=== PATIENT | female | born 1950 | race Caucasian/White ===

== ENCOUNTER → 2016-07-03 | Outpatient (CLI) | payer MEDICARE, OTHER ==
[~2016-07-03] MED LIST: ACET65TA; AMLO10TA; ASPI325T; AUGM500T34 PO; K-TA1TAB PO; LIDOCAINE 1% MDV 20ML VIAL As Ordered ONE; PERC5TAB6 PO; PROA1AER INH; SYNT50TA PO; TIZA4CAP3 PO; TOPA50TA7 PO; TOPI50TA; TRAZ100T4 PO; ZOFR8TAB PO
--- NOTE | 2016-07-03 17:33 | REP ---
ULTRASOUND GUIDED RIGHT AXILLARY LYMPH NODE BIOPSY: The procedure was performed under the direct supervision of Dr. Cheek. The risks and benefits of the procedure were explained to the patient and informed consent was obtained. The right axillary lymph node was localized using ultrasound guidance. The skin was prepped and draped in a sterile fashion. 1% Lidocaine was used as a local anesthetic. Using ultrasound guidance a #19/20-gauge coaxial needle biopsy system was inserted and advanced into the lymph node. 6 core biopsy samples were obtained and sent to the lab. The patient tolerated the procedure well and there were no immediate complications. After the appropriate amount of monitored convalescence the patient was discharged from the department. Reviewed by DESEAN Fernandez 07/04/2016 09:46 AEdited and Signed by Rei Cheek MD 07/04/2016 01:44 P
== END | disposition home or self-care (01) ==
LOC: M RADPRO 12:29
PROVIDERS: ATTEND Internal Medicine
DX: R59.0 Localized enlarged lymph nodes (principal); Z79.899 Other long term (current) drug therapy; Z88.8 Allergy status to other drugs, medicaments and biological substances

== ENCOUNTER → 2016-07-16 | Outpatient (REF) | payer MEDICARE, OTHER ==
[~2016-07-16] MED LIST changes: +BENT10CA PO; -LIDOCAINE 1% MDV 20ML VIAL As Ordered ONE
[2016-07-16 16:06] LABS: MEAN CORPUSCULAR HEMOGLOBIN 28.1 pg (27.0-33.0); MEAN CORPUSCULAR HGB CONC 32.5 g/dl (32.0-36.5); MEAN CORPUSCULAR VOLUME 86.6 fl (80.0-96.0); RED CELL DISTRIBUTION WIDTH 13.4 % (11.5-14.5); WHITE BLOOD COUNT 5.9 K/mm3 (4.0-10.0)
[2016-07-16 19:36] LABS: BASOPHILS 1 % (0-4); EOSINOPHILS 6 % (0-5)
== END ==
LOC: M LABDRAW1 15:21
PROVIDERS: ATTEND Surgery
DX: K57.92 Diverticulitis of intestine, part unspecified, without perforation or abscess without bleeding (principal)

== ENCOUNTER → 2016-07-23 | Outpatient (CLI) | payer MEDICARE, OTHER ==
--- NOTE | 2016-07-23 15:20 | REP ---
LEFT HIP: Three views of the left hip are performed. Patient reports falling on a pin cushion 1 month ago and feels a foreign body under the skin posteriorly. That area is marked on the final image with a metallic BB. A thin linear metallic foreign body is seen at the site of the reported palpable foreign body. This appears to represent a piece of a thin needle measuring 6 mm in length. There are multiple metallic surgical clips from prior surgery anteriorly in this region. The underlying bones are intact with no fracture or dislocation. There are multiple phleboliths in the pelvis. IMPRESSION: Linear metallic foreign body at the site of suspected foreign body, marked on one of the views with a metallic BB. This appears to represent a piece of a metallic needle in the soft tissues. Signed by Deon Santoyo MD 07/23/2016 07:40 P
== END ==
LOC: M RAD 13:09
PROVIDERS: ATTEND Surgery
DX: S70.352A Superficial foreign body, left thigh, initial encounter (principal); X58.XXXA Exposure to other specified factors, initial encounter; Y92.89 Other specified places as the place of occurrence of the external cause; Y93.89 Activity, other specified; Y99.8 Other external cause status

== ENCOUNTER → 2016-07-24 | Outpatient (CLI) | payer MEDICARE, OTHER ==
[~2016-07-24] VITALS: Ht 152.4 cm; Wt 64.9 kg
[~2016-07-24] MED LIST changes: +LIDOCAINE 2% INJ 100 MG/5 ML SDV (FOR ANES.) As Ordered ONE; +LR 1,000 ML IV SCH; +PROPOFOL 200 MG/20 ML VIAL As Ordered ONE
--- NOTE | 2016-07-24 10:42 | ROOR ---
Patient Name: Zofia Banda Procedure Date: 07/24/2016 10:23 AM Date of : 1950 Age: 65 Room: [facility] Gender: Female Note Status: Finalized Procedure: Upper GI endoscopy Indications: Epigastric abdominal pain, Suspected esophageal reflux Providers: Kj Merrill Jr, MD Referring MD: Jolene Luis DO Requesting Provider: Medicines: Propofol per Anesthesia Complications: No immediate complications. Procedure: Pre-Anesthesia Assessment: - Prior to the procedure, a History and Physical was performed, and patient medications and allergies were reviewed. The patient is competent. The risks and benefits of the procedure and the sedation options and risks were discussed with the patient. All questions were answered and informed consent was obtained. Patient identification and proposed procedure were verified by the physician and the nurse in the pre-procedure area and in the procedure room. Mental Status Examination: alert and oriented. Airway Examination: normal oropharyngeal airway and neck mobility. Respiratory Examination: clear to auscultation. CV Examination: normal. ASA Grade Assessment: II - A patient with mild systemic disease. After reviewing the risks and benefits, the patient was deemed in satisfactory condition to undergo the procedure. The anesthesia plan was to use moderate sedation / analgesia (conscious sedation). Immediately prior to administration of medications, the patient was re-assessed for adequacy to receive sedatives. The heart rate, respiratory rate, oxygen saturations, blood pressure, adequacy of pulmonary ventilation, and response to care were monitored throughout the procedure. The physical status of the patient was re-assessed after the procedure. The Endoscope was introduced through the mouth, and advanced to the second part of duodenum. The patient tolerated the procedure well. The upper GI endoscopy was accomplished without difficulty. Findings: The upper third of the esophagus, middle third of the esophagus and lower third of the esophagus were normal. A small hiatal hernia was present. The cardia, gastric fundus and gastric body were normal. Localized severe inflammation characterized by congestion (edema), erosions, erythema, friability and shallow ulcerations was found in the prepyloric region of the stomach. Biopsies were taken with a cold forceps for histology. The duodenal bulb, first portion of the duodenum and second portion of the duodenum were normal. Impression: - Normal upper third of esophagus, middle third of esophagus and lower third of esophagus. - Small hiatal hernia. - Normal cardia, gastric fundus and gastric body. - Gastritis. Biopsied. - Normal duodenal bulb, first portion of the duodenum and second portion of the duodenum. Recommendation: - Discharge patient to home (ambulatory). - Return to my office in 1 week. Kj Merrill MD Kj Merrill Jr, MD 07/24/2016 10:41:32 AM This report has been signed electronically. Number of Addenda: 0 Note Initiated On: 07/24/2016 10:23 AM Estimated Blood Loss: Estimated blood loss: none.
--- NOTE | 2016-07-24 11:06 | ROOR ---
Patient Name: Zofia Banda Procedure Date: 07/24/2016 10:25 AM Date of : 1950 Age: 65 Room: [facility] Gender: Female Note Status: Finalized Procedure: Colonoscopy Indications: Abdominal pain in the left lower quadrant, Follow-up of diverticulitis Providers: Kj Merrill Jr, MD Referring MD: Jolene Luis DO Requesting Provider: Medicines: Propofol per Anesthesia Complications: No immediate complications. Procedure: Pre-Anesthesia Assessment: - Prior to the procedure, a History and Physical was performed, and patient medications and allergies were reviewed. The patient is competent. The risks and benefits of the procedure and the sedation options and risks were discussed with the patient. All questions were answered and informed consent was obtained. Patient identification and proposed procedure were verified by the physician and the nurse in the pre-procedure area and in the procedure room. Mental Status Examination: alert and oriented. Airway Examination: normal oropharyngeal airway and neck mobility. Respiratory Examination: clear to auscultation. CV Examination: normal. ASA Grade Assessment: II - A patient with mild systemic disease. After reviewing the risks and benefits, the patient was deemed in satisfactory condition to undergo the procedure. The anesthesia plan was to use moderate sedation / analgesia (conscious sedation). Immediately prior to administration of medications, the patient was re-assessed for adequacy to receive sedatives. The heart rate, respiratory rate, oxygen saturations, blood pressure, adequacy of pulmonary ventilation, and response to care were monitored throughout the procedure. The physical status of the patient was re-assessed after the procedure. The Colonoscope was introduced through the anus and advanced to the cecum, identified by appendiceal orifice and ileocecal valve. The colonoscopy was performed without difficulty. The patient tolerated the procedure well. The quality of the bowel preparation was adequate and fair. Findings: The perianal and digital rectal examinations were normal. Pertinent negatives include normal sphincter tone, no palpable rectal lesions and no anal lesion or abnormality was detected. The ascending colon, cecum, appendiceal orifice and ileocecal valve appeared normal. A few small-mouthed diverticula were found in the descending colon and transverse colon. Multiple small and large-mouthed diverticula were found in the sigmoid colon. Impression: - Preparation of the colon was fair. - The ascending colon, cecum, appendiceal orifice and ileocecal valve are normal. - Diverticulosis in the descending colon and in the transverse colon. - Diverticulosis in the sigmoid colon. - No specimens collected. Recommendation: - Discharge patient to home (ambulatory). - Repeat colonoscopy in 10 years for screening purposes. Kj Merrill MD Kj Merrill Jr, MD 07/24/2016 11:05:56 AM This report has been signed electronically. Number of Addenda: 0 Note Initiated On: 07/24/2016 10:25 AM Estimated Blood Loss: Estimated blood loss: none.
[2016-07-24 11:30] VITALS: BP 141/74
== END ==
LOC: M OPP 09:17
PROVIDERS: ATTEND Surgery
DX: K57.32 Diverticulitis of large intestine without perforation or abscess without bleeding (principal); K29.70 Gastritis, unspecified, without bleeding; K44.9 Diaphragmatic hernia without obstruction or gangrene; R10.13 Epigastric pain; I10 Essential (primary) hypertension; E11.9 Type 2 diabetes mellitus without complications; E78.5 Hyperlipidemia, unspecified; J44.9 Chronic obstructive pulmonary disease, unspecified; F41.9 Anxiety disorder, unspecified; F32.9 Major depressive disorder, single episode, unspecified; G47.30 Sleep apnea, unspecified; E06.3 Autoimmune thyroiditis; R06.83 Snoring; M19.90 Unspecified osteoarthritis, unspecified site; J45.909 Unspecified asthma, uncomplicated; Z88.8 Allergy status to other drugs, medicaments and biological substances; Z80.1 Family history of malignant neoplasm of trachea, bronchus and lung; Z80.41 Family history of malignant neoplasm of ovary; Z79.899 Other long term (current) drug therapy
CPT/HCPCS: 88305; 99156; 99157; G0105

== ENCOUNTER 2016-10-08 15:25 | Emergency (ER) | payer MEDICARE, OTHER ==
[~2016-10-08] VITALS: Ht 152.4 cm; Wt 64.0 kg
[~2016-10-08 15:25] MED LIST changes: -LIDOCAINE 2% INJ 100 MG/5 ML SDV (FOR ANES.) As Ordered ONE; -LR 1,000 ML IV SCH; -PROPOFOL 200 MG/20 ML VIAL As Ordered ONE
[2016-10-08] MEDS ORDERED: ONDANSETRON 4MG/2ML VIAL (J2405) IV ONE (16:30)
[2016-10-08] MEDS ORDERED: MORPHINE 4 MG/ML 1ML SYRINGE IV PRN (16:30)
[2016-10-08 17:04] LABS: BASO % 0.5 % (0.0-1.0); EOS # 0.2 K/mm3 (0.0-0.50); EOS % 1.8 % (0.0-3.0); LARGE UNSTAINED CELL # 0.2 K/mm3 (0.0-0.4); LARGE UNSTAINED CELL % 1.8 % (0.0-4.0); LYMPH # 3.3 K/mm3 (1.5-4.5); LYMPH % 32.4 % (24.0-44.0); MEAN CORPUSCULAR HEMOGLOBIN 28.6 pg (27.0-33.0); MEAN CORPUSCULAR HGB CONC 33.8 g/dl (32.0-36.5); MEAN CORPUSCULAR VOLUME 84.8 fl (80.0-96.0); MONO # 0.6 K/mm3 (0.0-0.8); MONO % 5.8 % (0.0-5.0); NEUTROPHILS # 5.5 K/mm3 (1.8-7.7); NEUTROPHILS % 57.7 % (36.0-66.0); PLATELET COUNT, AUTOMATED 306 k/mm3 (150-450); RED CELL DISTRIBUTION WIDTH 13.2 % (11.5-14.5); WHITE BLOOD COUNT 9.5 K/mm3 (4.0-10.0)
[2016-10-08 17:09] LABS: CALCIUM OXALATE CRYSTALS SMALL
[2016-10-08 17:10] LABS: INR 0.88
[2016-10-08] MEDS ORDERED: KETOROLAC 30 MG/ML VIAL (J1885) IV ONE (17:15)
[2016-10-08] MEDS ORDERED: MORPHINE 4 MG/ML 1ML SYRINGE IV ONE (17:15)
[2016-10-08 17:27] LABS: ALBUMIN 4.1 GM/DL (3.2-5.2); ALBUMIN/GLOBULIN RATIO 1.24 (1.00-1.93); ALKALINE PHOSPHATASE 87 U/L (45-117); ALT/SGPT 19 U/L (12-78); ANION GAP 9 MEQ/L (8-16); AST/SGOT 12 U/L (15-37); BILIRUBIN,DIRECT < 0.1 MG/DL (0.0-0.2); BILIRUBIN,TOTAL 0.4 MG/DL (0.2-1.0); BLOOD UREA NITROGEN 18 MG/DL (7-18); CALCIUM LEVEL 9.1 MG/DL (8.8-10.2); CARBON DIOXIDE LEVEL 26 MEQ/L (21-32); CHLORIDE LEVEL 107 MEQ/L (98-107); CREATININE FOR GFR 0.75 MG/DL (0.55-1.02); GLOMERULAR FILTRATION RATE > 60.0 (>45); GLUCOSE, FASTING 92 MG/DL (80-110); POTASSIUM SERUM 3.5 MEQ/L (3.5-5.1); SODIUM LEVEL 142 MEQ/L (136-145); TOTAL PROTEIN 7.4 GM/DL (6.4-8.2)
[2016-10-08] MEDS ORDERED: FLOM5CAP PO (17:42)
[2016-10-08] MEDS ORDERED: NAPR250T2 PO (17:42)
[2016-10-08] MEDS ORDERED: ZOFR4TAB3 PO (17:42)
[2016-10-08] MEDS ORDERED: PERC10TA17 PO (17:42)
[2016-10-08 17:52] VITALS: BP 147/81
--- NOTE | 2016-10-08 18:21 | REP ---
CT ABDOMEN: HISTORY: Left sided pain. Hematuria. COMPARISON: 04/26/2016, a noncontrast enhanced examination and 06/09/2016, a contrast enhanced examination. The lung bases are unchanged. Limited evaluation of the solid intraabdominal organs show no gross abnormalities. The patient is status post cholecystectomy. Once again, there are multiple bilateral nephroliths. There is new left-sided hydronephrosis and hydroureter with periureteral edema which can be followed right to the ureterovesical junction where a 4 mm sized calcification resides. This represents a change from the prior exams. There are numerable bilateral pelvic phleboliths, status quo. There is no right-sided hydronephrosis or hydroureter. There is no free fluid or free air in the abdomen or pelvis. Limited evaluation of the abdominal aorta and periaortic regions show no significant changes. Limited evaluation of the bowel loops and mesenteries show no significant changes. There is sigmoid colon diverticulosis. The osseous structures stable and intact. IMPRESSION: Left-sided hydronephrosis and hydroureter with left-sided calculus at the UV junction as described above. Signed by Niko Pereira DO 10/10/2016 03:43 P
== END 2016-10-08 18:20 | disposition home or self-care (01) ==
LOC: M ED 16:48
DX: N13.2 Hydronephrosis with renal and ureteral calculous obstruction (principal)
CPT/HCPCS: 74176; 80048; 80076; 81001; 83605; 83690; 85025; 85610; 85730; 96374; 96375; 96376; 99283; J1885; J2405

== ENCOUNTER → 2016-10-15 | Outpatient (CLI) | payer MEDICARE, OTHER ==
[~2016-10-15] MED LIST changes: +FLOM5CAP PO; +NAPR250T2 PO; +PERC10TA17 PO; +ZOFR4TAB3 PO
--- NOTE | 2016-10-15 15:10 | REP ---
REASON: Pain after fall. Comparison hip MRI: None. There is moderate bilateral asymmetric hip joint space narrowing. There is no abnormal focal chondral or subchondral signal seen arising from the femoral or acetabular component of either hip. There is no prominent marginal osteophytosis. There is no abnormal signal seen arising from the trochanteric tendon or bursal region of either hip. There is no evidence of a mass. The cortical marrow signal seen throughout the imaged osseous pelvis is within normal limits. The signal and morphology throughout the imaged musculature is within normal limits. IMPRESSION: Bilateral hip degenerative changes as described above. No other abnormalities noted. Signed by Niko Pereira DO 10/15/2016 04:52 P
== END ==
LOC: M RAD 10:49
PROVIDERS: ATTEND Physician Assistant
DX: S70.02XA Contusion of left hip, initial encounter (principal); X58.XXXA Exposure to other specified factors, initial encounter; Y92.89 Other specified places as the place of occurrence of the external cause; Y93.9 Activity, unspecified; Y99.9 Unspecified external cause status

== ENCOUNTER → 2016-10-23 | Outpatient (REF) | payer MEDICARE, OTHER | LOC: M SMT 17:06 | PROVIDERS: ATTEND Urology | DX: N20.0 Calculus of kidney (principal) | CPT/HCPCS: 82360; G0463 ==

== ENCOUNTER → 2016-12-09 | Outpatient (REF) | payer MEDICARE, OTHER ==
[2016-12-09 14:48] LABS: REASON FOR REVIEW COMPREHENSIVE REVIEW
== END ==
LOC: M LAB REF 12:50
PROVIDERS: ATTEND Internal Medicine Medical Oncology
DX: R59.9 Enlarged lymph nodes, unspecified (principal)

== ENCOUNTER → 2016-12-30 | Outpatient (CLI) | payer MEDICARE, OTHER ==
[~2016-12-30] MED LIST changes: +E-Z-GAS II EFFERVESCENT PACKET (SODIUM BICARB./CITRIC ACID/SIMETHICONE) As Ordered ONE; +E-Z-HD 98% w/w 340GM SUSP BTL As Ordered ONE; +E-Z-PAQUE 96% w/w SUSP 176GM BTL As Ordered ONE; -NAPR250T2 PO; +NAPR250T4 PO; -PERC10TA17 PO; +PERC10TA26 PO; +PERC5TAB12 PO; -PERC5TAB6 PO; -PROA1AER INH; +PROAAER10 INH; -TOPA50TA7 PO; +TOPA50TA8 PO; +TRAZ-136 PO; -TRAZ100T4 PO
--- NOTE | 2016-12-30 17:52 | REP ---
UPPER GI AIR CONTRAST AND SMALL BOWEL FOLLOW-THROUGH: The procedure was performed under the direct supervision of Dr. Santoyo. The images were reviewed with Dr. Santoyo. The instrumentation technologist film shows no organomegaly or pathological masses. The intestinal gas pattern is nonspecific. There are surgical clips noted in the right upper quadrant. There are renal calculi noted in the left kidney. Liquid barium and gas producing granules were given in the erect position as well as liquid barium in the prone oblique position in order to perform a double contrast upper GI examination. Additionally liquid barium was given at the end of the examination in order to perform a small bowel follow-through. The oral and pharyngeal stages of deglutition are unremarkable. During esophageal transport there are tertiary waves demonstrated. There is no esophagitis, stricture, mucosal ring, or hiatal hernia. Gastroesophageal reflux is not demonstrated on this examination. Within the stomach there is retained ingested material. This makes it difficult to evaluate for polyps. The stomach is otherwise unremarkable. The duodenal cardenas are normally outlined. The mucosal folds are smooth and regular. There is no duodenitis, pancreatitis, peptic ulcer disease, or neoplasm. The visualized portion of the proximal small bowel appears normal in course and caliber. The barium column was followed through the small bowel to the level of the terminal ileum. Small bowel transit time was approximately 40 minutes. During fluoroscopy gentle palpation shows all loops are freely movable and pliable. There are no fixed or angulated loops. The small bowel mucosal pattern is normal in course and caliber. There is no transition to suggest a partial small bowel obstruction. Spot filming of terminal ileum shows it to be unremarkable. IMPRESSION: 1. Esophageal dysmotility. 2. There is retained ingested material within the stomach which makes it difficult to evaluate for polyps. The stomach is otherwise unremarkable. 3. There are left renal calculi identified. 3 minutes and 29 seconds of fluoroscopy time was utilized for this procedure. Reviewed by DESEAN Fernandez 12/31/2016 01:35 PEdited and Signed by Deon Santoyo MD 12/31/2016 05:34 P
== END ==
LOC: M RAD 08:35
PROVIDERS: ATTEND Internal Medicine Gastroenterology
DX: R63.4 Abnormal weight loss (principal); R19.7 Diarrhea, unspecified

== ENCOUNTER → 2017-01-19 | Outpatient (REF) | payer MEDICARE, OTHER ==
[~2017-01-19] MED LIST changes: -E-Z-GAS II EFFERVESCENT PACKET (SODIUM BICARB./CITRIC ACID/SIMETHICONE) As Ordered ONE; -E-Z-HD 98% w/w 340GM SUSP BTL As Ordered ONE; -E-Z-PAQUE 96% w/w SUSP 176GM BTL As Ordered ONE
== END ==
LOC: M LABDRAW1 10:36
PROVIDERS: ATTEND Internal Medicine Gastroenterology
DX: R63.4 Abnormal weight loss (principal); R19.7 Diarrhea, unspecified

== ENCOUNTER → 2017-02-10 | Outpatient (CLI) | payer MEDICARE, OTHER ==
--- NOTE | 2017-02-10 12:19 | REP ---
Gastric emptying nuclear scintigraphy: History: Early satiety. Abnormal weight loss. Technique: 0.98 mCi of technetium-99m sulfur colloid was ingested in two scrambled eggs and 6 ounces of water and sequential anterior and posterior images are acquired for an 89-minute imaging observation period. Regions of interest are drawn around the stomach to plot gastric emptying. Scintigraphic findings: Expected T1/2 is 90 minutes. 23 % emptying is observed in this patient during the 89-minute imaging observation period, for a calculated T1/2 in this patient of 198 minutes. Impression: Delayed gastric emptying. Signed by Rei Cheek MD 02/10/2017 12:10 P
== END ==
LOC: M RAD 09:21
PROVIDERS: ATTEND Internal Medicine Gastroenterology
DX: R68.81 Early satiety (principal); R63.4 Abnormal weight loss
CPT/HCPCS: 78264; A9541

== ENCOUNTER → 2017-05-04 | Outpatient (CLI) | payer MEDICARE, OTHER ==
--- NOTE | 2017-05-04 15:15 | REPMRS ---
Patient History The patient states she had a clinical breast exam in 2016. Family history of breast cancer in sister, breast cancer in mother, and breast cancer in maternal grandmother. Patient states she has lost 60 lbs since her last mammo due to illness Digital Mammo Diagnostic Bilateral: May 04, 2017 - Exam #: [id number] Bilateral CC and MLO view(s) were taken. Technologist: Anastasiia Trejo Technologist Prior study comparison: March 25, 2016, digital mammo diagnostic bilateral performed at [facility]. February 07, 2015, digital mammo diagnostic bilateral performed at [facility]. FINDINGS: There are scattered fibroglandular densities. There is a fairly symmetric fibroglandular pattern in both breasts. There has been no interval development of masses, areas of architectural distortion or clusters of microcalcifications typical of malignancy. ASSESSMENT: BI-RADS/ACR category 2 mammogram. Benign finding(s). Recommendation Routine screening mammogram of both breasts in 1 year (for women over age 40). This mammogram was interpreted with the aid of an FDA-approved computer-aided dectection system. Electronically Signed By: Deon Santoyo MD 05/04/17 [id number]
== END ==
LOC: M RAD 14:00
PROVIDERS: ATTEND Nurse Practitioner Family
DX: Z12.31 Encounter for screening mammogram for malignant neoplasm of breast (principal)

== ENCOUNTER → 2017-06-19 | Outpatient (CLI) | payer MEDICARE, OTHER ==
[2017-06-19 12:15] LABS: MEAN CORPUSCULAR HEMOGLOBIN 28.6 pg (27.0-33.0); MEAN CORPUSCULAR HGB CONC 33.2 g/dl (32.0-36.5); MEAN CORPUSCULAR VOLUME 86.1 fl (80.0-96.0); PLATELET COUNT, AUTOMATED 295 10^3/uL (150-450); RED CELL DISTRIBUTION WIDTH 12.9 % (11.5-14.5); WHITE BLOOD COUNT 5.4 10^3/uL (4.0-10.0)
[2017-06-19 12:24] LABS: CALCIUM OXALATE CRYSTALS SMALL
[2017-06-19 12:30] LABS: INR 0.91
[2017-06-19 12:47] LABS: ERYTHROCYTE SEDIMENTATION RATE 5 mm/hr (0-30)
[2017-06-19 12:53] LABS: ALBUMIN 4.2 GM/DL (3.2-5.2); ALBUMIN/GLOBULIN RATIO 1.45 (1.00-1.93); ALKALINE PHOSPHATASE 75 U/L (45-117); ALT/SGPT 19 U/L (12-78); ANION GAP 8 MEQ/L (8-16); AST/SGOT 17 U/L (7-37); BILIRUBIN,TOTAL 0.4 MG/DL (0.2-1.0); BLOOD UREA NITROGEN 25 MG/DL (7-18); CALCIUM LEVEL 9.5 MG/DL (8.8-10.2); CARBON DIOXIDE LEVEL 29 MEQ/L (21-32); CHLORIDE LEVEL 108 MEQ/L (98-107); CREATININE FOR GFR 0.58 MG/DL (0.55-1.02); GLOMERULAR FILTRATION RATE > 60.0 (>45); GLUCOSE, FASTING 87 MG/DL (80-110); POTASSIUM SERUM 3.8 MEQ/L (3.5-5.1); SODIUM LEVEL 145 MEQ/L (136-145); TOTAL PROTEIN 7.1 GM/DL (6.4-8.2)
== END ==
LOC: M ADMPAT 10:29
DX: M16.11 Unilateral primary osteoarthritis, right hip (principal); Z79.01 Long term (current) use of anticoagulants
CPT/HCPCS: 71020

== ENCOUNTER → 2017-06-24 | Outpatient (REF) | payer MEDICARE, OTHER ==
[2017-06-24 17:45] LABS: APPEARANCE, URINE MANUAL TURBID (CLEAR); COLOR, URINE MANUAL YELLOW (YELLOW)
[2017-06-24 17:46] LABS: BILIRUBIN, URINE MANUAL NEGATIVE (NEGATIVE); BLOOD URINE MANUAL TRACE (NEGATIVE); GLUCOSE, URINE (UA) MANUAL NEGATIVE (NEGATIVE); KETONE, URINE MANUAL NEGATIVE (NEGATIVE); LEUKOCYTE ESTERASE, URINE MAN POSITIVE (NEGATIVE); MICROSCOPIC INDICATED? MAN YES (NO); NITRITE, URINE MANUAL NEGATIVE (NEGATIVE); PROTEIN, URINE MANUAL NEGATIVE (NEGATIVE); SPECIFIC GRAVITY,URINE MANUAL 1.025 (1.002-1.035); UROBILINOGEN, URINE MANUAL NORMAL (NORMAL)
[2017-06-24 18:01] LABS: SQUAMOUS EPITHELIAL CELL URINE LARGE AMOUNT /hpf (SMALL AMT)
[2017-06-24 18:02] LABS: AMORPHOUS SEDIMENT, URINE LARGE AMOUNT (NEGATIVE); BACTERIA, URINE NONE SEEN; CALCIUM OXALATE CRYSTALS,URINE LARGE AMOUNT /hpf; HYALINE CAST, URINE NONE SEEN /lpf (0-1); MICROSCOPIC EXAM PERFORMED; MUCUS, URINE SMALL AMOUNT (NEGATIVE)
== END ==
LOC: M LAB REF 16:41
DX: R30.0 Dysuria (principal)
CPT/HCPCS: 81000

== ENCOUNTER 2017-07-02 06:58 | Inpatient (IN) | payer MEDICARE, OTHER ==
[2017-07-02] MEDS: LR 1,000 ML IV ×2 (07:15→13:30)
[2017-07-02] MEDS ORDERED: LIDOCAINE 1% MDV 20ML VIAL SQ (07:15)
[2017-07-02 07:38] LABS: GLUCOSE, FASTING 111 MG/DL (80-110)
[2017-07-02] MEDS ORDERED: fentaNYL 100 MCG/2 ML INJECTION (J3010) As Ordered ×2 (08:19→08:52)
[2017-07-02] MEDS ORDERED: MIDAZOLAM INJ 2 MG/2 ML VIAL (J2250) As Ordered ×2 (08:19→08:51)
[2017-07-02] MEDS: MIDAZOLAM INJ 2 MG/2 ML VIAL (J2250) IV (08:50)
[2017-07-02] MEDS: fentaNYL 100 MCG/2 ML INJECTION (J3010) IV ×3 (08:50→13:45)
[2017-07-02] MEDS ORDERED: PROPOFOL 200 MG/20 ML VIAL As Ordered (08:51)
[2017-07-02] MEDS ORDERED: ePHEDrine SULFATE 25 MG/5 ML(5MG/ML) SYRINGE As Ordered (08:51)
[2017-07-02] MEDS ORDERED: ONDANSETRON 4MG/2ML VIAL (J2405) As Ordered (08:51)
[2017-07-02] MEDS ORDERED: PHENYLEPHRINE INJ 10MG/ML VIAL (J2370) As Ordered (08:51)
[2017-07-02] MEDS ORDERED: PHENYLephrine HCL 500 MCG/5 ML (100MCG/ML) SYRINGE (J2370) As Ordered ×2 (08:51→11:03)
[2017-07-02] MEDS ORDERED: dexameTHASONE 4 MG/ML 1ML VIAL (J1100) As Ordered (08:51)
[2017-07-02] MEDS ORDERED: LIDOCAINE 2% INJ 100 MG/5 ML SDV (FOR ANES.) As Ordered (08:51)
[2017-07-02] MEDS ORDERED: LIDOCAINE 1% MDV 20ML VIAL (09:46)
[2017-07-02] MEDS ORDERED: ROPIvacaine 0.5% 30 ML INJECTION (J2795 PER 1MG) (09:46)
[2017-07-02] MEDS: ceFAZolin 1GM INJ (J0690 PER 500MG) As Ordered (10:53)
[2017-07-02] MEDS: BUPIVACAINE LIPOSOME/PF 1.3% 20 ML VIAL (13.3MG/ML)(EXPAREL) As Ordered (11:03)
[2017-07-02] MEDS: TRANEXAMIC ACID 100 MG/ML 10ML VIAL As Ordered (11:17)
[2017-07-02] MEDS: EPINEPHrine INJ 1 MG/ML 1ML AMP As Ordered (11:18)
[2017-07-02] MEDS ORDERED: MORPHINE 1MG/ML IN 0.9% NACL 100ML IV BAG As Ordered (11:38)
[2017-07-02] MEDS: MORPHINE 1MG/ML IN 0.9% NACL 100ML IV BAG IV (11:50)
[2017-07-02 12:10] LABS: BEDSIDE GLUCOSE 88 MG/DL (80-115)
[2017-07-02] MEDS ORDERED: PERCOCET 5MG/325MG TAB PO (12:30)
[2017-07-02] MEDS ORDERED: diphenhydrAMINE INJ 50MG/ML VIAL (J1200) IV (12:30)
[2017-07-02] MEDS ORDERED: ONDANSETRON 4MG/2ML VIAL (J2405) IV ×2 (12:30)
[2017-07-02] MEDS ORDERED: NALOXONE INJ 0.4 MG/1 ML VIAL (J2310) IV (12:30)
[2017-07-02] MEDS ORDERED: EPIDURAL/PCA KEYS XX (12:30)
[2017-07-02] MEDS ORDERED: ACETAMINOPHEN TAB 650MG DOSE (2X325MG) PO (12:30)
[2017-07-02] MEDS ORDERED: FLEET ENEMA PR (12:30)
[2017-07-02] MEDS ORDERED: NALBUPHINE HCL 10 MG/ML AMP (J2300) IV (12:30)
[2017-07-02 17:37] LABS: HEMATOCRIT 35.6 % (36.0-47.0); HEMOGLOBIN 11.8 g/dl (12.0-16.0); MEAN CORPUSCULAR HEMOGLOBIN 28.5 pg (27.0-33.0); MEAN CORPUSCULAR HGB CONC 33.1 g/dl (32.0-36.5); RED BLOOD COUNT 4.14 10^6/uL (4.00-5.40); RED CELL DISTRIBUTION WIDTH 12.7 % (11.5-14.5); WHITE BLOOD COUNT 13.2 10^3/uL (4.0-10.0)
[2017-07-02] MEDS: WARFARIN SOD 5 MG TAB PO (17:37)
[2017-07-02 17:59] LABS: POS COUNT POS FLAG
[2017-07-02 18:00] LABS: ANION GAP 7 MEQ/L (8-16); BLOOD UREA NITROGEN 11 MG/DL (7-18); CALCIUM LEVEL 8.3 MG/DL (8.8-10.2); CARBON DIOXIDE LEVEL 29 MEQ/L (21-32); CHLORIDE LEVEL 106 MEQ/L (98-107); GLOMERULAR FILTRATION RATE > 60.0 (>45); GLUCOSE, FASTING 130 MG/DL (80-110); SODIUM LEVEL 142 MEQ/L (136-145)
[2017-07-02] MEDS: METOCLOPRAMIDE 5 MG TAB PO (21:16)
[2017-07-02] MEDS: amLODIPine 5 MG TAB PO (21:17)
[2017-07-03] MEDS: LR 1,000 ML IV (02:26)
[2017-07-03] MEDS: ONDANSETRON 4MG/2ML VIAL (J2405) IV (03:13)
[2017-07-03] MEDS ORDERED: PERCOCET 5MG/325MG TAB PO (06:30)
[2017-07-03] MEDS ORDERED: ONDANSETRON 4 MG TAB (S0181) PO (06:30)
[2017-07-03] MEDS: PERCOCET 5MG/325MG TAB PO ×4 (07:00→23:45)
[2017-07-03] MEDS: SENOKOT S TAB PO ×2 (08:22→20:08)
[2017-07-03] MEDS: MIRALAX *UNIT DOSE* 17GM PACKET PO (08:22)
[2017-07-03] MEDS: MOM 30ML SUSPENSION UDC PO (08:22)
[2017-07-03] MEDS: amLODIPine 5 MG TAB PO (08:23)
[2017-07-03] MEDS: MORPHINE 15 MG SA TAB PO ×2 (08:23→20:09)
[2017-07-03] MEDS: METOCLOPRAMIDE 5 MG TAB PO ×4 (08:23→20:08)
[2017-07-03 10:38] LABS: HEMATOCRIT 34.4 % (36.0-47.0); HEMOGLOBIN 11.7 g/dl (12.0-16.0); MEAN CORPUSCULAR HEMOGLOBIN 29.2 pg (27.0-33.0); MEAN CORPUSCULAR VOLUME 85.8 fl (80.0-96.0); PLATELET COUNT, AUTOMATED 244 10^3/uL (150-450); RED BLOOD COUNT 4.01 10^6/uL (4.00-5.40); RED CELL DISTRIBUTION WIDTH 12.8 % (11.5-14.5); WHITE BLOOD COUNT 9.9 10^3/uL (4.0-10.0)
[2017-07-03 10:51] LABS: INR 1.13; PROTHROMBIN TIME 14.7 SECONDS (12.4-14.5)
[2017-07-03 11:02] LABS: ESTIMATED AVERAGE GLUCOSE 111 MG/DL (60-110); HEMOGLOBIN A1c 5.5 %
[2017-07-03 11:23] LABS: CHOLESTEROL LEVEL 177 MG/DL (<200); HDL CHOLESTEROL 59 MG/DL (>40); LDL CHOLESTEROL 99.8 MG/DL (<100); NON-HDL-C 118 MG/DL; TRIGLYCERIDES LEVEL 91 MG/DL (<150)
[2017-07-03] MEDS: WARFARIN SOD 5 MG TAB PO (16:40)
[2017-07-04] MEDS: PERCOCET 5MG/325MG TAB PO ×3 (05:30→18:09)
[2017-07-04 06:28] LABS: HEMATOCRIT 33.7 % (36.0-47.0); HEMOGLOBIN 11.3 g/dl (12.0-16.0); MEAN CORPUSCULAR HEMOGLOBIN 28.5 pg (27.0-33.0); MEAN CORPUSCULAR HGB CONC 33.5 g/dl (32.0-36.5); MEAN CORPUSCULAR VOLUME 85.1 fl (80.0-96.0); PLATELET COUNT, AUTOMATED 245 10^3/uL (150-450); RED BLOOD COUNT 3.96 10^6/uL (4.00-5.40); RED CELL DISTRIBUTION WIDTH 12.9 % (11.5-14.5); WHITE BLOOD COUNT 9.2 10^3/uL (4.0-10.0)
[2017-07-04] MEDS: MIRALAX *UNIT DOSE* 17GM PACKET PO (08:10)
[2017-07-04] MEDS: METOCLOPRAMIDE 5 MG TAB PO ×4 (08:10→21:02)
[2017-07-04] MEDS: SENOKOT S TAB PO ×2 (08:10→21:02)
[2017-07-04] MEDS: MORPHINE 15 MG SA TAB PO ×2 (08:11→21:02)
[2017-07-04] MEDS: amLODIPine 5 MG TAB PO ×2 (08:11→21:02)
[2017-07-04] MEDS: INFLUENZA QUADRIVALENT PF VACCINE 0.5ML SYRINGE (90686) IM (08:12)
[2017-07-04] MEDS: MOM 30ML SUSPENSION UDC PO (08:13)
[2017-07-04] MEDS: METOCLOPRAMIDE INJ 10MG/2ML VIAL (J2765) IV (11:00)
[2017-07-04] MEDS: cloNIDine 0.1 MG TAB PO (11:06)
[2017-07-04] MEDS: ATENOLOL 12.5MG PER 1/2 TABLET PO ×2 (11:09→21:01)
[2017-07-04] MEDS: FIORICET TAB PO (11:17)
[2017-07-04] MEDS: NS 250 ML IV (13:00)
[2017-07-04] MEDS: WARFARIN SOD 5 MG TAB PO (17:48)
[2017-07-05 07:39] LABS: HEMATOCRIT 33.7 % (36.0-47.0); HEMOGLOBIN 11.2 g/dl (12.0-16.0); MEAN CORPUSCULAR HEMOGLOBIN 29.2 pg (27.0-33.0); MEAN CORPUSCULAR HGB CONC 33.2 g/dl (32.0-36.5); PLATELET COUNT, AUTOMATED 277 10^3/uL (150-450); RED BLOOD COUNT 3.83 10^6/uL (4.00-5.40); RED CELL DISTRIBUTION WIDTH 13.2 % (11.5-14.5); WHITE BLOOD COUNT 11.5 10^3/uL (4.0-10.0)
[2017-07-05 07:59] LABS: INR 1.46; PROTHROMBIN TIME 18.1 SECONDS (12.4-14.5)
[2017-07-05] MEDS: PERCOCET 5MG/325MG TAB PO ×3 (08:04→18:49)
[2017-07-05] MEDS: MIRALAX *UNIT DOSE* 17GM PACKET PO (09:04)
[2017-07-05] MEDS: ATENOLOL 12.5MG PER 1/2 TABLET PO ×2 (09:04→20:40)
[2017-07-05] MEDS: MOM 30ML SUSPENSION UDC PO (09:04)
[2017-07-05] MEDS: METOCLOPRAMIDE 5 MG TAB PO ×4 (09:05→20:38)
[2017-07-05] MEDS: amLODIPine 5 MG TAB PO ×2 (09:05→20:39)
[2017-07-05] MEDS: SENOKOT S TAB PO ×2 (09:05→20:39)
[2017-07-05] MEDS: MORPHINE 15 MG SA TAB PO ×2 (09:05→20:39)
[2017-07-05] MEDS: WARFARIN SOD 5 MG TAB PO (17:18)
[2017-07-06] MEDS: PERCOCET 5MG/325MG TAB PO (01:46)
[2017-07-06 07:08] LABS: HEMATOCRIT 32.4 % (36.0-47.0); HEMOGLOBIN 10.7 g/dl (12.0-16.0); MEAN CORPUSCULAR HEMOGLOBIN 28.5 pg (27.0-33.0); MEAN CORPUSCULAR VOLUME 86.2 fl (80.0-96.0); PLATELET COUNT, AUTOMATED 349 10^3/uL (150-450); RED BLOOD COUNT 3.76 10^6/uL (4.00-5.40); RED CELL DISTRIBUTION WIDTH 13.2 % (11.5-14.5); WHITE BLOOD COUNT 6.9 10^3/uL (4.0-10.0)
[2017-07-06 07:16] LABS: INR 1.65
[2017-07-06] MEDS: METOCLOPRAMIDE 5 MG TAB PO (08:20)
[2017-07-06] MEDS: SENOKOT S TAB PO (08:20)
[2017-07-06] MEDS: amLODIPine 5 MG TAB PO (08:21)
[2017-07-06] MEDS: MORPHINE 15 MG SA TAB PO (08:21)
[2017-07-06] MEDS: ATENOLOL 12.5MG PER 1/2 TABLET PO (08:21)
[2017-07-06] MEDS: MOM 30ML SUSPENSION UDC PO (08:23)
[2017-07-06] MEDS: MIRALAX *UNIT DOSE* 17GM PACKET PO (08:23)
== END 2017-07-06 09:55 | disposition home health service (06) | DRG 470 ==
LOC: M OR 06:58 → M MS5PR 13:20
PROVIDERS: Orthopaedic Surgery
PROC: 0SRC0J9 Replacement of Right Knee Joint with Synthetic Substitute, Cemented, Open Approach (ICD-10-PCS; principal; 2017-07-02 09:40)
DX: M17.11 Unilateral primary osteoarthritis, right knee (principal); I10 Essential (primary) hypertension; E11.43 Type 2 diabetes mellitus with diabetic autonomic (poly)neuropathy; E03.9 Hypothyroidism, unspecified; M79.7 Fibromyalgia; R51 Headache; I95.2 Hypotension due to drugs; G47.33 Obstructive sleep apnea (adult) (pediatric); G47.00 Insomnia, unspecified; K21.9 Gastro-esophageal reflux disease without esophagitis; Z90.49 Acquired absence of other specified parts of digestive tract; Z90.710 Acquired absence of both cervix and uterus; Z87.442 Personal history of urinary calculi; Z79.899 Other long term (current) drug therapy; Z88.8 Allergy status to other drugs, medicaments and biological substances

== ENCOUNTER → 2017-07-09 | Outpatient (REF) | payer MEDICARE, OTHER ==
[2017-07-09 15:30] LABS: INR 2.66; PROTHROMBIN TIME 29.5 SECONDS (12.4-14.5)
== END ==
LOC: M SHH 14:56
DX: Z51.81 Encounter for therapeutic drug level monitoring (principal); Z79.01 Long term (current) use of anticoagulants
CPT/HCPCS: 85610

== ENCOUNTER → 2017-07-13 | Outpatient (REF) | payer MEDICARE, OTHER ==
[2017-07-13 13:07] LABS: INR 1.36; PROTHROMBIN TIME 17.1 SECONDS (12.4-14.5)
== END ==
LOC: M SHH 11:59
DX: Z79.01 Long term (current) use of anticoagulants (principal)
CPT/HCPCS: 85610

== ENCOUNTER → 2017-07-16 | Outpatient (REF) | payer MEDICARE, OTHER ==
[2017-07-16 12:57] LABS: INR 1.38; PROTHROMBIN TIME 17.3 SECONDS (12.4-14.5)
== END ==
LOC: M LABDRAW1 11:55
DX: Z79.01 Long term (current) use of anticoagulants (principal)
CPT/HCPCS: 85610

== ENCOUNTER → 2017-07-20 | Outpatient (REF) | payer MEDICARE, OTHER ==
[2017-07-20 14:20] LABS: INR 1.33; PROTHROMBIN TIME 16.8 SECONDS (12.4-14.5)
== END ==
LOC: M SHH 13:46
DX: Z79.01 Long term (current) use of anticoagulants (principal)
CPT/HCPCS: 85610

== ENCOUNTER → 2017-07-23 | Outpatient (REF) | payer MEDICARE, OTHER ==
[2017-07-23 16:19] LABS: INR 1.69; PROTHROMBIN TIME 20.4 SECONDS (12.4-14.5)
== END ==
LOC: M SHH 15:19
DX: Z79.01 Long term (current) use of anticoagulants (principal)
CPT/HCPCS: 85610

== ENCOUNTER → 2017-09-08 | Outpatient (CLI) | payer MEDICARE, OTHER ==
[2017-09-08 17:59] LABS: INR 0.99; PROTHROMBIN TIME 13.2 SECONDS (12.4-14.5)
[2017-09-08 18:00] LABS: PARTIAL THROMBOPLASTIN TIME 32.2 SECONDS (26.8-37.9)
== END ==
LOC: M SMT 14:31
DX: N20.0 Calculus of kidney (principal); Z79.899 Other long term (current) drug therapy
CPT/HCPCS: 85610

== ENCOUNTER 2017-09-21 07:32 | Day surgery (SDC) | payer MEDICARE, OTHER ==
[2017-09-21] MEDS ORDERED: PROPOFOL 200 MG/20 ML VIAL As Ordered (08:07)
[2017-09-21] MEDS ORDERED: LIDOCAINE 2% INJ 100 MG/5 ML SDV (FOR ANES.) As Ordered (08:07)
[2017-09-21] MEDS ORDERED: fentaNYL 100 MCG/2 ML INJECTION (J3010) As Ordered (08:07)
[2017-09-21] MEDS ORDERED: MIDAZOLAM INJ 2 MG/2 ML VIAL (J2250) As Ordered (08:07)
[2017-09-21] MEDS ORDERED: ROCURONIUM BROMIDE 50 MG/5 ML VIAL As Ordered (08:10)
[2017-09-21 08:17] LABS: BEDSIDE GLUCOSE 98 MG/DL (80-115)
[2017-09-21] MEDS: LR 1,000 ML IV (08:27)
[2017-09-21] MEDS ORDERED: ePHEDrine SULFATE 25 MG/5 ML(5MG/ML) SYRINGE As Ordered (09:30)
[2017-09-21] MEDS ORDERED: ONDANSETRON 4MG/2ML VIAL (J2405) As Ordered (09:31)
[2017-09-21] MEDS: CONRAY-60 60% 50ML VIAL (Q9961) As Ordered (09:40)
[2017-09-21] MEDS ORDERED: ONDANSETRON 4MG/2ML VIAL (J2405) IV (10:30)
[2017-09-21] MEDS ORDERED: fentaNYL 100 MCG/2 ML INJECTION (J3010) IV (10:30)
[2017-09-21] MEDS ORDERED: NORCO, ANEXSIA 5/325MG TABLET (HYDROcodone/ACETAMINOPHEN) PO (10:30)
[2017-09-21] MEDS ORDERED: oxyBUTYnin 5 MG TAB PO (10:30)
[2017-09-21] MEDS ORDERED: PERCOCET 5MG/325MG TAB PO ×2 (10:30)
[2017-09-21] MEDS ORDERED: LR 1,000 ML IV (10:30)
== END 2017-09-21 11:30 | disposition home or self-care (01) ==
LOC: M SDC 07:32
DX: N20.0 Calculus of kidney (principal); N20.1 Calculus of ureter; E03.9 Hypothyroidism, unspecified; E11.9 Type 2 diabetes mellitus without complications; I10 Essential (primary) hypertension; E78.5 Hyperlipidemia, unspecified; G47.30 Sleep apnea, unspecified; K44.9 Diaphragmatic hernia without obstruction or gangrene; M79.7 Fibromyalgia; F41.9 Anxiety disorder, unspecified; F32.9 Major depressive disorder, single episode, unspecified; Z79.899 Other long term (current) drug therapy
CPT/HCPCS: 52352

== ENCOUNTER → 2017-10-06 | Outpatient (REF) | payer MEDICARE, OTHER | LOC: M SMT 16:58 | DX: R30.0 Dysuria (principal) ==

== ENCOUNTER 2017-10-08 10:35 | Inpatient (IN) | payer MEDICARE, OTHER ==
[2017-10-08 11:32] LABS: BASO % 0.2 % (0.0-1.0); EOS % 0.2 % (0.0-3.0); HEMATOCRIT 36.7 % (36.0-47.0); HEMOGLOBIN 12.3 g/dl (12.0-15.5); IMMATURE GRANULOCYTE % 0.6 % (0-3.0); LYMPH # 1.3 10^3/uL (1.5-4.5); LYMPH % 7.9 % (24.0-44.0); MEAN CORPUSCULAR HEMOGLOBIN 28.7 pg (27.0-33.0); MEAN CORPUSCULAR HGB CONC 33.5 g/dl (32.0-36.5); MEAN CORPUSCULAR VOLUME 85.5 fl (80.0-96.0); MONO # 1.2 10^3/uL (0.0-0.8); MONO % 7.6 % (0.0-5.0); NEUTROPHILS # 13.3 10^3/uL (1.8-7.7); NEUTROPHILS % 83.5 % (36.0-66.0); PLATELET COUNT, AUTOMATED 303 10^3/uL (150-450); RED BLOOD COUNT 4.29 10^6/uL (4.00-5.40); RED CELL DISTRIBUTION WIDTH 12.6 % (11.5-14.5); WHITE BLOOD COUNT 15.9 10^3/uL (4.0-10.0)
[2017-10-08] MEDS: NS 1,000 ML IV (11:40)
[2017-10-08 11:48] LABS: BEDSIDE GLUCOSE 114 MG/DL (80-115)
[2017-10-08 11:49] LABS: ALBUMIN 3.1 GM/DL (3.2-5.2); ALBUMIN/GLOBULIN RATIO 0.78 (1.00-1.93); ALKALINE PHOSPHATASE 126 U/L (45-117); ALT/SGPT 29 U/L (12-78); ANION GAP 9 MEQ/L (8-16); AST/SGOT 14 U/L (7-37); BILIRUBIN,DIRECT < 0.1 MG/DL (0.0-0.2); BILIRUBIN,TOTAL 0.3 MG/DL (0.2-1.0); BLOOD UREA NITROGEN 20 MG/DL (7-18); CALCIUM LEVEL 9.1 MG/DL (8.8-10.2); CARBON DIOXIDE LEVEL 25 MEQ/L (21-32); CHLORIDE LEVEL 101 MEQ/L (98-107); CPK CREATINE PHOSPHOKINASE 47 U/L (26-192); CREATININE FOR GFR 0.96 MG/DL (0.55-1.30); ETHYL ALCOHOL (ETHANOL) 0.003 % (0.000-0.010); GLOMERULAR FILTRATION RATE > 60.0 (>45); GLUCOSE, FASTING 114 MG/DL (70-100); POTASSIUM SERUM 3.6 MEQ/L (3.5-5.1); SALICYLATE LEVEL < 1.7 MG/DL (5.0-30.0); SODIUM LEVEL 135 MEQ/L (136-145); TOTAL PROTEIN 7.1 GM/DL (6.4-8.2); TROPONIN I < 0.02 NG/ML (< 0.10)
[2017-10-08 11:55] LABS: ACETAMINOPHEN LEVEL < 2.0 UG/ML (10.0-30.0); CK-MB VALUE MASS < 1.0 NG/ML (<3.6); MB/CK RELATIVE INDEX 2.12 (< OR =4)
[2017-10-08 11:56] LABS: AMMONIA < 10 uMOL/L (<32)
[2017-10-08 13:11] LABS: AMPHETAMINES LEVEL URINE NEGATIVE (NEGATIVE); BARBITURATES URINE NEGATIVE (NEGATIVE); BENZODIAZEPINES URINE NEGATIVE (NEGATIVE); CANNABINOIDS URINE NEGATIVE (NEGATIVE); COCAINE METABOLITE URINE NEGATIVE (NEGATIVE); METHADONE URINE NEGATIVE (NEGATIVE); OPIATES URINE NEGATIVE (NEGATIVE); PHENCYCLIDINE URINE NEGATIVE (NEGATIVE)
[2017-10-08 13:55] LABS: KETONE, URINE AUTO RFX 2+ mg/dL (NEGATIVE); MUCUS, URINE RFX SMALL (NEGATIVE); NITRITE, URINE AUTO RFX NEGATIVE (NEGATIVE); RBC, URINE AUTO RFX 21 /HPF (0-3); SPECIFIC GRAVITY UR AUTO RFX 1.015 (1.002-1.035); SQUAM EPITHELIAL CELL UR AURFX 1 /HPF (0-6)
[2017-10-08 13:58] LABS: LEUKOCYTE ESTERASE UR AUTO RFX 3+ (NEGATIVE); WBC, URINE AUTO RFX TNTC /HPF (0-3)
[2017-10-08 15:54] LABS: LACTIC ACID SEPSIS PROTOCOL 1.9 MMOL/L (0.4-2.0)
[2017-10-08] MEDS: cefTRIAXone SOD 2 GM in D5W MINI-BAG PLUS 50 ML IV (16:26)
[2017-10-08] MEDS: POTASSIUM CHLORIDE 10 MEQ SR TABLET PO (16:26)
[2017-10-08] MEDS ORDERED: oxyBUTYnin 5 MG TAB PO (16:30)
[2017-10-08] MEDS: ALPRAZolam 0.5 MG TAB PO (16:51)
[2017-10-08 18:21] LABS: VENOUS BASE EXCESS -4.3 (-2.0-2.0); VENOUS HCO3 16.5 MEQ/L (23.0-27.0); VENOUS O2 SATURATION 99.6 % (60.0-80.0); VENOUS PARTIAL PRESSURE CO2 20.8 mmHg (38.0-50.0); VENOUS PARTIAL PRESSURE O2 213.9 mmHg (30.0-50.0); VENOUS PH 7.518 UNITS (7.330-7.430); VENOUS TOTAL CO2 17.2 MEQ/L (24.0-28.0)
[2017-10-08] MEDS: ACETAMINOPHEN TAB 650MG DOSE (2X325MG) PO (18:51)
[2017-10-08] MEDS: METOCLOPRAMIDE 5 MG TAB PO (18:51)
[2017-10-08] MEDS: PERCOCET 5MG/325MG TAB PO (18:52)
[2017-10-08 19:46] LABS: INR 1.17; PROTHROMBIN TIME 15.1 SECONDS (12.4-14.5)
[2017-10-08 20:06] LABS: CK-MB VALUE MASS < 1.0 NG/ML (<3.6); CPK CREATINE PHOSPHOKINASE 53 U/L (26-192); MB/CK RELATIVE INDEX 1.88 (< OR =4); TROPONIN I < 0.02 NG/ML (< 0.10)
[2017-10-08] MEDS: FLUCONAZOLE 400 MG in APPROPRIATE DILUENT 1 EA IV (20:19)
[2017-10-08] MEDS: SENOKOT S TAB PO (20:19)
[2017-10-08] MEDS: LR 1,000 ML IV (20:21)
[2017-10-08] MEDS: HEPARIN SOD (PORCINE) 5000 UNITS/ML VIAL SC (21:28)
[2017-10-09 05:52] LABS: HEMATOCRIT 35.6 % (36.0-47.0); HEMOGLOBIN 11.8 g/dl (12.0-15.5); MEAN CORPUSCULAR HEMOGLOBIN 28.2 pg (27.0-33.0); MEAN CORPUSCULAR HGB CONC 33.1 g/dl (32.0-36.5); PLATELET COUNT, AUTOMATED 330 10^3/uL (150-450); RED BLOOD COUNT 4.19 10^6/uL (4.00-5.40); RED CELL DISTRIBUTION WIDTH 12.8 % (11.5-14.5); WHITE BLOOD COUNT 11.9 10^3/uL (4.0-10.0)
[2017-10-09 06:03] LABS: INR 1.14; PROTHROMBIN TIME 14.8 SECONDS (12.4-14.5)
[2017-10-09 06:16] LABS: ALBUMIN 2.5 GM/DL (3.2-5.2); ALBUMIN/GLOBULIN RATIO 0.68 (1.00-1.93); ALKALINE PHOSPHATASE 117 U/L (45-117); ALT/SGPT 25 U/L (12-78); ANION GAP 6 MEQ/L (8-16); AST/SGOT 20 U/L (7-37); BILIRUBIN,TOTAL 0.3 MG/DL (0.2-1.0); BLOOD UREA NITROGEN 14 MG/DL (7-18); CALCIUM LEVEL 8.7 MG/DL (8.8-10.2); CARBON DIOXIDE LEVEL 25 MEQ/L (21-32); CHLORIDE LEVEL 109 MEQ/L (98-107); CREATININE FOR GFR 0.72 MG/DL (0.55-1.30); GLOMERULAR FILTRATION RATE > 60.0 (>45); GLUCOSE, FASTING 109 MG/DL (70-100); MAGNESIUM LEVEL 1.9 MG/DL (1.8-2.4); POTASSIUM SERUM 3.7 MEQ/L (3.5-5.1); SODIUM LEVEL 140 MEQ/L (136-145); TOTAL PROTEIN 6.2 GM/DL (6.4-8.2)
[2017-10-09] MEDS: METOCLOPRAMIDE 5 MG TAB PO ×3 (06:37→17:49)
[2017-10-09] MEDS: HEPARIN SOD (PORCINE) 5000 UNITS/ML VIAL SC ×3 (06:37→22:16)
[2017-10-09] MEDS: PANTOPRAZOLE 40MG TAB (PROTONIX) PO (08:15)
[2017-10-09] MEDS: ONDANSETRON 4MG/2ML VIAL (J2405) IV ×2 (08:15→22:16)
[2017-10-09] MEDS: SENOKOT S TAB PO ×2 (08:15→22:15)
[2017-10-09] MEDS: TAMSULOSIN 0.4 MG CAP PO (08:15)
[2017-10-09] MEDS ORDERED: SLF 3 ML SYR IV (08:30)
[2017-10-09] MEDS: ACETAMINOPHEN TAB 650MG DOSE (2X325MG) PO (12:17)
[2017-10-09] MEDS: SLF 3 ML SYR IV ×2 (15:09→22:16)
[2017-10-09 15:29] LABS: APPEARANCE, URINE HAZY (CLEAR); BACTERIA, URINE AUTO NEGATIVE (NEGATIVE); BILIRUBIN, URINE AUTO NEGATIVE (NEGATIVE); BLOOD, URINE BLOOD 1+ (NEGATIVE); COLOR, URINE YELLOW (YELLOW); GLUCOSE, URINE (UA) AUTO NEGATIVE (NEGATIVE); KETONE, URINE AUTO NEGATIVE (NEGATIVE); LEUKOCYTE ESTERASE, URINE AUTO 2+ (NEGATIVE); MUCUS, URINE SMALL (NEGATIVE); NITRITE, URINE AUTO NEGATIVE (NEGATIVE); PROTEIN, URINE AUTO NEGATIVE (NEGATIVE); RBC, URINE AUTO 10 /HPF (0-3); SPECIFIC GRAVITY URINE AUTO 1.009 (1.002-1.035); SQUAMOUS EPITHELIAL CELL UR AU 1 /HPF (0-6); UROBILINOGEN, URINE AUTO 0.2 mg/dL (0.0-2.0); WBC, URINE AUTO 114 /HPF (0-3)
[2017-10-09] MEDS: cefTRIAXone SOD 2 GM in D5W MINI-BAG PLUS 50 ML IV (17:42)
[2017-10-09] MEDS: FLUCONAZOLE 400 MG in APPROPRIATE DILUENT 1 EA IV (18:47)
[2017-10-09] MEDS: PERCOCET 5MG/325MG TAB PO (22:16)
[2017-10-10 05:14] LABS: HEMATOCRIT 33.7 % (36.0-47.0); HEMOGLOBIN 11.2 g/dl (12.0-15.5); MEAN CORPUSCULAR HEMOGLOBIN 27.9 pg (27.0-33.0); MEAN CORPUSCULAR HGB CONC 33.2 g/dl (32.0-36.5); PLATELET COUNT, AUTOMATED 319 10^3/uL (150-450); RED BLOOD COUNT 4.01 10^6/uL (4.00-5.40); RED CELL DISTRIBUTION WIDTH 12.7 % (11.5-14.5); WHITE BLOOD COUNT 10.6 10^3/uL (4.0-10.0)
[2017-10-10] MEDS: HEPARIN SOD (PORCINE) 5000 UNITS/ML VIAL SC ×3 (05:28→22:08)
[2017-10-10] MEDS: SLF 3 ML SYR IV ×3 (05:29→22:08)
[2017-10-10 05:33] LABS: PROTHROMBIN TIME 14.4 SECONDS (12.4-14.5)
[2017-10-10 05:43] LABS: ALBUMIN 2.6 GM/DL (3.2-5.2); ALBUMIN/GLOBULIN RATIO 0.84 (1.00-1.93); ALKALINE PHOSPHATASE 138 U/L (45-117); ALT/SGPT 57 U/L (12-78); ANION GAP 8 MEQ/L (8-16); AST/SGOT 55 U/L (7-37); BILIRUBIN,TOTAL 0.3 MG/DL (0.2-1.0); BLOOD UREA NITROGEN 8 MG/DL (7-18); CALCIUM LEVEL 8.4 MG/DL (8.8-10.2); CARBON DIOXIDE LEVEL 27 MEQ/L (21-32); CHLORIDE LEVEL 109 MEQ/L (98-107); CREATININE FOR GFR 0.51 MG/DL (0.55-1.30); FREE THYROXINE INDEX 3.6 % (1.3-4.8); GLOMERULAR FILTRATION RATE > 60.0 (>45); GLUCOSE, FASTING 97 MG/DL (70-100); MAGNESIUM LEVEL 1.7 MG/DL (1.8-2.4); POTASSIUM SERUM 3.6 MEQ/L (3.5-5.1); SODIUM LEVEL 144 MEQ/L (136-145); T UPTAKE 36 % (30-39); TOTAL PROTEIN 5.7 GM/DL (6.4-8.2)
[2017-10-10] MEDS: METOCLOPRAMIDE 5 MG TAB PO ×3 (06:41→17:00)
[2017-10-10] MEDS: MAG SULF 1GM/100ML (MAG RUN) 1 GM in APPROPRIATE DILUENT 1 EA IV (08:37)
[2017-10-10] MEDS: POTASSIUM CHLORIDE 10 MEQ SR TABLET PO (08:38)
[2017-10-10] MEDS: SENOKOT S TAB PO ×2 (08:38→20:26)
[2017-10-10] MEDS: PANTOPRAZOLE 40MG TAB (PROTONIX) PO (08:38)
[2017-10-10] MEDS: TAMSULOSIN 0.4 MG CAP PO (08:38)
[2017-10-10] MEDS: cefTRIAXone SOD 2 GM in D5W MINI-BAG PLUS 50 ML IV (17:00)
[2017-10-10] MEDS: FLUCONAZOLE 400 MG in APPROPRIATE DILUENT 1 EA IV (18:20)
[2017-10-11] MEDS: HEPARIN SOD (PORCINE) 5000 UNITS/ML VIAL SC (06:27)
[2017-10-11] MEDS: SLF 3 ML SYR IV (06:27)
[2017-10-11 06:57] LABS: HEMATOCRIT 34.4 % (36.0-47.0); HEMOGLOBIN 11.4 g/dl (12.0-15.5); MEAN CORPUSCULAR HEMOGLOBIN 28.4 pg (27.0-33.0); MEAN CORPUSCULAR HGB CONC 33.1 g/dl (32.0-36.5); MEAN CORPUSCULAR VOLUME 85.6 fl (80.0-96.0); PLATELET COUNT, AUTOMATED 349 10^3/uL (150-450); RED BLOOD COUNT 4.02 10^6/uL (4.00-5.40); RED CELL DISTRIBUTION WIDTH 12.9 % (11.5-14.5); WHITE BLOOD COUNT 10.3 10^3/uL (4.0-10.0)
[2017-10-11 07:07] LABS: INR 1.04; PROTHROMBIN TIME 13.7 SECONDS (12.4-14.5)
[2017-10-11 07:13] LABS: ALBUMIN 2.5 GM/DL (3.2-5.2); ALBUMIN/GLOBULIN RATIO 0.63 (1.00-1.93); ALKALINE PHOSPHATASE 129 U/L (45-117); ALT/SGPT 44 U/L (12-78); ANION GAP 8 MEQ/L (8-16); AST/SGOT 24 U/L (7-37); BILIRUBIN,TOTAL 0.3 MG/DL (0.2-1.0); BLOOD UREA NITROGEN 8 MG/DL (7-18); CALCIUM LEVEL 8.9 MG/DL (8.8-10.2); CARBON DIOXIDE LEVEL 26 MEQ/L (21-32); CHLORIDE LEVEL 108 MEQ/L (98-107); CREATININE FOR GFR 0.47 MG/DL (0.55-1.30); GLOMERULAR FILTRATION RATE > 60.0 (>45); GLUCOSE, FASTING 88 MG/DL (70-100); MAGNESIUM LEVEL 1.8 MG/DL (1.8-2.4); POTASSIUM SERUM 3.7 MEQ/L (3.5-5.1); SODIUM LEVEL 142 MEQ/L (136-145); TOTAL PROTEIN 6.5 GM/DL (6.4-8.2)
[2017-10-11 08:01] LABS: C REACTIVE PROTEIN QUANTITATIV 8.03 MG/DL (0.00-0.30)
[2017-10-11] MEDS: SENOKOT S TAB PO (08:11)
[2017-10-11] MEDS: PANTOPRAZOLE 40MG TAB (PROTONIX) PO (08:11)
[2017-10-11] MEDS: TAMSULOSIN 0.4 MG CAP PO (08:11)
[2017-10-11] MEDS: METOCLOPRAMIDE 5 MG TAB PO (08:11)
== END 2017-10-11 12:25 | disposition home or self-care (01) | DRG 872 ==
LOC: M MS5PR 10-10 21:05 → M ED 10:35 → M ED INP 16:18 → M PCU 18:17
DX: A41.9 Sepsis, unspecified organism (principal); R44.0 Auditory hallucinations; N13.6 Pyonephrosis; E03.9 Hypothyroidism, unspecified; G47.33 Obstructive sleep apnea (adult) (pediatric); F41.9 Anxiety disorder, unspecified; K21.9 Gastro-esophageal reflux disease without esophagitis; I10 Essential (primary) hypertension; K31.84 Gastroparesis; J45.909 Unspecified asthma, uncomplicated; F40.240 Claustrophobia; M79.7 Fibromyalgia; Z86.73 Personal history of transient ischemic attack (TIA), and cerebral infarction without residual deficits; Z88.8 Allergy status to other drugs, medicaments and biological substances; Z96.651 Presence of right artificial knee joint; Z79.01 Long term (current) use of anticoagulants; Z79.899 Other long term (current) drug therapy; Z87.442 Personal history of urinary calculi

== ENCOUNTER → 2017-10-20 | Outpatient (REF) | payer MEDICARE, OTHER | LOC: M LAB REF 11:53 | DX: N39.0 Urinary tract infection, site not specified (principal) | CPT/HCPCS: 87086 ==

== ENCOUNTER → 2017-11-10 | Outpatient (REF) | payer MEDICARE, OTHER ==
[2017-11-10 19:46] LABS: APPEARANCE, URINE CLEAR (CLEAR); BACTERIA, URINE AUTO NEGATIVE (NEGATIVE); BILIRUBIN, URINE AUTO NEGATIVE (NEGATIVE); BLOOD, URINE BLOOD NEGATIVE (NEGATIVE); COLOR, URINE YELLOW (YELLOW); GLUCOSE, URINE (UA) AUTO NEGATIVE (NEGATIVE); KETONE, URINE AUTO NEGATIVE (NEGATIVE); LEUKOCYTE ESTERASE, URINE AUTO TRACE (NEGATIVE); MUCUS, URINE SMALL (NEGATIVE); NITRITE, URINE AUTO NEGATIVE (NEGATIVE); PROTEIN, URINE AUTO NEGATIVE (NEGATIVE); RBC, URINE AUTO 1 /HPF (0-3); SPECIFIC GRAVITY URINE AUTO 1.016 (1.002-1.035); SQUAMOUS EPITHELIAL CELL UR AU 0 /HPF (0-6); UROBILINOGEN, URINE AUTO 0.2 mg/dL (0.0-2.0); WBC, URINE AUTO 8 /HPF (0-3)
== END ==
LOC: M SMT 17:03
DX: R32 Unspecified urinary incontinence (principal)
CPT/HCPCS: 81001

== ENCOUNTER → 2017-11-19 | Outpatient (CLI) | payer MEDICARE, OTHER | LOC: M LRY 11:59 | DX: R06.89 Other abnormalities of breathing (principal) | CPT/HCPCS: 71046; 94640 ==

== ENCOUNTER → 2018-03-15 | Outpatient (REF) | payer MEDICARE, OTHER ==
[2018-03-15 14:20] LABS: APPEARANCE, URINE CLOUDY (CLEAR); BACTERIA, URINE AUTO 1+ (NEGATIVE); BILIRUBIN, URINE AUTO NEGATIVE (NEGATIVE); BLOOD, URINE BLOOD 2+ (NEGATIVE); COLOR, URINE AMBER (YELLOW); GLUCOSE, URINE (UA) AUTO NEGATIVE (NEGATIVE); KETONE, URINE AUTO NEGATIVE (NEGATIVE); LEUKOCYTE ESTERASE, URINE AUTO 1+ (NEGATIVE); NITRITE, URINE AUTO NEGATIVE (NEGATIVE); PROTEIN, URINE AUTO NEGATIVE (NEGATIVE); RBC, URINE AUTO TNTC /HPF (0-3); SPECIFIC GRAVITY URINE AUTO 1.017 (1.002-1.035); SQUAMOUS EPITHELIAL CELL UR AU 3 /HPF (0-6); UROBILINOGEN, URINE AUTO 0.2 mg/dL (0.0-2.0); WBC, URINE AUTO TNTC /HPF (0-3)
== END ==
LOC: M SMT 13:30
DX: R30.0 Dysuria (principal)
CPT/HCPCS: 81001

== ENCOUNTER → 2018-03-16 | Outpatient (CLI) | payer MEDICARE, OTHER ==
[~2018-03-16] MED LIST changes: -ACET65TA; -AMLO10TA; -ASPI325T; -AUGM500T34 PO; -BENT10CA PO; -FLOM5CAP PO; +ISOVUE-370 76% 100ML VIAL (Q9967) As Ordered; -K-TA1TAB PO; -NAPR250T4 PO; -PERC10TA26 PO; -PERC5TAB12 PO; -PROAAER10 INH; -SYNT50TA PO; -TIZA4CAP3 PO; -TOPA50TA8 PO; -TOPI50TA; -TRAZ-136 PO; -ZOFR4TAB3 PO; -ZOFR8TAB PO
== END ==
LOC: M RAD 15:40
DX: K76.89 Other specified diseases of liver (principal); N28.1 Cyst of kidney, acquired; N20.0 Calculus of kidney; K57.30 Diverticulosis of large intestine without perforation or abscess without bleeding; R31.29 Other microscopic hematuria; Z90.49 Acquired absence of other specified parts of digestive tract
CPT/HCPCS: Q9967

== ENCOUNTER → 2018-03-16 | Outpatient (CLI) | payer MEDICARE, OTHER ==
[2018-03-16 14:00] LABS: ANION GAP 11 MEQ/L (8-16); BLOOD UREA NITROGEN 20 MG/DL (7-18); CALCIUM LEVEL 9.3 MG/DL (8.8-10.2); CARBON DIOXIDE LEVEL 25 MEQ/L (21-32); CHLORIDE LEVEL 108 MEQ/L (98-107); CREATININE FOR GFR 0.63 MG/DL (0.55-1.30); GLOMERULAR FILTRATION RATE > 60.0 (>45); GLUCOSE, FASTING 92 MG/DL (70-100); POTASSIUM SERUM 4.5 MEQ/L (3.5-5.1); SODIUM LEVEL 144 MEQ/L (136-145)
== END ==
LOC: M SMT 11:33
DX: R31.29 Other microscopic hematuria (principal)

== ENCOUNTER → 2018-03-19 | Outpatient (REF) | payer MEDICARE, OTHER | LOC: M LAB REF 16:17 | DX: N39.0 Urinary tract infection, site not specified (principal) | CPT/HCPCS: 87086 ==

== ENCOUNTER → 2018-03-19 | Outpatient (REF) | payer MEDICARE, OTHER | LOC: M LAB REF 17:14 | DX: R59.0 Localized enlarged lymph nodes (principal); N39.0 Urinary tract infection, site not specified | CPT/HCPCS: 86304 ==

== ENCOUNTER → 2018-03-23 | Outpatient (CLI) | payer MEDICARE, OTHER | LOC: M RAD 09:41 | DX: R31.9 Hematuria, unspecified (principal) | CPT/HCPCS: 76857 ==

== ENCOUNTER → 2018-05-06 | Outpatient (CLI) | payer MEDICARE, OTHER | LOC: M RAD 13:19 | DX: Z12.31 Encounter for screening mammogram for malignant neoplasm of breast (principal); N63.10 Unspecified lump in the right breast, unspecified quadrant; N63.20 Unspecified lump in the left breast, unspecified quadrant; Z80.3 Family history of malignant neoplasm of breast | CPT/HCPCS: 77067 ==

== ENCOUNTER 2018-06-01 11:03 | Inpatient (IN) | payer MEDICARE, OTHER ==
[2018-06-01] MEDS: NS 1,000 ML IV ×4 (12:00→20:05)
[2018-06-01 12:09] LABS: BASO # 0.1 10^3/uL (0.0-0.2); BASO % 0.4 % (0.0-1.0); EOS # 0.1 10^3/uL (0.0-0.50); EOS % 0.4 % (0.0-3.0); HEMATOCRIT 37.5 % (36.0-47.0); HEMOGLOBIN 12.4 g/dl (12.0-15.5); IMMATURE GRANULOCYTE % 0.8 % (0-3.0); LYMPH # 1.4 10^3/uL (1.5-4.5); MEAN CORPUSCULAR HEMOGLOBIN 28.6 pg (27.0-33.0); MEAN CORPUSCULAR HGB CONC 33.1 g/dl (32.0-36.5); MEAN CORPUSCULAR VOLUME 86.4 fl (80.0-96.0); NEUTROPHILS # 11.2 10^3/uL (1.8-7.7); NEUTROPHILS % 81.4 % (36.0-66.0); PLATELET COUNT, AUTOMATED 317 10^3/uL (150-450); RED BLOOD COUNT 4.34 10^6/uL (4.00-5.40); RED CELL DISTRIBUTION WIDTH 12.3 % (11.5-14.5); WHITE BLOOD COUNT 13.7 10^3/uL (4.0-10.0)
[2018-06-01] MEDS: MORPHINE 4 MG/ML 1ML VIAL/SYRINGE (J2270) IV ×4 (12:22→21:47)
[2018-06-01] MEDS: ONDANSETRON 4MG/2ML VIAL (J2405) IV (12:22)
[2018-06-01 12:26] LABS: LACTIC ACID SEPSIS PROTOCOL 1.9 MMOL/L (0.4-2.0)
[2018-06-01 12:27] LABS: ALBUMIN 3.3 GM/DL (3.2-5.2); ALBUMIN/GLOBULIN RATIO 0.94 (1.00-1.93); ALKALINE PHOSPHATASE 95 U/L (45-117); ALT/SGPT 13 U/L (12-78); AMYLASE 22 U/L (25-115); ANION GAP 13 MEQ/L (8-16); AST/SGOT 9 U/L (7-37); BILIRUBIN,DIRECT 0.1 MG/DL (0.0-0.2); BILIRUBIN,TOTAL 0.4 MG/DL (0.2-1.0); BLOOD UREA NITROGEN 24 MG/DL (7-18); CALCIUM LEVEL 8.9 MG/DL (8.8-10.2); CARBON DIOXIDE LEVEL 24 MEQ/L (21-32); CHLORIDE LEVEL 102 MEQ/L (98-107); CREATININE FOR GFR 0.76 MG/DL (0.55-1.30); GLOMERULAR FILTRATION RATE > 60.0 (>45); GLUCOSE, FASTING 95 MG/DL (70-100); LIPASE 118 U/L (73-393); POTASSIUM SERUM 3.6 MEQ/L (3.5-5.1); SODIUM LEVEL 139 MEQ/L (136-145); TOTAL PROTEIN 6.8 GM/DL (6.4-8.2)
[2018-06-01] MEDS: GASTROGRAFIN SOLUTION 30ML PO ×2 (12:59→13:51)
[2018-06-01] MEDS ORDERED: ISOVUE-370 76% 100ML VIAL (Q9967) As Ordered (14:13)
[2018-06-01 14:32] LABS: KETONE, URINE AUTO RFX 2+ mg/dL (NEGATIVE); MUCUS, URINE RFX SMALL (NEGATIVE); NITRITE, URINE AUTO RFX NEGATIVE (NEGATIVE); RBC, URINE AUTO RFX 5 /HPF (0-3); SPECIFIC GRAVITY UR AUTO RFX 1.016 (1.002-1.035); SQUAM EPITHELIAL CELL UR AURFX 1 /HPF (0-6)
[2018-06-01 15:08] LABS: LEUKOCYTE ESTERASE UR AUTO RFX 1+ (NEGATIVE); WBC, URINE AUTO RFX 45 /HPF (0-3)
[2018-06-01] MEDS: metroNIDAZOLE 500 MG in APPROPRIATE DILUENT 1 EA IV (16:30)
[2018-06-01] MEDS: CIPROFLOXACIN 400 MG in APPROPRIATE DILUENT 1 EA IV (17:15)
[2018-06-01] MEDS: PERCOCET 5MG/325MG TAB PO ×2 (18:49→23:54)
[2018-06-01] MEDS: tiZANidine 4 MG TAB PO (21:45)
[2018-06-01] MEDS: TAMSULOSIN 0.4 MG CAP PO (21:45)
[2018-06-01 23:41] LABS: BEDSIDE GLUCOSE 119 MG/DL (80-115)
[2018-06-02] MEDS: metroNIDAZOLE 500 MG in APPROPRIATE DILUENT 1 EA IV ×3 (02:26→18:13)
[2018-06-02] MEDS: PERCOCET 5MG/325MG TAB PO ×4 (04:25→20:27)
[2018-06-02 06:36] LABS: BEDSIDE GLUCOSE 89 MG/DL (80-115)
[2018-06-02] MEDS: NS 1,000 ML IV (06:49)
[2018-06-02 07:41] LABS: BASO % 0.4 % (0.0-1.0); EOS # 0.1 10^3/uL (0.0-0.50); EOS % 0.7 % (0.0-3.0); HEMATOCRIT 32.2 % (36.0-47.0); HEMOGLOBIN 10.5 g/dl (12.0-15.5); IMMATURE GRANULOCYTE % 0.8 % (0-3.0); LYMPH # 1.8 10^3/uL (1.5-4.5); LYMPH % 16.1 % (24.0-44.0); MEAN CORPUSCULAR HEMOGLOBIN 28.5 pg (27.0-33.0); MEAN CORPUSCULAR HGB CONC 32.6 g/dl (32.0-36.5); MEAN CORPUSCULAR VOLUME 87.3 fl (80.0-96.0); MONO # 1.1 10^3/uL (0.0-0.8); MONO % 10.1 % (0.0-5.0); NEUTROPHILS # 7.8 10^3/uL (1.8-7.7); NEUTROPHILS % 71.9 % (36.0-66.0); PLATELET COUNT, AUTOMATED 276 10^3/uL (150-450); RED BLOOD COUNT 3.69 10^6/uL (4.00-5.40); RED CELL DISTRIBUTION WIDTH 12.3 % (11.5-14.5); WHITE BLOOD COUNT 10.9 10^3/uL (4.0-10.0)
[2018-06-02 08:11] LABS: ALBUMIN 2.6 GM/DL (3.2-5.2); ALBUMIN/GLOBULIN RATIO 0.79 (1.00-1.93); ALKALINE PHOSPHATASE 167 U/L (45-117); ALT/SGPT 36 U/L (12-78); ANION GAP 8 MEQ/L (8-16); AST/SGOT 44 U/L (7-37); BILIRUBIN,TOTAL 0.4 MG/DL (0.2-1.0); BLOOD UREA NITROGEN 15 MG/DL (7-18); CALCIUM LEVEL 8.2 MG/DL (8.8-10.2); CARBON DIOXIDE LEVEL 25 MEQ/L (21-32); CHLORIDE LEVEL 108 MEQ/L (98-107); CREATININE FOR GFR 0.57 MG/DL (0.55-1.30); GLOMERULAR FILTRATION RATE > 60.0 (>45); GLUCOSE, FASTING 82 MG/DL (70-100); POTASSIUM SERUM 3.6 MEQ/L (3.5-5.1); SODIUM LEVEL 141 MEQ/L (136-145); TOTAL PROTEIN 5.9 GM/DL (6.4-8.2)
[2018-06-02] MEDS: cefTRIAXone SOD 1 GM in D5W MINI-BAG PLUS 50 ML IV (09:13)
[2018-06-02] MEDS ORDERED: SLF 3 ML SYR IV (12:00)
[2018-06-02] MEDS: ACETAMINOPHEN TAB 650MG DOSE (2X325MG) PO ×2 (12:40→16:35)
[2018-06-02] MEDS: SLF 3 ML SYR IV ×2 (12:40→20:27)
[2018-06-02 16:10] LABS: BEDSIDE GLUCOSE 60 MG/DL (80-115)
[2018-06-02] MEDS: D5W/0.45% SODIUM CHLORIDE 1,000 ML IV (16:30)
[2018-06-02] MEDS: MORPHINE 4 MG/ML 1ML VIAL/SYRINGE (J2270) IV (17:20)
[2018-06-02 20:23] LABS: BEDSIDE GLUCOSE 98 MG/DL (80-115)
[2018-06-02] MEDS: TAMSULOSIN 0.4 MG CAP PO (20:27)
[2018-06-02] MEDS: tiZANidine 4 MG TAB PO (20:27)
[2018-06-03 00:14] LABS: BEDSIDE GLUCOSE 112 MG/DL (80-115)
[2018-06-03] MEDS: metroNIDAZOLE 500 MG in APPROPRIATE DILUENT 1 EA IV ×3 (03:50→18:22)
[2018-06-03] MEDS: D5W/0.45% SODIUM CHLORIDE 1,000 ML IV ×2 (05:44→18:24)
[2018-06-03] MEDS: SLF 3 ML SYR IV ×3 (05:45→21:51)
[2018-06-03 06:01] LABS: BASO % 0.4 % (0.0-1.0); EOS # 0.1 10^3/uL (0.0-0.50); EOS % 1.2 % (0.0-3.0); HEMOGLOBIN 10.2 g/dl (12.0-15.5); IMMATURE GRANULOCYTE % 1.3 % (0-3.0); LYMPH # 1.7 10^3/uL (1.5-4.5); LYMPH % 14.9 % (24.0-44.0); MEAN CORPUSCULAR HEMOGLOBIN 28.7 pg (27.0-33.0); MEAN CORPUSCULAR HGB CONC 32.9 g/dl (32.0-36.5); MEAN CORPUSCULAR VOLUME 87.3 fl (80.0-96.0); MONO # 1.1 10^3/uL (0.0-0.8); MONO % 9.9 % (0.0-5.0); NEUTROPHILS # 8.2 10^3/uL (1.8-7.7); NEUTROPHILS % 72.3 % (36.0-66.0); PLATELET COUNT, AUTOMATED 263 10^3/uL (150-450); RED BLOOD COUNT 3.55 10^6/uL (4.00-5.40); WHITE BLOOD COUNT 11.3 10^3/uL (4.0-10.0)
[2018-06-03 06:30] LABS: ANION GAP 7 MEQ/L (8-16); BLOOD UREA NITROGEN 9 MG/DL (7-18); CALCIUM LEVEL 7.9 MG/DL (8.8-10.2); CARBON DIOXIDE LEVEL 26 MEQ/L (21-32); CHLORIDE LEVEL 106 MEQ/L (98-107); CREATININE FOR GFR 0.48 MG/DL (0.55-1.30); GLOMERULAR FILTRATION RATE > 60.0 (>45); GLUCOSE, FASTING 109 MG/DL (70-100); POTASSIUM SERUM 3.2 MEQ/L (3.5-5.1); SODIUM LEVEL 139 MEQ/L (136-145)
[2018-06-03 06:59] LABS: MAGNESIUM LEVEL 1.7 MG/DL (1.8-2.4)
[2018-06-03] MEDS: POTASSIUM CHLORIDE 10 MEQ SR TABLET PO (06:59)
[2018-06-03] MEDS: cefTRIAXone SOD 1 GM in D5W MINI-BAG PLUS 50 ML IV (08:09)
[2018-06-03] MEDS: PERCOCET 5MG/325MG TAB PO ×4 (08:11→23:11)
[2018-06-03] MEDS: ONDANSETRON 4MG/2ML VIAL (J2405) IV (08:26)
[2018-06-03] MEDS: MAG SULF 1GM/100ML (MAG RUN) 1 GM in APPROPRIATE DILUENT 1 EA IV (10:28)
[2018-06-03] MEDS: PIPERACILLIN/TAZOBACTAM SOD 3.375 GM in D5W MINI-BAG PLUS 50 ML IV ×3 (11:48→21:51)
[2018-06-03 11:58] LABS: BEDSIDE GLUCOSE 120 MG/DL (80-115)
[2018-06-03] MEDS: MORPHINE 4 MG/ML 1ML VIAL/SYRINGE (J2270) IV (13:34)
[2018-06-03] MEDS: TAMSULOSIN 0.4 MG CAP PO (21:51)
[2018-06-03] MEDS: tiZANidine 4 MG TAB PO (21:51)
[2018-06-04 00:27] LABS: BEDSIDE GLUCOSE 158 MG/DL (80-115)
[2018-06-04] MEDS: metroNIDAZOLE 500 MG in APPROPRIATE DILUENT 1 EA IV (02:57)
[2018-06-04] MEDS: PERCOCET 5MG/325MG TAB PO ×4 (03:39→20:40)
[2018-06-04] MEDS: PIPERACILLIN/TAZOBACTAM SOD 3.375 GM in D5W MINI-BAG PLUS 50 ML IV ×4 (04:34→18:08)
[2018-06-04] MEDS: SLF 3 ML SYR IV ×3 (05:24→20:41)
[2018-06-04 05:55] LABS: BASO # 0.1 10^3/uL (0.0-0.2); BASO % 0.4 % (0.0-1.0); EOS # 0.2 10^3/uL (0.0-0.50); EOS % 1.1 % (0.0-3.0); HEMATOCRIT 30.3 % (36.0-47.0); HEMOGLOBIN 10.4 g/dl (12.0-15.5); IMMATURE GRANULOCYTE % 1.1 % (0-3.0); LYMPH # 1.5 10^3/uL (1.5-4.5); LYMPH % 9.4 % (24.0-44.0); MEAN CORPUSCULAR HEMOGLOBIN 28.7 pg (27.0-33.0); MEAN CORPUSCULAR HGB CONC 34.3 g/dl (32.0-36.5); MEAN CORPUSCULAR VOLUME 83.7 fl (80.0-96.0); MONO # 1.4 10^3/uL (0.0-0.8); MONO % 8.7 % (0.0-5.0); NEUTROPHILS # 12.4 10^3/uL (1.8-7.7); NEUTROPHILS % 79.3 % (36.0-66.0); PLATELET COUNT, AUTOMATED 296 10^3/uL (150-450); RED BLOOD COUNT 3.62 10^6/uL (4.00-5.40); WHITE BLOOD COUNT 15.7 10^3/uL (4.0-10.0)
[2018-06-04 06:19] LABS: ANION GAP 8 MEQ/L (8-16); BLOOD UREA NITROGEN 5 MG/DL (7-18); CALCIUM LEVEL 8.3 MG/DL (8.8-10.2); CARBON DIOXIDE LEVEL 27 MEQ/L (21-32); CHLORIDE LEVEL 103 MEQ/L (98-107); CREATININE FOR GFR 0.39 MG/DL (0.55-1.30); GLOMERULAR FILTRATION RATE > 60.0 (>45); GLUCOSE, FASTING 144 MG/DL (70-100); POTASSIUM SERUM 3.1 MEQ/L (3.5-5.1); SODIUM LEVEL 138 MEQ/L (136-145)
[2018-06-04] MEDS: D5W/0.45% SODIUM CHLORIDE 1,000 ML IV ×2 (09:07→12:58)
[2018-06-04 11:11] LABS: MAGNESIUM LEVEL 1.7 MG/DL (1.8-2.4)
[2018-06-04 12:18] LABS: BEDSIDE GLUCOSE 113 MG/DL (80-115)
[2018-06-04] MEDS: MAG SULF 1GM/100ML (MAG RUN) 1 GM in APPROPRIATE DILUENT 1 EA IV (15:11)
[2018-06-04] MEDS: POTASSIUM CHLORIDE 10 MEQ SR TABLET PO (15:17)
[2018-06-04 17:36] LABS: BEDSIDE GLUCOSE 120 MG/DL (80-115)
[2018-06-04] MEDS: TAMSULOSIN 0.4 MG CAP PO (20:40)
[2018-06-04] MEDS: tiZANidine 4 MG TAB PO (20:40)
[2018-06-04 21:10] LABS: BEDSIDE GLUCOSE 128 MG/DL (80-115)
[2018-06-04 22:29] LABS: LACTIC ACID SEPSIS PROTOCOL 0.9 MMOL/L (0.4-2.0)
[2018-06-04 22:59] LABS: CK-MB VALUE MASS < 1.0 NG/ML (<3.6); CPK CREATINE PHOSPHOKINASE 33 U/L (26-192); MB/CK RELATIVE INDEX 3.03 (< OR =4); TROPONIN I < 0.02 NG/ML (< 0.10)
[2018-06-04 23:46] LABS: ABG BASE EXCESS 2.6 (-2.0-2.0); ABG HCO3 26.6 MEQ/L (22.0-26.0); ABG O2 SATURATION 98.5 % (95.0-99.0); ABG PARTIAL PRESSURE CO2 38.6 mmHg (35.0-45.0); ABG PARTIAL PRESSURE O2 129.1 mmHg (75.0-100.0); ABG STANDARD HCO3 26.8 MEQ/L (22.0-26.0); ABG TOTAL CO2 27.8 MEQ/L (23.0-31.0); ABG pH (ARTERIAL) 7.456 UNITS (7.350-7.450)
[2018-06-05] MEDS: D5W/0.45% SODIUM CHLORIDE 1,000 ML IV (00:05)
[2018-06-05 00:11] LABS: BEDSIDE GLUCOSE 126 MG/DL (80-115)
[2018-06-05] MEDS: PIPERACILLIN/TAZOBACTAM SOD 3.375 GM in D5W MINI-BAG PLUS 50 ML IV ×4 (02:08→18:29)
[2018-06-05] MEDS: NS 1,000 ML IV ×3 (02:08→19:07)
[2018-06-05 05:44] LABS: BEDSIDE GLUCOSE 120 MG/DL (80-115)
[2018-06-05] MEDS: SLF 3 ML SYR IV ×3 (05:59→21:11)
[2018-06-05 06:20] LABS: BASO # 0.1 10^3/uL (0.0-0.2); BASO % 0.3 % (0.0-1.0); EOS # 0.2 10^3/uL (0.0-0.50); EOS % 1.3 % (0.0-3.0); HEMATOCRIT 30.1 % (36.0-47.0); HEMOGLOBIN 10.1 g/dl (12.0-15.5); IMMATURE GRANULOCYTE % 1.5 % (0-3.0); LYMPH # 1.8 10^3/uL (1.5-4.5); LYMPH % 11.4 % (24.0-44.0); MEAN CORPUSCULAR HEMOGLOBIN 28.4 pg (27.0-33.0); MEAN CORPUSCULAR HGB CONC 33.6 g/dl (32.0-36.5); MEAN CORPUSCULAR VOLUME 84.6 fl (80.0-96.0); MONO # 1.1 10^3/uL (0.0-0.8); MONO % 7.1 % (0.0-5.0); NEUTROPHILS # 12.1 10^3/uL (1.8-7.7); NEUTROPHILS % 78.4 % (36.0-66.0); PLATELET COUNT, AUTOMATED 314 10^3/uL (150-450); RED BLOOD COUNT 3.56 10^6/uL (4.00-5.40); RED CELL DISTRIBUTION WIDTH 12.4 % (11.5-14.5); WHITE BLOOD COUNT 15.5 10^3/uL (4.0-10.0)
[2018-06-05 06:44] LABS: ANION GAP 5 MEQ/L (8-16); BLOOD UREA NITROGEN 5 MG/DL (7-18); CALCIUM LEVEL 8.1 MG/DL (8.8-10.2); CARBON DIOXIDE LEVEL 29 MEQ/L (21-32); CHLORIDE LEVEL 106 MEQ/L (98-107); CREATININE FOR GFR 0.45 MG/DL (0.55-1.30); GLOMERULAR FILTRATION RATE > 60.0 (>45); GLUCOSE, FASTING 118 MG/DL (70-100); POTASSIUM SERUM 3.3 MEQ/L (3.5-5.1); SODIUM LEVEL 140 MEQ/L (136-145)
[2018-06-05 08:17] LABS: MAGNESIUM LEVEL 1.9 MG/DL (1.8-2.4)
[2018-06-05] MEDS: POTASSIUM CHLORIDE 10 MEQ SR TABLET PO (08:55)
[2018-06-05 11:38] LABS: BEDSIDE GLUCOSE 99 MG/DL (80-115)
[2018-06-05] MEDS: PERCOCET 5MG/325MG TAB PO (14:02)
[2018-06-05 17:46] LABS: BEDSIDE GLUCOSE 138 MG/DL (80-115)
[2018-06-05] MEDS: TAMSULOSIN 0.4 MG CAP PO (20:38)
[2018-06-05] MEDS: tiZANidine 4 MG TAB PO (20:38)
[2018-06-05 21:43] LABS: BEDSIDE GLUCOSE 112 MG/DL (80-115)
[2018-06-06 00:47] LABS: BEDSIDE GLUCOSE 141 MG/DL (80-115)
[2018-06-06] MEDS: PIPERACILLIN/TAZOBACTAM SOD 3.375 GM in D5W MINI-BAG PLUS 50 ML IV ×4 (01:12→18:35)
[2018-06-06] MEDS: SLF 3 ML SYR IV ×3 (05:13→22:00)
[2018-06-06 05:48] LABS: BEDSIDE GLUCOSE 93 MG/DL (80-115)
[2018-06-06] MEDS: NS 1,000 ML IV ×2 (06:14→11:09)
[2018-06-06 06:48] LABS: HEMATOCRIT 29.2 % (36.0-47.0); HEMOGLOBIN 9.8 g/dl (12.0-15.5); MEAN CORPUSCULAR HEMOGLOBIN 28.6 pg (27.0-33.0); MEAN CORPUSCULAR HGB CONC 33.6 g/dl (32.0-36.5); MEAN CORPUSCULAR VOLUME 85.1 fl (80.0-96.0); PLATELET COUNT, AUTOMATED 326 10^3/uL (150-450); RED BLOOD COUNT 3.43 10^6/uL (4.00-5.40); RED CELL DISTRIBUTION WIDTH 12.9 % (11.5-14.5); WHITE BLOOD COUNT 11.5 10^3/uL (4.0-10.0)
[2018-06-06 07:31] LABS: ANION GAP 8 MEQ/L (8-16); BLOOD UREA NITROGEN 5 MG/DL (7-18); CALCIUM LEVEL 7.9 MG/DL (8.8-10.2); CARBON DIOXIDE LEVEL 25 MEQ/L (21-32); CHLORIDE LEVEL 110 MEQ/L (98-107); GLOMERULAR FILTRATION RATE > 60.0 (>45); GLUCOSE, FASTING 88 MG/DL (70-100); POTASSIUM SERUM 3.5 MEQ/L (3.5-5.1); SODIUM LEVEL 143 MEQ/L (136-145)
[2018-06-06] MEDS: PERCOCET 5MG/325MG TAB PO ×2 (10:28→17:21)
[2018-06-06 11:49] LABS: BEDSIDE GLUCOSE 94 MG/DL (80-115)
[2018-06-06 17:25] LABS: BEDSIDE GLUCOSE 79 MG/DL (80-115)
[2018-06-06] MEDS: tiZANidine 4 MG TAB PO (20:20)
[2018-06-06] MEDS: TAMSULOSIN 0.4 MG CAP PO (20:20)
[2018-06-07 00:22] LABS: BEDSIDE GLUCOSE 99 MG/DL (80-115)
[2018-06-07] MEDS: NS 1,000 ML IV (00:23)
[2018-06-07] MEDS: PIPERACILLIN/TAZOBACTAM SOD 3.375 GM in D5W MINI-BAG PLUS 50 ML IV ×2 (00:24→05:59)
[2018-06-07 05:21] LABS: BEDSIDE GLUCOSE 86 MG/DL (80-115)
[2018-06-07] MEDS: SLF 3 ML SYR IV (05:31)
[2018-06-07 06:10] LABS: HEMATOCRIT 31.6 % (36.0-47.0); HEMOGLOBIN 10.7 g/dl (12.0-15.5); MEAN CORPUSCULAR HEMOGLOBIN 28.3 pg (27.0-33.0); MEAN CORPUSCULAR HGB CONC 33.9 g/dl (32.0-36.5); MEAN CORPUSCULAR VOLUME 83.6 fl (80.0-96.0); PLATELET COUNT, AUTOMATED 378 10^3/uL (150-450); RED BLOOD COUNT 3.78 10^6/uL (4.00-5.40); RED CELL DISTRIBUTION WIDTH 12.7 % (11.5-14.5); WHITE BLOOD COUNT 9.6 10^3/uL (4.0-10.0)
[2018-06-07 06:35] LABS: ANION GAP 10 MEQ/L (8-16); BLOOD UREA NITROGEN 3 MG/DL (7-18); CALCIUM LEVEL 7.8 MG/DL (8.8-10.2); CARBON DIOXIDE LEVEL 26 MEQ/L (21-32); CHLORIDE LEVEL 109 MEQ/L (98-107); CREATININE FOR GFR 0.42 MG/DL (0.55-1.30); GLOMERULAR FILTRATION RATE > 60.0 (>45); GLUCOSE, FASTING 84 MG/DL (70-100); POTASSIUM SERUM 2.9 MEQ/L (3.5-5.1); SODIUM LEVEL 145 MEQ/L (136-145)
[2018-06-07] MEDS: POTASSIUM CHLORIDE 10 MEQ SR TABLET PO ×2 (06:49→11:15)
[2018-06-07] MEDS: KCL 10MEQ/100ML SWI (KRUN) 10 MEQ in APPROPRIATE DILUENT 1 EA IV (10:48)
== END 2018-06-07 12:05 | disposition home or self-care (01) | DRG 392 ==
LOC: M MS5PR 06-04 20:15 → M ED 11:03 → M ED INP 17:38 → M PCU 20:25
DX: K57.32 Diverticulitis of large intestine without perforation or abscess without bleeding (principal); N13.1 Hydronephrosis with ureteral stricture, not elsewhere classified; E05.90 Thyrotoxicosis, unspecified without thyrotoxic crisis or storm; G47.33 Obstructive sleep apnea (adult) (pediatric); I10 Essential (primary) hypertension; K31.84 Gastroparesis; E87.6 Hypokalemia; J45.909 Unspecified asthma, uncomplicated; M79.7 Fibromyalgia; Z86.73 Personal history of transient ischemic attack (TIA), and cerebral infarction without residual deficits; Z96.651 Presence of right artificial knee joint; Z90.49 Acquired absence of other specified parts of digestive tract; Z90.5 Acquired absence of kidney; Z87.442 Personal history of urinary calculi; E11.9 Type 2 diabetes mellitus without complications; F41.9 Anxiety disorder, unspecified; F32.9 Major depressive disorder, single episode, unspecified; Z79.899 Other long term (current) drug therapy; Z88.8 Allergy status to other drugs, medicaments and biological substances; Z91.19 Patient's noncompliance with other medical treatment and regimen

== ENCOUNTER → 2018-07-07 | Outpatient (REF) | payer MEDICARE, OTHER ==
[~2018-07-07] MED LIST changes: +ACET65TA; +AMLO10TA; +AMLO10TA PO; +ASPI325T; +AUGM500T34 PO; +AUGM875T28 PO; +BACT800T5 PO; +BENT10CA PO; +CEFD1CAP8 PO; +CODE30TA3 PO; +COLA100C5 PO; +COUM2.5T17 PO; +DIFL200T PO; +FLOM0.4C39 PO; +GABA-1171 PO; +GABA-845 PO; -ISOVUE-370 76% 100ML VIAL (Q9967) As Ordered; +K-TA1TAB PO; +LEVO25TA5 PO; +MELA1TAB15 PO; +MONT10TA2 PO; +MOVA1TAB PO; +NAPR250T4 PO; +OXYB5TAB10 PO; +PERC10TA26 PO; +PERC5TAB12 PO; +PROAAER10 INH; +RANI1TAB6 PO; +REGL10TA6 PO; +REGL5TAB2 PO; +SYNT50TA PO; +TIZA4CAP PO; +TOPA50TA8 PO; +TOPI50TA; +TRAM50TA2 PO; +TRAZ-163 PO; +ZOFR4TAB14 PO; +ZOFR4TAB16 PO; +ZOFR8TAB24 PO
[2018-07-07 18:24] LABS: APPEARANCE, URINE CLOUDY (CLEAR); BACTERIA, URINE AUTO 2+ (NEGATIVE); BILIRUBIN, URINE AUTO NEGATIVE (NEGATIVE); BLOOD, URINE BLOOD 1+ (NEGATIVE); COLOR, URINE YELLOW (YELLOW); GLUCOSE, URINE (UA) AUTO NEGATIVE (NEGATIVE); KETONE, URINE AUTO NEGATIVE (NEGATIVE); LEUKOCYTE ESTERASE, URINE AUTO 3+ (NEGATIVE); MUCUS, URINE SMALL (NEGATIVE); NITRITE, URINE AUTO NEGATIVE (NEGATIVE); PROTEIN, URINE AUTO 1+ mg/dL (NEGATIVE); RBC, URINE AUTO 21 /HPF (0-3); SPECIFIC GRAVITY URINE AUTO 1.014 (1.002-1.035); SQUAMOUS EPITHELIAL CELL UR AU 5 /HPF (0-6); UROBILINOGEN, URINE AUTO 0.2 mg/dL (0.0-2.0); WBC, URINE AUTO TNTC /HPF (0-3)
== END ==
LOC: M SMT 17:01
PROVIDERS: ATTEND Nurse Practitioner Family
DX: N20.0 Calculus of kidney (principal)
CPT/HCPCS: 81001; 87086; G0463

== ENCOUNTER → 2018-07-27 | Outpatient (CLI) | payer MEDICARE, OTHER ==
--- NOTE | 2018-07-27 13:18 | REP ---
RENAL AND BLADDER ULTRASOUND: Real-time sonographic evaluation of the kidneys performed. Kidneys are normal in size and echotexture, right kidney measuring 11.3 x 5.8 x 5.1 cm and left kidney 11.3 x 5.2 x 5.4 cm. There is no right hydronephrosis. There is mild left hydronephrosis. There is a cyst of the lower pole of the right kidney 1.5 cm in diameter. Multiple intrarenal calculi are seen on the left, largest is in the mid aspect 8 mm in diameter with two others in the lower pole 5 mm in diameter. Urinary bladder measures 4.3 x 6.7 x 4.5 cm with no evidence of mass or calculus. There are bilateral ureteral jets in the urinary bladder with Doppler color evaluation. After voiding there is no postvoid residual. IMPRESSION: Mild left hydronephrosis with multiple intrarenal calculi noted. Right renal cyst. Urinary bladder appears unremarkable with bilateral ureteral jets noted. No postvoid residual. Electronically Signed by Deon Santoyo MD 07/28/2018 01:31 P
== END ==
LOC: M RAD 09:41
PROVIDERS: ATTEND Nurse Practitioner Family
DX: N20.0 Calculus of kidney (principal)

== ENCOUNTER → 2018-08-05 | Outpatient (CLI) | payer MEDICARE, OTHER ==
[~2018-08-05] MED LIST changes: +DULO1CAP2 PO; +LEVO100T5 PO
--- NOTE | 2018-08-05 15:10 | REP ---
Chest two views HISTORY: Kidney stone Comparison: 11/19/2017 The lungs are clear. The heart is normal in size. The pulmonary vasculature is normal in appearance. The bony structure is intact. IMPRESSION: No acute disease. Electronically Signed by Flakito Casey MD 08/05/2018 03:02 P
[2018-08-05 18:31] LABS: HEMATOCRIT 40.2 % (36.0-47.0); HEMOGLOBIN 13.2 g/dl (12.0-15.5); MEAN CORPUSCULAR HEMOGLOBIN 28.3 pg (27.0-33.0); MEAN CORPUSCULAR HGB CONC 32.8 g/dl (32.0-36.5); MEAN CORPUSCULAR VOLUME 86.1 fl (80.0-96.0); PLATELET COUNT, AUTOMATED 276 10^3/uL (150-450); RED BLOOD COUNT 4.67 10^6/uL (4.00-5.40); WHITE BLOOD COUNT 5.9 10^3/uL (4.0-10.0)
[2018-08-05 18:38] LABS: BLOOD UREA NITROGEN 17 MG/DL (7-18); CALCIUM LEVEL 9.3 MG/DL (8.8-10.2); CARBON DIOXIDE LEVEL 25 MEQ/L (21-32); CHLORIDE LEVEL 108 MEQ/L (98-107); CREATININE FOR GFR 0.64 MG/DL (0.55-1.30); GLOMERULAR FILTRATION RATE > 60.0 (>45); GLUCOSE, FASTING 91 MG/DL (70-100); POTASSIUM SERUM 4.4 MEQ/L (3.5-5.1); SODIUM LEVEL 141 MEQ/L (136-145)
[2018-08-05 18:49] LABS: INR 0.94; PROTHROMBIN TIME 12.7 SECONDS (12.1-14.4)
[2018-08-05 18:50] LABS: PARTIAL THROMBOPLASTIN TIME 32.5 SECONDS (25.4-37.6)
== END ==
LOC: M SMT 13:16
PROVIDERS: ATTEND Nurse Practitioner Family
DX: N20.0 Calculus of kidney (principal)

== ENCOUNTER → 2018-08-10 | Outpatient (REF) | payer MEDICARE, OTHER ==
[2018-08-10 14:30] LABS: APPEARANCE, URINE CLOUDY (CLEAR); BACTERIA, URINE AUTO 1+ (NEGATIVE); BILIRUBIN, URINE AUTO NEGATIVE (NEGATIVE); BLOOD, URINE BLOOD NEGATIVE (NEGATIVE); CALCIUM OXALATE CRYSTALS SMALL; COLOR, URINE YELLOW (YELLOW); GLUCOSE, URINE (UA) AUTO NEGATIVE (NEGATIVE); KETONE, URINE AUTO TRACE mg/dL (NEGATIVE); LEUKOCYTE ESTERASE, URINE AUTO 3+ (NEGATIVE); MUCUS, URINE SMALL (NEGATIVE); NITRITE, URINE AUTO NEGATIVE (NEGATIVE); PROTEIN, URINE AUTO 1+ mg/dL (NEGATIVE); RBC, URINE AUTO 32 /HPF (0-3); SPECIFIC GRAVITY URINE AUTO 1.017 (1.002-1.035); SQUAMOUS EPITHELIAL CELL UR AU 3 /HPF (0-6); UROBILINOGEN, URINE AUTO 0.2 mg/dL (0.0-2.0); WBC, URINE AUTO TNTC /HPF (0-3)
== END ==
LOC: M SMT 12:59
PROVIDERS: ATTEND Nurse Practitioner Family
DX: N20.0 Calculus of kidney (principal)

== ENCOUNTER → 2018-08-11 | Outpatient (REF) | payer MEDICARE, OTHER ==
[2018-08-11 19:09] LABS: APPEARANCE, URINE HAZY (CLEAR); BACTERIA, URINE AUTO NEGATIVE (NEGATIVE); BILIRUBIN, URINE AUTO NEGATIVE (NEGATIVE); BLOOD, URINE BLOOD NEGATIVE (NEGATIVE); COLOR, URINE YELLOW (YELLOW); GLUCOSE, URINE (UA) AUTO NEGATIVE (NEGATIVE); KETONE, URINE AUTO TRACE mg/dL (NEGATIVE); LEUKOCYTE ESTERASE, URINE AUTO 3+ (NEGATIVE); MUCUS, URINE SMALL (NEGATIVE); NITRITE, URINE AUTO NEGATIVE (NEGATIVE); PROTEIN, URINE AUTO NEGATIVE (NEGATIVE); RBC, URINE AUTO 5 /HPF (0-3); SPECIFIC GRAVITY URINE AUTO 1.014 (1.002-1.035); SQUAMOUS EPITHELIAL CELL UR AU 0 /HPF (0-6); UROBILINOGEN, URINE AUTO 0.2 mg/dL (0.0-2.0); WBC, URINE AUTO 84 /HPF (0-3)
== END ==
LOC: M SMT 16:52
PROVIDERS: ATTEND Urology
DX: Z01.818 Encounter for other preprocedural examination (principal); N20.0 Calculus of kidney

== ENCOUNTER 2018-08-13 07:14 | Day surgery (SDC) | payer MEDICARE, OTHER ==
[~2018-08-13] VITALS: Ht 152.4 cm; Wt 61.2 kg
[~2018-08-13 07:14] MED LIST changes: +LR 1,000 ML IV SCH; +LevoFLOXacin IV 500 MG in APPROPRIATE DILUENT 1 EA IV ONE
[2018-08-13] MEDS ORDERED: ONDANSETRON 4MG/2ML VIAL (J2405) As Ordered ONE (08:00)
[2018-08-13] MEDS ORDERED: fentaNYL 100 MCG/2 ML INJECTION (J3010) As Ordered ONE ×2 (08:00→10:08)
[2018-08-13] MEDS ORDERED: ROCURONIUM BROMIDE 50 MG/5 ML VIAL As Ordered ONE (08:00)
[2018-08-13] MEDS ORDERED: METOCLOPRAMIDE INJ 10MG/2ML VIAL (J2765) As Ordered ONE (08:00)
[2018-08-13] MEDS ORDERED: LIDOCAINE 2% INJ 100 MG/5 ML SDV (FOR ANES.) As Ordered ONE (08:00)
[2018-08-13] MEDS ORDERED: MIDAZOLAM INJ 2 MG/2 ML VIAL (J2250) As Ordered ONE (08:00)
[2018-08-13] MEDS ORDERED: PROPOFOL 200 MG/20 ML VIAL As Ordered ONE (08:00)
[2018-08-13] MEDS ORDERED: CONRAY-60 60% 50ML VIAL (Q9961) As Ordered ONE (08:46)
[2018-08-13] MEDS ORDERED: PERCOCET 5MG/325MG TAB As Ordered ONE (10:08)
[2018-08-13] MEDS: fentaNYL 100 MCG/2 ML INJECTION (J3010) IV PRN ×3 (10:12→10:22)
[2018-08-13] MEDS: PERCOCET 5MG/325MG TAB PO PRN ×2 (10:14→10:45)
[2018-08-13] MEDS ORDERED: LR 1,000 ML IV SCH (10:30)
[2018-08-13] MEDS ORDERED: ONDANSETRON 4MG/2ML VIAL (J2405) IV PRN (10:30)
--- NOTE | 2018-08-13 11:02 | REP ---
FLUOROSCOPIC GUIDANCE FOR RETROGRADE PYELOGRAM: 08/13/2018. Clinical history: Kidney stones. Comparison: CT 06/01/2018. Findings: Three images from C-arm fluoroscopy provided to Dr. Arreguin of the urology division show a wire coiled in the upper pole geovanni of the left kidney on the initial image. The second image likewise shows wire coiling in that same region and the third image shows a double pigtail stent, coiled proximally in the renal pelvis and distally in the bladder. Fluoroscopy time: 14 seconds. Electronically Signed by Marko Dial MD 08/13/2018 10:52 A
[2018-08-13 11:25] VITALS: BP 143/63
--- NOTE | 2018-08-13 18:44 | RO ---
DATE OF PROCEDURE: 08/13/2018 PREPROCEDURE DIAGNOSIS: Left kidney stones. POSTPROCEDURE DIAGNOSIS: Left kidney stones. PROCEDURE: Cystoscopy, left ureteroscopy with basket extraction of stones, left retrograde pyelogram with intraoperative interpretation of images, left ureteral stent placement. SURGEON: Dr. Trenton Arreguin [employer] C[facility]: None. ANESTHESIA: General. OPERATIVE INDICATIONS: This is a 67-year-old female who was recently found on CAT scan to have moderate left hydroureteronephrosis with a few left ureteral stones as well as left kidney stones. She was brought to the operating room today for the above listed procedure. DESCRIPTION OF PROCEDURE: The patient was brought to the operating room and general anesthesia was induced. Prophylactic antibiotics were infused. She was then placed in the dorsal lithotomy position and prepped and draped in the usual sterile fashion. A rigid cystoscope was then inserted into the urethral meatus and advanced into the bladder. Once inside the bladder, a guidewire was advanced up the left collecting system. The wire was secured to the drapes to serve as a safety wire. We then went up the left collecting system with a short semirigid ureteroscope and of note, the patient did have a moderate amount of edema at the left ureteral orifice, which initially made it a little bit difficult to get the scope in. Upon getting the scope in, it properly dilated the ureteral orifice. Once the scope was in, we then went up the left collecting system with a short semirigid ureteroscope and within the midureter, approximately three stones were seen, each of them measuring around 4 mm in size. All of these stones were grasped with a basket and withdrawn completely. At this point, the short semirigid ureteroscope was removed and then the ureteral access sheath was advanced up into the left collecting system. I then went up the access sheath with a flexible ureteroscope and the left kidney was examined. Within the left kidney, approximately three stones measuring about 3 or 4 mm in size were seen. All of these stones were grasped with a basket and withdrawn. Once done, there were no stone fragments remaining in the kidney that were over a millimeter in size. At this point, a retrograde pyelogram was performed. It was notable for moderate left hydronephrosis, no extravasation. I then withdrew the ureteroscope along with the access sheath and no additional stones were seen within the ureter. At this point, the wire was utilized to advance a 7-Gambian x 22-32 cm JJ ureteral stent up into the left collecting system. The wire was then removed, and there were adequate curls of the stent in the left renal pelvis and in the bladder. The bladder was then emptied of all fluids, and this marked the conclusion of the procedure. The patient was then taken out of the dorsal lithotomy position, awakened from anesthesia and transported to the recovery room in stable condition. Estimated blood loss: 5 mL. Complications: None. Specimens: Kidney stones. PLAN: The patient will followup in the clinic in a few weeks for stent removal.
[2018-08-19 00:08] LABS: CA Oxalate Dihy 40 % (.); COMMENT Note: (.); Ca Ox Monohydrate 53 % (.)
== END 2018-08-13 11:56 | disposition home or self-care (01) ==
LOC: M SDC 07:14
PROVIDERS: ATTEND Urology
DX: N20.0 Calculus of kidney (principal); N20.1 Calculus of ureter; I10 Essential (primary) hypertension; E78.5 Hyperlipidemia, unspecified; G47.30 Sleep apnea, unspecified; K21.9 Gastro-esophageal reflux disease without esophagitis; Z79.899 Other long term (current) drug therapy; E03.9 Hypothyroidism, unspecified; K44.9 Diaphragmatic hernia without obstruction or gangrene; Z88.8 Allergy status to other drugs, medicaments and biological substances; F41.9 Anxiety disorder, unspecified
CPT/HCPCS: 52332; 52352; 76000; 82360; 88300; C1769; C1894; C2617; J1956; J2250; J2405; J2765; J3010; Q9961

== ENCOUNTER → 2018-10-19 | Outpatient (REF) | payer MEDICARE, OTHER ==
[~2018-10-19] MED LIST changes: +ACET300T47 PO; -CODE30TA3 PO; -LR 1,000 ML IV SCH; -LevoFLOXacin IV 500 MG in APPROPRIATE DILUENT 1 EA IV ONE
== END ==
LOC: M LAB REF 16:33
PROVIDERS: ATTEND Internal Medicine
DX: R07.9 Chest pain, unspecified (principal)

== ENCOUNTER → 2019-03-09 | Outpatient (REF) | payer MEDICARE, OTHER ==
[~2019-03-09] MED LIST changes: +CIPR-249 PO; +CIPR500T3 PO; -DULO1CAP2 PO; +DULO1CAP5 PO; +FLAG500T PO; +HYDR-3363 PO; +KETO10TAB PO; +LISI10TA4 PO; +OXYC1TAB23; +RA M10TA PO; +RANI-397 PO; -RANI1TAB6 PO; +TAMS1CAP17; +TRAM37.53 PO; -TRAZ-163 PO; +TRAZ-257 PO
[2019-03-09 19:47] LABS: APPEARANCE, URINE CLOUDY (CLEAR); BACTERIA, URINE AUTO 1+ (NEGATIVE); BILIRUBIN, URINE AUTO NEGATIVE (NEGATIVE); BLOOD, URINE BLOOD 1+ (NEGATIVE); CALCIUM OXALATE CRYSTALS LARGE; COLOR, URINE YELLOW (YELLOW); GLUCOSE, URINE (UA) AUTO NEGATIVE (NEGATIVE); KETONE, URINE AUTO NEGATIVE (NEGATIVE); LEUKOCYTE ESTERASE, URINE AUTO 3+ (NEGATIVE); MUCUS, URINE SMALL (NEGATIVE); NITRITE, URINE AUTO NEGATIVE (NEGATIVE); PROTEIN, URINE AUTO NEGATIVE (NEGATIVE); RBC, URINE AUTO 25 /HPF (0-3); SPECIFIC GRAVITY URINE AUTO 1.016 (1.002-1.035); SQUAMOUS EPITHELIAL CELL UR AU 9 /HPF (0-6); UROBILINOGEN, URINE AUTO 0.2 mg/dL (0.0-2.0); WBC, URINE AUTO 134 /HPF (0-3)
== END ==
LOC: M SMT 17:20
PROVIDERS: ATTEND Nurse Practitioner Family
DX: M54.5 Low back pain (principal)
CPT/HCPCS: 81001; 87086; G0463

== ENCOUNTER → 2019-03-11 | Outpatient (CLI) | payer MEDICARE, OTHER ==
[~2019-03-11] MED LIST changes: -CIPR500T3 PO; -HYDR-3363 PO; -LISI10TA4 PO; -RA M10TA PO; +RANI-356 PO; -RANI-397 PO; -TRAM37.53 PO; +TRAZ-163 PO; -TRAZ-257 PO
--- NOTE | 2019-03-11 19:04 | REP ---
REASON: History of renal calculi, now having back pain. COMPARISON: Multiple, the latest 06/01/2018 with the latest noncontrast enhanced examination 10/08/2017. There are chronic lung bases changes status quo. There are multiple left renal calculi too numerous to count or individually assess. There is no evidence of left sided hydronephrosis or hydroureter. Multiple tiny right nephroliths are also noted and they appear unchanged from the prior noncontrast enhanced examination. There is no evidence of obstructive phenomenon on the right side either. There are no cristiano ureteroliths. There are numerable bilateral pelvic phleboliths status quo. There are no urinary bladder calcifications. Limited evaluation of the solid intraabdominal organs show no gross abnormalities of significant changes from the prior exam. Limited evaluation of the pancreas and adrenal glands show no gross abnormalities or significant changes from the prior exam. The patient is status-post cholecystectomy. Limited evaluation of the bowel loops and the mesenteries show no gross abnormalities or significant changes from the prior exam. There is no evidence of free fluid or free air. There is descending colon diverticulosis status quo. CT PELVIS: There is no evidence of a pelvic mass. There is no adenopathy. There is what appears to be a decompressing left ovarian cyst. The patient is status-post right oophorectomy. There is sigmoid colon diverticulosis. There is no free fluid or free air. The osseous structures are stable and intact. IMPRESSION: 1. Bilateral renal calculi as described above. 2. Evidence to suggest a left ovarian cyst. I would recommend followup with ultrasonography. 3. Other findings as described above. Electronically Signed by Niko Pereira DO 03/21/2019 10:37 A
== END ==
LOC: M RAD 14:33
PROVIDERS: ATTEND Nurse Practitioner Family
DX: M54.5 Low back pain (principal)

== ENCOUNTER 2019-03-15 16:24 | Emergency (ER) | payer MEDICARE, OTHER ==
[~2019-03-15] VITALS: Ht 152.4 cm; Wt 68.2 kg
[~2019-03-15 16:24] MED LIST changes: -CIPR-249 PO; -FLAG500T PO; -KETO10TAB PO; -OXYC1TAB23; -TAMS1CAP17
[2019-03-15] MEDS ORDERED: OXYC1TAB23 (16:30)
[2019-03-15] MEDS ORDERED: TAMS1CAP17 (16:30)
[2019-03-15] MEDS ORDERED: NS 1,000 ML IV ONE (17:15)
[2019-03-15] MEDS ORDERED: MORPHINE 4 MG/ML 1ML VIAL/SYRINGE (J2270) IV ONE (17:15)
[2019-03-15] MEDS ORDERED: ONDANSETRON 4MG/2ML VIAL (J2405) IV ONE (17:15)
[2019-03-15 17:40] LABS: BASO # 0.1 10^3/uL (0.0-0.2); BASO % 0.5 % (0.0-1.0); EOS # 0.2 10^3/uL (0.0-0.5); EOS % 1.5 % (0.0-3.0); HEMATOCRIT 38.7 % (36.0-47.0); HEMOGLOBIN 12.7 g/dl (12.0-15.5); LYMPH # 2.3 10^3/uL (1.5-5.0); LYMPH % 20.7 % (24.0-44.0); MEAN CORPUSCULAR HEMOGLOBIN 29.5 pg (27.0-33.0); MEAN CORPUSCULAR HGB CONC 32.8 g/dl (32.0-36.5); MONO # 1.1 10^3/uL (0.0-0.8); MONO % 9.5 % (0.0-5.0); NEUTROPHILS # 7.5 10^3/uL (1.5-8.5); NEUTROPHILS % 67.1 % (36.0-66.0); PLATELET COUNT, AUTOMATED 257 10^3/uL (150-450); WHITE BLOOD COUNT 11.3 10^3/uL (4.0-10.0)
[2019-03-15] MEDS ORDERED: ISOVUE-370 76% 100ML VIAL (Q9967) As Ordered ONE (17:55)
[2019-03-15 18:17] LABS: ALBUMIN 3.8 GM/DL (3.2-5.2); ALT/SGPT 24 U/L (12-78); BILIRUBIN,DIRECT < 0.1 MG/DL (0.0-0.2); BILIRUBIN,TOTAL 0.2 MG/DL (0.2-1.0); CK-MB VALUE MASS < 1.0 NG/ML (<3.6); CPK CREATINE PHOSPHOKINASE 39 U/L (26-192); LIPASE 162 U/L (73-393); MB/CK RELATIVE INDEX 2.56 (< OR =4); TOTAL PROTEIN 6.7 GM/DL (6.4-8.2); TROPONIN I < 0.02 NG/ML (< 0.10)
--- NOTE | 2019-03-15 19:20 | REPVR ---
PROCEDURE INFORMATION: Exam: CT Abdomen and Pelvis With Contrast Exam date and time: 03/15/2019 6:00 PM Clinical history: 68 years old, female; Abdominal pain; Generalized; Additional info: Diffuse abdominal pain TECHNIQUE: Imaging protocol: Computed tomography of the abdomen and pelvis with intravenous contrast. Radiation optimization: All CT scans at this facility use at least one of these dose optimization techniques: automated exposure control; mA and/or kV adjustment per patient size (includes targeted exams where dose is matched to clinical indication); or iterative reconstruction. Contrast material: ISOVUE 370; Contrast volume: 100 ml; Contrast route: IV; COMPARISON: CT ABD PELVIS W/O CONTRAST 03/11/2019 3:26 PM FINDINGS: Lungs: Clear appearing lungs bases. Heart: The heart is normal in size and there is no pericardial effusion. Liver: Small cyst left lobe of the liver unchanged. Gallbladder and bile ducts: There are surgical clips at the gallbladder fossa the patient is status post cholecystectomy. The midportion of the common bile that measures 1.2 CM which is probably ectasia in a patient post cholecystectomy. Pancreas: Normal appearing pancreas. Spleen: Normal spleen. Adrenals: Normal adrenal glands. Kidneys and ureters: There is enhancement of both kidneys. Small cyst lower pole of the right kidney. There is no evidence of hydronephrosis of the right kidney. There are numerous calcified stones of the left kidney ranging in size from 3 mm to as large as 8 mm and nonobstructive at this time. There is no evidence of left hydronephrosis and no evidence of obstruction of the left ureter. Stomach and bowel: There is some thickening of the bowel wall of the gastric antrum with possible mild edema of the stomach wall. There is mild diffuse thickening of the proximal sigmoid colon. There is mild inflammation along the superior margin of this portion of the colon suspicious for changes of diverticulitis. Numerous large diverticula are are identified. There is opacification of the SMV. Intraperitoneal space: There is no evidence of pneumoperitoneum. Vasculature: There is opacification of the SMA. There is opacification of the aorta which appears intact. There is atherosclerotic change of the aorta Lymph nodes: Unremarkable. No enlarged lymph nodes. Bladder: Normal appearing urinary bladder. Reproductive: Patient is post hysterectomy. There is prominence of the left adnexa but unchanged over a years time. Bones/joints: There is mild anterior osteophyte formation of the lumbar spine. Soft tissues: Nodule right breast and nodule left breast that are stable since the CT of 03/16/2018 and suggest correlation with mammography. IMPRESSION: 1. There is mild diffuse thickening of the proximal sigmoid colon with numerous large diverticula. There is inflammation along the superior aspect consistent with changes of diverticulitis. 2. Mild thickening of the gastric antrum and possible mild edema. 3. Stable right and left breast nodule, compare with mammography. Electronically signed by: Davi Soto On 03/15/2019 19:20:45 PM
[2019-03-15] MEDS ORDERED: FLAG500T PO (19:58)
[2019-03-15] MEDS ORDERED: CIPR-249 PO (19:58)
[2019-03-15] MEDS ORDERED: KETO10TAB PO (19:59)
[2019-03-15] MEDS ORDERED: REGL5TAB2 PO (19:59)
[2019-03-15] MEDS ORDERED: metroNIDAZOLE (FLAGYL) 500 MG TAB PO ONE (20:00)
[2019-03-15] MEDS ORDERED: CIPROFLOXACIN 500 MG TAB PO ONE (20:00)
[2019-03-15 20:11] VITALS: BP 151/82
--- NOTE | 2019-03-15 23:30 | ECGEPIP ---
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
--- NOTE | 2019-03-16 10:17 | ED PDOC ---
Post-Departure Follow-Up dr du faxed formal report of ct abd/'p for fu Jimmy Vaughan MD Mar 16, 2019 10:17
== END 2019-03-15 20:13 | disposition home or self-care (01) ==
LOC: M ED 16:24
DX: K57.32 Diverticulitis of large intestine without perforation or abscess without bleeding (principal); K31.84 Gastroparesis; E11.9 Type 2 diabetes mellitus without complications; I10 Essential (primary) hypertension; J44.9 Chronic obstructive pulmonary disease, unspecified; F33.9 Major depressive disorder, recurrent, unspecified; F41.9 Anxiety disorder, unspecified; E78.5 Hyperlipidemia, unspecified; M79.7 Fibromyalgia; G62.9 Polyneuropathy, unspecified; G47.33 Obstructive sleep apnea (adult) (pediatric); E03.9 Hypothyroidism, unspecified; K58.9 Irritable bowel syndrome, unspecified; Z79.899 Other long term (current) drug therapy; Z79.890 Hormone replacement therapy; Z88.8 Allergy status to other drugs, medicaments and biological substances
CPT/HCPCS: 36415; 74177; 80047; 80076; 81001; 82550; 82553; 83690; 84484; 85025; 87086; 93005; 96361; 96374; 96375; 99284; J2270; J2405; Q9967

== ENCOUNTER → 2019-03-23 | Outpatient (REF) | payer MEDICARE, OTHER ==
[~2019-03-23] MED LIST changes: +CIPR-249 PO; +FLAG500T PO; +KETO10TAB PO; +OXYC1TAB23; +TAMS1CAP17
== END ==
LOC: M LAB REF 12:04 → EEVIPCON 12:04
PROVIDERS: ATTEND Internal Medicine
DX: M79.7 Fibromyalgia (principal); N39.0 Urinary tract infection, site not specified

== ENCOUNTER → 2019-04-21 | Outpatient (REF) | payer MEDICARE, OTHER | LOC: M LAB REF 16:23 | PROVIDERS: ATTEND Internal Medicine | DX: N39.0 Urinary tract infection, site not specified (principal) ==

== ENCOUNTER → 2019-04-25 | Outpatient (REF) | payer MEDICARE, OTHER ==
[2019-04-25 14:11] LABS: APPEARANCE, URINE CLOUDY (CLEAR); BACTERIA, URINE AUTO NEGATIVE (NEGATIVE); BILIRUBIN, URINE AUTO NEGATIVE (NEGATIVE); BLOOD, URINE BLOOD 2+ (NEGATIVE); CALCIUM OXALATE CRYSTALS MODERATE; COLOR, URINE YELLOW (YELLOW); GLUCOSE, URINE (UA) AUTO NEGATIVE (NEGATIVE); KETONE, URINE AUTO NEGATIVE (NEGATIVE); LEUKOCYTE ESTERASE, URINE AUTO 3+ (NEGATIVE); MUCUS, URINE SMALL (NEGATIVE); NITRITE, URINE AUTO NEGATIVE (NEGATIVE); PROTEIN, URINE AUTO 1+ mg/dL (NEGATIVE); RBC, URINE AUTO 44 /HPF (0-3); SPECIFIC GRAVITY URINE AUTO 1.017 (1.002-1.035); SQUAMOUS EPITHELIAL CELL UR AU 7 /HPF (0-6); UROBILINOGEN, URINE AUTO 0.2 mg/dL (0.0-2.0); WBC, URINE AUTO TNTC /HPF (0-3)
== END ==
LOC: M SMT 13:22
PROVIDERS: ATTEND Nurse Practitioner Family
DX: N20.0 Calculus of kidney (principal)
CPT/HCPCS: 81001; G0463

== ENCOUNTER 2019-06-18 05:07 | Inpatient (IN) | payer MEDICARE, OTHER ==
[~2019-06-18] VITALS: Ht 152.4 cm; Wt 74.5 kg
[~2019-06-18 05:07] MED LIST changes: -RANI-356 PO; +RANI-397 PO
[2019-06-18 06:06] LABS: BASO # 0.1 10^3/uL (0.0-0.2); BASO % 0.5 % (0.0-1.0); EOS # 0.2 10^3/uL (0.0-0.5); EOS % 2.3 % (0.0-3.0); HEMATOCRIT 39.1 % (36.0-47.0); HEMOGLOBIN 12.8 g/dl (12.0-15.5); LYMPH # 2.7 10^3/uL (1.5-5.0); LYMPH % 28.5 % (24.0-44.0); MEAN CORPUSCULAR HEMOGLOBIN 28.4 pg (27.0-33.0); MEAN CORPUSCULAR HGB CONC 32.7 g/dl (32.0-36.5); MEAN CORPUSCULAR VOLUME 86.7 fl (80.0-96.0); MONO # 0.8 10^3/uL (0.0-0.8); MONO % 8.3 % (0.0-5.0); NEUTROPHILS # 5.7 10^3/uL (1.5-8.5); NEUTROPHILS % 60.1 % (36.0-66.0); PLATELET COUNT, AUTOMATED 396 10^3/uL (150-450); RED BLOOD COUNT 4.51 10^6/uL (4.00-5.40); WHITE BLOOD COUNT 9.4 10^3/uL (4.0-10.0)
[2019-06-18 06:09] LABS: ALBUMIN 3.5 GM/DL (3.2-5.2); ALT/SGPT 19 U/L (12-78); BILIRUBIN,DIRECT < 0.1 MG/DL (0.0-0.2); BILIRUBIN,TOTAL 0.3 MG/DL (0.2-1.0); LIPASE 157 U/L (73-393); TOTAL PROTEIN 6.8 GM/DL (6.4-8.2)
[2019-06-18] MEDS ORDERED: MORPHINE 4 MG/ML 1ML VIAL/SYRINGE (J2270) IV PRN (06:15)
[2019-06-18] MEDS ORDERED: KETOROLAC 30 MG/ML VIAL (J1885) IV ONE (06:15)
[2019-06-18] MEDS ORDERED: ONDANSETRON 4MG/2ML VIAL (J2405) IV ONE (06:15)
[2019-06-18] MEDS ORDERED: NS 1,000 ML IV ONE (06:15)
--- NOTE | 2019-06-18 08:04 | REPVR ---
PROCEDURE INFORMATION: Exam: CT Abdomen And Pelvis Without Contrast Exam date and time: 06/18/2019 7:08 AM Age: 68 years old Clinical indication: Abdominal pain; Flank; Left; Additional info: Left flank pain/left abdominal pain; R/O stone vs divertic TECHNIQUE: Imaging protocol: Computed tomography of the abdomen and pelvis without contrast. Radiation optimization: All CT scans at this facility use at least one of these dose optimization techniques: automated exposure control; mA and/or kV adjustment per patient size (includes targeted exams where dose is matched to clinical indication); or iterative reconstruction. COMPARISON: CT ABD PELVIS W/O CONTRAST 03/11/2019 3:26 PM FINDINGS: Limitations: Evaluation is somewhat limited by lack of IV contrast. Lungs: The lung bases demonstrate atelectasis and scarring. Liver: Grossly unremarkable. Gallbladder and bile ducts: Cholecystectomy clips are again present. Pancreas: Grossly unremarkable. Spleen: Mild new splenomegaly. Adrenals: Grossly unremarkable. Kidneys and ureters: Moderate left-sided hydronephrosis and hydroureter to the level of 2 adjacent stones in the distal left ureter, larger measuring 7 x 5 x 4 mm, located approximately 4 cm proximal to the ureterovesical junction. Both kidneys contain nonobstructing stones as well, measuring up to 4 mm on either side. There is no hydronephrosis or ureteral calculus on the right. Stomach and bowel: There is again mild descending and sigmoid colonic diverticulosis. Newly present is mild pericolonic fatty stranding about the proximal descending colon, indicating diverticulitis. The unopacified small bowel is not significantly distended to suggest obstruction. Appendix: The appendix is not identified, but there are no inflammatory changes in its expected region. Intraperitoneal space: No free air or significant free fluid. Vasculature: The abdominal aorta is nonaneurysmal. Atherosclerotic vascular calcifications are again present. Lymph nodes: No gross pathologic lymphadenopathy. Bladder: Grossly unremarkable. Reproductive: There has again been hysterectomy. No gross adnexal abnormality is apparent, but ultrasound would be more appropriate in this regard. Bones/joints: Degenerative changes again involve the spine and hips. Soft tissues: There are similar bilateral breast nodules, measuring 12 mm on the right and 11 mm on the left. IMPRESSION: 1. Moderate left-sided hydronephrosis and hydroureter to the level of 2 adjacent stones in the distal left ureter, larger measuring 7 x 5 x 4 mm, located approximately 4 cm proximal to the ureterovesical junction. 2. Additional nonobstructing bilateral nephrolithiasis. 3. Left-sided colonic diverticulosis, as on 03/11/19, with mild proximal descending diverticulitis. 4. Mild new splenomegaly. 5. Similar bilateral breast nodules. Correlate with dedicated imaging. Electronically signed by: Monroe Liao On 06/18/2019 08:04:22 AM
[2019-06-18] MEDS ORDERED: metroNIDAZOLE 500 MG in IV 1 EA IV ONE (09:30)
[2019-06-18] MEDS ORDERED: CIPROFLOXACIN 400 MG in IV 1 EA IV ONE (09:30)
[2019-06-18] MEDS ORDERED: HYDR-3363 PO (09:53)
[2019-06-18] MEDS ORDERED: RA M10TA PO (09:54)
[2019-06-18] MEDS ORDERED: GLUCAGON FOR INJ 1 MG VIAL (J1610) SC PRN (10:00)
[2019-06-18] MEDS ORDERED: ONDANSETRON 4MG/2ML VIAL (J2405) IV PRN (10:00)
[2019-06-18] MEDS ORDERED: GLUCOSE 4 GM CHEW TABLET PO PRN (10:00)
[2019-06-18] MEDS ORDERED: metroNIDAZOLE 750 MG in IV 1 EA IV SCH (10:00)
[2019-06-18] MEDS ORDERED: hydrOXYzine 25 MG TAB PO PRN (10:00)
[2019-06-18] MEDS ORDERED: DEXTROSE 50% 50 ML SYRINGE IV PRN (10:00)
--- NOTE | 2019-06-18 10:02 | HPEPDOC ---
General Date of Admission Jun 18, 2019 at 09:48 Date of Service: Jun 18, 2019 Chief Complaint The patient is a 68-year-old female admitted with a reason for visit of Diverticulitis Large Intestine,Ureterolithiasis. Source: Patient Exam Limitations: No limitations Severity: Moderate Associated Symptoms: Nausea, Vomiting History of Present Illness Patient is 68 years old female with past medical history of hypertension, type 2 diabetes, nephrolithiasis presented hospital with left flank pain with radiation to the left lower abdominal quadrant. Patient stated that the pain started 2 days ago, 10 out of 10 in intensity, constant, associated with fever and chills. Fever was 101. Also patient had multiple episodes of vomiting and nausea. In emergency room patient was found to have no leukocytosis, urine analysis positive for leukocytes esterase and bacteriuria. Lactic acid 2.4, CT scan positive for Moderate left-sided hydronephrosis and hydroureter to the level of 2 adjacent stones in the distal left ureter, larger measuring 7 x 5 x 4 mm, located approximately 4 cm proximal to the ureterovesical junction. Additional nonobstructing bilateral nephrolithiasis. Left-sided colonic diverticulosis, as on 03/11/19, with mild proximal descending diverticulitis. Home Medications Scheduled Melatonin (Melatonin) 10 Mg Tablet, 10 MG PO QHS, (Reported) Tizanidine HCl (Tizanidine HCl) 4 Mg Cap, 8 MG PO QHS, (Reported) Trazodone HCl (Trazodone HCl) 100 Mg Tab, 100 MG PO QHS, (Reported) Scheduled PRN Hydroxyzine HCl (Hydroxyzine HCl) 25 Mg Tablet, 25 MG PO TID PRN for ANXIETY, (Reported) Allergies Coded Allergies: ENVIROMENTAL (Verified Allergy, Unknown, 09/21/17) zolpidem (Verified Allergy, Unknown, 03/15/19) Past Medical History Medical History hypothyroidism, obstructive sleep apnea not using continuous positive airway pressure (CPAP), anxiety, claustrophobic, gastroesophageal reflux disease (GERD), gastroparesis, hypertension, asthma, fibromyalgia, insomnia, migraine, degenerative disc disease, hypothyroidism, hypertension, dyslipidemia, transient ischemic attack (TIA), carpal tunnel bilateral, fibrocystic breast changes, chronic nephrolithiasis, peripheral neuropathy, history of endometriosis, left knee torn meniscus, diverticulosis Surgical History 1. Right knee replacement surgery. 2. Fatty tumor removal of left thigh. 3. Tonsillectomy. 4. Cholecystectomy. 5. Hysterectomy. 6. Right oophorectomy. 7. Right knee arthroscopy. 8. Right rotator cuff repair. 9. Lithotripsy. 10. Cystoscopy. Family History Mother from ovarian cancer at age 66. Father at age 49 from lung cancer Social History * Smoker: Denies Alcohol: Denies Drugs: denies A-FIB/CHADSVASC A-FIB History Current/History of A-Fib/PAF?: No Current PO Anticoag Therapy: No Review of Systems Constitutional: Reports: Chills, Fever Eyes: Denies: Pain, Vision change ENT: Denies: Head Aches Skin: Denies: Rash, Lesions Pulmonary: Denies: Dyspnea, Cough Cardiovascular: Denies: Chest Pain, Palpitations Gastrointestinal: Reports: Nausea Genitourinary: Reports: Dysuria, Frequency Hematologic: Denies: Bruising Endocrine: Denies: Polydipsia, Polyphagia Musculoskeletal: Denies: Neck Pain, Back Pain Neurological: Denies: Weakness Psych: Reports: Mood Normal Physical Examination General Exam: Positive: Alert, Cooperative Eye Exam: Positive: PERRLA ENT Exam: Positive: Atraumatic, Mucous membr. moist/pink Neck Exam: Positive: Supple; Negative: JVD Chest Exam: Positive: Clear to auscultation Heart Exam: Positive: Rate Normal Telemetry: Positive: No significant arrhythmia Abdomen Exam: Positive: Normal bowel sounds, Tenderness (left flank and lower abdominal quadrant tenderness) Extremity Exam: Negative: Clubbing, Cyanosis Skin Exam: Positive: Nl turgor and temperature Neuro Exam: Positive: Normal Gait, Strength at 5/5 X4 ext, Cranial Nerves 3-12 NL Psych Exam: Positive: Mental status NL Vital Signs Vital Signs Date Time Temp Pulse Resp B/P (MAP) Pulse Ox O2 Delivery O2 Flow Rate FiO2 06/18/19 09:26 17 06/18/19 09:17 69 95 Room Air 06/18/19 09:00 133/62 (85) 06/18/19 05:07 96.6 Laboratory Data Labs 24H Laboratory Tests 2 06/18/19 05:39: Immature Granulocyte % (Auto) 0.3, Neutrophils (%) (Auto) 60.1, Lymphocytes (%) (Auto) 28.5, Monocytes (%) (Auto) 8.3H, Eosinophils (%) (Auto) 2.3, Basophils (%) (Auto) 0.5, Neutrophils # (Auto) 5.7, Lymphocytes # (Auto) 2.7, Monocytes # (Auto) 0.8, Eosinophils # (Auto) 0.2, Basophils # (Auto) 0.1, Nucleated Red Blood Cells % (auto) 0.0, Total Bilirubin 0.3, Direct Bilirubin < 0.1, Aspartate Amino Transf (AST/SGOT) 19, Alanine Aminotransferase (ALT/SGPT) 19, Alkaline Phosphatase 93, Total Protein 6.8, Albumin 3.5, Albumin/Globulin Ratio 1.06, Lipase 157 06/18/19 05:59: POC Glucose (Misc Panel) 138H, POC Sodium (Misc Panel) 142, POC Potassium (Misc Panel) 3.5, POC Chloride (Misc Panel) 105, POC Total CO2 (Misc Panel) 28.0H, POC Blood Urea Nitrogen (Misc Panel 13, POC Ionized Calcium (Misc Panel) 4.3L, POC Creatinine (Misc Panel) 0.7, POC Hematocrit (Misc Panel) 37.0L 06/18/19 06:16: Lactic Acid Level 2.4*H 06/18/19 07:50: Urine Color YELLOW, Urine Appearance CLOUDYH, Urine pH 6.0, Urine Specific [place] 1.013, Urine Protein 1+H, Urine Glucose (UA) NEGATIVE, Urine Ketones TRACEH, Urine Blood 2+H, Urine Nitrite NEGATIVE, Urine Bilirubin NEGATIVE, Urine Urobilinogen 0.2, Urine Leukocyte Esterase 3+H, Urine WBC (Auto) TNTCH, Urine RBC (Auto) 65H, Urine Hyaline Casts (Auto) 0, Urine Bacteria (Auto) 2+H, Urine Squamous Epithelial Cells 2, Urine Mucus (Auto) SMALL, Urine Sperm (Auto) CBC/BMP Laboratory Tests 06/18/19 05:39 Microbiology Microbiology 06/18/19 Urine Culture, Received Pending Assessment/Plan Patient is 68 years old female with past medical history of hypertension, type 2 diabetes, nephrolithiasis presented hospital with left flank pain with radiation to the left lower abdominal quadrant. Patient stated that the pain started 2 days ago, 10 out of 10 in intensity, constant, associated with fever and chills. Fever was 101. Also patient had multiple episodes of vomiting and nausea. Problems (1) Ureterolithiasis Status: Acute Problem Text: Patient developed left renal colic with left ureter stone findings on the CT Appreciate/agree with urologist consult Blood culture, urine culture Urine analysis positive for pyuria Ciprofloxacin IV Patient afebrile on the admission, no leukocytosis, unlikely patient developed sepsis. Patient is not hypotensive (2) Diverticulitis large intestine Status: Acute Problem Text: Patient developed left lower quadrant pain with CT findings of diverticulitis The pain can be associated with kidney stone but patient has a history of diverticulitis as well I will add Flagyl to her regimen (3) Diabetes mellitus Status: Chronic Problem Text: Diabetes diet Insulin sliding scale Plan / VTE VTE Prophylaxis Ordered?: Yes ROHAN KEARNEY DO Jun 18, 2019 10:02
[2019-06-18] MEDS: HumaLOG INSULIN (NovoLOG) PER UNIT SC SCH ×3 (12:00→21:00)
[2019-06-18 12:50] VITALS: BP 127/73
[2019-06-18] MEDS: TAMSULOSIN 0.4 MG CAP PO SCH (13:10)
[2019-06-18] MEDS: HEPARIN SOD (PORCINE) 5000 UNITS/ML VIAL SC SCH ×2 (13:10→20:44)
[2019-06-18] MEDS: NS 1,000 ML IV SCH (13:11)
[2019-06-18 14:00] VITALS: BP 128/72
[2019-06-18] MEDS: KETOROLAC 30 MG/ML VIAL (J1885) IV PRN (17:17)
[2019-06-18] MEDS: metroNIDAZOLE 500 MG in IV 1 EA IV SCH (17:17)
--- NOTE | 2019-06-18 18:38 | SMCUROLCON ---
Urology Consultation General Date of Consultation 06/18/19 Reason For Consultation This patient is seen for Ureterolithiasis. History of Present Illness The patient is a 68-year-old F presents with few days of abdominal pain in the LLQ as well as left flank pain. She has a prior history of nephrolithiasis and is known to urologist Dr Trenton Arreguin. She most recently underwent a lithotripsy on the left side she reports in August 2018. CT in the ER showed 7mm left distal left ureteral stone as well as additional smaller ureteral stone with hydronephrosis and bilateral small non obstructing stones. Pain is currently controlled. CT also demonstrated diverticulitis. No fevers. No dysuria. Social History * Smoker: non-smoker Alcohol: Denies Medications Current Medications Current Medications Medications (Trade) Dose Ordered Sig/Abel Route PRN Reason Start Time Stop Time Status Last Admin Dose Admin Ciprofloxacin 400 mg/IV Miscellaneous Supplies 200 ml @ 200 mls/hr Q12H IV 06/18/19 22:00 Dextrose (Dextrose 50%) 25 ml ASDIRECTED PRN IV SEE LABEL COMMENTS 06/18/19 10:00 Glucagon (Glucagon) 1 mg ASDIRECTED PRN SC SEE LABEL COMMENTS 06/18/19 10:00 Glucose (Glucose) 16 GM ASDIRECTED PRN PO SEE LABEL COMMENTS 06/18/19 10:00 Heparin Sodium (Porcine) (Heparin) 5,000 units Q12H SC 06/18/19 09:00 06/18/19 13:10 Home Med (Med Rec Complete!) ASDIRECTED XX 06/18/19 10:00 06/18/19 09:57 DC Hydroxyzine HCl (Atarax) 25 mg TID PRN PO ANXIETY 06/18/19 10:00 Insulin Human Lispro (HumaLOG INSULIN) SEE PROTOCOL TABLE AC SC 06/18/19 12:00 Insulin Human Lispro (HumaLOG INSULIN) SEE PROTOCOL TABLE QHS SC 06/18/19 21:00 Ketorolac Tromethamine (ToRADol) 15 mg Q8H PRN IV MODERATE PAIN (PS 5-7) 06/18/19 10:30 06/23/19 10:29 06/18/19 17:17 Metronidazole 500 mg/IV Miscellaneous Supplies 100 ml @ 100 mls/hr Q8H IV 06/18/19 17:00 06/18/19 17:17 Metronidazole 750 mg/IV Miscellaneous Supplies 150 ml @ 150 mls/hr DAILY IV 06/18/19 10:00 UNV Morphine Sulfate (Morphine Sulfate Inj) 2 mg Q6H PRN IV SEVERE PAIN (PS 8-10) 06/18/19 10:30 Morphine Sulfate (Morphine Sulfate Inj) 4 mg Q15MP PRN IV SEVERE PAIN (PS 8-10) 06/18/19 06:15 06/18/19 06:40 Ondansetron HCl (ZOFRAN INJection) 4 mg Q6H PRN IV NAUSEA 06/18/19 10:00 Sodium Chloride 1,000 ml @ 100 mls/hr Q10H IV 06/18/19 10:00 06/18/19 13:11 Tamsulosin HCl (Flomax) 0.4 mg DAILY PO 06/18/19 09:00 06/18/19 13:10 Tizanidine HCl (Zanaflex) 8 mg QHS PO 06/18/19 21:00 Trazodone HCl (Desyrel) 100 mg QHS PO 06/18/19 21:00 Allergies Allergies: Coded Allergies: ENVIROMENTAL (Verified Allergy, Unknown, 09/21/17) zolpidem (Verified Allergy, Unknown, 03/15/19) Review of Systems General: Reports: Chills; Denies: ROS Unobtainable, Night Sweats, Fatigue, Malaise, Normal Appetite, Other Symptoms Cardiovascular: Denies Chest Pain, Denies Palpitations, Denies Orthopnea, Denies Paroxysmal Noc. Dyspnea, Denies Edema, Denies Lt Headedness, Denies Other Symptoms Gastrointestinal: Reports: Nausea, Vomiting, Abdominal Pain; Denies: Diarrhea, Constipation, Melena, Hematochezia, Other Symptoms Endocrine: Denies: Polydipsia, Polyphagia, Polyuria, Heat Intolerance, Cold Intolerance, Other Endocrine Sx Musculoskeletal: Denies: Neck Pain, Back Pain, Shoulder Pain, Arm Pain, Hand Pain, Leg Pain, Foot Pain, Joint Pain, Muscle Pain, Spasms, Other Symptoms Neurological: Denies: Weakness, Numbness, Incoordination, Change in Speech, Confusion, Seizures, Other Symptoms Physical Examination General Exam: Alert, Cooperative, Mild Distress, Moderate Distress, Other; No: No Acute Distress, Severe Distress ENT EXAM: Tongue Midline, Tympanic Membranes Normal, Ext Auditory Canal Nml, Pinna Normal Chest Exam: Clear to auscultation, Normal air movement, Rales, Rhonchi, Wheezing, Diminished, Other Abdomen Exam: Tenderness (LLQ) Extremity Exam: Normal Pulses Skin Exam: Nl turgor and temperature, Rash, Breakdown, Lesion, Pruritus, Other skin issue Psych Exam: Memory Intact Vital Signs/I&O Vital Signs Date Time Temp Pulse Resp B/P (MAP) Pulse Ox O2 Delivery O2 Flow Rate FiO2 06/18/19 14:00 98.4 70 20 128/72 (90) 98 Room Air Laboratory Data 24H Labs Laboratory Tests 2 06/18/19 05:39: Immature Granulocyte % (Auto) 0.3, Neutrophils (%) (Auto) 60.1, Lymphocytes (%) (Auto) 28.5, Monocytes (%) (Auto) 8.3H, Eosinophils (%) (Auto) 2.3, Basophils (%) (Auto) 0.5, Neutrophils # (Auto) 5.7, Lymphocytes # (Auto) 2.7, Monocytes # (Auto) 0.8, Eosinophils # (Auto) 0.2, Basophils # (Auto) 0.1, Nucleated Red Blood Cells % (auto) 0.0, Total Bilirubin 0.3, Direct Bilirubin < 0.1, Aspartate Amino Transf (AST/SGOT) 19, Alanine Aminotransferase (ALT/SGPT) 19, Alkaline Phosphatase 93, Total Protein 6.8, Albumin 3.5, Albumin/Globulin Ratio 1.06, Lipase 157 06/18/19 05:59: POC Glucose (Misc Panel) 138H, POC Sodium (Misc Panel) 142, POC Potassium (Misc Panel) 3.5, POC Chloride (Misc Panel) 105, POC Total CO2 (Misc Panel) 28.0H, POC Blood Urea Nitrogen (Misc Panel 13, POC Ionized Calcium (Misc Panel) 4.3L, POC Creatinine (Misc Panel) 0.7, POC Hematocrit (Misc Panel) 37.0L 06/18/19 06:16: Lactic Acid Level 2.4*H 06/18/19 07:50: Urine Color YELLOW, Urine Appearance CLOUDYH, Urine pH 6.0, Urine Specific [place] 1.013, Urine Protein 1+H, Urine Glucose (UA) NEGATIVE, Urine Ketones T RACEH, Urine Blood 2+H, Urine Nitrite NEGATIVE, Urine Bilirubin NEGATIVE, Urine Urobilinogen 0.2, Urine Leukocyte Esterase 3+H, Urine WBC (Auto) TNTCH, Urine RBC (Auto) 65H, Urine Hyaline Casts (Auto) 0, Urine Bacteria (Auto) 2+H, Urine Squamous Epithelial Cells 2, Urine Mucus (Auto) SMALL, Urine Sperm (Auto) 06/18/19 11:19: Lactic Acid Followup at 4 Hours 1.8 06/18/19 12:41: Bedside Glucose (Misc Panel) 97 06/18/19 16:45: Bedside Glucose (Misc Panel) 104 CBC/BMP Laboratory Tests 06/18/19 05:39 Microbiology Microbiology 06/18/19 Blood Culture, Received Pending 06/18/19 Urine Culture, Received Pending Plan 68 year old f with known hx of nephrolithiasis now with 7mm left ureteral stone as well as diverticulitis. She wants to avoid a ureteral stent if possible. Advised patient if she has fever or pain that is not controlled with medications she will require a ureteral stent. She understands this. Otherwise, she can be scheduled for o utpatient definitive stone treatment if the stones do not pass spontaneously. Would recommend Flomax, IVF, and to strain urine. Follow up urine culture and treat with culture specific antibiotics. KRIS GRIMES M.D. Jun 18, 2019 18:38
[2019-06-18] MEDS: MORPHINE 2 MG/ML 1ML VIAL (J2270) IV PRN (19:40)
[2019-06-18] MEDS ORDERED: tiZANidine 4 MG TAB PO SCH (21:00)
[2019-06-18] MEDS ORDERED: traZODone 100 MG TAB PO SCH (21:00)
[2019-06-18 22:00] VITALS: BP 134/67
[2019-06-18] MEDS: CIPROFLOXACIN 400 MG in IV 1 EA IV SCH (22:02)
[2019-06-19] VITALS (7 sets, daily range): BP systolic 94–134; BP diastolic 56–72
[2019-06-19] MEDS: NS 1,000 ML IV SCH ×4 (01:36→23:03)
[2019-06-19] MEDS: metroNIDAZOLE 500 MG in IV 1 EA IV SCH ×3 (01:36→16:19)
[2019-06-19 06:03] LABS: MEAN CORPUSCULAR HEMOGLOBIN 27.9 pg (27.0-33.0); MEAN CORPUSCULAR HGB CONC 31.3 g/dl (32.0-36.5); MEAN CORPUSCULAR VOLUME 89.1 fl (80.0-96.0); PLATELET COUNT, AUTOMATED 276 10^3/uL (150-450); RED BLOOD COUNT 3.48 10^6/uL (4.00-5.40)
[2019-06-19 06:24] LABS: BLOOD UREA NITROGEN 10 MG/DL (7-18); CALCIUM LEVEL 7.8 MG/DL (8.8-10.2); CARBON DIOXIDE LEVEL 24 MEQ/L (21-32); CHLORIDE LEVEL 112 MEQ/L (98-107); CREATININE FOR GFR 0.57 MG/DL (0.55-1.30); GLOMERULAR FILTRATION RATE > 60.0 (>45); GLUCOSE, FASTING 122 MG/DL (70-100); MAGNESIUM LEVEL 1.8 MG/DL (1.8-2.4); POTASSIUM SERUM 3.5 MEQ/L (3.5-5.1); SODIUM LEVEL 144 MEQ/L (136-145)
[2019-06-19] MEDS ORDERED: NS 1,000 ML IV ONE ×2 (06:30→10:00)
[2019-06-19 06:35] LABS: HEMOGLOBIN 9.7 g/dl (12.0-15.5)
[2019-06-19] MEDS: HumaLOG INSULIN (NovoLOG) PER UNIT SC SCH ×4 (07:30→21:00)
[2019-06-19] MEDS ORDERED: POTASSIUM CHLORIDE 10 MEQ SR TABLET PO ONE (08:00)
[2019-06-19] MEDS: TAMSULOSIN 0.4 MG CAP PO SCH (08:31)
[2019-06-19] MEDS: HEPARIN SOD (PORCINE) 5000 UNITS/ML VIAL SC SCH ×2 (10:51→21:16)
[2019-06-19] MEDS: KETOROLAC 30 MG/ML VIAL (J1885) IV PRN (12:15)
[2019-06-19] MEDS: CIPROFLOXACIN 400 MG in IV 1 EA IV SCH ×2 (12:16→21:16)
--- NOTE | 2019-06-19 13:21 | IPNPDOC ---
Text Note Date of Service The patient was seen on 06/19/19. NOTE Subjective: patient complains of left flank and left lower quadrant pain, but she states that it's less in intensity. Also patient complains of the dizziness when she stands up. Objective: GENERAL APPEARANCE: Well-nourished, well-developed, not in apparent distress HEENT: Normocephalic, atraumatic. Mucous members moist and pink CARDIOVASCULAR: Regular rate and rhythm. No murmurs, rubs or gallops. Radial pulses are intact. There is no lower extremity edema LUNGS: Diminished lung sounds, ABDOMEN: Abdomen is soft, mild tenderness in the left lower quadrant and left flank MUSCULOSKELETAL: Range of motion is intact in all 4 extremities NEUROLOGICAL: Cranial nerves II-12 are grossly intact. Speech is not dysarthric Patient is 68 years old female with past medical history of hypertension, type 2 diabetes, nephrolithiasis presented hospital with left flank pain with radiation to the left lower abdominal quadrant. Patient stated that the pain started 2 days ago, 10 out of 10 in intensity, constant, associated with fever and chills. Fever was 101. Also patient had multiple episodes of vomiting and nausea. Problems (1) Ureterolithiasis Patient developed left renal colic with left ureter stone findings on the CT Urologist recommended stent placement, however patient refused. Patient will need lithotripsy in the outpatient settings Blood culture, urine culture Urine analysis positive for pyuria Ciprofloxacin IV Patient afebrile on the admission, no leukocytosis, unlikely patient developed sepsis. Patient is not hypotensive Patient does not have leukocytosis (2) Diverticulitis large intestine Patient developed left lower quadrant pain with CT findings of diverticulitis The pain can be associated with kidney stone but patient has a history of diverticulitis as well Continue ciprofloxacin and Flagyl (3) Diabetes mellitus Diabetes diet Insulin sliding scale Dizziness Could be secondary to orthostatic hypotension due to dehydration and Flomax IV fluid I discontinued hydroxyzine, tizanidine VS,Fishbone, I+O VS, Fishbone, I+O Laboratory Tests 06/19/19 05:45 Vital Signs Date Time Temp Pulse Resp B/P (MAP) Pulse Ox O2 Delivery O2 Flow Rate FiO2 06/19/19 09:38 67 94/58 (70) 06/19/19 07:38 94 06/19/19 06:00 98.2 16 Room Air I&O- Last 24 Hours up to 6 AM 06/19/19 05:59 Intake Total 3520 ml Output Total 200 ml Balance 3320 ml ROHAN KEARNEY DO Jun 19, 2019 13:21
[2019-06-19] MEDS: MORPHINE 2 MG/ML 1ML VIAL (J2270) IV PRN (21:16)
--- NOTE | 2019-06-20 00:08 | ECGEPIP ---
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
--- NOTE | 2019-06-20 00:10 | ECGEPIP ---
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
[2019-06-20] MEDS: metroNIDAZOLE 500 MG in IV 1 EA IV SCH ×3 (00:27→16:47)
[2019-06-20 06:00] VITALS: BP 143/88
[2019-06-20 06:06] LABS: HEMOGLOBIN 10.4 g/dl (12.0-15.5); MEAN CORPUSCULAR HEMOGLOBIN 28.3 pg (27.0-33.0); MEAN CORPUSCULAR HGB CONC 32.5 g/dl (32.0-36.5); MEAN CORPUSCULAR VOLUME 87.2 fl (80.0-96.0); PLATELET COUNT, AUTOMATED 290 10^3/uL (150-450); RED BLOOD COUNT 3.67 10^6/uL (4.00-5.40); WHITE BLOOD COUNT 6.3 10^3/uL (4.0-10.0)
[2019-06-20 06:32] LABS: BLOOD UREA NITROGEN 7 MG/DL (7-18); CALCIUM LEVEL 8.3 MG/DL (8.8-10.2); CARBON DIOXIDE LEVEL 26 MEQ/L (21-32); CHLORIDE LEVEL 112 MEQ/L (98-107); CREATININE FOR GFR 0.57 MG/DL (0.55-1.30); GLOMERULAR FILTRATION RATE > 60.0 (>45); GLUCOSE, FASTING 102 MG/DL (70-100); MAGNESIUM LEVEL 1.6 MG/DL (1.8-2.4); POTASSIUM SERUM 3.6 MEQ/L (3.5-5.1); SODIUM LEVEL 143 MEQ/L (136-145)
[2019-06-20] MEDS: HumaLOG INSULIN (NovoLOG) PER UNIT SC SCH ×4 (07:30→21:00)
[2019-06-20] MEDS ORDERED: POTASSIUM CHLORIDE 10 MEQ SR TABLET PO ONE (08:00)
[2019-06-20] MEDS: NS 1,000 ML IV SCH ×3 (08:33→21:10)
[2019-06-20] MEDS: TAMSULOSIN 0.4 MG CAP PO SCH (08:34)
[2019-06-20] MEDS: HEPARIN SOD (PORCINE) 5000 UNITS/ML VIAL SC SCH ×2 (08:36→21:09)
[2019-06-20] MEDS: CIPROFLOXACIN 400 MG in IV 1 EA IV SCH ×2 (11:07→22:35)
[2019-06-20] MEDS ORDERED: CIPR500T3 PO (11:12)
[2019-06-20] MEDS ORDERED: FLAG500T PO (11:12)
[2019-06-20] MEDS ORDERED: TRAM37.53 PO (11:14)
[2019-06-20 11:50] LABS: PTH INTACT 78.6 PG/ML (18.5-88.0)
[2019-06-20] MEDS ORDERED: MAG SULF 1GM/100ML (MAG RUN) 1 GM in IV 1 EA IV ONE (12:15)
[2019-06-20] MEDS ORDERED: ONDANSETRON 4MG/2ML VIAL (J2405) IV ONE (12:15)
[2019-06-20 14:00] VITALS: BP 155/82
[2019-06-20 14:02] LABS: MAGNESIUM LEVEL 1.6 MG/DL (1.8-2.4); TROPONIN I < 0.02 NG/ML (< 0.10)
[2019-06-20] MEDS ORDERED: LEVOTHYROXINE 100MCG TABLET (0.1MG) PO STA (14:19)
--- NOTE | 2019-06-20 15:17 | IPNPDOC ---
Text Note Date of Service The patient was seen on 06/20/19. NOTE Subjective: Patient developed bradycardia, dizziness, nausea and pause on te lemetry 3 seconds. Patient told me that 4 months ago she stopped taking levothyroxine because she was feeling that she is overmedicated. Objective: Obese female, in moderate distress HEENT: Normocephalic, atraumatic. Mucous members moist and pink CARDIOVASCULAR: Regular rate and rhythm. No murmurs, rubs or gallops. Radial pulses are intact. There is no lower extremity edema LUNGS: Diminished lung sounds, ABDOMEN: Abdomen is soft, mild tenderness in the left lower quadrant and left flank MUSCULOSKELETAL: Range of motion is intact in all 4 extremities NEUROLOGICAL: Cranial nerves II-12 are grossly intact. Speech is not dysarthric Patient is 68 years old female with past medical history of hypertension, type 2 diabetes, nephrolithiasis presented hospital with left flank pain with radiation to the left lower abdominal quadrant. Patient stated that the pain started 2 days ago, 10 out of 10 in intensity, constant, associated with fever and chills. Fever was 101. Also patient had multiple episodes of vomiting and nausea. Problems (1) Ureterolithiasis Patient developed left renal colic with left ureter stone findings on the CT Urologist recommended stent placement, however patient refused. Patient will need lithotripsy in the outpatient settings Blood culture negative Urine analysis positive for pyuria Ciprofloxacin IV Patient afebrile on the admission, no leukocytosis, unlikely patient developed sepsis. Patient is not hypotensive Patient does not have leukocytosis (2) Diverticulitis large intestine Patient developed left lower quadrant pain with CT findings of diverticulitis The pain can be associated with kidney stone but patient has a history of diverticulitis as well Continue ciprofloxacin and Flagyl (3) Diabetes mellitus Diabetes diet Insulin sliding scale Dizziness Could be secondary to orthostatic hypotension due to dehydration and Flomax IV fluid I discontinued hydroxyzine, tizanidine Hypothyroidism These symptoms: dizziness, nausea, bradycardia could be associated with hypothyroidism. Patient was noncompliant to levothyroxine. She stopped taking levothyroxine 4 months ago. TSH elevated I started levothyroxine, I explained patient the importance of taking this medication VS,Fishbone, I+O VS, Fishbone, I+O Laboratory Tests 06/20/19 05:33 Vital Signs Date Time Temp Pulse Resp B/P (MAP) Pulse Ox O2 Delivery O2 Flow Rate FiO2 12/30/19 06:00 97.8 73 18 143/88 (106) 94 Room Air I&O- Last 24 Hours up to 6 AM 06/20/19 06:00 Intake Total 5480 ml Output Total 2650 ml Balance 2830 ml ROHAN KEARNEY DO Jun 20, 2019 15:17
[2019-06-20 22:00] VITALS: BP 168/90
[2019-06-20] MEDS: KETOROLAC 30 MG/ML VIAL (J1885) IV PRN (23:21)
[2019-06-21] MEDS: metroNIDAZOLE 500 MG in IV 1 EA IV SCH ×2 (00:16→08:29)
[2019-06-21] MEDS: NS 1,000 ML IV SCH ×2 (04:40→07:39)
[2019-06-21 06:00] VITALS: BP 164/90
[2019-06-21] MEDS ORDERED: LEVOTHYROXINE 100MCG TABLET (0.1MG) PO SCH (06:00)
--- NOTE | 2019-06-21 06:25 | ECHO ---
DATE OF PROCEDURE: 06/20/2019 DATE OF : 1950 AGE: 68 REFERRING PROVIDER: Dr. Mynor Pacheco PATIENT LOCATION: Room 4219 REASON FOR THE STUDY: Cardiac arrhythmias. 2-D MEASUREMENTS: IVS: 1.3 cm LV: 4.7 cm LVPW: 1.3 cm LA: 4.3 cm Aorta: 2.9 cm IVC: 1.7 cm DOPPLER MEASUREMENTS: Peak velocity across the aortic valve: 1.7 m/s Peak velocity across the LVOT: 1.1 m/s Peak gradient across the aortic valve: 11 mmHg Mitral E: 0.98 Mitral A: 1.0 with a ratio less than 1.0 Maximum tricuspid valve velocity: 2.4 m/s 2-D COMMENTS: 1. Mildly increased left ventricular wall thickness with normal left ventricular size and a normal global left ventricular systolic function. The estimated ventricular systolic inversion is 60-65%. 2. Mildly enlarged left atrium. Normal right atrium and right ventricle. 3. The atrial septum appeared to be normal without evidence of defect or shunt. 4. Normal aortic root. 5. A small pericardial effusion was noted, no evidence of cardiac tamponade. 6. Mildly calcified aortic valve with normal leaflet excursion. Mildly calcified mitral annulus with normal anterior mitral valve leaflet motion. Normal tricuspid valve. The pulmonic valve and proximal pulmonary artery branches were not well visualized. 7. The inferior vena cava was normal in size, central venous pressure is most likely normal. DOPPLER: It detects mild to moderate mitral regurgitation and mild tricuspid regurgitation. The calculated pulmonary artery systolic pressure varies between 30-40 mmHg. Abnormal relaxation pattern was noted across the mitral valve leaflets consistent with features of grade 1 left ventricular diastolic dysfunction. IMPRESSION: 1. Normal global left ventricular systolic function with mild concentric left ventricular hypertrophy. There are some features of left ventricular diastolic dysfunction, grade 1. 2. Aortic valve sclerosis with trivial aortic stenosis but no aortic regurgitation. 3. Mitral annulus calcification with a mildly enlarged left atrium and mild to moderate mitral regurgitation. 4. Mild tricuspid radiation with probably mild pulmonary hypertension. 5. A small pericardial effusion was noted, no evidence of cardiac tamponade. [facility]
[2019-06-21 06:54] LABS: HEMATOCRIT 35.8 % (36.0-47.0); HEMOGLOBIN 11.7 g/dl (12.0-15.5); MEAN CORPUSCULAR HEMOGLOBIN 28.5 pg (27.0-33.0); MEAN CORPUSCULAR HGB CONC 32.7 g/dl (32.0-36.5); MEAN CORPUSCULAR VOLUME 87.3 fl (80.0-96.0); PLATELET COUNT, AUTOMATED 317 10^3/uL (150-450); WHITE BLOOD COUNT 5.2 10^3/uL (4.0-10.0)
--- NOTE | 2019-06-21 07:09 | ECGEPIP ---
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
[2019-06-21 07:20] LABS: BLOOD UREA NITROGEN 4 MG/DL (7-18); CALCIUM LEVEL 8.2 MG/DL (8.8-10.2); CARBON DIOXIDE LEVEL 21 MEQ/L (21-32); CHLORIDE LEVEL 112 MEQ/L (98-107); CREATININE FOR GFR 0.53 MG/DL (0.55-1.30); GLOMERULAR FILTRATION RATE > 60.0 (>45); GLUCOSE, FASTING 107 MG/DL (70-100); MAGNESIUM LEVEL 1.9 MG/DL (1.8-2.4); POTASSIUM SERUM 3.4 MEQ/L (3.5-5.1); SODIUM LEVEL 143 MEQ/L (136-145)
[2019-06-21] MEDS: HumaLOG INSULIN (NovoLOG) PER UNIT SC SCH ×2 (07:30→08:29)
[2019-06-21] MEDS: HEPARIN SOD (PORCINE) 5000 UNITS/ML VIAL SC SCH (08:29)
[2019-06-21 08:30] VITALS: BP 164/90
[2019-06-21] MEDS: TAMSULOSIN 0.4 MG CAP PO SCH (08:30)
[2019-06-21] MEDS ORDERED: lisinopriL 10 MG TAB PO SCH (09:00)
[2019-06-21] MEDS: CIPROFLOXACIN 400 MG in IV 1 EA IV SCH (09:56)
[2019-06-21] MEDS ORDERED: LISI10TA4 PO (10:21)
[2019-06-21] MEDS ORDERED: LEVO100T5 PO (10:21)
--- NOTE | 2019-06-21 16:00 | DS.PDOC ---
Discharge Summary General Date of Admission Jun 18, 2019 at 09:48 Date of Discharge 06/21/19 Discharge Summary PROCEDURES PERFORMED DURING STAY: [None]. ADMITTING DIAGNOSES: Ureterolithiasis Diverticulitis large intestine Diabetes mellitus Dizziness Hypothyroidism DISCHARGE DIAGNOSES: Ureterolithiasis Diverticulitis large intestine Diabetes mellitus Dizziness Hypothyroidism COMPLICATIONS/CHIEF COMPLAINT: Diverticulitis Large Intestine,Ureterolithiasis. HISTORY OF PRESENT ILLNESS: Patient is 68 years old female with past medical history of hypertension, type 2 diabetes, nephrolithiasis presented hospital with left flank pain with radiation to the left lower abdominal quadrant. Patient stated that the pain started 2 days ago, 10 out of 10 in intensity, constant, associated with fever and chills. Fever was 101. Also patient had multiple episodes of vomiting and nausea. In emergency room patient was found to have no leukocytosis, urine analysis positive for leukocytes esterase and bacteriuria. Lactic acid 2.4, CT scan positive for Moderate left-sided hydronephrosis and hydroureter to the level of 2 adjacent stones in the distal left ureter, larger measuring 7 x 5 x 4 mm, located approximately 4 cm proximal to the ureterovesical junction. Additional nonobstructing bilateral nephrolit hiasis. Left-sided colonic diverticulosis, as on 03/11/19, with mild proximal descending diverticulitis. HOSPITAL COURSE: During hospital stay following issue addressed Ureterolithiasis Patient developed left renal colic with left ureter stone findings on the CT Urologist recommended stent placement, however patient refused. Patient will need lithotripsy in the outpatient settings Blood culture negative Urine analysis positive for pyuria Ciprofloxacin IV (2) Diverticulitis large intestine Patient developed left lower quadrant pain with CT findings of diverticulitis The pain can be associated with kidney stone but patient has a history of diverticulitis as well ciprofloxacin and Flagyl (3) Diabetes mellitus Diabetes diet Insulin sliding scale Dizziness Could be secondary to orthostatic hypotension due to dehydration and Flomax IV fluid I discontinued hydroxyzine, tizanidine Hypothyroidism These symptoms: dizziness, nausea, bradycardia could be associated with hypothyroidism. Patient was noncompliant to levothyroxine. She stopped taking levothyroxine 4 months ago. TSH elevated I started levothyroxine, I explained patient the importance of taking this medication DISCHARGE MEDICATIONS: Please see below. ALLERGIES: Please see below. PHYSICAL EXAMINATION ON DISCHARGE: VITAL SIGNS: Please see below. HEENT: Normocephalic, atraumatic. Mucous members moist and pink CARDIOVASCULAR: Regular rate and rhythm. No murmurs, rubs or gallops. Radial pulses are intact. There is no lower extremity edema LUNGS: Diminished lung sounds, ABDOMEN: Abdomen is soft, mild tenderness in the left lower quadrant and left flank MUSCULOSKELETAL: Range of motion is intact in all 4 extremities NEUROLOGICAL: Cranial nerves II-12 are grossly intact. Speech is not dysarthric LABORATORY DATA: Please see below. IMAGING: COMPARISON: CT ABD PELVIS W/O CONTRAST 03/11/2019 3:26 PM FINDINGS: Limitations: Evaluation is somewhat limited by lack of IV contrast. Lungs: The lung bases demonstrate atelectasis and scarring. Liver: Grossly unremarkable. Gallbladder and bile ducts: Cholecystectomy clips are again present. Pancreas: Grossly unremarkable. Spleen: Mild new splenomegaly. Adrenals: Grossly unremarkable. Kidneys and ureters: Moderate left-sided hydronephrosis and hydroureter to the level of 2 adjacent stones in the distal left ureter, larger measuring 7 x 5 x 4 mm, located approximately 4 cm proximal to the ureterovesical junction. Both kidneys contain nonobstructing stones as well, measuring up to 4 mm on either side. There is no hydronephrosis or ureteral calculus on the right. Stomach and bowel: There is again mild descending and sigmoid colonic diverticulosis. Newly present is mild pericolonic fatty stranding about the proximal descending colon, indicating diverticulitis. The unopacified small bowel is not significantly distended to suggest obstruction. Appendix: The appendix is not identified, but there are no inflammatory changes in its expected region. Intraperitoneal space: No free air or significant free fluid. Vasculature: The abdominal aorta is nonaneurysmal. Atherosclerotic vascular calcifications are again present. Lymph nodes: No gross pathologic lymphadenopathy. Bladder: Grossly unremarkable. Reproductive: There has again been hysterectomy. No gross adnexal abnormality is apparent, but ultrasound would be more appropriate in this regard. Bones/joints: Degenerative changes again involve the spine and hips. Soft tissues: There are similar bilateral breast nodules, measuring 12 mm on the right and 11 mm on the left. IMPRESSION: 1. Moderate left-sided hydronephrosis and hydroureter to the level of 2 adjacent stones in the distal left ureter, larger measuring 7 x 5 x 4 mm, located approximately 4 cm proximal to the ureterovesical junction. 2. Additional nonobstructing bilateral nephrolithiasis. 3. Left-sided colonic diverticulosis, as on 03/11/19, with mild proximal descending diverticulitis. 4. Mild new splenomegaly. 5. Similar bilateral breast nodules. Correlate with dedicated imaging. PROGNOSIS: Favorable ACTIVITY: [As tolerated]. DIET: Cardiac DISPOSITION: 01 Home, Self-Care. DISCHARGE INSTRUCTIONS: Continue taking prescribed medications ITEMS TO FOLLOWUP ON ON OUTPATIENT: Follow-up with urologist and PCP DISCHARGE CONDITION:Stable TIME SPENT ON DISCHARGE: Greater than 20minutes. Vital Signs/I&Os Vital Signs Date Time Temp Pulse Resp B/P (MAP) Pulse Ox O2 Delivery O2 Flow Rate FiO2 06/21/19 08:30 164/90 06/21/19 06:00 97.8 80 19 95 Room Air I&O- Last 24 Hours up to 6 AM 06/21/19 06:00 Intake Total 4320 ml Output Total 1875 ml Balance 2445 ml Laboratory Data Labs 24H Laboratory Tests 2 06/20/19 16:28: Bedside Glucose (Misc Panel) 75L 06/20/19 16:39: Urine Color STRAW, Urine Appearance CLEAR, Urine pH 8.0, Urine Specific [place] 1.005, Urine Protein NEGATIVE, Urine Glucose (UA) NEGATIVE, Urine Ketones 1+H, Urine Blood NEGATIVE, Urine Nitrite NEGATIVE, Urine Bilirubin NEGATIVE, Urine Urobilinogen 0.2, Urine Leukocyte Esterase 1+H, Urine WBC (Auto) 8H, Urine RBC (Auto) 6H, Urine Hyaline Casts (Auto) 0, Urine Bacteria (Auto) 1+H, Urine Squamous Epithelial Cells 0, Urine Mucus (Auto) SMALL, Urine Sperm (Auto) 06/20/19 21:39: Bedside Glucose (Misc Panel) 86 06/21/19 06:38: Nucleated Red Blood Cells % (auto) 0.0, Anion Gap 10, Glomerular Filtration Rate > 60.0, Calcium Level 8.2L, Magnesium Level 1.9 CBC/BMP Laboratory Tests 06/21/19 06:38 FSBS Laboratory Tests Test 06/20/19 16:28 06/20/19 21:39 Range/Units Bedside Glucose (Misc Panel) 75 86 80-115 MG/DL Microbiology Microbiology 06/20/19 Urine Culture - Final, Complete 06/18/19 Blood Culture - Preliminary, Resulted No Growth after 72 hours. All specime... 06/18/19 Urine Culture - Final, Complete Discharge Medications Scheduled Ciprofloxacin HCl (Ciprofloxacin HCl) 500 Mg Tablet, 1 TAB PO BID Levothyroxine Sodium (Levothyroxine Sodium) 100 Mcg Tablet, 100 MCG PO DAILY@06 Lisinopril (Lisinopril) 10 Mg Tablet, 10 MG PO DAILY Melatonin (Melatonin) 10 Mg Tablet, 10 MG PO QHS, (Reported) Metronidazole (Flagyl) 500 Mg Tablet, 1 TAB PO BID Tizanidine HCl (Tizanidine HCl) 4 Mg Cap, 8 MG PO QHS, (Reported) Trazodone HCl (Trazodone HCl) 100 Mg Tab, 100 MG PO QHS, (Reported) Scheduled PRN Hydroxyzine HCl (Hydroxyzine HCl) 25 Mg Tablet, 25 MG PO TID PRN for ANXIETY, (Reported) Tramadol HCl/Acetaminophen (Tramadol-Acetaminophn 37.5-325) 1 Each Tablet, 1 TAB PO Q4-6HP PRN for pain Allergies Coded Allergies: ENVIROMENTAL (Verified Allergy, Unknown, 09/21/17) zolpidem (Verified Allergy, Unknown, 03/15/19) ROHAN KEARNEY DO Jun 21, 2019 16:00
== END 2019-06-21 12:02 | disposition home or self-care (01) | DRG 392 ==
LOC: M ED 05:07 → M ED INP 09:48 → M MSPAV 12:50
PROVIDERS: ADMIT Internal Medicine; ATTEND Internal Medicine
DX: K57.32 Diverticulitis of large intestine without perforation or abscess without bleeding (principal); N13.2 Hydronephrosis with renal and ureteral calculous obstruction; E11.43 Type 2 diabetes mellitus with diabetic autonomic (poly)neuropathy; K31.84 Gastroparesis; E03.9 Hypothyroidism, unspecified; I10 Essential (primary) hypertension; Z79.899 Other long term (current) drug therapy; Z88.8 Allergy status to other drugs, medicaments and biological substances; G47.33 Obstructive sleep apnea (adult) (pediatric); F41.9 Anxiety disorder, unspecified; K21.9 Gastro-esophageal reflux disease without esophagitis; G43.909 Migraine, unspecified, not intractable, without status migrainosus; M79.7 Fibromyalgia; J45.909 Unspecified asthma, uncomplicated; E78.5 Hyperlipidemia, unspecified; Z86.73 Personal history of transient ischemic attack (TIA), and cerebral infarction without residual deficits; E11.51 Type 2 diabetes mellitus with diabetic peripheral angiopathy without gangrene; Z96.641 Presence of right artificial hip joint

== ENCOUNTER → 2019-07-01 | Outpatient (REF) | payer MEDICARE, OTHER ==
[~2019-07-01] MED LIST changes: +CIPR500T3 PO; +HYDR-3363 PO; +LISI10TA4 PO; +RA M10TA PO; +TRAM37.53 PO; -TRAZ-163 PO; +TRAZ-257 PO
== END ==
LOC: M LAB REF 16:51
PROVIDERS: ATTEND Internal Medicine
DX: K58.1 Irritable bowel syndrome with constipation (principal)

== ENCOUNTER → 2019-07-15 | Outpatient (REF) | payer MEDICARE, OTHER ==
[2019-07-15 11:34] LABS: HEMATOCRIT 39.7 % (36.0-47.0); HEMOGLOBIN 12.8 g/dl (12.0-15.5); MEAN CORPUSCULAR HEMOGLOBIN 28.5 pg (27.0-33.0); MEAN CORPUSCULAR HGB CONC 32.2 g/dl (32.0-36.5); MEAN CORPUSCULAR VOLUME 88.4 fl (80.0-96.0); PLATELET COUNT, AUTOMATED 287 10^3/uL (150-450); RED BLOOD COUNT 4.49 10^6/uL (4.00-5.40); WHITE BLOOD COUNT 7.6 10^3/uL (4.0-10.0)
[2019-07-15 11:44] LABS: PROTHROMBIN TIME 12.9 SECONDS (11.8-14.0)
[2019-07-15 11:45] LABS: PARTIAL THROMBOPLASTIN TIME 30.2 SECONDS (25.0-38.4)
[2019-07-15 12:16] LABS: BLOOD UREA NITROGEN 15 MG/DL (7-18); CALCIUM LEVEL 9.2 MG/DL (8.8-10.2); CARBON DIOXIDE LEVEL 27 MEQ/L (21-32); CHLORIDE LEVEL 107 MEQ/L (98-107); CREATININE FOR GFR 0.64 MG/DL (0.55-1.30); GLOMERULAR FILTRATION RATE > 60.0 (>45); GLUCOSE, FASTING 101 MG/DL (70-100); POTASSIUM SERUM 3.7 MEQ/L (3.5-5.1); SODIUM LEVEL 142 MEQ/L (136-145)
[2019-07-15 12:23] LABS: APPEARANCE, URINE MANUAL HAZY (CLEAR); COLOR, URINE MANUAL YELLOW (YELLOW)
[2019-07-15 12:24] LABS: BILIRUBIN, URINE MANUAL NEGATIVE (NEGATIVE); BLOOD URINE MANUAL POSITIVE (NEGATIVE); GLUCOSE, URINE (UA) MANUAL NEGATIVE (NEGATIVE); KETONE, URINE MANUAL NEGATIVE (NEGATIVE); LEUKOCYTE ESTERASE, URINE MAN POSITIVE (NEGATIVE); NITRITE, URINE MANUAL NEGATIVE (NEGATIVE); PROTEIN, URINE MANUAL TRACE mg/dL (NEGATIVE); SPECIFIC GRAVITY,URINE MANUAL 1.025 (1.002-1.035); UROBILINOGEN, URINE MANUAL NORMAL (NORMAL)
[2019-07-15 12:25] LABS: CALCIUM OXALATE CRYSTALS,URINE SMALL AMOUNT /hpf; SQUAMOUS EPITHELIAL CELL URINE SMALL AMOUNT /hpf (SMALL AMT); WBC, URINE 15-20 /hpf (0-3)
[2019-07-15 12:26] LABS: BACTERIA, URINE MOD AMOUNT
== END ==
LOC: M LABDRAW1 10:09
PROVIDERS: ATTEND Nurse Practitioner Family
DX: Z01.818 Encounter for other preprocedural examination (principal); N20.0 Calculus of kidney; Z79.899 Other long term (current) drug therapy

== ENCOUNTER → 2019-07-19 | Outpatient (REF) | payer MEDICARE, OTHER ==
[~2019-07-19] MED LIST changes: +LEVO100T54 PO; -MONT10TA2 PO; +MONT10TA4 PO; +NITR100C2 PO; +TRAM1CAP15 PO
== END ==
LOC: M LAB REF 13:23
PROVIDERS: ATTEND Internal Medicine
DX: N20.0 Calculus of kidney (principal)

== ENCOUNTER 2019-07-25 05:49 | Day surgery (SDC) | payer MEDICARE, OTHER ==
[~2019-07-25] VITALS: Ht 162.6 cm; Wt 70.4 kg
[~2019-07-25 05:49] MED LIST changes: -LEVO100T54 PO; +MONT10TA2 PO; -MONT10TA4 PO; -NITR100C2 PO; -TRAM1CAP15 PO
[2019-07-25] MEDS ORDERED: GENTAMICIN 100 MG in IV 1 EA IV ONE (06:00)
[2019-07-25] MEDS ORDERED: LR 1,000 ML IV ONE (06:00)
[2019-07-25] MEDS ORDERED: NITR100C2 PO (06:38)
[2019-07-25] MEDS ORDERED: CONRAY-60 60% 50ML VIAL (Q9961) As Ordered ONE (06:40)
[2019-07-25] MEDS ORDERED: propofoL 200 MG/20 ML VIAL As Ordered ONE (07:19)
[2019-07-25] MEDS ORDERED: LIDOCAINE 2% INJ 100 MG/5 ML SDV (FOR ANES.) As Ordered ONE (07:19)
[2019-07-25] MEDS ORDERED: fentaNYL 100 MCG/2 ML INJECTION (J3010) As Ordered ONE (07:19)
[2019-07-25] MEDS ORDERED: MIDAZOLAM INJ 2 MG/2 ML VIAL (J2250) As Ordered ONE (07:19)
[2019-07-25] MEDS ORDERED: ONDANSETRON 4MG/2ML VIAL (J2405) As Ordered ONE (07:57)
[2019-07-25] MEDS ORDERED: METOCLOPRAMIDE INJ 10MG/2ML VIAL (J2765) As Ordered ONE (07:57)
[2019-07-25] MEDS ORDERED: ACETAMINOPHEN 1000MG 100ML IV BTL (OFIRMEV) (J0131 PER 10MG) As Ordered ONE (08:23)
--- NOTE | 2019-07-25 08:39 | REP ---
Retrograde pyelogram: A series of two intraoperative fluoroscopic views are performed during left ureteral stent placement: The proximal and distal stent pigtails are in satisfactory positions. Fluoroscopic exposure time is 10 seconds. Electronically Signed by Deon Sparks MD 07/25/2019 08:30 A
[2019-07-25] MEDS ORDERED: ONDANSETRON 4MG/2ML VIAL (J2405) IV PRN (09:00)
[2019-07-25] MEDS ORDERED: PERCOCET 5MG/325MG TAB PO PRN ×2 (09:00→14:30)
[2019-07-25] MEDS ORDERED: HYDROMORPHONE HCL 0.5 MG/ 0.5 ML SYRINGE (J1170 PER 1) IV PRN (09:00)
[2019-07-25] MEDS ORDERED: fentaNYL 100 MCG/2 ML INJECTION (J3010) IV PRN (09:00)
[2019-07-25] MEDS ORDERED: LR 1,000 ML IV SCH (09:00)
[2019-07-25 09:30] VITALS: BP 118/57
--- NOTE | 2019-07-25 11:29 | RO ---
DATE OF PROCEDURE: 07/25/2019 PREPROCEDURE DIAGNOSIS: Left kidney and ureteral stones. POSTPROCEDURE DIAGNOSIS: Left kidney and ureteral stones. PROCEDURE: Cystoscopy, left ureteroscopy with basket extraction of stones, left retrograde pyelogram with intraoperative interpretation of images, left ureteral stent placement. SURGEON: Trenton Arreguin MD MEDICATION TECHNICIAN: None. ANESTHESIA: General. OPERATIVE INDICATIONS: This is a 68-year-old female who was found to have obstructing distal left ureteral stones, as well as additional stones inside the kidney. She was brought to the operating room today for treatment. DESCRIPTION OF PROCEDURE: The patient was brought to the operating room, and general anesthesia was induced. Culture-specific antibiotics were infused. The patient was then placed in dorsal lithotomy position and prepped and draped in the usual sterile fashion. A rigid cystoscope was inserted into the urethral meatus and advanced into the bladder. Once inside the bladder, a guidewire was advanced up the left collecting system. I then went up the left collecting system with a short semirigid ureteroscope, and within the distal ureter and approximately 4 or 5 stones seen, each measuring around 4-5 mm. All these stones were removed using a basket. Once that was done, a ureteral access sheath was advanced up into the left collecting system. I went up the access sheath with a flexible ureteroscope and examined the left kidney thoroughly. In the left kidney, there were several tiny stone fragments seen. One stone fragment was approximately 3-4 mm in size, and this was removed with a basket. Also of note, within the lower pole calyx, there appeared to be a somewhat stenotic infundibulum. I could get the basket into the calyx through the stenotic infundibulum, but I could not remove any of the stones that were seen inside that calyx. Given the stenosis of the infundibulum, it was deemed unlikely that these stones would be able to get out to cause any obstruction. Therefore, I did not attempt much further to get the stones out of that stenotic infundibulum. At this point, a retrograde pyelogram was performed, notable for mild left hydronephrosis with no extravasation. I then withdrew the ureteroscope along with the access sheath, and no additional stones were seen within the ureter. I then utilized the wire to advance a 6-Korean x 22-32 cm double J ureteral stent up into the left collecting system. The wire was then removed, and there were adequate curls of the stent in the left renal pelvis and in the bladder. The bladder was then emptied of all fluid, and this marked the conclusion of the procedure. The patient was then taken out of the dorsal lithotomy position, awakened from anesthesia, and transported to the recovery room in stable condition. ESTIMATED BLOOD LOSS: 5 mL. COMPLICATIONS: None. SPECIMENS: Kidney stones. PLAN: The patient will followup in the clinic in a week or 2 for stent removal. XIOMARA
== END 2019-07-25 09:58 | disposition home or self-care (01) ==
LOC: M SDC 05:49
PROVIDERS: ATTEND Urology
DX: N20.0 Calculus of kidney (principal); N20.1 Calculus of ureter; E11.9 Type 2 diabetes mellitus without complications; I20.9 Angina pectoris, unspecified; I10 Essential (primary) hypertension; E03.9 Hypothyroidism, unspecified; K58.8 Other irritable bowel syndrome; K44.9 Diaphragmatic hernia without obstruction or gangrene; Z88.8 Allergy status to other drugs, medicaments and biological substances; Z79.899 Other long term (current) drug therapy; M79.7 Fibromyalgia
CPT/HCPCS: 52356; 74420; 82360; 88300; C1769; C1894; C2617; J0131; J1580; J2250; J2405; J2765; J3010; Q9961

== ENCOUNTER 2019-07-28 12:02 | Inpatient (IN) | payer MEDICARE, OTHER ==
[~2019-07-28] VITALS: Ht 152.4 cm; Wt 73.3 kg
[~2019-07-28 12:02] MED LIST changes: -MONT10TA2 PO; +MONT10TA4 PO; +NITR100C2 PO
[2019-07-28] MEDS ORDERED: MORPHINE 4 MG/ML 1ML VIAL/SYRINGE (J2270) IV ONE ×2 (14:00→16:30)
[2019-07-28] MEDS ORDERED: ONDANSETRON 4MG/2ML VIAL (J2405) IV ONE (14:00)
[2019-07-28 14:47] LABS: BASO # 0.1 10^3/uL (0.0-0.2); BASO % 0.5 % (0.0-1.0); EOS # 0.1 10^3/uL (0.0-0.5); HEMOGLOBIN 12.7 g/dl (12.0-15.5); LYMPH # 1.9 10^3/uL (1.5-5.0); LYMPH % 15.3 % (24.0-44.0); MEAN CORPUSCULAR HGB CONC 32.6 g/dl (32.0-36.5); MEAN CORPUSCULAR VOLUME 85.9 fl (80.0-96.0); MONO # 1.1 10^3/uL (0.0-0.8); NEUTROPHILS # 9.3 10^3/uL (1.5-8.5); NEUTROPHILS % 73.9 % (36.0-66.0); PLATELET COUNT, AUTOMATED 285 10^3/uL (150-450); RED BLOOD COUNT 4.54 10^6/uL (4.00-5.40); WHITE BLOOD COUNT 12.6 10^3/uL (4.0-10.0)
[2019-07-28 15:03] LABS: INR 1.06; PARTIAL THROMBOPLASTIN TIME 31.1 SECONDS (25.0-38.4); PROTHROMBIN TIME 13.5 SECONDS (11.8-14.0)
[2019-07-28 15:18] LABS: ALBUMIN 3.7 GM/DL (3.2-5.2); ALT/SGPT 22 U/L (12-78); AMYLASE 22 U/L (25-115); BILIRUBIN,DIRECT 0.1 MG/DL (0.0-0.2); BILIRUBIN,TOTAL 0.5 MG/DL (0.2-1.0); BLOOD UREA NITROGEN 13 MG/DL (7-18); CARBON DIOXIDE LEVEL 25 MEQ/L (21-32); CHLORIDE LEVEL 109 MEQ/L (98-107); CK-MB VALUE MASS < 1.0 NG/ML (<3.6); CPK CREATINE PHOSPHOKINASE 19 U/L (26-192); CREATININE FOR GFR 0.62 MG/DL (0.55-1.30); GLOMERULAR FILTRATION RATE > 60.0 (>45); GLUCOSE, FASTING 97 MG/DL (70-100); LIPASE 94 U/L (73-393); MB/CK RELATIVE INDEX 5.26 (< OR =4); POTASSIUM SERUM 3.8 MEQ/L (3.5-5.1); SODIUM LEVEL 141 MEQ/L (136-145); TOTAL PROTEIN 6.7 GM/DL (6.4-8.2); TROPONIN I < 0.02 NG/ML (< 0.10)
[2019-07-28] MEDS ORDERED: ISOVUE-370 76% 100ML VIAL (Q9967) As Ordered ONE (15:22)
--- NOTE | 2019-07-28 15:39 | ECGEPIP ---
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
--- NOTE | 2019-07-28 17:03 | REP ---
Chest x-ray: Two views. History: Abdomen pain . Comparison study: August 05, 2018 . Findings: The lungs are well inflated and free of infiltrate. The pleural angles are sharp. The heart size is normal. Pulmonary vasculature is not increased. No significant bony abnormality is seen. Impression: Negative chest x-ray. Electronically Signed by Rei Cheek MD 07/28/2019 04:55 P
--- NOTE | 2019-07-28 17:04 | REP ---
CT of the abdomen and pelvis with IV contrast, without bowel contrast: Comparison to 06/18/2019 and 03/15/2019. The visualized lung mason are unremarkable. The hepatic parenchyma is homogeneous except for a 9 mm left lobe cyst. This is unchanged. There is a cholecystectomy. The pancreas and spleen are unremarkable. The adrenals are unremarkable. There is a left ureteral stent with the proximal and distal pigtails in satisfactory positions. There are multiple nonobstructive left renal calculi in the upper lower poles. No right renal calculi are identified. There is a right renal simple cortical cyst measuring 15 mm. There is no hydronephrosis. There are no solid renal masses. The abdominal aorta is unremarkable. There is no retroperitoneal adenopathy or mass. There is no bowel distension or obstruction. No ascites. Pelvis: There is a hysterectomy. The patient also reportedly has an appendectomy. There are numerous sigmoid diverticula. There is wall thickening of the sigmoid colon and there is edema in the sigmoid colon pericolonic fat. The findings are compatible with sigmoid colon diverticulitis. There is no focal fluid collection to suggest abscess. There is no pneumoperitoneum. The bladder is unremarkable. Impression: Sigmoid colon diverticulitis without abscess or pneumoperitoneum. Cholecystectomy, hysterectomy and appendectomy. Nonobstructive left renal calculi. Left ureteral stent. Right renal cyst. No hydronephrosis. Electronically Signed by Deon Sparks MD 07/28/2019 04:56 P
[2019-07-28] MEDS ORDERED: metroNIDAZOLE (FLAGYL) 500 MG TAB PO ONE (18:15)
[2019-07-28] MEDS ORDERED: CIPROFLOXACIN 400 MG in IV 1 EA IV ONE (18:15)
[2019-07-28] MEDS ORDERED: LEVO100T54 PO (18:20)
[2019-07-28] MEDS ORDERED: ONDANSETRON 4MG/2ML VIAL (J2405) IV PRN (18:30)
[2019-07-28] MEDS ORDERED: OMEPRAZOLE 20 MG CAP PO ONE (18:45)
[2019-07-28] MEDS: NS 1,000 ML IV SCH (18:54)
--- NOTE | 2019-07-28 18:54 | HPEPDOC ---
General Date of Admission 07/28/2019 Date of Service: Jul 28, 2019 Chief Complaint The patient is a 68-year-old female admitted with a reason for visit of Abdominal Pain. Source: Patient Exam Limitations: No limitations Timing/Duration: Day(s) Severity: Moderate Associated Symptoms: Nausea History of Present Illness Patient is 68 years old female with past medical history of hypertension, type 2 diabetes, nephrolithiasis presented hospital with left flank pain with radiation to the left lower abdominal quadrant. Patient stated that the pain started 5 days ago, after urological procedure cystoscopy with left stent placement due to nephrolithiasis, 9 out of 10 in intensity, constant. Also patient notices dysuria Patient denied fever, but has constant nausea. In emergency room patient was found to have leukocytosis of 12.6, pyuria. Abdominal CT showed sigmoid colon diverticulitis without abscess or pneumoperitoneum. Cholecystectomy, hysterectomy and appendectomy. Nonobstructive left renal calculi. Left ureteral stent. Right renal cyst. No hydronephrosis. Home Medications Scheduled Levothyroxine Sodium (Levoxyl) 100 Mcg Tablet, 100 MCG PO DAILY, (Reported) Melatonin (Melatonin) 10 Mg Tablet, 10 MG PO QHS, (Reported) Nitrofurantoin Monohyd/M-Cryst (Nitrofurantoin [place]-Mcr 100 mg) 100 Mg Capsule, 100 MG PO BID, (Reported) Tamsulosin HCl (Flomax) 0.4 Mg Capsule, 0.4 MG PO DAILY, (Reported) Tizanidine HCl (Tizanidine HCl) 4 Mg Cap, 8 MG PO QHS, (Reported) Trazodone HCl (Trazodone HCl) 100 Mg Tab, 100 MG PO QHS, (Reported) Scheduled PRN Hydroxyzine HCl (Hydroxyzine HCl) 25 Mg Tablet, 25 MG PO TID PRN for ANXIETY, (Reported) Allergies Coded Allergies: ENVIROMENTAL (Verified Allergy, Unknown, 07/13/19) zolpidem (Verified Adverse Reaction, Intermediate, confusion /disorientation, 07/25/19) Past Medical History Medical History hypothyroidism, obstructive sleep apnea not using continuous positive airway pressure (CPAP), anxiety, claustrophobic, gastroesophageal reflux disease (GERD), gastroparesis, hypertension, asthma, fibromyalgia, insomnia, migraine, degenerative disc disease, hypothyroidism, hypertension, dyslipidemia, transient ischemic attack (TIA), carpal tunnel bilateral, fibrocystic breast changes, chronic nephrolithiasis, peripheral neuropathy, history of endometriosis, left knee torn meniscus, diverticulosis Surgical History 1. Right knee replacement surgery. 2. Fatty tumor removal of left thigh. 3. Tonsillectomy. 4. Cholecystectomy. 5. Hysterectomy. 6. Right oophorectomy. 7. Right knee arthroscopy. 8. Right rotator cuff repair. 9. Lithotripsy. 10. Cystoscopy. Family History Mother from ovarian cancer at age 66. Father at age 49 from lung cancer Social History * Smoker: Denies Alcohol: Denies Drugs: denies A-FIB/CHADSVASC A-FIB History Current/History of A-Fib/PAF?: No Current PO Anticoag Therapy: No Review of Systems Constitutional: Reports: Chills, Weakness; Denies: Fever Eyes: Denies: Pain, Vision change ENT: Denies: Head Aches Skin: Denies: Rash, Lesions Pulmonary: Denies: Dyspnea, Cough Cardiovascular: Denies: Chest Pain, Palpitations Gastrointestinal: Reports: Nausea, Abdominal Pain; Denies: Vomiting, Diarrhea Genitourinary: Reports: Dysuria Hematologic: Denies: Bruising, Bleeding Excessively Endocrine: Denies: Polydipsia, Polyphagia Musculoskeletal: Denies: Neck Pain, Back Pain Neurological: Denies: Weakness, Numbness Psych: Reports: Mood Normal Physical Examination General Exam: Positive: Alert, Cooperative, Moderate Distress Eye Exam: Positive: PERRLA ENT Exam: Positive: Atraumatic, Mucous membr. moist/pink Neck Exam: Positive: Supple; Negative: JVD Chest Exam: Positive: Clear to auscultation Heart Exam: Positive: Rate Normal Telemetry: Positive: No significant arrhythmia Abdomen Exam: Positive: BS Hypoactive, Tenderness; Negative: Normal bowel sounds Extremity Exam: Negative: Clubbing, Cyanosis Skin Exam: Positive: Nl turgor and temperature Neuro Exam: Positive: Strength at 5/5 X4 ext, Cranial Nerves 3-12 NL Psych Exam: Positive: Mental status NL Vital Signs Vital Signs Date Time Temp Pulse Resp B/P (MAP) Pulse Ox O2 Delivery O2 Flow Rate FiO2 07/28/19 18:05 99.1 79 16 146/67 (93) 95 Room Air Laboratory Data Labs 24H Laboratory Tests 2 07/28/19 14:34: Immature Granulocyte % (Auto) 0.3, Neutrophils (%) (Auto) 73.9H, Lymphocytes (%) (Auto) 15.3L, Monocytes (%) (Auto) 9.0H, Eosinophils (%) (Auto) 1.0, Basophils (%) (Auto) 0.5, Neutrophils # (Auto) 9.3H, Lymphocytes # (Auto) 1.9, Monocytes # (Auto) 1.1H, Eosinophils # (Auto) 0.1, Basophils # (Auto) 0.1, Nucleated Red Blood Cells % (auto) 0.0, Prothrombin Time 13.5, Prothromb Time International Ratio 1.06, Activated Partial Thromboplast Time 31.1, Anion Gap 7L, Glomerular Filtration Rate > 60.0, Lactic Acid Level 0.9, Calcium Level 9.0, Total Bilirubin 0.5, Direct Bilirubin 0.1, Aspartate Amino Transf (AST/SGOT) 8, Alanine Aminotransferase (ALT/SGPT) 22, Alkaline Phosphatase 91, Total Creatine Kinase 19L, Creatine Kinase MB < 1.0, Creatine Kinase MB Relative Index 5.26H, Troponin I < 0.02, Total Protein 6.7, Albumin 3.7, Albumin/Globulin Ratio 1.23, Amylase Level 22L, Lipase 94 07/28/19 14:46: Urine Color YELLOW, Urine Appearance HAZY, Urine pH 5.0, Urine Specific [place] 1.015, Urine Protein 1+H, Urine Glucose (UA) NEGATIVE, Urine Ketones NEGATIVE, Urine Blood 2+H, Urine Nitrite NEGATIVE, Urine Bilirubin NEGATIVE, Urine Urobilinogen 0.2, Urine Leukocyte Esterase 3+H, Urine WBC (Auto) 154H, Urine RBC (Auto) 75H, Urine Hyaline Casts (Auto) 0, Urine Bacteria (Auto) 1+H, Urine Squamous Epithelial Cells 3, Urine Mucus (Auto) SMALL, Urine Sperm (Auto) CBC/BMP Laboratory Tests 07/28/19 14:34 Microbiology Microbiology 07/28/19 Urine Culture, Received Pending Assessment/Plan Patient is 68 years old female with past medical history of hypertension, type 2 diabetes, nephrolithiasis presented hospital with left flank pain with radiation to the left lower abdominal quadrant. Patient stated that the pain started 5 days ago, after urological procedure cystoscopy with left stent placement due to nephrolithiasis, 9 out of 10 in intensity, constant. Also patient notices dysuria Problems (1) Diverticulitis large intestine Status: Acute Problem Text: Patient complained of a severe left lower quadrant pain, CT scan showed acute diverticulitis Patient has had multiple episodes of diverticulitis in the past I will start Zosyn IV, nothing by mouth for now (2) Pyelonephritis Status: Chronic Problem Text: Patient developed pain in the left quadrants and attributed to acute pyelonephritis, she has left CV tenderness Started broad-spectrum antibiotic Zosyn IV with extended coverage including anaerobes in order to cover intestinal and urinary tract infection IV fluid (3) Diabetes mellitus Status: Chronic Problem Text: Insulin sliding scale Glucose levels under control Plan / VTE VTE Prophylaxis Ordered?: Yes ROHAN KEARNEY DO Jul 28, 2019 18:54
[2019-07-28] MEDS ORDERED: GLUCOSE 4 GM CHEW TABLET PO PRN (19:00)
[2019-07-28] MEDS ORDERED: GLUCAGON FOR INJ 1 MG VIAL (J1610) SC PRN (19:00)
[2019-07-28] MEDS ORDERED: DEXTROSE 50% 50 ML SYRINGE IV PRN (19:00)
[2019-07-28] MEDS: MORPHINE 2 MG/ML 1ML VIAL (J2270) IV SCH (20:16)
[2019-07-28] MEDS: PIPERACILLIN/TAZOBACTAM SOD 3.375 GM in D5W MINI-BAG PLUS 50 ML IV SCH (20:17)
[2019-07-28 20:43] VITALS: BP 185/80
[2019-07-28] MEDS: HumaLOG INSULIN (NovoLOG) PER UNIT SC SCH (21:00)
[2019-07-28] MEDS: traZODone 100 MG TAB PO SCH (21:00)
[2019-07-28] MEDS: RAMELTEON 8 MG TAB (ROZEREM) PO SCH (21:00)
[2019-07-29] VITALS (7 sets, daily range): BP systolic 96–148; BP diastolic 50–88
[2019-07-29] MEDS: MORPHINE 2 MG/ML 1ML VIAL (J2270) IV SCH (00:14)
[2019-07-29] MEDS: PIPERACILLIN/TAZOBACTAM SOD 3.375 GM in D5W MINI-BAG PLUS 50 ML IV SCH ×4 (02:14→20:24)
[2019-07-29] MEDS: LEVOTHYROXINE 100MCG TABLET (0.1MG) PO SCH (04:31)
[2019-07-29] MEDS: NS 1,000 ML IV SCH ×2 (04:31→13:40)
[2019-07-29 06:01] LABS: HEMATOCRIT 36.2 % (36.0-47.0); HEMOGLOBIN 11.6 g/dl (12.0-15.5); MEAN CORPUSCULAR VOLUME 87.2 fl (80.0-96.0); PLATELET COUNT, AUTOMATED 265 10^3/uL (150-450); RED BLOOD COUNT 4.15 10^6/uL (4.00-5.40); WHITE BLOOD COUNT 9.8 10^3/uL (4.0-10.0)
[2019-07-29 06:27] LABS: BLOOD UREA NITROGEN 10 MG/DL (7-18); CALCIUM LEVEL 8.2 MG/DL (8.8-10.2); CARBON DIOXIDE LEVEL 25 MEQ/L (21-32); CHLORIDE LEVEL 107 MEQ/L (98-107); CREATININE FOR GFR 0.66 MG/DL (0.55-1.30); GLOMERULAR FILTRATION RATE > 60.0 (>45); GLUCOSE, FASTING 112 MG/DL (70-100); MAGNESIUM LEVEL 1.8 MG/DL (1.8-2.4); POTASSIUM SERUM 3.4 MEQ/L (3.5-5.1); SODIUM LEVEL 139 MEQ/L (136-145)
[2019-07-29] MEDS: HumaLOG INSULIN (NovoLOG) PER UNIT SC SCH ×4 (07:06→20:26)
[2019-07-29] MEDS: MORPHINE 2 MG/ML 1ML VIAL (J2270) IV PRN ×3 (07:25→20:39)
[2019-07-29] MEDS ORDERED: POTASSIUM CHLORIDE 10 MEQ SR TABLET PO ONE (08:00)
[2019-07-29] MEDS ORDERED: ACETAMINOPHEN TAB 650MG DOSE (2X325MG) PO PRN (08:00)
[2019-07-29] MEDS: TAMSULOSIN 0.4 MG CAP PO SCH (08:25)
[2019-07-29] MEDS: HEPARIN SOD (PORCINE) 5000 UNITS/ML VIAL (J1644 PER 1000UNITS) SC SCH ×2 (08:26→20:25)
--- NOTE | 2019-07-29 10:38 | IPN ---
DATE: 07/29/2019 The patient was admitted overnight with diverticulitis. She seems to be making some progress. This morning states that her pain is much better than it was last night, but still quite sore and quite tender. She is only sipping at her clear liquid diet, but still has some difficulty with moving around in bed this morning. Her white count has come down to normal this morning and she has been afebrile. She still has some tenderness and significant tenderness in the left lower quadrant, suprapubic area and right above the iliac crest on the left-hand side. IMPRESSION AND PLAN: The patient's diverticulitis is still quite symptomatic and problematic for her. I do feel that it is most reasonable to continue with the clear liquids today and possibly progress her diet tomorrow. If she is doing better and pain is nicely controlled tomorrow, then possibly discharging her home if she tolerates food, but otherwise I would consider keeping her until Thursday and then possible discharge at that time. In any case because of the stent placement and "foreign body present" as well as this infectious presentation, I do feel that she may need to be on a slightly longer course of antibiotics than the typical 7-10 day course. She can follow up with myself in approximately 2 weeks for reevaluation and follow up with her urologist in the next week or so.
--- NOTE | 2019-07-29 10:48 | CR ---
DATE OF CONSULTATION: 07/29/2019 REASON FOR CONSULTATION: Diverticulitis. HISTORY OF PRESENT ILLNESS: The patient is a 68-year-old female that I have seen in the office approximately 2 years ago for followup after diverticulitis attack, and we did a followup colonoscopy that showed diverticulosis but no other significant abnormality. Her story is a little bit different this time, that it follows an episode of having a left flank stent placed with some left flank pain starting about 5 days ago and essentially this pain has been problematic and persistent. She has been on some Macrobid but has had this progression of pain, comes to the emergency room for reevaluation and on her workup the CT scan shows diverticulitis without abscess or pneumoperitoneum. She states the pain has been persistent but slightly more progressive. Her white count is elevated at 12.6. She has been afebrile. PAST MEDICAL HISTORY: Significant for history of hypothyroidism, sleep apnea, claustrophobia, gastroesophageal reflux disease (GERD), gastroparesis, hypertension, asthma, fibromyalgia, insomnia, migraines, degenerative disk disease, hypothyroidism, hypertension, dyslipidemia, transient ischemia attack, carpal tunnel syndrome fibrocystic changes, kidney stones, peripheral neuropathy, endometriosis, knee surgery, diverticulosis, lipoma removal of the left thigh, tonsillectomy, cholecystectomy, hysterectomy, oophorectomy, arthroscopy, rotator cuff, lithotripsy and cystoscopy PHYSICAL EXAMINATION: Reveals a pleasant 68-year-old female who looks stated age. HEENT is unremarkable. Neck: Supple without adenopathy. Lungs: Clear. Heart: Regular. Abdomen: Soft, but she is tender with guarding on the left side of her abdomen, mostly in the left lower quadrant all consistent with her diverticulitis and assessment. IMPRESSION AND PLAN: The patient has significant tenderness and pain with diverticulitis. I agree with admission and observation overnight and see how she does. Depending on her progress, we will possibly advance her diet as tolerated, etc., but given there is no perforation, I anticipate to get some good resolution of symptoms and infectious / inflammatory response over the next several days.
--- NOTE | 2019-07-29 13:40 | IPNPDOC ---
Text Note Date of Service The patient was seen on 07/29/19. NOTE Subjective: Patient continues to complain of the left lower abdominal pain, also patient complains on severe frontal headache. Patient denies fever, chills, chest pain, palpitations, diarrhea Objective: VITAL SIGNS: Please see below. GENERAL APPEARANCE: In moderate distress HEENT: Normocephalic, atraumatic. Mucous members moist and pink CARDIOVASCULAR: Regular rate and rhythm. No murmurs, rubs or gallops. Radial pulses are intact. There is no lower extremity edema LUNGS: Diminished lung sounds ABDOMEN: Abdomen is soft and moderately tender in the left lower quadrant MUSCULOSKELETAL: Range of motion is intact in all 4 extremities NEUROLOGICAL: Cranial nerves II-12 are grossly intact. Speech is not dysarthric Assessment/Plan Patient is 68 years old female with past medical history of hypertension, type 2 diabetes, nephrolithiasis presented hospital with left flank pain with radiation to the left lower abdominal quadrant. Patient stated that the pain started 5 d ays ago, after urological procedure cystoscopy with left stent placement due to nephrolithiasis, 9 out of 10 in intensity, constant. Also patient notices dysuria Problems (1) Diverticulitis large intestine Patient complained of a severe left lower quadrant pain, CT scan showed acute diverticulitis Patient has had multiple episodes of diverticulitis in the past Continue with Zosyn IV, clear liquid diet today (2) Pyelonephritis Patient developed pain in the left quadrants and attributed to acute pyelonephritis, she has left CV tenderness. Of note few days ago patient received left stent placement Started broad-spectrum antibiotic Zosyn IV with extended coverage including anaerobes in order to cover intestinal and urinary tract infection IV fluid (3) Diabetes mellitus Insulin sliding scale Glucose levels under control Hyperkalemia Potassium replaced Headache Tylenol when necessary VS,Fishbone, I+O VS, Fishbone, I+O Laboratory Tests 07/28/19 14:34 07/29/19 05:30 Vital Signs Date Time Temp Pulse Resp B/P (MAP) Pulse Ox O2 Delivery O2 Flow Rate FiO2 07/29/19 12:00 97.4 82 17 136/82 (100) 96 Room Air I&O- Last 24 Hours up to 6 AM 07/29/19 06:00 Intake Total 450 ml Output Total 100 ml Balance 350 ml ROHAN KEARNEY DO Jul 29, 2019 13:40
[2019-07-29] MEDS: traZODone 100 MG TAB PO SCH (20:25)
[2019-07-29] MEDS: RAMELTEON 8 MG TAB (ROZEREM) PO SCH (20:25)
[2019-07-29] MEDS ORDERED: tiZANidine 4 MG TAB PO SCH (21:00)
[2019-07-30] MEDS: PIPERACILLIN/TAZOBACTAM SOD 3.375 GM in D5W MINI-BAG PLUS 50 ML IV SCH ×2 (01:14→08:27)
[2019-07-30] MEDS: NS 1,000 ML IV SCH ×2 (01:14→08:27)
[2019-07-30 04:00] VITALS: BP 112/53
[2019-07-30] MEDS: LEVOTHYROXINE 100MCG TABLET (0.1MG) PO SCH (05:39)
[2019-07-30] MEDS: HumaLOG INSULIN (NovoLOG) PER UNIT SC SCH (07:18)
[2019-07-30 08:00] VITALS: BP 144/65
[2019-07-30] MEDS: HEPARIN SOD (PORCINE) 5000 UNITS/ML VIAL (J1644 PER 1000UNITS) SC SCH (08:27)
[2019-07-30] MEDS: TAMSULOSIN 0.4 MG CAP PO SCH (08:27)
[2019-07-30 09:31] LABS: HEMATOCRIT 34.6 % (36.0-47.0); HEMOGLOBIN 11.1 g/dl (12.0-15.5); MEAN CORPUSCULAR HGB CONC 32.1 g/dl (32.0-36.5); MEAN CORPUSCULAR VOLUME 87.2 fl (80.0-96.0); PLATELET COUNT, AUTOMATED 266 10^3/uL (150-450); RED BLOOD COUNT 3.97 10^6/uL (4.00-5.40); WHITE BLOOD COUNT 7.5 10^3/uL (4.0-10.0)
[2019-07-30 09:55] LABS: BLOOD UREA NITROGEN 8 MG/DL (7-18); CALCIUM LEVEL 7.9 MG/DL (8.8-10.2); CARBON DIOXIDE LEVEL 26 MEQ/L (21-32); CHLORIDE LEVEL 110 MEQ/L (98-107); CREATININE FOR GFR 0.52 MG/DL (0.55-1.30); GLOMERULAR FILTRATION RATE > 60.0 (>45); GLUCOSE, FASTING 93 MG/DL (70-100); POTASSIUM SERUM 3.9 MEQ/L (3.5-5.1); SODIUM LEVEL 142 MEQ/L (136-145)
[2019-07-30] MEDS ORDERED: AUGM875T28 PO (10:31)
[2019-07-30] MEDS ORDERED: FLAG500T PO (10:31)
--- NOTE | 2019-07-30 15:12 | DS.PDOC ---
Discharge Summary General Date of Admission Jul 28, 2019 at 18:28 Date of Discharge 07/30/19 Discharge Summary PROCEDURES PERFORMED DURING STAY: [None]. ADMITTING DIAGNOSES: Diverticulitis large intestine Pyelonephritis Diabetes mellitus Hyperkalemia Headache DISCHARGE DIAGNOSES: Diverticulitis large intestine Pyelonephritis Diabetes mellitus Hyperkalemia Headache COMPLICATIONS/CHIEF COMPLAINT: Diverticulitis Large Intestine, Pyelonephritis. HISTORY OF PRESENT ILLNESS: The patient is a 68-year-old female that I have seen in the office approximately 2 years ago for followup after diverticulitis attack, and we did a followup colonoscopy that showed diverticulosis but no other significant abnormality. Her story is a little bit different this time, that it follows an episode of having a left flank stent placed with some left flank pain starting about 5 days ago and essentially this pain has been problematic and persistent. She has been on some Macrobid but has had this progression of pain, comes to the emergency room for reevaluation and on her workup the CT scan shows diverticulitis without abscess or pneumoperitoneum. She states the pain has been persistent but slightly more progressive. Her white count is elevated at 12.6. She has been afebrile. HOSPITAL COURSE: During hospital stay following issues addressed (1) Diverticulitis large intestine Patient complained of a severe left lower quadrant pain, CT scan showed acute diverticulitis Patient has had multiple episodes of diverticulitis in the past Continue with Zosyn IV, clear liquid diet today (2) Pyelonephritis Patient developed pain in the left quadrants and attributed to acute pyelonephritis, she has left CV tenderness. Of note few days ago patient received left stent placement Patient received Zosyn IV with extended coverage including anaerobes in order to cover intestinal and urinary tract infection IV fluid (3) Diabetes mellitus Insulin sliding scale Glucose levels under control Hyperkalemia Potassium replaced Headache Tylenol when necessary DISCHARGE MEDICATIONS: Please see below. ALLERGIES: Please see below. PHYSICAL EXAMINATION ON DISCHARGE: VITAL SIGNS: Please see below. Objective: VITAL SIGNS: Please see below. GENERAL APPEARANCE: In moderate distress HEENT: Normocephalic, atraumatic. Mucous members moist and pink CARDIOVASCULAR: Regular rate and rhythm. No murmurs, rubs or gallops. Radial pulses are intact. There is no lower extremity edema LUNGS: Diminished lung sounds ABDOMEN: Abdomen is soft and moderately tender in the left lower quadrant MUSCULOSKELETAL: Range of motion is intact in all 4 extremities NEUROLOGICAL: Cranial nerves II-12 are grossly intact. Speech is not dysarthric LABORATORY DATA: Please see below. IMAGING: CT of the abdomen and pelvis with IV contrast, without bowel contrast: Comparison to 06/18/2019 and 03/15/2019. The visualized lung mason are unremarkable. The hepatic parenchyma is homogeneous except for a 9 mm left lobe cyst. This is unchanged. There is a cholecystectomy. The pancreas and spleen are unremarkable. The adrenals are unremarkable. There is a left ureteral stent with the proximal and distal pigtails in satisfactory positions. There are multiple nonobstructive left renal calculi in the upper lower poles. No right renal calculi are identified. There is a right renal simple cortical cyst measuring 15 mm. There is no hydronephrosis. There are no solid renal masses. The abdominal aorta is unremarkable. There is no retroperitoneal adenopathy or mass. There is no bowel distension or obstruction. No ascites. Pelvis: There is a hysterectomy. The patient also reportedly has an appendectomy. There are numerous sigmoid diverticula. There is wall thickening of the sigmoid colon and there is edema in the sigmoid colon pericolonic fat. The findings are compatible with sigmoid colon diverticulitis. There is no focal fluid collection to suggest abscess. There is no pneumoperitoneum. The bladder is unremarkable. Impression: Sigmoid colon diverticulitis without abscess or pneumoperitoneum. Cholecystectomy, hysterectomy and appendectomy. Nonobstructive left renal calculi. Left ureteral stent. Right renal cyst. No hydronephrosis. PROGNOSIS: Favorable ACTIVITY: As tolerated DIET: Cardiac/diabetes DISCHARGE PLAN: Home DISPOSITION: 01 Home, Self-Care. DISCHARGE INSTRUCTIONS: Follow-up with surgeon, GI and PCP ITEMS TO FOLLOWUP ON ON OUTPATIENT: See above DISCHARGE CONDITION: [Stable]. TIME SPENT ON DISCHARGE: Greater than 20 minutes. Vital Signs/I&Os Vital Signs Date Time Temp Pulse Resp B/P (MAP) Pulse Ox O2 Delivery O2 Flow Rate FiO2 07/30/19 08:00 97.2 68 18 144/65 (91) 100 Room Air I&O- Last 24 Hours up to 6 AM 07/30/19 06:00 Intake Total 2060 ml Output Total 750 ml Balance 1310 ml Laboratory Data Labs 24H Laboratory Tests 2 07/29/19 17:00: Bedside Glucose (Misc Panel) 101 07/29/19 20:11: Bedside Glucose (Misc Panel) 103 07/30/19 03:23: Bedside Glucose (Misc Panel) 126H 07/30/19 07:14: Bedside Glucose (Misc Panel) 90 07/30/19 09:19: Nucleated Red Blood Cells % (auto) 0.0, Anion Gap 6L, Glomerular Filtration Rate > 60.0, Calcium Level 7.9L CBC/BMP Laboratory Tests 07/30/19 09:19 FSBS Laboratory Tests Test 07/29/19 17:00 07/29/19 20:11 07/30/19 03:23 07/30/19 07:14 Range/Units Bedside Glucose (Misc Panel) 101 103 126 90 80-115 MG/DL Microbiology Microbiology 07/29/19 Blood Culture - Preliminary, Resulted No growth after 24 hours . All specim... 07/28/19 Urine Culture - Final, Complete Discharge Medications Scheduled Amoxicillin/Potassium Clav (Augmentin 875-125 Tablet) 1 Each Tablet, 1 TAB PO BID Levothyroxine Sodium (Levoxyl) 100 Mcg Tablet, 100 MCG PO DAILY, (Reported) Melatonin (Melatonin) 10 Mg Tablet, 10 MG PO QHS, (Reported) Metronidazole (Flagyl) 500 Mg Tablet, 500 MG PO BID Tamsulosin HCl (Flomax) 0.4 Mg Capsule, 0.4 MG PO DAILY, (Reported) Tizanidine HCl (Tizanidine HCl) 4 Mg Cap, 8 MG PO QHS, (Reported) Trazodone HCl (Trazodone HCl) 100 Mg Tab, 100 MG PO QHS, (Reported) Scheduled PRN Hydroxyzine HCl (Hydroxyzine HCl) 25 Mg Tablet, 25 MG PO TID PRN for ANXIETY, (Reported) Allergies Coded Allergies: ENVIROMENTAL (Verified Allergy, Unknown, 07/13/19) zolpidem (Verified Adverse Reaction, Intermediate, confusion/disorientatio n, 07/25/19) ROHAN KEARNEY DO Jul 30, 2019 15:11
[2019-07-30] MEDS ORDERED: TRAM1CAP15 PO (15:59)
== END 2019-07-30 11:55 | disposition home or self-care (01) | DRG 392 ==
LOC: M ED 12:02 → M ED INP 18:28 → ENRESERVDT 18:50 → ENRESERVTM 18:50 → M PCU 20:43
PROVIDERS: ADMIT Internal Medicine; ATTEND Internal Medicine
DX: K57.32 Diverticulitis of large intestine without perforation or abscess without bleeding (principal); N20.1 Calculus of ureter; N10 Acute pyelonephritis; N20.0 Calculus of kidney; E11.43 Type 2 diabetes mellitus with diabetic autonomic (poly)neuropathy; N28.1 Cyst of kidney, acquired; I10 Essential (primary) hypertension; E87.5 Hyperkalemia; E03.9 Hypothyroidism, unspecified; E11.42 Type 2 diabetes mellitus with diabetic polyneuropathy; M79.7 Fibromyalgia; G47.33 Obstructive sleep apnea (adult) (pediatric); F41.9 Anxiety disorder, unspecified; K21.9 Gastro-esophageal reflux disease without esophagitis; F40.240 Claustrophobia; K31.84 Gastroparesis; J45.909 Unspecified asthma, uncomplicated; G43.909 Migraine, unspecified, not intractable, without status migrainosus; Z86.73 Personal history of transient ischemic attack (TIA), and cerebral infarction without residual deficits; Z88.8 Allergy status to other drugs, medicaments and biological substances; Z90.49 Acquired absence of other specified parts of digestive tract; Z96.651 Presence of right artificial knee joint; Z95.828 Presence of other vascular implants and grafts; Z79.899 Other long term (current) drug therapy

== ENCOUNTER → 2019-08-08 | Outpatient (REF) | payer MEDICARE, OTHER ==
[~2019-08-08] MED LIST changes: +LEVO100T54 PO; +TRAM1CAP15 PO
[2019-08-08 17:57] LABS: APPEARANCE, URINE CLOUDY (CLEAR); BACTERIA, URINE AUTO 1+ (NEGATIVE); BILIRUBIN, URINE AUTO NEGATIVE (NEGATIVE); BLOOD, URINE BLOOD 1+ (NEGATIVE); CALCIUM OXALATE CRYSTALS LARGE; COLOR, URINE YELLOW (YELLOW); GLUCOSE, URINE (UA) AUTO NEGATIVE (NEGATIVE); KETONE, URINE AUTO NEGATIVE (NEGATIVE); LEUKOCYTE ESTERASE, URINE AUTO 2+ (NEGATIVE); MUCUS, URINE SMALL (NEGATIVE); NITRITE, URINE AUTO NEGATIVE (NEGATIVE); PROTEIN, URINE AUTO NEGATIVE (NEGATIVE); RBC, URINE AUTO 18 /HPF (0-3); SPECIFIC GRAVITY URINE AUTO 1.016 (1.002-1.035); SQUAMOUS EPITHELIAL CELL UR AU 9 /HPF (0-6); UROBILINOGEN, URINE AUTO 0.2 mg/dL (0.0-2.0); WBC, URINE AUTO 93 /HPF (0-3)
== END ==
LOC: M SMT 16:54
PROVIDERS: ATTEND Nurse Practitioner Family
DX: N20.0 Calculus of kidney (principal); Z01.818 Encounter for other preprocedural examination

== ENCOUNTER → 2020-04-05 | Outpatient (CLI) | payer MEDICARE, OTHER ==
[~2020-04-05] MED LIST changes: -MOVA1TAB PO; +NALO12.5 PO
--- NOTE | 2020-04-06 08:23 | REPMRS ---
Patient History The patient states she has not had a clinical breast exam in over a year. Family history of breast cancer in mother, breast cancer in maternal grandmother, ovarian cancer at age 42 and breast cancer at age 41 in sister. No Hormone Replacement Therapy Digital Woman Screen Mammo: April 05, 2020 - Exam #: [id number] Bilateral CC and MLO view(s) were taken. Technologist: Destiny Machado, Technologist Prior study comparison: May 06, 2018, bilateral digital mammo screening bilat, performed at [facility]. May 04, 2017, digital mammo diagnostic bilateral, performed at [facility]. March 25, 2016, digital mammo diagnostic bilateral, performed at [facility]. FINDINGS: There are scattered fibroglandular densities. The Volpara volumetric breast density category is:B. There is a stable 19 mm nodule in the upper outer quadrant on the right unchanged from multiple prior studies. There is also a stable 15 mm subareolar nodule on the left medially. There are stable coarse calcifications in the subareolar region on the left laterally. There has been no change in the appearance of the mammogram from the prior studies. There is a mild amount of scattered fibroglandular density which is fairly symmetric. There is no interval development of dominant mass, architectural distortion, or grouped microcalcification suggestive of malignancy. 3-D tomosynthesis shows no additional findings. Assessment: BI-RADS/ACR category 2 mammogram. Benign Findings. Recommendation Routine screening mammogram of both breasts in 1 year (for women over age 40). This patient's Lifetime Breast Cancer Risk is estimated at 13.4 %. This mammogram was interpreted with the aid of an FDA-approved computer-aided dectection system. Electronically Signed By: Jaspreet Cheek MD 04/06/20 [id number]
== END ==
LOC: M WHC 15:22
PROVIDERS: ATTEND Internal Medicine
DX: Z12.31 Encounter for screening mammogram for malignant neoplasm of breast (principal); Z80.3 Family history of malignant neoplasm of breast; Z80.41 Family history of malignant neoplasm of ovary; N63.11 Unspecified lump in the right breast, upper outer quadrant; N63.25 Unspecified lump in the left breast, overlapping quadrants; R92.1 Mammographic calcification found on diagnostic imaging of breast

== ENCOUNTER 2020-05-22 14:33 | Emergency (ER) | payer MEDICARE, OTHER ==
[~2020-05-22] VITALS: Ht 152.4 cm; Wt 76.0 kg
[~2020-05-22 14:33] MED LIST changes: -MONT10TA4 PO; +MONT5TAB2 PO
[2020-05-22 15:19] LABS: BASO # 0.1 10^3/uL (0.0-0.2); BASO % 0.5 % (0.0-1.0); EOS # 0.2 10^3/uL (0.0-0.5); EOS % 1.6 % (0.0-3.0); HEMATOCRIT 42.7 % (36.0-47.0); HEMOGLOBIN 13.7 g/dl (12.0-15.5); LYMPH % 27.2 % (24.0-44.0); MEAN CORPUSCULAR HEMOGLOBIN 27.9 pg (27.0-33.0); MEAN CORPUSCULAR HGB CONC 32.1 g/dl (32.0-36.5); MONO # 0.8 10^3/uL (0.0-0.8); MONO % 7.2 % (0.0-5.0); NEUTROPHILS # 6.9 10^3/uL (1.5-8.5); PLATELET COUNT, AUTOMATED 298 10^3/uL (150-450); RED BLOOD COUNT 4.91 10^6/uL (4.00-5.40)
[2020-05-22] MEDS ORDERED: MORPHINE 2 MG/ML 1ML VIAL (J2270) IV ONE (15:30)
[2020-05-22] MEDS ORDERED: ONDANSETRON 4MG/2ML VIAL IV ONE (15:30)
[2020-05-22] MEDS ORDERED: NS 500 ML IV ONE (15:30)
[2020-05-22 15:53] LABS: ALT/SGPT 27 U/L (12-78); BILIRUBIN,DIRECT 0.1 MG/DL (0.0-0.2); BILIRUBIN,TOTAL 0.3 MG/DL (0.2-1.0); BLOOD UREA NITROGEN 18 MG/DL (7-18); CALCIUM LEVEL 9.1 MG/DL (8.8-10.2); CARBON DIOXIDE LEVEL 26 MEQ/L (21-32); CHLORIDE LEVEL 110 MEQ/L (98-107); CREATININE FOR GFR 0.97 MG/DL (0.55-1.30); GLOMERULAR FILTRATION RATE > 60.0 (>45); GLUCOSE, FASTING 129 MG/DL (70-100); LIPASE 156 U/L (73-393); POTASSIUM SERUM 4.2 MEQ/L (3.5-5.1); SODIUM LEVEL 140 MEQ/L (136-145); TOTAL PROTEIN 7.1 GM/DL (6.4-8.2)
--- NOTE | 2020-05-22 15:53 | REP ---
INDICATION: severe R flank hx of stones, feels same COMPARISON: Comparison CT study July 28, 2019. Comparison is made with recent mammography.. TECHNIQUE: Helical scanning is acquired in 4 mm axial images were reformatted. Coronal and sagittal MPR images were generated and reviewed. FINDINGS: Preliminary digital game and fish protector radiograph shows clips in right upper quadrant and a normal bowel gas pattern. The lung bases are clear on axial CT images. There is some linear fibrosis in the lingula. There is a nodular density seen at the top of the imaging field of view in the right breast soft tissues measuring 13 mm in size. This is felt to correspond with the stable right breast mass reported on mammography. Recent mammogram was BI-RADS category 2. There are clips in the gallbladder fossa. The liver and the spleen are normal in size homogeneous in texture. There is a small stable subcentimeter low-density in the left lobe consistent with a cyst liver cyst. Normal adrenal glands are seen. No abnormality is noted in the pancreas. There is moderate right-sided hydronephrosis and hydroureter due to a mid ureteral calculus on the right. The calculus measures 6 mm in greatest craniocaudal span. There is some periureteral edema. No bladder calculus or left ureteral calculus is observed. There are multiple intrarenal calculi bilaterally again noted. Previously noted left ureteral stent has been removed. Vascular calcifications noted in a normal caliber aorta. Small and large bowel loops are remarkable for left colonic diverticulosis. Uterus is surgically absent. The appendix is surgically absent by history. No abdominal wall defect is seen. Bone window settings show no bony destructive lesion. IMPRESSION: Moderate right-sided hydronephrosis and hydroureter due to a 6 mm obstructive right mid ureteral calculus noted at the level of the L4 vertebral body. There are multiple intrarenal calculi bilaterally. Post cholecystectomy hysterectomy and appendectomy. <Electronically signed by Jaspreet Cheek > 05/22/20 [id number]
[2020-05-22] MEDS ORDERED: TAMSULOSIN 0.4 MG CAP PO ONE (16:15)
[2020-05-22] MEDS ORDERED: KETOROLAC 30 MG/ML 1ML VIAL IV ONE (16:15)
[2020-05-22] MEDS ORDERED: FLOM0.4C39 PO (16:15)
[2020-05-22] MEDS ORDERED: KETO10TAB PO (16:15)
[2020-05-22] MEDS ORDERED: cefTRIAXone SOD 1 GM in D5W MINI-BAG PLUS 50 ML IV ONE (16:15)
[2020-05-22] MEDS ORDERED: MACR100C43 PO (16:19)
[2020-05-22 17:36] VITALS: BP 185/90
== END 2020-05-22 17:50 | disposition home or self-care (01) ==
LOC: M ED 14:33
DX: N13.2 Hydronephrosis with renal and ureteral calculous obstruction (principal); N63.10 Unspecified lump in the right breast, unspecified quadrant; E11.9 Type 2 diabetes mellitus without complications; I10 Essential (primary) hypertension; Z79.899 Other long term (current) drug therapy; Z88.8 Allergy status to other drugs, medicaments and biological substances; J30.89 Other allergic rhinitis

== ENCOUNTER 2020-05-25 15:57 | Inpatient (IN) | payer MEDICARE, OTHER ==
[~2020-05-25] VITALS: Ht 152.4 cm; Wt 76.0 kg
[~2020-05-25 15:57] MED LIST changes: +MACR100C43 PO
[2020-05-25 16:44] LABS: BASO # 0.1 10^3/uL (0.0-0.2); BASO % 0.4 % (0.0-1.0); EOS # 0.3 10^3/uL (0.0-0.5); EOS % 2.2 % (0.0-3.0); HEMOGLOBIN 13.3 g/dl (12.0-15.5); LYMPH # 1.6 10^3/uL (1.5-5.0); LYMPH % 12.4 % (24.0-44.0); MEAN CORPUSCULAR HEMOGLOBIN 27.7 pg (27.0-33.0); MEAN CORPUSCULAR HGB CONC 32.4 g/dl (32.0-36.5); MEAN CORPUSCULAR VOLUME 85.4 fl (80.0-96.0); MONO # 0.8 10^3/uL (0.0-0.8); MONO % 6.6 % (0.0-5.0); NEUTROPHILS # 9.8 10^3/uL (1.5-8.5); PLATELET COUNT, AUTOMATED 277 10^3/uL (150-450); WHITE BLOOD COUNT 12.6 10^3/uL (4.0-10.0)
[2020-05-25] MEDS ORDERED: KETOROLAC 30 MG/ML 1ML VIAL IV ONE (16:45)
[2020-05-25] MEDS ORDERED: MORPHINE 4 MG/ML 1ML VIAL/SYRINGE (J2270) IV ONE ×2 (16:45→19:45)
[2020-05-25] MEDS ORDERED: NS 1,000 ML IV ONE (16:45)
[2020-05-25 17:26] LABS: ALT/SGPT 34 U/L (12-78); BILIRUBIN,DIRECT < 0.1 MG/DL (0.0-0.2); BILIRUBIN,TOTAL 0.4 MG/DL (0.2-1.0); BLOOD UREA NITROGEN 21 MG/DL (7-18); CALCIUM LEVEL 9.2 MG/DL (8.8-10.2); CARBON DIOXIDE LEVEL 25 MEQ/L (21-32); CHLORIDE LEVEL 107 MEQ/L (98-107); CREATININE FOR GFR 0.99 MG/DL (0.55-1.30); GLOMERULAR FILTRATION RATE 59.6 (>45); GLUCOSE, FASTING 137 MG/DL (70-100); LIPASE 163 U/L (73-393); POTASSIUM SERUM 4.3 MEQ/L (3.5-5.1); SODIUM LEVEL 140 MEQ/L (136-145); TOTAL PROTEIN 6.9 GM/DL (6.4-8.2)
--- NOTE | 2020-05-25 18:03 | REPVR ---
PROCEDURE INFORMATION: Exam: CT Abdomen And Pelvis Without Contrast Exam date and time: 05/25/2020 5:09 PM Age: 69 years old Clinical indication: Abdominal pain; Flank; Right; Additional info: R flank pain, known large stone in ureter, worse pain TECHNIQUE: Imaging protocol: Computed tomography of the abdomen and pelvis without contrast. Radiation optimization: All CT scans at this facility use at least one of these dose optimization techniques: automated exposure control; mA and/or kV adjustment per patient size (includes targeted exams where dose is matched to clinical indication); or iterative reconstruction. COMPARISON: CT ABD PELVIS W/O CONTRAST 05/22/2020 3:30 PM FINDINGS: Lungs: Atelectatic changes visualized within the right lower lobe of the lung, with minimal atelectasis within the lingula. Heart: Small pericardial effusion inferiorly. Liver: Within the left hepatic lobe, there is a 1.1 x 0.8 cm hypodense lesion, without progression compared to the prior study. Gallbladder and bile ducts: Surgical clips are identified within the gallbladder fossa, compatible with cholecystectomy. Pancreas: Normal contour. No ductal dilation. Spleen: Unremarkable as visualized on these noncontrast images. No splenomegaly. Adrenal glands: No mass. Kidneys and ureters: Right hydronephrosis and hydroureter again visualized. Within the mid right ureter, there is a 6 mm obstructing calculus again visualized. Multiple nonobstructing renal calculi are identified bilaterally. Stomach and bowel: Colonic diverticula are identified, without acute inflammatory stranding of the adjacent mesentery. Moderate fecal material is identified within the colon. Evaluation of bowel is limited by the absence of oral contrast. No bowel obstruction. Appendix: The appendix is not visualized. Intraperitoneal space: No free air. Vasculature: There is atherosclerotic calcification of the abdominal aorta and iliac arteries. Lymph nodes: Small retroperitoneal lymph nodes identified without significant lymphadenopathy. Urinary bladder: Unremarkable as visualized. Reproductive: The uterus is absent. Bones/joints: Hypertrophic degenerative changes are noted involving the spine. Soft tissues: Minimal herniation of fat into the umbilicus. Surgical clips are seen within the anterior left thigh. Within the right breast, there is a 1.3 cm nodule which is stable compared to the prior study. A new nodule is seen within the left breast measuring 1.0 cm. IMPRESSION: 1. Right hydronephrosis and hydroureter again visualized. Within the mid right ureter, there is a 6 mm obstructing calculus again visualized. Multiple nonobstructing renal calculi are identified bilaterally. 2. Within the left hepatic lobe, there is a 1.1 x 0.8 cm hypodense lesion, without progression compared to the prior study. 3. Diverticulosis. 4. Small pericardial effusion inferiorly. 5. Within the right breast, there is a 1.3 cm nodule which is stable compared to the prior study. A new nodule is seen within the left breast measuring 1.0 cm. Follow-up mammography recommended. 6. Additional findings described above. Electronically signed by: Mathew Adame On 05/25/2020 18:03:13 PM
[2020-05-25] MEDS ORDERED: cloNIDine 0.2 MG TAB PO ONE (20:15)
[2020-05-25 20:58] LABS: CK-MB VALUE MASS < 1.0 NG/ML (<3.6); CPK CREATINE PHOSPHOKINASE 72 U/L (26-192); MB/CK RELATIVE INDEX 1.39 (< OR =4); TROPONIN I < 0.02 NG/ML (< 0.10)
[2020-05-25] MEDS ORDERED: tiZANidine 4 MG TAB PO SCH (21:00)
[2020-05-25] MEDS ORDERED: traZODone 100 MG TAB PO SCH (21:00)
[2020-05-25] MEDS ORDERED: PANTOPRAZOLE 40MG VIAL (C9113 PER 1) IV SCH (21:00)
[2020-05-25] MEDS ORDERED: DULoxetine 30 MG CAP (CYMBALTA) PO SCH (21:00)
[2020-05-25] MEDS ORDERED: KETO10TAB PO (21:50)
[2020-05-25] MEDS ORDERED: MACR100C43 PO (21:50)
[2020-05-25] MEDS ORDERED: DULO60CA35 PO (21:53)
[2020-05-25] MEDS ORDERED: MED REC COMMENT (21:53)
[2020-05-25] MEDS ORDERED: MORPHINE 2 MG/ML 1ML VIAL (J2270) IV PRN (22:15)
[2020-05-25] MEDS ORDERED: TAMSULOSIN 0.4 MG CAP PO ONE (22:15)
[2020-05-25] MEDS ORDERED: hydrOXYzine 25 MG TAB PO PRN (22:15)
[2020-05-25] MEDS ORDERED: ACETAMINOPHEN TAB 650MG DOSE (2X325MG) PO PRN (22:15)
--- NOTE | 2020-05-25 22:58 | HPEPDOC ---
[facility] Medical History & Physical Date of Admission May 25, 2020 Date of Service: May 25, 2020 History and Physical Chief complaint: Who presented to the ER with complaints of right-sided abdominal/back pain History of present illness: Patient is a 69-year-old female with multiple visits to the emergency room for right-sided flank pain has presented again to the emergency room after expressing right-sided flank pain. Patient presented to the emergency room on 05/22 for right flank pain and was found to have the stone. Patient was discharged with instruction to follow up with urology. Patient had followed up with urology on 05/24 and was advised that she could receive a cystoscopy and stent placement. However, she declined and continued with medications. She reported that her pain was uncontrolled aching to the emergency room today for further evaluation. Currently patient reports the pain as a 5/10, which has only improved with morphine that has been given in the emergency room aggravated with movement. At the highest intensity is been a 50/10, described as labor pain. Patient reports the pain radiates from her right back to her right groin. Patient reports associated nausea without vomiting. Denies any other abdominal pain. Patient denies any chest pain, shortness of breath or palpitations. Reports her appetite is poor and denies any changes in her weight. Past Medical History: Hx o TIA DLP TORY (not on CPAP) Hypothyroidism Anxiety / Claustrophobia Migriane headaches Degenerative disk disease Fibrocystic breast disease / L breast nodule x 2 Hx of Endometriosis Diverticulosis GERD Past Surgical History: Carpal tunnel syndrome bilaterally; no surgeries Right knee arthroplasty Fatty tumor removal of left thigh Tonsillectomy Cholecystectomy Hysterectomy with a right nephrectomy Right knee arthroscopy Right rotator cuff repair Several lithotripsies and cystoscopies Allergies: See below Medications: See below Family History: - Mother with a history of ovarian cancer, at the age of 66 and father with a history of lung cancer, at age 49 Social History: - Denies the use of alcohol, tobacco or illicit drugs - Denies recent travel or sick contacts - Lives with - 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; 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 Review of Systems: 10 point review of systems complete, all negative otherwise stated in HPI Physical exam: - Vitals: BP [176/84], HR [76], RR [20], Sat [97%RA], Temp [97.8F] - General: Lying in bed, Speaking in full sentences, AAOx3 - HEENT: NC, AT, PERRLA - CVS: RRR, +S1S2 - Lungs: Fair air entry bilaterally, No appreciable wheezing / rales / rhonchi - Abdomen: Soft, Non-distended, epigastric tenderness is noted; positive right- sided CVA tenderness - Extremities: No lower extremity edema, No calf tenderness - Neuro: No focal motor or sensory deficit - Skin: No visible rashes Labs: See below Imaging: CT abdomen / pelvis 05/25: 1. Right hydronephrosis and hydroureter again visualized. Within the mid right ureter, there is a 6 mm obstructing calculus again visualized. Multiple nonobstructing renal calculi are identified bilaterally. 2. Within the left hepatic lobe, there is a 1.1 x 0.8 cm hypodense lesion, witho ut progression compared to the prior study. 3. Diverticulosis. 4. Small pericardial effusion inferiorly. 5. Within the right breast, there is a 1.3 cm nodule which is stable compared to the prior study. A new nodule is seen within the left breast measuring 1.0 cm. Follow-up mammography recommended. 6. Additional findings described above. EKG: See below Assessment and Plan: Right flank pain - likely 2/2 right-sided hydrocele ureterohydronephrosis 2/2 Nephrolithiasis - Patient is been expressing pain over last several days, occurring in her right flank radiating to her groin with associated nausea - Hemodynamically stable and afebrile - Physical reveals right CVA tenderness - Leukocytosis with neutrophil predominance. Mild lactic acidosis - UA without any significant signs of infection; history of ESBL Escherichia coli UTIs in the past - Imaging noted above - Will check blood cultures/urine cultures/pro-calcitonin - COVID testing / IV fluids / Pain control / Anti-emetics - Will give single dose of Tamsulosin - Consulted urology; case discussed; plan for stent placement tomorrow morning - NPO post-midnight and IV fluid hydration Lactic acidosis - Will c/w IV fluids Hx o TIA / DLP - Currently not on any statins TORY (not on CPAP) Hypothyroidism - c/w levothyroxin Mood disorder / Anxiety / Claustrophobia - c/w Duloxetine / Hydroxyzine PRN Migraine headaches - c/w Tylenol PRN Degenerative disk disease - c/w Tylenol PRN Fibrocystic breast disease / L breast nodule x 2 - Noted on prior imaging and imaging today - Patient is aware of this finding - Patient is in the process of having follow-up with breast surgeon as an outpatient Hx of Endometriosis Diverticulosis - No other abdominal tenderness noted GERD / Gastrointestinal prophylaxis - Patient has reported some epigastric tenderness and has been on ketorolac as an outpatient - Will avoid NSAIDs - Will start Protonix DVT prophylaxis - Will start Heparin Vital Signs Vital Signs Date Time Temp Pulse Resp B/P (MAP) Pulse Ox O2 Delivery O2 Flow Rate FiO2 05/25/20 21:36 76 176/84 (114) 05/25/20 21:22 20 05/25/20 19:37 97.8 97 Room Air Laboratory Data Labs 24H Laboratory Tests 2 05/25/20 16:27: Immature Granulocyte % (Auto) 0.4, Neutrophils (%) (Auto) 78.0H, Lymphocytes (%) (Auto) 12.4L, Monocytes (%) (Auto) 6.6H, Eosinophils (%) (Auto) 2.2, Basophils (%) (Auto) 0.4, Neutrophils # (Auto) 9.8H, Lymphocytes # (Auto) 1.6, Monocytes # (Auto) 0.8, Eosinophils # (Auto) 0.3, Basophils # (Auto) 0.1, Nucleated Red Blood Cells % (auto) 0.0, Anion Gap 8, Glomerular Filtration Rate 59.6, Calcium Level 9.2, Total Bilirubin 0.4, Direct Bilirubin < 0.1, Aspartate Amino Transf (AST/SGOT) 27, Alanine Aminotransferase (ALT/SGPT) 34, Alkaline Phosphatase 131H, Total Creatine Kinase 72, Creatine Kinase MB < 1.0, Creatine Kinase MB Relative Index 1.39, Troponin I < 0.02, Total Protein 6.9, Albumin 4.0, Albumin/Globulin Ratio 1.4, Lipase 163 05/25/20 16:30: Lactic Acid Level 2.4*H 05/25/20 19:17: Urine Color YELLOW, Urine Appearance CLEAR, Urine pH 7.0, Urine Specific [place] 1.005, Urine Protein NEGATIVE, Urine Glucose (UA) NEGATIVE, Urine Ketones TRACEH, Urine Blood 3+H, Urine Nitrite NEGATIVE, Urine Bilirubin NEGATIVE, Urine Urobilinogen 0.2, Urine Leukocyte Esterase TRACEH, Urine WBC (Auto) 9H, Urine RBC (Auto) 16H, Urine Hyaline Casts (Auto) 0, Urine Bacteria (Auto) NEGATIVE, Urine Squamous Epithelial Cells 0, Urine Mucus (Auto) SMALL, Urine Sperm (Auto) 05/25/20 21:55: Coronavirus (COVID-19)(PCR) NEGATIVE 05/25/20 22:15: CBC/BMP Laboratory Tests 05/25/20 16:27 Microbiology Microbiology 05/25/20 Urine Culture, Received Pending Home Medications Scheduled Duloxetine HCl (Duloxetine HCl) 60 Mg Capsule.dr, 60 MG PO QHS Nitrofurantoin Monohyd/M-Cryst (Macrobid 100 mg Capsule) 100 Mg Capsule, 100 MG PO BID STARTED 05/22/20 X 10 DAYS Tamsulosin HCl (Flomax) 0.4 Mg Capsule, 0.4 MG PO DAILY Tizanidine HCl (Tizanidine HCl) 4 Mg Cap, 8 MG PO QHS Trazodone HCl (Trazodone HCl) 100 Mg Tab, 100 MG PO QHS Scheduled PRN Hydroxyzine HCl (Hydroxyzine HCl) 25 Mg Tablet, 25 MG PO Q8H PRN for ANXIETY Ketorolac Tromethamine (Ketorolac Tromethamine) 10 Mg Tablet, 10 MG PO Q6H PRN for PAIN Miscellaneous Medications [Med Rec Comment] PATIENT STATES TAKES CYMBALTA 60MG NOT IN EXTERNAL HISTORY Allergies Coded Allergies: ENVIROMENTAL (Verified Allergy, Unknown, 07/13/19) zolpidem (Verified Adverse Reaction, Intermediate, confusion/disorientation, 07/25/19) CHIDI STACK MD May 25, 2020 22:58
[2020-05-25] MEDS ORDERED: ONDANSETRON 4MG/2ML VIAL IV PRN (23:00)
[2020-05-25] MEDS: NS 1,000 ML IV SCH (23:01)
[2020-05-25 23:20] VITALS: BP 124/80
[2020-05-26] VITALS: BP 124/80
[2020-05-26] MEDS ORDERED: hydrALAZINE 20MG/ML 1ML VIAL (J0360 PER 20MG) IV SCH
[2020-05-26 04:00] VITALS: BP 94/60
[2020-05-26 05:22] LABS: BASO # 0.1 10^3/uL (0.0-0.2); BASO % 0.7 % (0.0-1.0); EOS # 0.3 10^3/uL (0.0-0.5); EOS % 3.9 % (0.0-3.0); HEMATOCRIT 32.1 % (36.0-47.0); LYMPH # 2.4 10^3/uL (1.5-5.0); LYMPH % 33.3 % (24.0-44.0); MEAN CORPUSCULAR HEMOGLOBIN 28.6 pg (27.0-33.0); MEAN CORPUSCULAR VOLUME 86.8 fl (80.0-96.0); MONO # 0.7 10^3/uL (0.0-0.8); MONO % 9.2 % (0.0-5.0); NEUTROPHILS # 3.7 10^3/uL (1.5-8.5); NEUTROPHILS % 52.6 % (36.0-66.0); PLATELET COUNT, AUTOMATED 228 10^3/uL (150-450); WHITE BLOOD COUNT 7.1 10^3/uL (4.0-10.0)
[2020-05-26 05:35] LABS: HEMOGLOBIN 10.6 g/dl (12.0-15.5)
[2020-05-26 05:46] LABS: BLOOD UREA NITROGEN 17 MG/DL (7-18); CALCIUM LEVEL 7.9 MG/DL (8.8-10.2); CARBON DIOXIDE LEVEL 27 MEQ/L (21-32); CHLORIDE LEVEL 110 MEQ/L (98-107); CREATININE FOR GFR 0.72 MG/DL (0.55-1.30); GLOMERULAR FILTRATION RATE > 60.0 (>45); GLUCOSE, FASTING 117 MG/DL (70-100); SODIUM LEVEL 141 MEQ/L (136-145)
[2020-05-26] MEDS ORDERED: ceFAZolin SOD 1 GM in D5W MINI-BAG PLUS 50 ML IV ONE (06:00)
[2020-05-26] MEDS ORDERED: HEPARIN SOD (PORCINE) 5000UNITS/ML 1ML VIAL/SYRINGE SC SCH (06:00)
[2020-05-26] MEDS ORDERED: MIDAZOLAM INJ 2MG/2ML VIAL (J2250 PER 1MG) As Ordered ONE (07:39)
[2020-05-26] MEDS ORDERED: propofoL 200 MG/20 ML VIAL As Ordered ONE (07:40)
[2020-05-26] MEDS ORDERED: LIDOCAINE 2% 100MG/5ML SDV (FOR ANES.) As Ordered ONE (07:40)
[2020-05-26] MEDS ORDERED: CONRAY-60 60% 50ML VIAL (Q9961) As Ordered ONE (07:40)
[2020-05-26] MEDS ORDERED: fentaNYL 100 MCG/2 ML INJECTION (J3010) As Ordered ONE (07:40)
[2020-05-26] MEDS ORDERED: ONDANSETRON 4MG/2ML VIAL As Ordered ONE (07:40)
[2020-05-26 07:42] VITALS: BP 121/58
[2020-05-26] MEDS ORDERED: ceFAZolin 2 GM/D5W 50 ML IV BAG (J0690 PER 500MG) As Ordered ONE (08:18)
[2020-05-26] MEDS: NS 1,000 ML IV SCH (08:27)
[2020-05-26] MEDS ORDERED: dexameTHASONE 4 MG/ML 1ML VIAL (J1100 PER 1MG) As Ordered ONE (08:34)
[2020-05-26] MEDS ORDERED: ePHEDrine SULFATE 25 MG/5 ML(5MG/ML) SYRINGE As Ordered ONE (08:41)
[2020-05-26] MEDS ORDERED: PHENYLephrine HCL 500 MCG/5 ML (100MCG/ML) SYRINGE (J2370) As Ordered ONE (08:48)
--- NOTE | 2020-05-26 09:10 | REP ---
INDICATION: RIGHT STENT. COMPARISON: None. TECHNIQUE: Two views. 53 seconds of fluoroscopy time is reported. FINDINGS: A sequence of 2 last image hold fluoroscopically obtained spot radiographs of the right abdomen document right ureteral cannulation, contrast injection, hydronephrosis, and double-pigtail stent placement. IMPRESSION: Procedural imaging. <Electronically signed by Jaspreet Cheek > 05/26/20 [id number]
[2020-05-26] MEDS ORDERED: ONDANSETRON 4MG/2ML VIAL IV PRN (09:15)
[2020-05-26] MEDS ORDERED: fentaNYL 100 MCG/2 ML INJECTION (J3010) IV PRN (09:15)
[2020-05-26] MEDS ORDERED: PERCOCET 5MG/325MG TAB PO PRN (09:15)
[2020-05-26] MEDS ORDERED: MORPHINE 2 MG/ML 1ML VIAL (J2270) IV PRN (09:15)
[2020-05-26] MEDS ORDERED: LR 1,000 ML IV SCH ×2 (09:15)
--- NOTE | 2020-05-26 09:15 | SMCUROLCON ---
Urology Consultation General Date of Consultation 05/26/20 Reason For Consultation This patient is seen for Renal Calculus, Right. History of Present Illness The patient is a 69-year-old female with a past medical history for renal calculi. She presented to the urology clinic earlier this week for flank pain and was found to have a right ureteral calculus. At that time, she decided she wanted to try and pass the stone further since she does not like stents. Unfortunately, the patient could not pass the stone and the pain worsened. She presented to the emergency room on 05/25. A CT showed her to have a 6 mm right ureteral calculus. It was slightly lower than prior studies and causing mild to moderate hydronephrosis. Again, options were presented and the patient finally decided to have a ureteral stent inserted. Because of the high likelihood of inflammation of the stone, decision is made to insert a stent and then the patient will return in a few weeks for ureteroscopic stone extraction. Past Medical History Medical History Chronic pyelonephritis, visual hallucinations, gastroparesis, renal calculi, sigmoid diverticulitis, left renal cyst, diabetes mellitus, right breast mass, hypertension, ovarian cyst Surgical Hstory Right knee replacement and 10 prior ESWL treatments Social History Drugs: denies Medications Current Medications Current Medications Medications (Trade) Dose Ordered Sig/Abel Route PRN Reason Start Time Stop Time Status Last Admin Dose Admin Acetaminophen (Tylenol Tab) 650 mg Q4H PRN PO PAIN OR FEVER 05/25/20 22:15 Duloxetine HCl (Cymbalta) 60 mg QHS PO 05/25/20 21:00 05/25/20 23:53 Heparin Sodium (Porcine) (Heparin) 5,000 units Q8H SC 05/26/20 06:00 Hold Home Med (Med Rec Complete!) ASDIRECTED XX 05/25/20 22:00 05/25/20 21:57 DC Hydralazine HCl (Apresoline) 10 mg Q8H IV 05/26/20 00:00 05/26/20 04:57 DC Hydroxyzine HCl (Atarax) 25 mg Q8HP PRN PO ANXIETY 05/25/20 22:15 Morphine Sulfate (Morphine Sulfate Inj) 2 mg Q4H PRN IV MODERATE PAIN (PS 5-7) 05/25/20 22:15 Ondansetron HCl (ZOFRAN INJection) 4 mg Q6HP PRN IV NAUSEA OR VOMITING 05/25/20 23:00 Pantoprazole Sodium (Protonix) 40 mg Q12H IV 05/25/20 21:00 05/25/20 23:01 Sodium Chloride 1,000 ml @ 100 mls/hr Q10H IV 05/25/20 22:45 05/26/20 08:27 Tizanidine HCl (Zanaflex) 8 mg QHS PO 05/25/20 21:00 05/25/20 23:54 Trazodone HCl (Desyrel) 100 mg QHS PO 05/25/20 21:00 05/25/20 23:54 Allergies Allergies: Coded Allergies: ENVIROMENTAL (Verified Allergy, Unknown, 07/13/19) zolpidem (Verified Adverse Reaction, Intermediate, confusion/disorientation, 07/25/19) Review of Systems General: Reports: Normal Appetite; Denies: Fatigue, Malaise Constitutional: Denies: Fever, Chills, Sweats, Weakness, Malaise Eyes: Denies: Pain, Vision change ENT: Denies: Head Aches, Sore Throat, Epistaxis Skin: Denies: Rash, Lesions, Breakdown, Nail Changes Pulmonary: Denies: Dyspnea, Cough Cardiovascular: Denies Chest Pain, Denies Palpitations Gastrointestinal: Denies: Nausea, Vomiting, Abdominal Pain Genitourinary: Denies: Dysuria, Frequency, Incontinence, Hematuria Hematologic: Denies: Bruising, Bleeding Excessively Endocrine: Denies: Polydipsia, Polyphagia, Polyuria Musculoskeletal: Denies: Neck Pain, Back Pain Neurological: Denies: Weakness, Numbness, Incoordination, Change in Speech Psych: Reports: Mood Normal; Denies: Anxiety, Depression Physical Examination General Exam: Moderate Distress EYE EXAM: PERRLA, Conjunctiva & lids normal, EOMI; No: Sclera icteric ENT EXAM: Atraumatic, Mucous membr. moist/pink, Pharynx Normal Neck Exam: Supple; No: JVD, thyromegaly Chest Exam: Clear to auscultation, Normal air movement Heart Exam: Rate Normal, Regular Rhythm, Normal S1, Normal S2; No: Murmurs, Rubs Abdomen Exam: Normal Bowel Sounds, Soft, Other (3+ right CVA tenderness); No: Tenderness, Hepatospenomegaly Extremity Exam: Normal Pulses; No: Clubbing, Cyanosis, Edema Skin Exam: Nl turgor and temperature; No: Rash, Breakdown Neuro Exam: Normal Gait, Normal Speech, Cranial Nerves 3-12 NL, Reflexes 2+ Psych Exam: Mental status NL, Mood NL, Oriented x 3 Vital Signs/I&O Vital Signs Date Time Temp Pulse Resp B/P (MAP) Pulse Ox O2 Delivery O2 Flow Rate FiO2 05/26/20 07:42 97.3 60 20 121/58 (79) 96 Room Air I&O- Last 24 Hours up to 6 AM 05/26/20 06:00 Intake Total 1010 ml Output Total 75 ml Balance 935 ml Laboratory Data 24H Labs Laboratory Tests 2 05/25/20 16:27: Immature Granulocyte % (Auto) 0.4, Neutrophils (%) (Auto) 78.0H, Lymphocytes (%) (Auto) 12.4L, Monocytes (%) (Auto) 6.6H, Eosinophils (%) (Auto) 2.2, Basophils (%) (Auto) 0.4, Neutrophils # (Auto) 9.8H, Lymphocytes # (Auto) 1.6, Monocytes # (Auto) 0.8, Eosinophils # (Auto) 0.3, Basophils # (Auto) 0.1, Nucleated Red Blood Cells % (auto) 0.0, Anion Gap 8, Glomerular Filtration Rate 59.6, Calcium Level 9.2, Total Bilirubin 0.4, Direct Bilirubin < 0.1, Aspartate Amino Transf (AST/SGOT) 27, Alanine Aminotransferase (ALT/SGPT) 34, Alkaline Phosphatase 131H, Total Creatine Kinase 72, Creatine Kinase MB < 1.0, Creatine Kinase MB Relative Index 1.39, Troponin I < 0.02, Total Protein 6.9, Albumin 4.0, Albumin/Globulin Ratio 1.4, Lipase 163 05/25/20 16:30: Lactic Acid Level 2.4*H 05/25/20 19:17: Urine Color YELLOW, Urine Appearance CLEAR, Urine pH 7.0, Urine Specific [place] 1.005, Urine Protein NEGATIVE, Urine Glucose (UA) NEGATIVE, Urine Ketones TRACEH, Urine Blood 3+H, Urine Nitrite NEGATIVE, Urine Bilirubin NEGATIVE, Urine Urobilinogen 0.2, Urine Leukocyte Esterase TRACEH, Urine WBC (Auto) 9H, Urine RBC (Auto) 16H, Urine Hyaline Casts (Auto) 0, Urine Bacteria (Auto) NEGATIVE, Urine Squamous Epithelial Cells 0, Urine Mucus (Auto) SMALL, Urine Sperm (Auto) 05/25/20 21:55: Coronavirus (COVID-19)(PCR) NEGATIVE 05/26/20 01:51: Lactic Acid Level 1.0 05/26/20 04:59: Immature Granulocyte % (Auto) 0.3, Neutrophils (%) (Auto) 52.6, Lymphocytes (%) (Auto) 33.3, Monocytes (%) (Auto) 9.2H, Eosinophils (%) (Auto) 3.9H, Basophils (%) (Auto) 0.7, Neutrophils # (Auto) 3.7, Lymphocytes # (Auto) 2.4, Monocytes # (Auto) 0.7, Eosinophils # (Auto) 0.3, Basophils # (Auto) 0.1, Nucleated Red Blood Cells % (auto) 0.0, Anion Gap 4L, Glomerular Filtration Rate > 60.0, Calcium Level 7.9L, Magnesium Level 2.0 05/26/20 05:02: Lactic Acid Level 0.8 CBC/BMP Laboratory Tests 05/25/20 16:27 05/26/20 04:59 Microbiology Microbiology 05/25/20 Blood Culture, Received Pending 05/25/20 Blood Culture, Received Pending 05/25/20 Urine Culture, Received Pending Assessment Right mid ureteral 6 mm calculus. Treatment options were discussed including no treatment, stent, ureteroscopic laser lithotripsy and ESWL. After discussing advantages, disadvantages and possible complications of each, the patient has d ecided to have a stent insertion. Return to the operating room and few weeks for ureteroscopic laser lithotripsy of the calculus. Plan Patient will be taken to the operating room for cystoscopy, right retrograde pyelogram and stent insertion. She'll then follow up in the clinic and be scheduled for ureteroscopic laser lithotripsy. Time Spent on Consult: Time Spent / Consult (Minutes): 60 BUSHRA HERNANDES MD May 26, 2020 09:15
--- NOTE | 2020-05-26 09:20 | ROOPDOC ---
[facility] Report Of Operation Report of Operation DATE OF PROCEDURE: 05/26/20 PREPROCEDURE DIAGNOSES: Right ureteral calculus POSTPROCEDURE DIAGNOSES: Same PROCEDURE: Cystoscopy, right retrograde pyelogram and stent insertion, and x-ray interpretation SURGEON: Luan Olivo MD PLAN CONSULTANT: None ANESTHESIA: Gen. ESTIMATED BLOOD LOSS: Approximately less than 5 mL. COMPLICATIONS: None REMARKS: Ureteral stent seen to be in good position PROCEDURE NOTE: Patient was brought to the operating room for right ureteral stent because of a 6 mm midureteral calculus. DESCRIPTION OF PROCEDURE: The patient was placed on the table in the supine position and general anesthesia was administered. She was then placed in lithotomy position, prepped with Betadine paint, draped in aseptic manner and timeout was performed. A 22 [place] cystoscope was then inserted into the meatus and advanced under direct vision of a 30 lens of the bladder. The bladder mucosa was normal. Ureteral orifices were in the normal anatomic position. There is no reflux from the right ureteral orifice. A right needle orifices and catheterized with a 5 [place] open-ended catheter and retrograde injection of Conray showed the patient had an obstructing midureteral calculus. The catheter was removed and a wire guide was then passed into the right ureteral orifice and advanced up to the stone but had difficulty passing around the stone. The open-ended catheter was then passed over the wire and with some manipulation the wire was unable to pass around the stone. Again retrograde injection of Conray was performed showing dilation of the renal pelvis. The wire guide was passed up to the renal pelvis, catheter was removed and a 5 [place] open-ended catheter was then passed over the wire and curled well in the renal pelvis and in the bladder when the wire was removed. The bladder was then drained, cystoscope was removed and the patient was awakened and sent to recovery room in stable condition having tolerated procedure well. She will return to clinic in 1 or 2 weeks for scheduling of ureteroscopic laser lithotripsy for the calculus. Fluoroscopy was used throughout the case to evaluate the obstruction, retrograde pyelogram and stent positioning. Interpretation was performed at the time of the fluoroscopy. LUAN OLIVO MD May 26, 2020 09:20
[2020-05-26] MEDS ORDERED: DULO30CA47 PO (09:29)
[2020-05-26 10:10] VITALS: BP 141/67
[2020-05-26 12:04] VITALS: BP 155/72
--- NOTE | 2020-05-26 16:19 | DS.PDOC ---
Discharge Summary General Date of Admission May 25, 2020 at 22:03 Date of Discharge 05/26/20 Discharge Summary PROCEDURES PERFORMED DURING STAY: [None]. 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 HISTORY OF PRESENT ILLNESS:The patient is a 69-year-old female with a past medical history for renal calculi. She presented to the urology clinic earlier this week for flank pain and was found to have a right ureteral calculus. At that time, she decided she wanted to try and pass the stone further since she does not like stents. Unfortunately, the patient could not pass the stone and the pain worsened. She presented to the emergency room on 05/25. A CT showed her to have a 6 mm right ureteral calculus. It was slightly lower than prior studies and causing mild to moderate hydronephrosis. Again, options were presented and the patient finally decided to have a ureteral stent inserted. Because of the high likelihood of inflammation of the stone, decision is made to insert a stent and then the patient will return in a few weeks for ureteroscopic stone extraction. HOSPITAL COURSE: During hospital stay following issues addressed Cystoscopy, right retrograde pyelogram and stent insertion was done She will return to clinic in 1 or 2 weeks for scheduling of ureteroscopic laser lithotripsy for the calculus. DISCHARGE MEDICATIONS: Please see below. ALLERGIES: Please see below. PHYSICAL EXAMINATION ON DISCHARGE: VITAL SIGNS: Please see below. - General: Lying in bed, Speaking in full sentences, AAOx3 - HEENT: NC, AT, PERRLA - CVS: RRR, +S1S2 - Lungs: Fair air entry bilaterally, No appreciable wheezing / rales / rhonchi - Abdomen: Soft, Non-distended - Extremities: No lower extremity edema, No calf tenderness - Neuro: No focal motor or sensory deficit - Skin: No visible rashes LABORATORY DATA: Please see below. IMAGING: TECHNIQUE: Two views. 53 seconds of fluoroscopy time is reported. FINDINGS: A sequence of 2 last image hold fluoroscopically obtained spot radiographs of the right abdomen document right ureteral cannulation, contrast injection, hydronephrosis, and double-pigtail stent placement. IMPRESSION: Procedural imaging. PROGNOSIS: Fair ACTIVITY: [As tolerated]. DIET: Regular DISCHARGE PLAN: See above DISPOSITION: 01 Home, Self-Care. ITEMS TO FOLLOWUP ON ON OUTPATIENT: With urologist in 2 weeks DISCHARGE CONDITION: [Stable]. TIME SPENT ON DISCHARGE: Greater than 30 minutes. Vital Signs/I&Os Vital Signs Date Time Temp Pulse Resp B/P (MAP) Pulse Ox O2 Delivery O2 Flow Rate FiO2 05/26/20 12:04 97.0 77 18 155/72 (99) 94 Room Air I&O- Last 24 Hours up to 6 AM 05/26/20 06:00 Intake Total 1010 ml Output Total 75 ml Balance 935 ml Laboratory Data Labs 24H Laboratory Tests 2 05/25/20 16:27: Immature Granulocyte % (Auto) 0.4, Neutrophils (%) (Auto) 78.0H, Lymphocytes (%) (Auto) 12.4L, Monocytes (%) (Auto) 6.6H, Eosinophils (%) (Auto) 2.2, Basophils (%) (Auto) 0.4, Neutrophils # (Auto) 9.8H, Lymphocytes # (Auto) 1.6, Monocytes # (Auto) 0.8, Eosinophils # (Auto) 0.3, Basophils # (Auto) 0.1, Nucleated Red Blood Cells % (auto) 0.0, Anion Gap 8, Glomerular Filtration Rate 59.6, Calcium Level 9.2, Total Bilirubin 0.4, Direct Bilirubin < 0.1, Aspartate Amino Transf (AST/SGOT) 27, Alanine Aminotransferase (ALT/SGPT) 34, Alkaline Phosphatase 131H, Total Creatine Kinase 72, Creatine Kinase MB < 1.0, Creatine Kinase MB Relative Index 1.39, Troponin I < 0.02, Total Protein 6.9, Albumin 4.0, Albumin/Globulin Ratio 1.4, Lipase 163 05/25/20 16:30: Lactic Acid Level 2.4*H 05/25/20 19:17: Urine Color YELLOW, Urine Appearance CLEAR, Urine pH 7.0, Urine Specific [place] 1.005, Urine Protein NEGATIVE, Urine Glucose (UA) NEGATIVE, Urine Ketones TRACEH, Urine Blood 3+H, Urine Nitrite NEGATIVE, Urine Bilirubin NEGATIVE, Urine Urobilinogen 0.2, Urine Leukocyte Esterase TRACEH, Urine WBC (Auto) 9H, Urine RBC (Auto) 16H, Urine Hyaline Casts (Auto) 0, Urine Bacteria (Auto) NEGATIVE, Urine Squamous Epithelial Cells 0, Urine Mucus (Auto) SMALL, Urine Sperm (Auto) 05/25/20 21:55: Coronavirus (COVID-19)(PCR) NEGATIVE 05/26/20 01:51: Lactic Acid Level 1.0 05/26/20 04:59: Immature Granulocyte % (Auto) 0.3, Neutrophils (%) (Auto) 52.6, Lymphocytes (%) (Auto) 33.3, Monocytes (%) (Auto) 9.2H, Eosinophils (%) (Auto) 3.9H, Basophils (%) (Auto) 0.7, Neutrophils # (Auto) 3.7, Lymphocytes # (Auto) 2.4, Monocytes # (Auto) 0.7, Eosinophils # (Auto) 0.3, Basophils # (Auto) 0.1, Nucleated Red Blood Cells % (auto) 0.0, Anion Gap 4L, Glomerular Filtration Rate > 60.0, Calcium Level 7.9L, Magnesium Level 2.0 05/26/20 05:02: Lactic Acid Level 0.8 CBC/BMP Laboratory Tests 05/25/20 16:27 05/26/20 04:59 Microbiology Microbiology 05/26/20 Urine Culture, Received Pending 05/25/20 Blood Culture, Received Pending 05/25/20 Blood Culture, Received Pending 05/25/20 Urine Culture - Final, Complete Discharge Medications Scheduled Duloxetine HCl (Duloxetine HCl) 30 Mg Capsule.dr, 60 MG PO QHS, (Reported) LAST FILLED 12/08/19 Nitrofurantoin Monohyd/M-Cryst (Macrobid 100 mg Capsule) 100 Mg Capsule, 100 MG PO BID, (Reported) STARTED 05/22/20 X 10 DAYS Tamsulosin HCl (Flomax) 0.4 Mg Capsule, 0.4 MG PO DAILY, (Reported) Tizanidine HCl (Tizanidine HCl) 4 Mg Cap, 8 MG PO QHS, (Reported) Trazodone HCl (Trazodone HCl) 100 Mg Tab, 100 MG PO QHS, (Reported) Scheduled PRN Hydroxyzine HCl (Hydroxyzine HCl) 25 Mg Tablet, 25 MG PO Q8H PRN for ANXIETY, (Reported) Ketorolac Tromethamine (Ketorolac Tromethamine) 10 Mg Tablet, 10 MG PO Q6H PRN for PAIN, (Reported) Allergies Coded Allergies: ENVIROMENTAL (Verified Allergy, Unknown, 07/13/19) zolpidem (Verified Adverse Reaction, Intermediate, confusion/disorienta tion, 07/25/19) ROHAN KEARNEY DO May 26, 2020 16:19
--- NOTE | 2020-05-26 16:40 | ECGEPIP ---
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
== END 2020-05-26 12:31 | disposition home or self-care (01) | DRG 694 ==
LOC: M ED 15:57 → M ED INP 22:03 → ENRESERV 22:49 → M PCU 23:20
PROVIDERS: ADMIT Internal Medicine; ATTEND Internal Medicine
PROC: 0TJB8ZZ Inspection of Bladder, Via Natural or Artificial Opening Endoscopic (ICD-10-PCS; 2020-05-26)
PROC: 0T767DZ Dilation of Right Ureter with Intraluminal Device, Via Natural or Artificial Opening (ICD-10-PCS; principal; 2020-05-26 10:00)
DX: N13.2 Hydronephrosis with renal and ureteral calculous obstruction (principal); E87.2 Acidosis; E78.5 Hyperlipidemia, unspecified; G47.33 Obstructive sleep apnea (adult) (pediatric); E03.9 Hypothyroidism, unspecified; F41.9 Anxiety disorder, unspecified; G43.909 Migraine, unspecified, not intractable, without status migrainosus; N63.20 Unspecified lump in the left breast, unspecified quadrant; N60.19 Diffuse cystic mastopathy of unspecified breast; K21.9 Gastro-esophageal reflux disease without esophagitis; Z96.651 Presence of right artificial knee joint; F40.240 Claustrophobia; Z90.49 Acquired absence of other specified parts of digestive tract; Z20.828 Contact with and (suspected) exposure to other viral communicable diseases; D72.829 Elevated white blood cell count, unspecified; Z79.899 Other long term (current) drug therapy; Z88.8 Allergy status to other drugs, medicaments and biological substances

== ENCOUNTER → 2020-06-08 | Outpatient (CLI) | payer MEDICARE, OTHER ==
[~2020-06-08] MED LIST changes: +DULO30CA47 PO; +DULO60CA35 PO; +MED REC COMMENT
--- NOTE | 2020-06-08 17:02 | REPPI ---
INDICATION: N13.2 HYDRONEPHROSIS WITH RENAL AND UTERAL CALCULOUS OBSTRU. COMPARISON: 09/06/2014. TECHNIQUE: Single AP view of abdomen and pelvis performed. FINDINGS: The bowel gas pattern is normal. Multiple subcentimeter calculi are clustered in the lower left kidney. Approximately 2 subcentimeter calculi overlie the upper left kidney. Right ureteral stent is seen. The proximal end is coiled in the region of the mid right kidney and the distal end is coiled in the region of urinary bladder. There are multiple phleboliths in the pelvis. Metallic clips are seen in the right upper quadrant. IMPRESSION: Left renal calculi. Right ureteral stent. <Electronically signed by Deon Santoyo > 06/08/20 [id number]
== END ==
LOC: M PLAIMG 13:38
PROVIDERS: ATTEND Urology
DX: N13.2 Hydronephrosis with renal and ureteral calculous obstruction (principal)

== ENCOUNTER → 2020-06-20 | Outpatient (REF) | payer MEDICARE, OTHER ==
[2020-06-20 12:14] LABS: INR 0.86; PARTIAL THROMBOPLASTIN TIME 26.7 SECONDS (24.2-38.5); PROTHROMBIN TIME 11.9 SECONDS (12.5-14.3)
[2020-06-20 12:24] LABS: APPEARANCE, URINE TURBID (CLEAR); BACTERIA, URINE AUTO 2+ (NEGATIVE); BILIRUBIN, URINE AUTO NEGATIVE (NEGATIVE); BLOOD, URINE BLOOD 3+ (NEGATIVE); COLOR, URINE YELLOW (YELLOW); GLUCOSE, URINE (UA) AUTO NEGATIVE (NEGATIVE); KETONE, URINE AUTO NEGATIVE (NEGATIVE); LEUKOCYTE ESTERASE, URINE AUTO 2+ (NEGATIVE); MUCUS, URINE SMALL (NEGATIVE); NITRITE, URINE AUTO NEGATIVE (NEGATIVE); PROTEIN, URINE AUTO 3+ mg/dL (NEGATIVE); RBC, URINE AUTO TNTC /HPF (0-3); SPECIFIC GRAVITY URINE AUTO 1.014 (1.002-1.035); SQUAMOUS EPITHELIAL CELL UR AU 2 /HPF (0-6); UROBILINOGEN, URINE AUTO 0.2 mg/dL (0.0-2.0); WBC, URINE AUTO TNTC /HPF (0-3)
== END ==
LOC: M LAB REF 11:38
PROVIDERS: ATTEND Nurse Practitioner Adult Health
DX: Z01.818 Encounter for other preprocedural examination (principal); N20.0 Calculus of kidney

== ENCOUNTER → 2020-07-07 | Outpatient (CLI) | payer MEDICARE, OTHER | LOC: M LABSMTC 10:27 | PROVIDERS: ATTEND Anesthesiology | DX: Z01.812 Encounter for preprocedural laboratory examination (principal); Z20.822 Contact with and (suspected) exposure to COVID-19 ==

== ENCOUNTER 2020-07-12 11:28 | Day surgery (SDC) | payer MEDICARE, OTHER ==
[~2020-07-12] VITALS: Ht 152.4 cm; Wt 73.0 kg
[~2020-07-12 11:28] MED LIST changes: +ACETAMINOPHEN 1000MG 100ML IV BTL (OFIRMEV) (J0131 PER 10MG) As Ordered ONE; +LIDOCAINE 2% 100MG/5ML SDV (FOR ANES.) As Ordered ONE; +LISI10TA22 PO; -LISI10TA4 PO; +LR 1,000 ML IV ONE; +MIDAZOLAM INJ 2MG/2ML VIAL (J2250 PER 1MG) As Ordered ONE; +MONT10TA10 PO; -MONT5TAB2 PO; +ONDANSETRON 4MG/2ML VIAL As Ordered ONE; +ROCURONIUM BROMIDE 50 MG/5 ML VIAL As Ordered ONE; +ceFAZolin SOD 2 GM in IV 1 EA IV ONE; +dexameTHASONE 4 MG/ML 1ML VIAL (J1100 PER 1MG) As Ordered ONE; +ePHEDrine SULFATE 25 MG/5 ML(5MG/ML) SYRINGE As Ordered ONE; +fentaNYL 100 MCG/2 ML INJECTION (J3010) As Ordered ONE; +propofoL 200 MG/20 ML VIAL As Ordered ONE
--- OUTSIDE RECORDS SUMMARY | 2020-07-12 11:35 | CCD | Continuity of Care Document ---
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 AUTM [phone] [facility] AUTM Problems Active Problems Provider Date Allergic urticaria Doreen Martínez FNP Onset: 12/23/2011 Severe recurrent major depression without psychotic features Jolene uLis DO Onset: 12/23/2011 Benign hypertensive heart disease without congestive h eart failure Jolene Luis DO Onset: 12/23/2011 Type 2 diabetes mellitus Jolene Luis DO Onset: 12/23/19 12 Calculus of kidney and ureter Jolene Luis DO Onset: 07/2019 Social History Type Date Description Comments Sex Unknown ETOH Use Denies alcohol use Tobacco Use Start: Unknown Patient has never smoked Allergies, Adverse Reactions, Alerts Active Allergies Reaction Severity Comments Date Ambien Goes Crazy 05/22/2016 Inactive Allergies NKDA 11/09/2009 Medications Active Medications SIG Qnty Indications Ordering Provide r Date Fluconazole 100mg Tablets two tablets daily for 14 days 28tabs BRENT Gaviria 06/22/2020 Oxycodone-Acetaminophen 5-325mg Ta blets one tablet q 6 hours as needed for pain 30tabs BRENT Robles 06/22/[address] 1 by mouth every day 30 minutes before your evening meal. 30caps Eli Fenton, DISCHARGE COORDINATOR 06/20/2020 Ketoconazole 2% Cream apply to rash two times a day for 14 days 60units Eli Fenton, [facility] 020 Duloxetine HCL 30mg Caps DR Part 1 by mouth po bid then after one week increase to 2 in evening and 1 in am 90caps Jolene Luis,DO 12/08/2019 Hydroxyzine HCL 25mg Tablets one tab every 8 hours as needed for anxiety. 90tabs Jolene Luis,DO 1 Synthroid 100mcg Tablets 1 by mouth every day 30tabs Eli Fenton, DISCHARGE COORDINATOR 07/05/2018 Melatonin 10mg Capsules one tab by mouth one hour before bed [facility] Jolene [facility],DO 03/19/2018 Reglan 5mg Tablets take one tablet by mouth before meals 90tabs Jolene Luis,DO 03/19/2018 Trazodone HCL 100mg Tablets take 1 tablet by mouth once daily at bedtime 90tabs Jolene Luis,DO 0 12/01/2016 Tizanidine HCL 4mg Tablets Take 2 Tablets By Mouth AT Bedtime 60tabs Jolene Luis,DO Tamsulosin HCL 0.4mg Capsules 1 daily 1/2 hour after same meal Unknown Ketorolac Tromethamine 10mg Tablets Unknown History Medications Fluconazole 200mg Tablets Eli Fenton, [facility] 06/22/2020 - 06/22/2020 Medications Administered in Office Medication SIG Qnty Indications Ordering Provider Date Administration Of Flu Vaccine Inj ection Jolene Luis,DO 04/12/2020 Administration Of Flu Vaccine Inj ection Jolene Luis,DO 04/21/2019 Administration Of Flu Vaccine Inj ection Jolene Luis,DO 04/12/2018 Administration Of Flu Vaccine Inj ection Jolene Luis,DO 03/19/2015 Administration Of Flu Vaccine Inj ection Jolene Luis,DO 04/10/2014 Administration Of Flu Vaccine Inj ection Jolene Luis,DO 05/11/2013 Administration Of Flu Vaccine Inj ection Jolene Luis,DO 05/05/2012 B12 1000 mcg [address]-17 Injection Jolene Luis,DO 05/08/2011 Therapeutic Injection Injection Jolene Luis,DO 05/08/2011 Administration Of Flu Vaccine Inj ection Jolene Luis,DO 04/04/2011 B12 1000 mcg [address]-75 Injection Jolene Luis,DO 12/26/2010 Therapeutic Injection Injection Jolene Luis,DO 12/26/2010 B12 1000 mcg [id number] Injection Nurse Schedule 11/26/2010 Therapeutic Injection Injection Jolene Luis,DO 11/26/2010 Immunizations CPT Code Status Date Vaccine Lot # [id number] Given 04/12/2020 Influenza Vaccin e Quadrivalent Preser/Antibiotic Free Im Use [id number] 16407 Given 04/21/2019 Influenza Vaccin e Quadrivalent Preser/Antibiotic Free Im Use [id number] 44113 Given 07/05/2018 Pneumovax 23 [id number] 14773 Given 04/12/2018 Influenza Virus Vaccine, Quadrivalent ([id number]), Derived From Cell [id number] Q2037 Given 03/19/2015 Fluvirin Virus Vaccine [id number] 01 Q2037 Given 04/10/2014 Fluvirin Virus Vaccine [id number] 21 Q2037 Given 05/11/2013 Fluvirin Virus Vaccine [id number] 01 Q2037 Given 05/05/2012 Fluvirin Virus Vaccine [id number] 01 Q2037 Given 04/04/2011 Fluvirin Virus Vaccine 17262 Given 04/03/2010 Influenza Virus Vaccine [id number] Refused 03/23/2019 Influenza Vaccin e Quadrivalent Preser/Antibiotic Free Im Use 85604 Refused 07/05/2018 Shingrix Zoster Vaccine (HZV), Recombinant, Subunit, Adjuvanted [id number] Refused 07/05/2018 Zoster Vaccine 68208 Refused 07/05/2018 Pneumovax 23 [id number] Refused 07/05/2018 Adacel- Tetanus Diphtheria P ertussis (Age64 & Under) 12992 Refused 07/05/2018 Prevnar 13 Vital Signs Date Vital Result Comment 06/20/2020 7:51am BP Systolic 132 mmHg BP Diastolic 72 mmHg Heart Rate 73 /min Height 60 inches 5'0" Weight 165.00 lb O2 % BldC Oximetry 99 % BMI (Body Mass Index) 32.2 kg/m2 06/04/2020 8:02am BP Systolic 116 mmHg BP Diastolic 58 mmHg Heart Rate 80 /min Height 60 inches 5'0" Weight 169.00 lb O2 % BldC Oximetry 98 % RM Air BMI (Body Mass Index) 33.0 kg/m2 Results Test Acquired Date Facility Test Result H/L Range Note PT & Aptt 06/20/2020 [facility] [address] [place] [address] [phone] Prothrombin Time 11.9 seconds Normal 12.5-14.3 Inr 0.86 Normal 1 Partial Thromboplastin Time 26.7 seconds Normal 24.2-38.5 Ua Routine 06/20/2020 [facility] [address] [place] [address] [phone] Appearance, Urine TURBID High Clear Color, Urine YELLOW Normal Yellow PH,Urine 6.0 units Normal 5.0-9.0 Specific [place] Urine Auto 1.014 Normal 1.002-1.035 Protein, Urine Auto 3+ mg/dL High Negative Glucose, Urine (Ua) Auto NEGATIVE mg/dL Normal Negative Ketone, Urine Auto NEGATIVE mg/dL Normal Negative Urobilinogen, Urine Auto 0.2 mg/dL Normal 0.0-2.0 Bilirubin, Urine Auto NEGATIVE Normal Negative Nitrite, Urine Auto NEGATIVE Normal Negative Leukocyte Esterase, Urine Auto 2+ High Negative Blood, Urine Blood 3+ High Negative WBC, Urine Auto TNTC /HPF High 0-3 RBC, Urine Auto TNTC /HPF High 0-3 Bacteria, Urine Auto 2+ High Negative Squamous Epithelial Cell Ur AU 2 /HPF Normal 0-6 Mucus, Urine SMALL Normal Negative Hyaline Cast, Urine Auto 0 /LPF Normal 0-1 Laboratory test finding 06/20/2020 [facility] [address] [place] [address] [phone] Urine Culture FULL REPORT IN L <SEE NOTE> Normal 2 Complete Blood Count 06/20/2020 [facility] Marketing Effectiveness Manager: [place] [address] [phone] WBC 10.0 x10*3/UL 4.1 - 10.9 RBC 4.09 x10*6/UL Low 4.20 - 6.30 Hemoglobin 12.0 g/dL 12.0 - 18.0 Hematocrit 34.2 % Low 37.0 - 51.0 MCV 83.6 fL 80.0 - 97.0 MCH 29.4 pg 26.0 - 32.0 MCHC 35.1 g/dL 31.0 - 38.0 RDW 13.3 % 11.6 - 13.7 PLT 395 x10*3/UL 140 - 440 MPV 8.3 FL 7.8 - 11.0 Lymph % 21.1 % 10.0 - 58.5 Mid % 6.3 % 1.7 - 9.3 Neut % 72.6 % 37.0 - 92.0 Lymph # 2.1 x10*3/UL 0.6 - 4.1 Mid # 0.7 x10*3/UL High 0.1 - 0.6 Neut # 7.2 x10*3/UL 2.0 - 7.8 Basic Metabolic Panel 06/20/2020 [facility] Marketing Effectiveness Manager: [place] [address] [phone] Glucose 97 mg/dL 74 - 99 3 BUN 17 mg/dL 7 - 18 Creatinine 0.9 mg/dL 0.6 - 1.3 Sodium 142 mEq/L 136 - 145 Potassium 3.5 mEq/L 3.5 - 5.1 Chloride 105 mEq/L 98 - 107 Carbon Dioxide 25 mEq/L 21 - 32 Calcium 9.4 mg/dL 8.5 - 10.1 GFR >= 60 mL/min >60 GFR >= 60 mL/min >60 4 Laboratory test finding 06/20/2020 [facility] Marketing Effectiveness Manager: Dr Gennaro Browne [place] [id number] [phone] Thyroid Stimulating Hormone 5.21 uIU/mL High 0.3 6 - 3.74 Cardiac Marker Panel 05/25/2020 [facility] [address] [place] [address] [phone] CPK Creatine Phosphokinase 72 U/L Normal 26-19 2 5 CK-MB Value Mass < 1.0 NG/ML Normal <3.6 MB/CK Relative Index 1.39 Normal < Or =4 6 Troponin I < 0.02 NG/ML Normal < 0.10 7 Laboratory test finding 05/25/2020 [facility] [address] [place] [address] [phone] Lipase 163 U/L Normal 73-393 Basic Metabolic Profile 05/25/2020 [facility] [address] [place] [address] [phone] Glucose, Fasting 137 mg/dL High 70-100 Blood Urea Nitrogen 21 mg/dL High 7-18 Creatinine For GFR 0.99 mg/dL Normal 0.55-1.30 Glomerular Filtration Rate 59.6 Normal >45 8 Sodium Level 140 mEq/L Normal 136-145 Potassium Serum 4.3 mEq/L Normal 3.5-5.1 9 Chloride Level 107 mEq/L Normal 98-107 Carbon Dioxide Level 25 mEq/L Normal 21-32 Anion Gap 8 mEq/L Normal 8-16 Calcium Level 9.2 mg/dL Normal 8.8-10.2 Liver Profile 05/25/2020 [facility] [address] [place] [address] [phone] Ast/Sgot 27 U/L Normal 7-37 Alt/SGPT 34 U/L Normal 12-78 Alkaline Phosphatase 131 U/L High 45-117 Bilirubin,Total 0.4 mg/dL Normal 0.2-1.0 Bilirubin,Direct < 0.1 mg/dL Normal 0.0-0.2 Total Protein 6.9 GM/DL Normal 6.4-8.2 Albumin 4.0 GM/DL Normal 3.2-5.2 Albumin/Globulin Ratio 1.4 Normal 1.2-2.2 CBC With Differential 05/25/[address] [address] [phone] White Blood Count 12.6 10 High 4.0-10.0 Red Blood Count 4.80 10 Normal 4.00-5.40 Hemoglobin 13.3 g/dL Normal 12.0-15.5 Hematocrit 41.0 % Normal 36.0-47.0 Mean Corpuscular Volume 85.4 fl Normal 80.0-96.0 Mean Corpuscular Hemoglobin 27.7 pg Normal 27.0-33.0 Mean Corpuscular HGB Conc 32.4 g/dL Normal 32.0-36.5 Red Cell Distribution Width 13.1 % Normal 11.5-14.5 Platelet Count, Automated 277 10 Normal 150-450 Neutrophils % 78.0 % High 36.0-66.0 Lymph % 12.4 % Low 24.0-44.0 [place] % 6.6 % High 0.0-5.0 Eos % 2.2 % Normal 0.0-3.0 Baso % 0.4 % Normal 0.0-1.0 Immature Granulocyte % 0.4 % Normal 0-3.0 Nucleated Red Blood Cell % 0.0 % Normal 0-0 Neutrophils # 9.8 10 High 1.5-8.5 Lymph # 1.6 10 Normal 1.5-5.0 [place] # 0.8 10 Normal 0.0-0.8 Eos # 0.3 10 Normal 0.0-0.5 Baso # 0.1 10 Normal 0.0-0.2 Ua W/ Reflex To Culture 05/25/2020 [facility] [address] [place] [address] [phone] Appearance, Urine RFX CLEAR Normal Clear Color, Urine RFX YELLOW Normal Yellow PH,Urine RFX 7.0 units Normal 5.0-9.0 Specific [place] Ur Auto RFX 1.005 Normal 1.002-1.035 Protein, Urine Auto RFX NEGATIVE mg/dL Normal Negative Glucose, Urine (Ua) Auto RFX NEGATIVE mg/dL Normal Negative Ketone, Urine Auto RFX TRACE mg/dL High Negative Urobilinogen, Urine Auto RFX 0.2 mg/dL Normal 0.0-2.0 Bilirubin, Urine Auto RFX NEGATIVE Normal Negative Nitrite, Urine Auto RFX NEGATIVE Normal Negative Leukocyte Esterase Ur Auto RFX TRACE High Negative Blood, Urine Blood RFX 3+ High Negative WBC, Urine Auto RFX 9 /HPF High 0-3 RBC, Urine Auto RFX 16 /HPF High 0-3 Bacteria, Urine Auto RFX NEGATIVE Normal Negative Squam Epithelial Cell Ur Aurfx 0 /HPF Normal 0-6 Mucus, Urine RFX SMALL Normal Negative Hyaline Cast, Urine Auto RFX 0 /LPF Normal 0-1 CBC With Differential 05/22/2020 [facility] [address] [place] [address] [phone] White Blood Count 11.0 10 High 4.0-10.0 Red Blood Count 4.91 10 Normal 4.00-5.40 Hemoglobin 13.7 g/dL Normal 12.0-15.5 Hematocrit 42.7 % Normal 36.0-47.0 Mean Corpuscular Volume 87.0 fl Normal 80.0-96.0 Mean Corpuscular Hemoglobin 27.9 pg Normal 27.0-33.0 Mean Corpuscular HGB Conc 32.1 g/dL Normal 32.0-36.5 Red Cell Distribution Width 13.4 % Normal 11.5-14.5 Platelet Count, Automated 298 10 Normal 150-450 Neutrophils % 63.0 % Normal 36.0-66.0 Lymph % 27.2 % Normal 24.0-44.0 [place] % 7.2 % High 0.0-5.0 Eos % 1.6 % Normal 0.0-3.0 Baso % 0.5 % Normal 0.0-1.0 Immature Granulocyte % 0.5 % Normal 0-3.0 Nucleated Red Blood Cell % 0.0 % Normal 0-0 Neutrophils # 6.9 10 Normal 1.5-8.5 Lymph # 3.0 10 Normal 1.5-5.0 [place] # 0.8 10 Normal 0.0-0.8 Eos # 0.2 10 Normal 0.0-0.5 Baso # 0.1 10 Normal 0.0-0.2 Ua W/ Reflex To Culture 05/22/2020 [place] [id number] [phone] Appearance, Urine RFX CLOUDY High Clear Color, Urine RFX YELLOW Normal Yellow PH,Urine RFX 6.0 units Normal 5.0-9.0 Specific [place] Ur Auto RFX 1.014 Normal 1.002-1.035 Protein, Urine Auto RFX 1+ mg/dL High Negative Glucose, Urine (Ua) Auto RFX NEGATIVE mg/dL Normal Negative Ketone, Urine Auto RFX NEGATIVE mg/dL Normal Negative Urobilinogen, Urine Auto RFX 0.2 mg/dL Normal 0.0-2.0 Bilirubin, Urine Auto RFX NEGATIVE Normal Negative Nitrite, Urine Auto RFX NEGATIVE Normal Negative Leukocyte Esterase Ur Auto RFX 3+ High Negative Blood, Urine Blood RFX 3+ High Negative WBC, Urine Auto RFX 77 /HPF High 0-3 RBC, Urine Auto RFX TNTC /HPF High 0-3 Bacteria, Urine Auto RFX NEGATIVE Normal Negative Squam Epithelial Cell Ur Aurfx 3 /HPF Normal 0-6 Mucus, Urine RFX SMALL Normal Negative Hyaline Cast, Urine Auto RFX 0 /LPF Normal 0-1 Liver Profile 05/22/2020 [facility] [address] [place] [address] [phone] Ast/Sgot 31 U/L Normal 7-37 Alt/SGPT 27 U/L Normal 12-78 Alkaline Phosphatase 123 U/L High 45-117 Bilirubin,Total 0.3 mg/dL Normal 0.2-1.0 Bilirubin,Direct 0.1 mg/dL Normal 0.0-0.2 Total Protein 7.1 GM/DL Normal 6.4-8.2 Albumin 4.0 GM/DL Normal 3.2-5.2 Albumin/Globulin Ratio 1.3 Normal 1.2-2.2 Basic Metabolic Profile 05/22/2020 [facility] [address] [place] [address] [phone] Glucose, Fasting 129 mg/dL High 70-100 Blood Urea Nitrogen 18 mg/dL Normal 7-18 Creatinine For GFR 0.97 mg/dL Normal 0.55-1.30 Glomerular Filtration Rate > 60.0 Normal >45 1 0 Sodium Level 140 mEq/L Normal 136-145 Potassium Serum 4.2 mEq/L Normal 3.5-5.1 Chloride Level 110 mEq/L High 98-107 Carbon Dioxide Level 26 mEq/L Normal 21-32 Anion Gap 4 mEq/L Low 8-16 Calcium Level 9.1 mg/dL Normal 8.8-10.2 Laboratory test finding 05/22/[address] [address] [phone] Lipase 156 U/L Normal 73-393 Reflex Urine Culture 05/22/2020 [facility] [address] [place] [address] [phone] Reflex Urine Culture FULL REPORT IN L <SEE NOTE> Norm al 11 Complete Blood Count 04/12/2020 [facility] Marketing Effectiveness Manager: [place] [address] [phone] WBC 7.7 x10*3/UL 4.1 - 10.9 RBC 4.74 x10*6/UL 4.20 - 6.30 Hemoglobin 13.8 g/dL 12.0 - 18.0 Hematocrit 40.3 % 37.0 - 51.0 MCV 84.9 fL 80.0 - 97.0 MCH 29.0 pg 26.0 - 32.0 MCHC 34.2 g/dL 31.0 - 38.0 RDW 13.7 % 11.6 - 13.7 PLT 323 x10*3/UL 140 - 440 MPV 8.2 FL 7.8 - 11.0 Lymph % 32.1 % 10.0 - 58.5 Mid % 7.7 % 1.7 - 9.3 Neut % 60.2 % 37.0 - 92.0 Lymph # 2.5 x10*3/UL 0.6 - 4.1 Mid # 0.6 x10*3/UL 0.1 - 0.6 Neut # 4.6 x10*3/UL 2.0 - 7.8 A1c 04/12/2020 [facility] Marketing Effectiveness Manager: Dr Gennaro Browne [place], [place] [id number] [phone] Hba1c 5.6 % <5.7 12 Est Avg Glucose 114 mg/dL High 60 - 110 Comprehensive Chem Profile 04/12/2020 [facility] Marketing Effectiveness Manager: Dr Gennaro Browne [place], [place] [id number] [phone] Glucose 125 mg/dL High 74 - 99 13 BUN 17 mg/dL 7 - 18 Creatinine 0.9 mg/dL 0.6 - 1.3 Sodium 142 mEq/L 136 - 145 Potassium 3.3 mEq/L Low 3.5 - 5.1 14 Chloride 106 mEq/L 98 - 107 Carbon Dioxide 25 mEq/L 21 - 32 Calcium 9.1 mg/dL 8.5 - 10.1 Alk. Phosphatase 107 mg/dL 46 - 116 Total Bilirubin 0.3 mg/dL 0.2 - 1.0 Ast (Sgot) 14 U/L Low 15 - 37 Alt (SGPT) 25 U/L 12 - 78 Albumin 3.9 g/dL 3.4 - 5.0 Total Protein 6.8 g/dL 6.4 - 8.2 A/G Ratio 1.34 CALC 1.00 - 1.90 GFR >= 60 mL/min >60 GFR >= 60 mL/min >60 15 Laboratory test finding 04/12/2020 [facility] Marketing Effectiveness Manager: Dr Gennaro Browne [place] [id number] [phone] Thyroid Stimulating Hormone 4.56 uIU/mL High 0.3 6 - 3.74 T4 Free 1.03 ng/dL 0.76 - 1.46 1 THERAPUTIC HUMAN INR VALUES INDICATIONS NORMAL RANGES PROPHYLAXIS/TREATMENT OF: VENOUS THROMBOSIS 2.0-3.0 PULMONARY EMBOLISM 2.0-3.0 PREVENTION OF SYSTEMIC EMBOLISM FROM: TISSUE HEART VALVES 2.0-3.0 ACUTE MYOCARDIAL INFARCTION 2.0-3.0 VALVULAR HEART DISEASE 2.0-3.0 ATRIAL FIBRILLATION 2.0-3.0 MECHANICAL VALVES(HIGH RISK) 2.5-3.5 RECURRENT MYOCARDIAL INFARCTION 2.5-3.5 2 FULL REPORT IN LAB NOTES (eC W and Medsharonda). ORGANISM 1: YEAST LIKE ORGANISM COLONY COUNT >100,000 ORGANISM 1: YEAST LIKE ORGANISM 3 100-125 mg/dL PRE-DIABET ES/FASTING >126 mg/dL DIABETES/FASTING 4 CHRONIC KIDNEY DISEASE STAGI NG PER NKF STAGE I & II GFR >= 60 NORMAL TO MILDLY DECREASED STAGE III GFR 30-59 MODERATELY DECREASED STAGE IV GFR 15-29 SEVERELY DECREASED STAGE V GFR <15 VERY LITTLE GFR LEFT ESRD GFR <15 ON INDUSTRIAL ROBOTICS MECHANIC 5 Testing was performed on a S LIGHTLY hemolyzed specimen. Suggest recollection of specimen for more accurate test results. 6 DIAGNOSIS CRITERIA MMB ng/ml Relative Index (RI) NON-AMI < or = 5 N/A KOHLER ZONE > 5 < or = 4 AMI > 5 > 4 7 Troponin I Reference Interva l for Siemens [place] LOCI: 99th Percentile= 0.00-0.045 ng/ml Risk Stratification: <= 0.10 ng/ml Decreased Risk for Adverse Clinical Events. 0.10-1.50 ng/ml Increased Risk for Adv erse Clinical Events. Evaluation of additional criterion and/or repeat testing in 2-6 hours is suggested to rule out myocardial damage. >= 1.50 ng/ml Indicative of Myocardial Injury. 8 Units are mL/min/1.73 m2 Chronic Kidney Disease Staging per NKF: Stage I & II GFR >=60 Normal to Mildly Decreased Stage III GFR 30-59 Moderately Decreased Stage IV GFR 15-29 Severely Decreased Stage V GFR <15 Very Little GFR Left ESRD GFR <15 on INDUSTRIAL ROBOTICS MECHANIC 9 Testing was performed on a S LIGHTLY hemolyzed specimen. Suggest recollection of specimen for more accurate test results. 10 Units are mL/min/1.73 m2 Chronic Kidney Disease Staging per NKF: Stage I & II GFR >=60 Normal to Mildly Decreased Stage III GFR 30-59 Moderately Decreased Stage IV GFR 15-29 Severely Decreased Stage V GFR <15 Very Little GFR Left ESRD GFR <15 on INDUSTRIAL ROBOTICS MECHANIC 11 FULL REPORT IN LAB NOTES (eC W and Medent). NO GROWTH 12 Lab Result Notes: Pre-Diabetes 5.7 - 6.4 % Diabetes = or > 6.5% 13 100-125 mg/dL PRE-DIABET ES/FASTING >126 mg/dL DIABETES/FASTING 14 NOTE: RESULT VERIFIED. 15 CHRONIC KIDNEY DISEASE STAGI NG PER NKF STAGE I & II GFR >= 60 NORMAL TO MILDLY DECREASED STAGE III GFR 30-59 MODERATELY DECREASED STAGE IV GFR 15-29 SEVERELY DECREASED STAGE V GFR <15 VERY LITTLE GFR LEFT ESRD GFR <15 ON INDUSTRIAL ROBOTICS MECHANIC Procedures Date Code Description Status 06/20/2020 [id number] EKG/Interpretation & Report Comp leted 04/05/2020 [id number] Mammogram Completed 01/13/2019 [id number] Diabetic Retinal Eye Exam Comple [facility] 05/06/2018 [id number] Mammogram Completed 05/04/2017 [id number] Mammogram Completed 07/24/2016 [id number] Colonoscopy Completed 03/25/2016 [id number] Mammogram Completed 02/07/2015 [id number] Mammogram Completed 08/10/2013 [id number] Mammogram Completed 07/01/2012 [id number] Mammogram Completed 08/21/2010 [id number] Mammogram Completed 07/28/2008 [id number] Bone Mineral Density Test Comple [facility] [employer] Devices Description No Information Available Encounters Type Date Location Provider Dx Diagnosis Office Visit 06/20/2020 8:00a [facility] Eli Bryant Pi ne, DISCHARGE COORDINATOR Z01.810 Encounter for preprocedural cardiovascul ar examination N13.2 Hydronephrosis with renal an d ureteral calculous obstruction R94.31 Abnormal electrocardiogram [ ECG] [EKG] E03.9 Hypothyroidism, unspecified E11.9 Type 2 diabetes mellitus wit hout complications K58.1 Irritable bowel syndrome wit h constipation M79.7 Fibromyalgia N20.0 Calculus of kidney Office Visit 06/04/2020 8:00a [facility], PDanielle Luis ,DO N13.2 Hydronephrosis with renal and ureteral calculous obstruction R92.1 Mammographic calcifcn found on diagnostic imaging of breast R92.2 Inconclusive mammogram E03.9 Hypothyroidism, unspecified K58.1 Irritable bowel syndrome wit h constipation G89.29 Other chronic pain M79.7 Fibromyalgia Office Visit 04/12/2020 1:00p [facility], PDanielle Graves ,DO M25.561 Pain in right knee E03.9 Hypothyroidism, unspecified K58.1 Irritable bowel syndrome wit h constipation F43.23 Adjustment disorder with mix ed anxiety and depressed mood M54.17 Radiculopathy, lumbosacral r egion G89.29 Other chronic pain M79.7 Fibromyalgia R73.09 Other abnormal glucose Z23 Encounter for immunization Assessments Date Code Description Provider 06/20/2020 Z01.810 Encounter for preprocedural card iovascular examination Eli Fenton [facility] 06/20/2020 N13.2 Hydronephrosis with renal and ur eteral calculous obstruction Eli Fenton [facility] 06/20/2020 R94.31 Abnormal electrocardiogram [ECG] [EKG] Eli Fenton [facility] 06/20/2020 E03.9 Hypothyroidism, unspecified Eli Fenton [facility] 06/20/2020 E11.9 Type 2 diabetes mellitus without complications Eli Fenton [facility] 06/20/2020 K58.1 Irritable bowel syndrome with co nstipation Eli Fenton [facility] 06/20/2020 M79.7 Fibromyalgia Eli Fenton [facility] 06/20/2020 N20.0 Calculus of kidney Eli Fenton [facility] 06/04/2020 N13.2 Hydronephrosis with renal and ur eteral calculous obstruction Jolene Luis,DO 06/04/2020 R92.1 Mammographic calcifi cation found on diagnostic imaging of breast Jolene Luis,DO 06/04/2020 R92.2 Inconclusive mammogram Jolene rees,DO 06/04/2020 E03.9 Hypothyroidism, unspecified Kt Luis,DO 06/04/2020 K58.1 Irritable bowel syndrome with co nstipation Jolene Luis,DO 06/04/2020 G89.29 Other chronic pain Jolene Gravesgs,D O 06/04/2020 M79.7 Fibromyalgia Jolene Luis,DO 04/12/2020 M25.561 Pain in right knee Jolene Janelle,D O 04/12/2020 E03.9 Hypothyroidism, unspecified Kt Luis,DO 04/12/2020 K58.1 Irritable bowel syndrome with co nstipation Jolene Janelle,DO 04/12/2020 F43.23 Adjustment disorder with mixed a nxiety and depressed mood Jolene Janelle,DO 04/12/2020 M54.17 Radiculopathy, lumbosacral regio n Jolene Gravesgs,DO 04/12/2020 G89.29 Other chronic pain Jolene JanelleD O 04/12/2020 M79.7 Fibromyalgia Jolene Janelle,DO 04/12/2020 R73.09 Other abnormal glucose Jolene Graves negrita,DO 04/12/2020 Z23 Encounter for immunization Jolene Luis DO Plan of Treatment Future Appointment(s):* 07/05/2020 10:40 am - Jolene Luis DO at [facility] 06/20/2020 - BRENT Gaviria* Z01.810 Encounter for preprocedural cardiovascular examination* Comments:* She is not optimized for surgery due to an abnormal EKG (biphasic T waves in V2, V3 and inverted T waves in V4, V5, V6) which are new from one year ago. A Regadenososn nuclear stress test has been arranged for July 05 (earliest available) in [facility]. * N13.2 Hydronephrosis with renal and ureteral calculous obstruction * R94.31 Abnormal electrocardiogram [ECG] [EKG]* Referral:* Abner Brooks, Cardiology/Phys/Osteo * E03.9 Hypothyroidism, unspecified* Comments:* will restart her Synthroid 100mcg 1/2 tablet initially. * E11.9 Type 2 diabetes mellitus without complications* Comments:* A1C at goal on 04/12/2020 * K58.1 Irritable bowel syndrome with constipation * M79.7 Fibromyalgia * N20.0 Calculus of kidney * All * New Medication:* Omeprazole 20 mg - 1 by mouth every day 30 minutes before your evening meal. * Ketoconazole 2 % - apply to rash two times a day for 14 days Functional Status Description No Information Available Mental Status Description No Information Available Referrals Refer to Dr Reason for Referral Status Appt Date Abner Brooks NUCLEAR STRESS TEST (88602) DUE TO ABNORMAL EKG Scheduled 07/06/2020 [facility] [id number] , [place] [address] [phone]
--- OUTSIDE RECORDS SUMMARY | 2020-07-12 11:35 | CCD ---
Author Author [facility] Syst ems Organization [facility] ems Address Unknown Phone Unavailable Care Team Providers Care Process Automation Engineer Name Role Phone Trenton Arreguin Unavailable PROBLEMS Type Condition ICD9-CM Code [id number] Code Onset Dates Condition S tatus SNOMED Code Notes Problem UTI 599.0 Active 54810196 Problem Gross hematuria R31.0 Active 736264431 Problem Kidney stone N20.0 Active 15970743 Problem COPD exacerbation J44.1 Active 448007396 Problem Ureteral Stone 592.1 Active 07827922 Problem Hydronephrosis with renal and ureteral calculous obstructi on N13.2 Active 906248446 Problem Dysuria R30.0 Active 59314116 Problem Hydronephrosis N13.30 Active 16403029 Problem UTI (urinary tract infection) N39.0 Active 68 691474 Problem Urinary incontinence R32 Active 566149932 ALLERGIES Allergen (clinical drug ingredient) Drug/Non Drug Allergy do cumented on EMR Reaction Allergy Type Onset Date Status zolpidem Ambien([facility] Code:[address]-36) Confusion Drug Allergy Active ENCOUNTERS from 1950 to 2020-07-02 Encounter Location Date Provider Diagnosis [facility] Urology [address] [place] [address] May Trenton Arreguin IMMUNIZATIONS Vaccine Route Administration Date Status Influenza (6mo & up) Fluzone Unknown September 06, 2014 Ref used SOCIAL HISTORY Sex Assigned At : Social History Observation Description Sex Assigned At Unknown REASON FOR REFERRAL No Information VITAL SIGNS No information MEDICATIONS Medication SIG (Take, Route, Frequency, Duration) Notes Start Da te End Date Status Tamsulosin HCl 0.4 MG 1 capsule Orally Once a day for 30 day(s) Jun, Not-Taking Lidocaine HCl Jelly ALF 2 % 1 application to affected area as needed Intravesically prior to cystoscopy in office for 1 days Mar, Not-Taking Myrbetriq 50 MG 1 tablet Orally Once a day for 30 day(s) 0 2 Dec, 2017 Not-Taking Bactrim DS 800-160 MG 1 tablet for your cystoscopy today Orally as directed Feb, Not-Taking Albuterol Sulfate HFA 108 (90 Base) MCG/ACT 1-2 puffs as needed Inhalation every 4-6 hrs for 5 day(s) Feb, Not-Taking Oxybutynin Chloride 5 MG 1 tablet Orally every 8 hour s needed for bladder spasms or urinary frequency Not-Taking Tizanidine HCl 2 MG 1 tablet as needed Orally every 8 hrs Active Oxybutynin Chloride 5 MG 1 tablet Orally every 8 hour s as needed for bladder spasms or urinary frequency Acti ve Singulair 5 MG 2 tablets Orally Once a day Active ProAir HFA 108 (90 Base) MCG/ACT 2 puffs as needed Inh alation every 6 hrs for 10 day(s) October, Not-Taking Spacer/Aero-Holding Chambers 1 as directed with inhale r as directed for 30 day(s) Feb, Not-Taking MethylPREDNISolone 4 MG as directed per dose pack Or ally as directed per dose pack for 6 days May, Active Tramadol HCl 50 MG 1 tablet as needed Orally every 6 hrs Not-Taking Bactrim DS 800-160 MG 1 tablet Orally Twice a day for 10 day(s) Sep, Not-Taking Synthroid Active Diflucan 100 MG 2 tablets on day 1, and then 1 tablet daily on days 2-5 Orally as directed for 5 days Sep, Not-Takin g Lyrica 100mg 1 capsule Orally Twice a day for 30 day(s) Not-Taking Doxycycline Hyclate 100 MG 1 capsule Orally every 12 hrs for 7 d ay(s) October, Not-Taking Prednisone 1 tab Oral for 14 days No t-Taking Macrobid 100 MG 1 cap Orally bid for 7 day(s) Jun, Not-Taking TraZODone HCl ER 300 MG 1 tablet at bedtime on an em pty stomach Orally Once a day Active Diflucan 100 MG 1 tablet Orally Once a day for 10 day(s) 2 6 Feb, 2018 Not-Taking levothroid 2.5 mg as directed once a day Not-Taking Macrobid 100 MG 1 cap Orally bid for 7 day(s) Jul, Not-Taking Tamsulosin HCl 0.4 MG 1 capsule Orally Once a day for 10 day(s) May, Active Cetirizine HCl 10 MG 1 capsule Orally Once a day for 30 day(s) Not-Taking Ketorolac Tromethamine 10 MG 1 tablet with food or mil k as needed Orally every 6 hrs for 5 day(s) Apr, Active Percocet 5-325 MG 1 tablet Orally every 6 hrs as needed for pain (MDD 4) for 7 days May, Not-Taking Ketorolac Tromethamine 10 MG 1 tablet with food or mil k as needed Orally every 6 hrs for 5 day(s) May, Active Percocet 5-325 MG 1 tablet as needed Orally every 6 hrs, MDD 4 f or 7 day(s) May, Active Simvastatin 10 20 mg as directed oral am/pm Not-Taking Medrol 4 MG as directed Orally Daily for 6 days October, Not-Taking Montelukast Sodium 10 MG 1 tablet in the evening Oral ly Once a day for 30 day(s) Not-Taking Lisinopril 10 MG 1 tablet Orally Once a day for 30 day(s) Active Topiramate 50 50mg as directed oral Not-Taking Flagyl 250 MG 1 tablet Orally Three times a day for 10 day(s) Not-Taking Cipro 500 MG 1 tablet Orally as directed for 1 dose(s) Feb, Not-Taking Flomax 0.4 MG 1 capsule Orally Once a day for 30 days Not-Taking Augmentin 875-125 MG 1 tablet Orally every 12 hrs for 10 day(s) Jan, Not-Taking PredniSONE 20 MG 2 tablets with food or milk x 5 days then one tablet daily x 5 days Orally Once a day for 10 days Jan, Not-Taking ProAir HFA 108 (90 Base) MCG/ACT 2 puffs as needed Inh alation every 4 hrs for 30 days Jan, Not-Taking PROCEDURES No Information RESULTS No Results REASON FOR VISIT Patient update MEDICAL (GENERAL) HISTORY Type Description Date Medical History fibromyalgia Medical History hypertension Medical History type II diabetes Medical History irritable bowel syndrome Medical History depression Medical History neuropathy Medical History hyperlipidemia Medical History kidney stones Medical History GASTROPERISIS Medical History DIVERTICULOSIS Medical History min stoke 2009 Medical History urinary incontinence Surgical History D&C several ? Surgical History tonsillectomy 1980 Surgical History hysterectomy vaginal 1978 Surgical History rotator cuff 1998 Surgical History basket retreval for kidney stones ? Surgical History lithotripsy x4 last one 09/22/13 ? Surgical History Left ESWL 12/29/13 Surgical History TOTAL RIGHT KNEE REPLACEMENT 07/02/17 Surgical History CYSTO W/ L STENT REMOVAL 10/06/2017 Surgical History LASER LITHO L STENT PLACEMENT 08/13/2018 Surgical History CYSTO L STENT REMOVAL 09/06/2018 Surgical History uterescopy with laser litho 07/25/19 Surgical History cysto with left stent removal 08/05/19 Surgical History stent placement 05/2020 Hospitalization History Surgery Related Hospitalizations Hospitalization History UTI 09/2017 Hospitalization History DIVERTICULITIS, UTI, LEFT HY DRONEPHROSIS, OBSTRUCTING STONES 06/01/18-06/07/18 Hospitalization History kidney stones, diverticulis 06/18/19 Hospitalization History diverticulitis and uti 07/2019 Goals Section No Information Health Concerns No Information MEDICAL EQUIPMENT No Information MENTAL STATUS No Information FUNCTIONAL STATUS No Information ASSESSMENTS No Information PLAN OF TREATMENT Medication Medication Name Sig Start Date Stop Date Percocet 5-325 MG 1 tablet as needed Orally every 6 hrs, M DD 4 for 7 day(s) May, Next Appt Details Provider Name:Amanda Eliana Elizabeth, 20 [birth year]28 11:00:00 AM, [address] [place] [address], [id number], Insurance Providers Payer Name Payer Address Payer Phone Insured Name Patient Relati onship to Insured Coverage Start Date Coverage End Date [facility] [address] [id number] [facility] [phone] JEREMY KEY MEDICARE Part A and B [address] [facility] [phone] [address]
--- OUTSIDE RECORDS SUMMARY | 2020-07-12 11:35 | CCD ---
Author Author [facility] Syst ems Organization [facility] ems Address Unknown Phone Unavailable Care Team Providers Care Station Supervisor Name Role Phone Christian Walls Unavailable PROBLEMS Type Condition ICD9-CM Code [id number] Code Onset Dates Condition S tatus SNOMED Code Notes Problem UTI 599.0 Active 00130637 Problem Gross hematuria R31.0 Active 852907977 Problem Kidney stone N20.0 Active 77361487 Problem COPD exacerbation J44.1 Active 219541564 Problem Ureteral Stone 592.1 Active 45179540 Problem Hydronephrosis with renal and ureteral calculous obstructi on N13.2 Active 429412366 Problem Dysuria R30.0 Active 21610802 Problem Hydronephrosis N13.30 Active 11665898 Problem UTI (urinary tract infection) N39.0 Active 68 281179 Problem Urinary incontinence R32 Active 317612738 ALLERGIES Allergen (clinical drug ingredient) Drug/Non Drug Allergy do cumented on EMR Reaction Allergy Type Onset Date Status zolpidem Ambien([facility] Code:[address]-05) Confusion Drug Allergy Active ENCOUNTERS from 1950 to 2020-06-25 Encounter Location Date Provider Diagnosis [facility] Urology [address] [place] [address] May Christian Walls Kidney stone N20.0 and Preop testing Z01 .818 IMMUNIZATIONS Vaccine Route Administration Date Status Influenza (6mo & up) Fluzone Unknown September 06, 2014 Ref used SOCIAL HISTORY Sex Assigned At : Social History Observation Description Sex Assigned At Unknown REASON FOR REFERRAL No Information VITAL SIGNS Weight 163.8 lbs May, Height 60 in May, BMI 31.99 kg/m2 May, Heart Rate 91 /min May, Respiratory Rate 18 /min May, Temperature 97.4 degrees Fahrenheit May, Oximetry 92 May, Blood pressure systolic 130 mm Hg May, Blood pressure diastolic 68 mm Hg May, MEDICATIONS Medication SIG (Take, Route, Frequency, Duration) Notes Start Da te End Date Status Tamsulosin HCl 0.4 MG 1 capsule Orally Once a day for 30 day(s) Jun, Not-Taking Lidocaine HCl Jelly FPC 2 % 1 application to affected area as needed Intravesically prior to cystoscopy in office for 1 days Mar, Not-Taking Myrbetriq 50 MG 1 tablet Orally Once a day for 30 day(s) 0 Dec, Not-Taking Bactrim DS 800-160 MG 1 tablet [...] Once a day for 10 day(s) 2 Feb, Not-Taking levothroid 2.5 mg as directed once [...] Information RESULTS No Results REASON FOR VISIT f/u with [facility] MEDICAL (GENERAL) HISTORY Type Description Date Medical History fibromyalgia Medical History hypertension Medical History type II diabetes Medical History irritable bowel syndrome Medical History depression Medical History neuropathy Medical History hyperlipidemia Medical History kidney stones Medical History GASTROPERISIS Medical History DIVERTICULOSIS Medical History min stoke 2009 Medical History urinary incontinence Surgical History D&C several ? Surgical History tonsillectomy 1980 Surgical History hysterectomy vaginal 1977 Surgical History rotator cuff 1998 Surgical History [...] No Information FUNCTIONAL STATUS No Information ASSESSMENTS Encounter Date Diagnosis Assessment Notes Treatment Notes Treatm ent Clinical Notes May, Kidney stone (ICD-10 - N20.0) Pt will need a right ureteorscopy with laser lithotripsy. Her last CT also showed multiple left kidney stones, will discuss with Dr. Arreguin if this should be bilateral or just a right ureteroscopy, pt is aware she may sign a new consent the day of surgery. Procedure and consent reviewed and signed. She will need preop urine, blood work, chest x-ray, EKG, and medical clearance. Preop orders given to the patient, she will wait to do them until she hears from our office. Percocet sent to [facility], recommended she take Tordol in between as well to try and help. [facility] Reference #: [id number] May, Preop testing (ICD-10 - Z01.818) May, Other Ureteroscopy mat erial was printed,Ureteroscopy home care material was printed,Ureteroscopy home care material was printed,Ureteral stent placement material was printed,Ureteral stent placement home care material was printed PLAN OF TREATMENT Medication Medication Name Sig Start Date Stop Date Percocet 5-325 MG 1 tablet as needed Orally every 6 hrs, M DD 4 for 7 day(s) May, Treatment Notes Assessment Notes Clinical Notes Kidney stone Pt will need a right ureteorscopy with laser lithotripsy. Her last CT also showed multiple left kidney stones, will discuss with Dr. Arreguin if this should be bilateral or just a right ureteroscopy, pt is aware she may sign a new consent the day of surgery. Procedure and consent reviewed and signed. She will need preop urine, blood work, chest x-ray, EKG, and medical clearance. Preop orders given to the patient, she will wait to do them until she hears from our office.Percocet sent to [facility], recommended she take Tordol in between as well to try and help. [facility] Reference #: [id number] Treatment Notes Test Name Order Date CBC - Complete Blood Count 2020-06-25 PT & APTT 2020-06-25 URINE CULTURE 2020-06-25 UA URINALYSIS 2020-06-25 Basic Metabolic Profile (BMP) 2020-06-25 [facility] CHEST 2 VIEW 2020-06-25 Electrocardiogram (EKG) 2020-06-25 Next Appt Details OR Reason: Provider Name:Amanda Johnson, 20 [birth year]-28 11:00:00 AM, [address] [facility], [place], [address], Insurance Providers Payer Name Payer Address Payer Phone Insured Name Patient Relati onship to Insured Coverage Start Date Coverage End Date [facility] [address] [facility] [id number] [phone] JEREMY KYE MEDICARE Part A and B [address] [facility] [phone] [address] self
--- OUTSIDE RECORDS SUMMARY | 2020-07-12 11:36 | CCD | Continuity of Care Document ---
Author Author Zofia Gaviria Organization Unknown Address [address] [facility] [address] [place] [address] Phone [phone] Care Team Providers Care Check Weigher Name Role Phone Jolene Luis DO AUTM Unavailable [facility] AUTM Unavailable Gerard Boston MD AUTM [phone] Eloy Sanchez MD AUTM [phone] Trenton Arreguin M.D. AUTM [phone] [facility] AUTM Problems Active Problems Provider Date Allergic urticaria Doreen Martínez FNP Onset: 12/23/2011 Severe recurrent major depression without psychotic features Jolene Luis DO Onset: 12/23/2011 Benign hypertensive heart disease [...] before your evening meal. 30caps Eli Fenton, [facility] 06/20/2020 Ketoconazole 2% Cream apply to rash two times a day for 14 days 60units Eli Fenton, [facility] 020 Duloxetine HCL 30mg Caps DR Part 1 by mouth po bid then after one week increase to 2 in evening and 1 in am 90caps Jolene Luis,DO 12/08/2019 Hydroxyzine HCL 25mg Tablets one tab every 8 hours as needed for anxiety. 90tabs Jolene Luis,DO 1 Synthroid 100mcg Tablets 1 by mouth every day 30tabs Eli Fenton, [employer] [employer] 07/05/2018 Melatonin 10mg Capsules one tab by mouth one hour before bed [facility] Jolene Luis,DO 03/19/2018 Reglan 5mg Tablets take [...] History Medications Fluconazole 200mg Tablets Eli Fenton, [facility] 06/22/2020 - 06/22/2020 Medications Administered in [...] ection Jolene Luis,DO 05/05/2012 B12 1000 mcg [address]-16 Injection Jolene Luis,DO 05/08/2011 Therapeutic Injection Injection Jolene Luis,DO 05/08/2011 Administration Of Flu Vaccine Inj ection Jolene Luis,DO 04/04/2011 B12 1000 mcg [address]-13 Injection Jolene Luis,DO 12/26/2010 Therapeutic Injection Injection Jolene Luis,DO 12/26/2010 B12 1000 mcg [address]-17 Injection Nurse Schedule 11/26/2010 Therapeutic Injection Injection Jolene Luis,DO 11/26/2010 Immunizations CPT Code Status Date Vaccine Lot # [id number] Given 04/12/2020 Influenza Vaccin e Quadrivalent Preser/Antibiotic Free Im Use [id number] 66918 Given 04/21/2019 Influenza Vaccin e Quadrivalent Preser/Antibiotic Free Im Use [id number] 63706 Given 07/05/2018 Pneumovax 23 [id number] 18075 Given 04/12/2018 Influenza Virus Vaccine, Quadrivalent (Cciiv4), Derived From Cell [id number] Q2037 Given 03/19/2015 Fluvirin Virus Vaccine 48705 01 Q2037 Given 04/10/2014 Fluvirin Virus Vaccine 94037 21 Q2037 Given 05/11/2013 Fluvirin Virus Vaccine 80592 01 Q2037 Given 05/05/2012 Fluvirin Virus Vaccine 21711 01 Q2037 Given 04/04/2011 Fluvirin Virus Vaccine 97756 Given 04/03/2010 Influenza Virus Vaccine 31017 Refused 03/23/2019 Influenza Vaccin e Quadrivalent Preser/Antibiotic Free Im Use 60553 Refused 07/05/2018 Shingrix Zoster Vaccine (HZV), Recombinant, Subunit, Adjuvanted 55871 Refused 07/05/2018 Zoster Vaccine 32414 Refused 07/05/2018 Pneumovax 23 [id number] Refused 07/05/2018 Adacel- Tetanus Diphtheria P ertussis (Age64 & Under) 61834 Refused 07/05/2018 Prevnar 13 Vital Signs Date [...] H/L Range Note PT & Aptt 06/20/2020 [facility] [address] [place] [address] [phone] Prothrombin Time 11.9 seconds Normal 12.5-14.3 Inr 0.86 Normal 1 Partial Thromboplastin Time 26.7 seconds Normal 24.2-38.5 Ua Routine 06/20/2020 [facility] [address] [place] [address] [phone] Appearance, Urine TURBID High Clear Color, Urine YELLOW Normal Yellow PH,Urine 6.0 units Normal 5.0-9.0 Specific [place] Urine Auto 1.014 Normal 1.002-1.035 Protein, Urine [...] /LPF Normal 0-1 Laboratory test finding 06/20/2020 [facility] [address] [place] [address] [phone] Urine Culture FULL REPORT IN L <SEE NOTE> Normal 2 Complete Blood Count 06/20/2020 [facility] Cartridge Feeder: [place] [address] [phone] WBC 10.0 x10*3/UL 4.1 - 10.9 RBC [...] 2.0 - 7.8 Basic Metabolic Panel 06/20/2020 [facility] Cartridge Feeder: [place] [address] [phone] Glucose 97 mg/dL 74 - 99 3 [...] mL/min >60 4 Laboratory test finding 06/20/2020 [facility] Cartridge Feeder: Dr Gennaro Browne [place] [id number] [phone] Thyroid Stimulating Hormone 5.21 uIU/mL High 0.3 6 - 3.74 Cardiac Marker Panel 05/25/2020 [facility] [address] [place] [address] [phone] CPK Creatine Phosphokinase 72 U/L Normal 26-19 2 5 CK-MB Value Mass < 1.0 NG/ML Normal <3.6 MB/CK Relative Index 1.39 Normal < Or =4 6 Troponin I < 0.02 NG/ML Normal < 0.10 7 Laboratory test finding 05/25/2020 [facility] [address] [place] [address] [phone] Lipase 163 U/L Normal 73-393 Basic Metabolic Profile 05/25/2020 [facility] [address] [place] [address] [phone] Glucose, Fasting 137 mg/dL High 70-100 Blood [...] 9.2 mg/dL Normal 8.8-10.2 Liver Profile 05/25/2020 [facility] [address] [place] [address] [phone] Ast/Sgot 27 U/L Normal 7-37 Alt/SGPT 34 U/L Normal 12-78 Alkaline Phosphatase 131 U/L High 45-117 Bilirubin,Total 0.4 mg/dL Normal 0.2-1.0 Bilirubin,Direct < 0.1 mg/dL Normal 0.0-0.2 Total Protein 6.9 GM/DL Normal 6.4-8.2 Albumin 4.0 GM/DL Normal 3.2-5.2 Albumin/Globulin Ratio 1.4 Normal 1.2-2.2 CBC With Differential 05/25/[address] [address] [phone] White Blood Count 12.6 10 High 4.0-10.0 [...] 36.0-66.0 Lymph % 12.4 % Low 24.0-44.0 [place] % 6.6 % High 0.0-5.0 Eos % 2.2 % Normal 0.0-3.0 Baso % 0.4 % Normal 0.0-1.0 Immature Granulocyte % 0.4 % Normal 0-3.0 Nucleated Red Blood Cell % 0.0 % Normal 0-0 Neutrophils # 9.8 10 High 1.5-8.5 Lymph # 1.6 10 Normal 1.5-5.0 Mcnairy # 0.8 10 Normal 0.0-0.8 Eos # 0.3 10 Normal 0.0-0.5 Baso # 0.1 10 Normal 0.0-0.2 Ua W/ Reflex To Culture 05/25/2020 [facility] [address] [place] [address] [phone] Appearance, Urine RFX CLEAR Normal Clear Color, Urine RFX YELLOW Normal Yellow PH,Urine RFX 7.0 units Normal 5.0-9.0 Specific [place] Ur Auto RFX 1.005 Normal 1.002-1.035 Protein, [...] /LPF Normal 0-1 CBC With Differential 05/22/2020 [facility] [address] [place] [address] [phone] White Blood Count 11.0 10 High 4.0-10.0 [...] 36.0-66.0 Lymph % 27.2 % Normal 24.0-44.0 [place] % 7.2 % High 0.0-5.0 Eos % 1.6 % Normal 0.0-3.0 Baso % 0.5 % Normal 0.0-1.0 Immature Granulocyte % 0.5 % Normal 0-3.0 Nucleated Red Blood Cell % 0.0 % Normal 0-0 Neutrophils # 6.9 10 Normal 1.5-8.5 Lymph # 3.0 10 Normal 1.5-5.0 [place] # 0.8 10 Normal 0.0-0.8 Eos # 0.2 10 Normal 0.0-0.5 Baso # 0.1 10 Normal 0.0-0.2 Ua W/ Reflex To Culture 05/22/2020 [place] [id number] [phone] Appearance, Urine RFX CLOUDY High Clear Color, Urine RFX YELLOW Normal Yellow PH,Urine RFX 6.0 units Normal 5.0-9.0 Specific [place] Ur Auto RFX 1.014 Normal 1.002-1.035 Protein, [...] 0 /LPF Normal 0-1 Liver Profile 05/22/2020 [facility] [address] [place] [address] [phone] Ast/Sgot 31 U/L Normal 7-37 Alt/SGPT 27 U/L Normal 12-78 Alkaline Phosphatase 123 U/L High 45-117 Bilirubin,Total 0.3 mg/dL Normal 0.2-1.0 Bilirubin,Direct 0.1 mg/dL Normal 0.0-0.2 Total Protein 7.1 GM/DL Normal 6.4-8.2 Albumin 4.0 GM/DL Normal 3.2-5.2 Albumin/Globulin Ratio 1.3 Normal 1.2-2.2 Basic Metabolic Profile 05/22/2020 [facility] [address] [place] [address] [phone] Glucose, Fasting 129 mg/dL High 70-100 Blood [...] mg/dL Normal 8.8-10.2 Laboratory test finding 05/22/[address] [address] [phone] Lipase 156 U/L Normal 73-393 Reflex Urine Culture 05/22/2020 [facility] [address] [place] [address] [phone] Reflex Urine Culture FULL REPORT IN L <SEE NOTE> Norm al 11 Complete Blood Count 04/12/2020 [facility] Cartridge Feeder: [place] [address] [phone] WBC 7.7 x10*3/UL 4.1 - 10.9 RBC [...] 4.6 x10*3/UL 2.0 - 7.8 A1c 04/12/2020 [facility] Cartridge Feeder: Dr Gennaro Browne [place], [place] [address] [phone] Hba1c 5.6 % <5.7 12 Est Avg Glucose 114 mg/dL High 60 - 110 Comprehensive Chem Profile 04/12/2020 [facility] Cartridge Feeder: Dr Gennaro Browne [place], [place] [id number] [phone] Glucose 125 mg/dL High 74 - 99 [...] mL/min >60 15 Laboratory test finding 04/12/2020 [facility] Cartridge Feeder: Dr Gennaro Browne [place] [id number] [phone] Thyroid Stimulating Hormone 4.56 uIU/mL High 0.3 [...] LITTLE GFR LEFT ESRD GFR <15 ON P D DRIVER 5 Testing was performed on a S LIGHTLY hemolyzed specimen. Suggest recollection of specimen for more accurate test results. 6 DIAGNOSIS CRITERIA MMB ng/ml Relative Index (RI) NON-AMI < or = 5 N/A KOHLER ZONE > 5 < or = 4 AMI > 5 > 4 7 Troponin I Reference Interva l for Siemens [place] LOCI: 99th Percentile= 0.00-0.045 ng/ml Risk Stratification: [...] Little GFR Left ESRD GFR <15 on P D DRIVER 9 Testing was performed on a S [...] Little GFR Left ESRD GFR <15 on P D DRIVER 11 FULL REPORT IN LAB NOTES (eC [...] LITTLE GFR LEFT ESRD GFR <15 ON P D DRIVER Procedures Date Code Description Status 04/05/2020 [id number] Mammogram Completed 01/13/2019 [id number] Diabetic Retinal Eye Exam Comple [facility] 05/06/2018 [id number] Mammogram Completed 05/04/2017 [id number] Mammogram Completed 07/24/2016 [id number] Colonoscopy Completed 03/25/2016 [id number] Mammogram Completed 02/07/2015 [id number] Mammogram Completed 08/10/2013 [id number] Mammogram Completed 07/01/2012 [id number] Mammogram Completed 08/21/2010 [id number] Mammogram Completed 07/28/2008 [id number] Bone Mineral Density Test Comple [facility] Medical Devices Description No Information Available Encounters Type Date Location Provider Dx Diagnosis Office Visit 06/04/2020 8:00a [facility] Luis DO N13.2 Hydronephrosis with renal and ureteral calculous obstruction R92.1 Mammographic calcifcn found on diagnostic imaging of breast R92.2 Inconclusive mammogram E03.9 Hypothyroidism, unspecified K58.1 Irritable bowel syndrome wit h constipation G89.29 Other chronic pain M79.7 Fibromyalgia Office Visit 04/12/2020 1:00p [facility] PD[facility] rees DO M25.561 Pain in right knee E03.9 Hypothyroidism, unspecified K58.1 Irritable bowel syndrome wit h constipation F43.23 Adjustment disorder with mix ed anxiety and depressed mood M54.17 Radiculopathy, lumbosacral r egion G89.29 Other chronic pain M79.7 Fibromyalgia R73.09 Other abnormal glucose Z23 Encounter for immunization Assessments Date Code Description Provider 06/20/2020 Z01.810 Encounter for preprocedural card iovascular examination Eli Fenton, [facility] 06/20/2020 R94.31 Abnormal electrocardiogram [ECG] [EKG] Eli Fenton [facility] 06/20/2020 N13.2 Hydronephrosis with renal and ur eteral calculous obstruction Eli Fenton [facility] 06/20/2020 E03.9 Hypothyroidism, unspecified Eli Fenton [facility] 06/20/2020 E11.9 Type 2 diabetes mellitus without complications Eli Fenton [facility] 06/20/2020 K58.1 Irritable bowel syndrome with co nstipation Eli Fenton, [facility] 06/20/2020 M79.7 Fibromyalgia Eli Fenton [facility] 06/04/2020 N13.2 Hydronephrosis with renal and ur eteral calculous obstruction Jolene Luis,DO 06/04/2020 R92.1 Mammographic calcifi cation found on diagnostic imaging of breast Jolene Luis,DO 06/04/2020 R92.2 Inconclusive mammogram Jolene rees,DO 06/04/2020 E03.9 Hypothyroidism, unspecified Kt martine Janelle,DO 06/04/2020 K58.1 Irritable bowel syndrome with co nstipation Jolene Janelle,DO 06/04/2020 G89.29 Other chronic pain Jolene Luis,D O 06/04/2020 M79.7 Fibromyalgia Jolene Janelle,DO 04/12/2020 M25.561 Pain in right knee Jolene Luis,D O 04/12/2020 E03.9 Hypothyroidism, unspecified Kt a Janelle,DO 04/12/2020 K58.1 Irritable bowel syndrome with co nstipation Jolene Janelle,DO 04/12/2020 F43.23 Adjustment disorder with mixed a nxiety and depressed mood Jolene Luis,DO 04/12/2020 M54.17 Radiculopathy, lumbosacral regio n Jolene Luis,DO 04/12/2020 G89.29 Other chronic pain Joanna Holloway O 04/12/2020 M79.7 Fibromyalgia Jolene Luis,DO 04/12/2020 R73.09 Other abnormal glucose Jolene Star rees DO 04/12/2020 Z23 Encounter for immunization Jolene Luis DO Plan of Treatment Future Appointment(s):* 07/05/2020 10:40 am - Jolene Luis DO at [facility] 06/20/2020 - BRENT Gaviria* Z01.810 Encounter for preprocedural cardiovascular examination* Comments:* She is not optimized for surgery due to an abnormal EKG (biphasic T waves in V2, V3 and inverted T waves in V4, V5, V6) which are new from one year ago. A Regaden[facility]osn nuclear stress test has been arranged for July 05 (earliest available) in [place]. * R94.31 Abnormal electrocardiogram [ECG] [EKG]* Referral:* Abner Brooks, Cardiology/Phys/Osteo * N13.2 Hydronephrosis with renal and ureteral calculous obstruction * E03.9 Hypothyroidism, unspecified* Comments:* will restart her Synthroid 100mcg 1/2 tablet initially. * E11.9 Type 2 diabetes mellitus without complications* Comments:* A1C at goal on 04/12/2020 * K58.1 Irritable bowel syndrome with constipation * M79.7 Fibromyalgia * All * New Medication:* Omeprazole 20 mg - 1 by mouth every day 30 minutes before your evening meal. * Ketoconazole 2 % - apply to rash two times a day for 14 days Functional Status Description No Information Available Mental Status Description No Information Available Referrals Refer to Reason for Referral Status Appt Date Abner Brooks NUCLEAR STRESS TEST ([id number]) DUE TO ABNORMAL EKG Scheduled 07/06/2020 [facility] [address] [place] [address] [phone]
--- OUTSIDE RECORDS SUMMARY | 2020-07-12 11:36 | CCD | Continuity of Care Document ---
Author Author Zofia Gaviria Organization Unknown Address [address] [facility] [address] [place] [address] Phone [phone] Care Team Providers Care Rn Neonatal Icu Name Role Phone Jolene Luis DO AUTM Unavailable [facility] AUTM Unavailable Gerard Boston MD AUTM [phone] Eloy Sanchez MD AUTM [phone] Trenton Arreguin M.D. AUTM [phone] [facility] AUTM Problems Active Problems [...] SIG Qnty Indications Ordering Provide r Date Omeprazole 20mg Capsules DR 1 by mouth every day 30 minutes before your evening meal. 30caps BRENT Gaviria 06/20/2020 Ketoconazole 2% Cream apply to rash two times a day for 14 days 60units BRENT Gaviria 020 Duloxetine HCL 30mg Caps DR Part 1 by mouth po bid then after one week increase to 2 in evening and 1 in am [facility] Jolene Luis,DO 12/08/2019 Hydroxyzine HCL 25mg Tablets one tab every 8 hours as needed for anxiety. 90tabs Jolene Luis,DO 1 Synthroid 100mcg Tablets 1 by mouth every day 30tabs Eli Fetnon, [employer] 07/05/2018 Melatonin 10mg Capsules one tab by mouth one hour before bed 30caps Jolene Luis,DO 03/19/2018 Reglan 5mg Tablets take one tablet by mouth before meals 90tabs Jolene Luis,DO 03/19/2018 Trazodone HCL 100mg Tablets take 1 tablet by mouth once daily at bedtime 90tabs Jolene Luis,DO 0 12/01/2016 Tizanidine HCL 4mg Tablets Take 2 Tablets By Mouth AT Bedtime 60ta Jolene Luis,DO Tamsulosin HCL 0.4mg Capsules 1 daily 1/2 hour after same meal Unknown Percocet 5-325mg Tablets Unknown Ketorolac Tromethamine 10mg Tablets Unknown Medications Administered in Office Medication SIG Qnty Indications Ordering Provider Date Administration Of Flu Vaccine [facility] 04/12/2020 Administration Of Flu Vaccine [facility]j [facility]DO 04/21/2019 Administration Of Flu Vaccine Inj ection Jolene Janelle,DO 04/12/2018 [facility] Of Flu [facility]ine [facility],DO 03/19/2015 Administration Of Flu Vaccine Inj ectsalo Jolene Luis,DO 04/10/2014 Administration Of Flu Vaccine Inj ection Jolene Janelle,DO 05/11/2013 Administration Of Flu Vaccine Inj ection Jolene Janelle,DO 05/05/2012 B12 1000 mcg [address]-77 Injection Jolene Luis,DO 05/08/2011 Therapeutic Injection Injection Jolene Luis,DO 05/08/2011 Administration Of Flu Vaccine Inj ection Jolene Janelle,DO 04/04/2011 B12 1000 mcg [address]-58 Injection Jolene Luis,DO 12/26/2010 Therapeutic Injection Injection Jolene Luis,DO 12/26/2010 B12 1000 mcg [address]-30 Injection Nurse Schedule 11/26/2010 Therapeutic Injection Injection Jolene Luis,DO 11/26/2010 Immunizations CPT Code Status Date Vaccine Lot # [id number] Given 04/12/2020 Influenza Vaccin e Quadrivalent Preser/Antibiotic Free Im Use [id number] 99291 Given 04/21/2019 Influenza Vaccin e Quadrivalent Preser/Antibiotic Free Im Use [id number] 93843 Given 07/05/2018 Pneumovax 23 [id number] 08520 Given 04/12/2018 Influenza Virus Vaccine, Quadrivalent ([id number]), Derived From Cell [id number] Q2037 Given 03/19/2015 Fluvirin Virus Vaccine 75999 01 Q2037 Given 04/10/2014 Fluvirin Virus Vaccine 95258 21 Q2037 Given 05/11/2013 Fluvirin Virus Vaccine 39190 01 Q2037 Given 05/05/2012 Fluvirin Virus Vaccine 71170 01 Q2037 Given 04/04/2011 Fluvirin Virus Vaccine 31482 Given 04/03/2010 Influenza Virus Vaccine 91783 Refused 03/23/2019 Influenza Vaccin e Quadrivalent Preser/Antibiotic Free Im Use 28080 Refused 07/05/2018 Shingrix Zoster Vaccine (HZV), Recombinant, Subunit, Adjuvanted 11585 Refused 07/05/2018 Zoster Vaccine 01416 Refused 07/05/2018 Pneumovax 23 05281 Refused 07/05/2018 Adacel- Tetanus Diphtheria P ertussis (Age64 & Under) 33434 Refused 07/05/2018 Prevnar 13 Vital Signs Date [...] Date Facility Test Result H/L Range Note Laboratory test finding 06/20/2020 [facility] [address] [place] [address] [phone] Urine Culture <pending> Laboratory test finding 06/20/2020 [facility] rosalva wagner Peer Counselor: [place] [address] [phone] TSH <pending> Cardiac Marker Panel 05/25/2020 [facility] enter [address] [place] [address] [phone] CPK Creatine Phosphokinase 72 U/L Normal 26-19 2 1 CK-MB Value Mass < 1.0 NG/ML Normal <3.6 MB/CK Relative Index 1.39 Normal < Or =4 2 Troponin I < 0.02 NG/ML Normal < 0.10 3 Laboratory test finding 05/25/2020 [facility] [address] [place] [address] [phone] Lipase 163 U/L Normal 73-393 Basic Metabolic Profile 05/25/[address] [address] [phone] Glucose, Fasting 137 mg/dL High 70-100 Blood Urea Nitrogen 21 mg/dL High 7-18 Creatinine For GFR 0.99 mg/dL Normal 0.55-1.30 Glomerular Filtration Rate 59.6 Normal >45 4 Sodium Level 140 mEq/L Normal 136-145 Potassium Serum 4.3 mEq/L Normal 3.5-5.1 5 Chloride Level 107 mEq/L Normal 98-107 Carbon Dioxide Level 25 mEq/L Normal 21-32 Anion Gap 8 mEq/L Normal 8-16 Calcium Level 9.2 mg/dL Normal 8.8-10.2 Liver Profile 05/25/2020 [facility] nter [address] [place] [address] [phone] Ast/Sgot 27 U/L Normal 7-37 Alt/SGPT 34 U/L Normal 12-78 Alkaline Phosphatase 131 U/L High 45-117 Bilirubin,Total 0.4 mg/dL Normal 0.2-1.0 Bilirubin,Direct < 0.1 mg/dL Normal 0.0-0.2 Total Protein 6.9 GM/DL Normal 6.4-8.2 Albumin 4.0 GM/DL Normal 3.2-5.2 Albumin/Globulin Ratio 1.4 Normal 1.2-2.2 CBC With Differential 05/25/[address] [place] [address] [phone] White Blood Count 12.6 10 High 4.0-10.0 [...] 36.0-66.0 Lymph % 12.4 % Low 24.0-44.0 [place] % 6.6 % High 0.0-5.0 Eos % 2.2 % Normal 0.0-3.0 Baso % 0.4 % Normal 0.0-1.0 Immature Granulocyte % 0.4 % Normal 0-3.0 Nucleated Red Blood Cell % 0.0 % Normal 0-0 Neutrophils # 9.8 10 High 1.5-8.5 Lymph # 1.6 10 Normal 1.5-5.0 [place] # 0.8 10 Normal 0.0-0.8 Eos # 0.3 10 Normal 0.0-0.5 Baso # 0.1 10 Normal 0.0-0.2 Ua W/ Reflex To Culture 05/25/[address] [address] [phone] Appearance, Urine RFX CLEAR Normal Clear Color, Urine RFX YELLOW Normal Yellow PH,Urine RFX 7.0 units Normal 5.0-9.0 Specific [place] [facility] RFX 1.005 Normal 1.002-1.035 Protein, [...] /LPF Normal 0-1 CBC With Differential 05/22/[address] [address] [phone] White Blood Count 11.0 10 High 4.0-10.0 [...] 36.0-66.0 Lymph % 27.2 % Normal 24.0-44.0 [place] % 7.2 % High 0.0-5.0 Eos % 1.6 % Normal 0.0-3.0 Baso % 0.5 % Normal 0.0-1.0 Immature Granulocyte % 0.5 % Normal 0-3.0 Nucleated Red Blood Cell % 0.0 % Normal 0-0 Neutrophils # 6.9 10 Normal 1.5-8.5 Lymph # 3.0 10 Normal 1.5-5.0 [place] # 0.8 10 Normal 0.0-0.8 Eos # 0.2 10 Normal 0.0-0.5 Baso # 0.1 10 Normal 0.0-0.2 Ua W/ Reflex To Culture 05/22/[address] [address] [phone] Appearance, Urine RFX CLOUDY High Clear Color, Urine RFX YELLOW Normal Yellow PH,Urine RFX 6.0 units Normal 5.0-9.0 Specific [place] [facility] RFX 1.014 Normal 1.002-1.035 Protein, [...] 0 /LPF Normal 0-1 Liver Profile 05/22/2020 [facility] nter [address] [place], [place] [address] [phone] Ast/Sgot 31 U/L Normal 7-37 Alt/SGPT 27 U/L Normal 12-78 Alkaline Phosphatase 123 U/L High 45-117 Bilirubin,Total 0.3 mg/dL Normal 0.2-1.0 Bilirubin,Direct 0.1 mg/dL Normal 0.0-0.2 Total Protein 7.1 GM/DL Normal 6.4-8.2 Albumin 4.0 GM/DL Normal 3.2-5.2 Albumin/Globulin Ratio 1.3 Normal 1.2-2.2 Basic Metabolic Profile 05/22/2020 [facility] [address] [place], [place] [id number] [phone] Glucose, Fasting 129 mg/dL High 70-100 Blood Urea Nitrogen 18 mg/dL Normal 7-18 Creatinine For GFR 0.97 mg/dL Normal 0.55-1.30 Glomerular Filtration Rate > 60.0 Normal >45 6 Sodium Level 140 mEq/L Normal 136-145 Potassium Serum 4.2 mEq/L Normal 3.5-5.1 Chloride Level 110 mEq/L High 98-107 Carbon Dioxide Level 26 mEq/L Normal 21-32 Anion Gap 4 mEq/L Low 8-16 Calcium Level 9.1 mg/dL Normal 8.8-10.2 Laboratory test finding 05/22/2020 [facility] [address] [place] [address] [phone] Lipase 156 U/L Normal 73-393 Reflex Urine Culture 05/22/2020 [facility] C enter [address] [place] [address] [phone] Reflex Urine Culture FULL REPORT IN L <SEE NOTE> Norm al 7 Complete Blood Count 04/12/2020 [facility] Peer Counselor: [place] [address] [phone] WBC 7.7 x10*3/UL 4.1 - 10.9 RBC [...] 4.6 x10*3/UL 2.0 - 7.8 A1c 04/12/2020 [facility] Peer Counselor: [place] [address] [phone] Hba1c 5.6 % <5.7 8 Est Avg Glucose 114 mg/dL High 60 - 110 Comprehensive Chem Profile 04/12/2020 [facility] Peer Counselor: [place] [address] [phone] Glucose 125 mg/dL High 74 - 99 9 BUN 17 mg/dL 7 - 18 Creatinine 0.9 mg/dL 0.6 - 1.3 Sodium 142 mEq/L 136 - 145 Potassium 3.3 mEq/L Low 3.5 - 5.1 10 Chloride 106 mEq/L 98 - 107 Carbon [...] mL/min >60 GFR >= 60 mL/min >60 11 Laboratory test finding 04/12/2020 [facility] Peer Counselor: [place] [address] [phone] Thyroid Stimulating Hormone 4.56 uIU/mL High 0.3 6 - 3.74 T4 Free 1.03 ng/dL 0.76 - 1.46 1 Testing was performed on a S LIGHTLY hemolyzed specimen. Suggest recollection of specimen for more accurate test results. 2 DIAGNOSIS CRITERIA MMB ng/ml Relative Index (RI) NON-AMI < or = 5 N/A [place] ZONE > 5 < or = 4 AMI > 5 > 4 3 Troponin I Reference Interva l for Siemens [place] LOCI: 99th Percentile= 0.00-0.045 ng/ml Risk Stratification: <= 0.10 ng/ml Decreased Risk for Adverse Clinical Events. 0.10-1.50 ng/ml Increased Risk for Adv erse Clinical Events. Evaluation of additional criterion and/or repeat testing in 2-6 hours is suggested to rule out myocardial damage. >= 1.50 ng/ml Indicative of Myocardial Injury. 4 Units are mL/min/1.73 m2 Chronic Kidney Disease Staging per NKF: Stage I & II GFR >=60 Normal to Mildly Decreased Stage III GFR 30-59 Moderately Decreased Stage IV GFR 15-29 Severely Decreased Stage V GFR <15 Very Little GFR Left ESRD GFR <15 on TRANSITIONS MANAGER RN 5 Testing was performed on a S LIGHTLY hemolyzed specimen. Suggest recollection of specimen for more accurate test results. 6 Units are mL/min/1.73 m2 Chronic Kidney Disease Staging per NKF: Stage I & II GFR >=60 Normal to Mildly Decreased Stage III GFR 30-59 Moderately Decreased Stage IV GFR 15-29 Severely Decreased Stage V GFR <15 Very Little GFR Left ESRD GFR <15 on TRANSITIONS MANAGER RN 7 FULL REPORT IN LAB NOTES (eC W and Medent). NO GROWTH 8 Lab Result Notes: Pre-Diabetes 5.7 - 6.4 % Diabetes = or > 6.5% 9 100-125 mg/dL PRE-DIABET ES/FASTING >126 mg/dL DIABETES/FASTING 10 NOTE: RESULT VERIFIED. 11 CHRONIC KIDNEY DISEASE STAGI NG PER NKF STAGE I & II GFR >= 60 NORMAL TO MILDLY DECREASED STAGE III GFR 30-59 MODERATELY DECREASED STAGE IV GFR 15-29 SEVERELY DECREASED STAGE V GFR <15 VERY LITTLE GFR LEFT ESRD GFR <15 ON TRANSITIONS MANAGER RN Procedures Date Code Description Status 04/05/2020 [id number] Mammogram Completed 01/13/2019 [id number] Diabetic Retinal Eye Exam [facility] 05/06/2018 [id number] Mammogram Completed 05/04/2017 [id number] Mammogram Completed 07/24/2016 [id number] Colonoscopy Completed 03/25/2016 [id number] Mammogram Completed 02/07/2015 [id number] Mammogram Completed 08/10/2013 [id number] Mammogram Completed 07/01/2012 [id number] Mammogram Completed 08/21/2010 [id number] Mammogram Completed 07/28/2008 [id number] Bone Mineral Density Test [facility] Medical Devices Description No Information Available Encounters Type Date Location Provider Dx Diagnosis Office Visit 06/04/2020 8:00a [facility] Luis DO N13.2 Hydronephrosis with renal and [...] for immunization Assessments Date Code Description Provider 06/04/2020 N13.2 Hydronephrosis with renal and ur eteral calculous obstruction Jolene Luis,DO 06/04/2020 R92.1 Mammographic calcifi cation found on diagnostic imaging of breast Jolene Luis,DO 06/04/2020 R92.2 Inconclusive mammogram Jolene rees,DO 06/04/2020 E03.9 Hypothyroidism, unspecified Kt uLis,DO 06/04/2020 K58.1 Irritable bowel syndrome with co nstipation Jolene Luis,DO 06/04/2020 G89.29 Other chronic pain Jolene Luis,D O 06/04/2020 M79.7 Fibromyalgia Jolene Luis,DO 04/12/2020 M25.561 Pain in right knee Jolene Luis,D O 04/12/2020 E03.9 Hypothyroidism, unspecified Kt Luis,DO 04/12/2020 K58.1 Irritable bowel syndrome with co nstipation Jolene Luis,DO 04/12/2020 F43.23 Adjustment disorder with mixed a nxiety and depressed mood Jolene Luis,DO 04/12/2020 M54.17 Radiculopathy, lumbosacral regio n Jolene Luis,DO 04/12/2020 G89.29 Other chronic pain Jolene Luis,D O 04/12/2020 M79.7 Fibromyalgia Jolene Luis,DO 04/12/2020 R73.09 Other abnormal glucose Jolene rees,DO 04/12/2020 Z23 Encounter for immunization Jolene Luis DO Plan of Treatment Future Appointment(s):* 07/05/2020 10:40 am - Jolene Luis DO at [facility] 06/20/2020 - BRENT Gaviria* All * New Medication:* Omeprazole 20 mg - 1 by mouth every day 30 minutes before your evening meal. * Ketoconazole 2 % - apply to rash two times a day for 14 days Functional Status Description No Information Available Mental Status Description No Information Available Referrals Description No Information Available
--- OUTSIDE RECORDS SUMMARY | 2020-07-12 11:36 | CCD | Continuity of Care Document ---
Author Author Zofia Gaviria Organization Unknown Address [address] [facility] [address] [place] [address] Phone [phone] Care Team Providers Care Manager Product Marketing Name Role Phone Jolene Luis DO AUTM Unavailable [facility] AUTM Unavailable Gerard Boston MD AUTM [phone] Eloy Sanchez MD AUTM [phone] Trenton Arreguin M.D. AUTM [phone] [facility] AUTM Problems Active Problems [...] before your evening meal. 30caps Eli Fenton, [employer] 06/20/2020 Ketoconazole 2% Cream apply to rash two times a day for 14 days 60units Eli Fenton, [facility] 020 Duloxetine HCL 30mg Caps DR Part 1 by mouth po bid then after one week increase to 2 in evening and 1 in am 90caps Jolene Luis,DO 12/08/2019 Hydroxyzine HCL 25mg Tablets one tab every 8 hours as needed for anxiety. 90tabs Jolene Luis,DO 1 Synthroid 100mcg Tablets 1 by mouth every day 30tabs Eli Fenton, [employer] 07/05/2018 Melatonin 10mg Capsules one tab by mouth one hour before bed [facility] Jolene Luis,DO 03/19/2018 Reglan 5mg Tablets [...] History Medications Fluconazole 200mg Tablets Eli Fenton, [facility] 06/22/2020 - 06/22/2020 Medications Administered in Office [...] ection Jolene Luis,DO 05/05/2012 B12 1000 mcg [address]-14 Injection Jolene Luis,DO 05/08/2011 Therapeutic Injection Injection Jolene Luis,DO 05/08/2011 Administration Of Flu Vaccine Inj ection Jolene Luis,DO 04/04/2011 B12 1000 mcg [address]-09 Injection Jolene Luis,DO 12/26/2010 Therapeutic Injection Injection Jolene Luis,DO 12/26/2010 B12 1000 mcg [address]-40 Injection Nurse Schedule 11/26/2010 Therapeutic Injection Injection Jolene Luis,DO 11/26/2010 Immunizations CPT Code Status Date Vaccine Lot # [id number] Given 04/12/2020 Influenza Vaccin e Quadrivalent Preser/Antibiotic Free Im Use [id number] 45960 Given 04/21/2019 Influenza Vaccin e Quadrivalent Preser/Antibiotic Free Im Use [id number] 23194 Given 07/05/2018 Pneumovax 23 [id number] 53053 Given 04/12/2018 Influenza Virus Vaccine, Quadrivalent (Cciiv4), Derived From Cell [id number] Q2037 Given 03/19/2015 Fluvirin Virus Vaccine 00818 01 Q2037 Given 04/10/2014 Fluvirin Virus Vaccine 72986 21 Q2037 Given 05/11/2013 Fluvirin Virus Vaccine 95064 01 Q2037 Given 05/05/2012 Fluvirin Virus Vaccine 08741 01 Q2037 Given 04/04/2011 Fluvirin Virus Vaccine 36551 Given 04/03/2010 Influenza Virus Vaccine 52359 Refused 03/23/2019 Influenza Vaccin e Quadrivalent Preser/Antibiotic Free Im Use 91878 Refused 07/05/2018 Shingrix Zoster Vaccine (HZV), Recombinant, Subunit, Adjuvanted 30867 Refused 07/05/2018 Zoster Vaccine 93743 Refused 07/05/2018 Pneumovax 23 39251 Refused 07/05/2018 Adacel- Tetanus Diphtheria P ertussis (Age64 & Under) 32458 Refused 07/05/2018 Prevnar 13 Vital Signs Date [...] H/L Range Note PT & Aptt 06/20/2020 [facility] [address] [place] [address] [phone] Prothrombin Time 11.9 seconds Normal 12.5-14.3 Inr 0.86 Normal 1 Partial Thromboplastin Time 26.7 seconds Normal 24.2-38.5 Ua Routine 06/20/2020 [facility] [address] [place] [address] [phone] Appearance, Urine TURBID High Clear Color, Urine YELLOW Normal Yellow PH,Urine 6.0 units Normal 5.0-9.0 Specific Palms Urine Auto 1.014 Normal 1.002-1.035 Protein, Urine [...] /LPF Normal 0-1 Laboratory test finding 06/20/2020 [facility] [address] [place] [address] [phone] Urine Culture FULL REPORT IN L <SEE NOTE> Normal 2 Complete Blood Count 06/20/2020 [facility] Switch Crew Supervisor: [place] [address] [phone] WBC 10.0 x10*3/UL 4.1 - 10.9 RBC [...] 2.0 - 7.8 Basic Metabolic Panel 06/20/2020 [facility] Switch Crew Supervisor: [place] [address] [phone] Glucose 97 mg/dL 74 - 99 3 [...] mL/min >60 4 Laboratory test finding 06/20/2020 [facility] Switch Crew Supervisor: Dr Gennaro Browne [place] [id number] [phone] Thyroid Stimulating Hormone 5.21 uIU/mL High 0.3 6 - 3.74 Cardiac Marker Panel 05/25/2020 [facility] [address] [place] [address] [phone] CPK Creatine Phosphokinase 72 U/L Normal 26-19 2 5 CK-MB Value Mass < 1.0 NG/ML Normal <3.6 MB/CK Relative Index 1.39 Normal < Or =4 6 Troponin I < 0.02 NG/ML Normal < 0.10 7 Laboratory test finding 05/25/2020 [facility] [address] [place] [address] [phone] Lipase 163 U/L Normal 73-393 Basic Metabolic Profile 05/25/2020 [facility] [address] [place] [address] [phone] Glucose, Fasting 137 mg/dL High 70-100 Blood [...] 9.2 mg/dL Normal 8.8-10.2 Liver Profile 05/25/2020 [facility] [address] [place] [address] [phone] Ast/Sgot 27 U/L Normal 7-37 Alt/SGPT 34 U/L Normal 12-78 Alkaline Phosphatase 131 U/L High 45-117 Bilirubin,Total 0.4 mg/dL Normal 0.2-1.0 Bilirubin,Direct < 0.1 mg/dL Normal 0.0-0.2 Total Protein 6.9 GM/DL Normal 6.4-8.2 Albumin 4.0 GM/DL Normal 3.2-5.2 Albumin/Globulin Ratio 1.4 Normal 1.2-2.2 CBC With Differential 05/25/[address] [address] [phone] White Blood Count 12.6 10 High 4.0-10.0 [...] 36.0-66.0 Lymph % 12.4 % Low 24.0-44.0 [place] % 6.6 % High 0.0-5.0 Eos % 2.2 % Normal 0.0-3.0 Baso % 0.4 % Normal 0.0-1.0 Immature Granulocyte % 0.4 % Normal 0-3.0 Nucleated Red Blood Cell % 0.0 % Normal 0-0 Neutrophils # 9.8 10 High 1.5-8.5 Lymph # 1.6 10 Normal 1.5-5.0 [place]on # 0.8 10 Normal 0.0-0.8 Eos # 0.3 10 Normal 0.0-0.5 Baso # 0.1 10 Normal 0.0-0.2 Ua W/ Reflex To Culture 05/25/2020 [facility] [address] [place] [address] [phone] Appearance, Urine RFX CLEAR Normal Clear Color, Urine RFX YELLOW Normal Yellow PH,Urine RFX 7.0 units Normal 5.0-9.0 Specific Palms Ur Auto RFX 1.005 Normal 1.002-1.035 Protein, [...] /LPF Normal 0-1 CBC With Differential 05/22/2020 [facility] [address] [place] [address] [phone] White Blood Count 11.0 10 High 4.0-10.0 [...] 36.0-66.0 Lymph % 27.2 % Normal 24.0-44.0 [place] % 7.2 % High 0.0-5.0 Eos % 1.6 % Normal 0.0-3.0 Baso % 0.5 % Normal 0.0-1.0 Immature Granulocyte % 0.5 % Normal 0-3.0 Nucleated Red Blood Cell % 0.0 % Normal 0-0 Neutrophils # 6.9 10 Normal 1.5-8.5 Lymph # 3.0 10 Normal 1.5-5.0 [place] # 0.8 10 Normal 0.0-0.8 Eos # 0.2 10 Normal 0.0-0.5 Baso # 0.1 10 Normal 0.0-0.2 Ua W/ Reflex To Culture 05/22/2020 [place] [id number] [phone] Appearance, Urine RFX CLOUDY High Clear Color, Urine RFX YELLOW Normal Yellow PH,Urine RFX 6.0 units Normal 5.0-9.0 Specific Palms Ur Auto RFX 1.014 Normal 1.002-1.035 Protein, [...] 0 /LPF Normal 0-1 Liver Profile 05/22/2020 [facility] [address] [place] [address] [phone] Ast/Sgot 31 U/L Normal 7-37 Alt/SGPT 27 U/L Normal 12-78 Alkaline Phosphatase 123 U/L High 45-117 Bilirubin,Total 0.3 mg/dL Normal 0.2-1.0 Bilirubin,Direct 0.1 mg/dL Normal 0.0-0.2 Total Protein 7.1 GM/DL Normal 6.4-8.2 Albumin 4.0 GM/DL Normal 3.2-5.2 Albumin/Globulin Ratio 1.3 Normal 1.2-2.2 Basic Metabolic Profile 05/22/2020 [facility] [address] [place] [address] [phone] Glucose, Fasting 129 mg/dL High 70-100 Blood [...] mg/dL Normal 8.8-10.2 Laboratory test finding 05/22/[address] [address] [phone] Lipase 156 U/L Normal 73-393 Reflex Urine Culture 05/22/2020 [facility] [address] [place] [address] [phone] Reflex Urine Culture FULL REPORT IN L <SEE NOTE> Norm al 11 Complete Blood Count 04/12/2020 [facility] Switch Crew Supervisor: [place] [address] [phone] WBC 7.7 x10*3/UL 4.1 - 10.9 RBC [...] 4.6 x10*3/UL 2.0 - 7.8 A1c 04/12/2020 [facility] Switch Crew Supervisor: Dr Gennaro Browne [place], [place] [address] [phone] Hba1c 5.6 % <5.7 12 Est Avg Glucose 114 mg/dL High 60 - 110 Comprehensive Chem Profile 04/12/2020 [facility] Crew Supervisor: Dr Gennaro Browne [place], [place] [id number] [phone] Glucose 125 mg/dL High 74 - 99 [...] mL/min >60 15 Laboratory test finding 04/12/2020 [facility] Crew Supervisor: Dr Gennaro Browne [place] [id number] [phone] Thyroid Stimulating Hormone 4.56 uIU/mL High 0.3 [...] LITTLE GFR LEFT ESRD GFR <15 ON PROJECT ARCHITECT 5 Testing was performed on a S LIGHTLY hemolyzed specimen. Suggest recollection of specimen for more accurate test results. 6 DIAGNOSIS CRITERIA MMB ng/ml Relative Index (RI) NON-AMI < or = 5 N/A KOHLER ZONE > 5 < or = 4 AMI > 5 > 4 7 Troponin I Reference Interva l for Siemens [place] LOCI: 99th Percentile= 0.00-0.045 ng/ml Risk Stratification: [...] Little GFR Left ESRD GFR <15 on PROJECT ARCHITECT 9 Testing was performed on a S [...] Little GFR Left ESRD GFR <15 on PROJECT ARCHITECT 11 FULL REPORT IN LAB NOTES (eC [...] LITTLE GFR LEFT ESRD GFR <15 ON PROJECT ARCHITECT Procedures Date Code Description Status 04/05/2020 [id number] Mammogram Completed 01/13/2019 [id number] Diabetic Retinal Eye Exam [facility] 05/06/2018 [id number] Mammogram Completed 05/04/2017 [id number] Mammogram Completed 07/24/2016 [id number] Colonoscopy Completed 03/25/2016 [id number] Mammogram Completed 02/07/2015 [id number] Mammogram Completed 08/10/2013 [id number] Mammogram Completed 07/01/2012 [id number] Mammogram Completed 08/21/2010 [id number] Mammogram Completed 07/28/2008 [id number] Bone Mineral Density Test [facility] Medical Devices Description No Information Available [...] for preprocedural card iovascular examination Eli Fenton, [facility] 06/20/2020 R94.31 Abnormal electrocardiogram [ECG] [EKG] Eli Fenton [facility] 06/20/2020 N13.2 Hydronephrosis with renal and ur eteral calculous obstruction Eli Fenton [facility] 06/20/2020 E03.9 Hypothyroidism, unspecified Eli Fenton [facility] 06/20/2020 E11.9 Type 2 diabetes mellitus without complications Eli Fenton [facility] 06/20/2020 K58.1 Irritable bowel syndrome with co nstipation Eli Fenton, [facility] 06/20/2020 M79.7 Fibromyalgia Eli Fenton [facility] 06/04/2020 N13.2 Hydronephrosis with renal and ur [...] 10:40 am - Jolene Luis DO at [facility] 06/20/2020 - BRENT Gaviria* Z01.810 Encounter for preprocedural cardiovascular examination* Comments:* She is not optimized for surgery due to an abnormal EKG (biphasic T waves in V2, V3 and inverted T waves in V4, V5, V6) which are new from one year ago. A Regadenososn nuclear stress test has been arranged for July 05 (earliest available) in [place]. * R94.31 Abnormal electrocardiogram [ECG] [EKG]* Referral:* [...] Appt Date Abner Brooks NUCLEAR STRESS TEST ([id number]) DUE TO ABNORMAL EKG Scheduled 07/06/2020 [facility] [address] [place] [address] [phone]
--- OUTSIDE RECORDS SUMMARY | 2020-07-12 11:36 | CCD ---
Author Author [facility] [employer] Organization [facility] ems Address Unknown Phone Unavailable Care Team Providers Care Client Advocate Name Role Phone Titi, Christian Unavailable PROBLEMS Type Condition ICD9-CM Code [id number]-CD Code Onset Dates Condition S tatus SNOMED Code Notes Problem UTI 599.0 Active 16546589 Problem Gross hematuria R31.0 Active 003737383 Problem Kidney stone N20.0 Active 55948452 Problem COPD exacerbation J44.1 Active 357103666 Problem Ureteral Stone 592.1 Active 42923944 Problem Hydronephrosis with renal and ureteral calculous obstructi on N13.2 Active 792814064 Problem Dysuria R30.0 Active 76339794 Problem Hydronephrosis N13.30 Active 72326726 Problem UTI (urinary tract infection) N39.0 Active 68 511731 Problem Urinary incontinence R32 Active 763405940 ALLERGIES Allergen (clinical drug ingredient) Drug/Non Drug Allergy do cumented on EMR Reaction Allergy Type Onset Date Status zolpidem Ambien([facility] Code:[address]-98) Confusion Drug Allergy Active ENCOUNTERS from 1950 to 2020-06-19 Encounter Location Date Provider Diagnosis [facility] [address] [place] [address] May Christian Walls IMMUNIZATIONS Vaccine Route Administration Date Status Influenza [...] 30 day(s) Jun, Not-Taking Lidocaine HCl Jelly CUSTODIAL 2 % 1 application to affected area [...] Information RESULTS No Results REASON FOR VISIT ureteroscopy MEDICAL (GENERAL) HISTORY Type Description Date Medical [...] May, Next Appt Details Provider Name:Amanda Eliana Amarifernydl, 20 12-07-28 11:00:00 AM, [address] [place] [address], [id number], Insurance Providers Payer Name Payer Address Payer Phone Insured Name Patient Relati onship to Insured Coverage Start Date Coverage End Date MEDICARE Part A and B [address] [facility] [phone] LUC[employer]A KEY UMR [facility] [address] [id number] [facility] [phone] JEREMY KEY
--- OUTSIDE RECORDS SUMMARY | 2020-07-12 11:36 | CCD ---
Author Author [facility] [employer] em[employer] Organization [facility] ems Address Unknown Phone Unavailable Care Team Providers Care Change Management Facilitator Name Role Phone Titi, Christian Unavailable PROBLEMS Type Condition ICD9-CM Code PEW19-WH Code Onset Dates Condition S tatus SNOMED Code Notes Problem UTI 599.0 Active 91086972 Problem Gross hematuria R31.0 Active 837043657 Problem Kidney stone N20.0 Active 99024377 Problem COPD exacerbation J44.1 Active 436449236 Problem Ureteral Stone 592.1 Active 50614707 Problem Hydronephrosis with renal and ureteral calculous obstructi on N13.2 Active 852954141 Problem Dysuria R30.0 Active 06229965 Problem Hydronephrosis N13.30 Active 00060742 Problem UTI (urinary tract infection) N39.0 Active 68 488358 Problem Urinary incontinence R32 Active 099982130 ALLERGIES Allergen (clinical drug ingredient) Drug/Non Drug Allergy do cumented on EMR Reaction Allergy Type Onset Date Status zolpidem Ambien([facility] Code:[address]-31) Confusion Drug Allergy Active ENCOUNTERS from 1950 to 2020-06-06 Encounter Location Date Provider Diagnosis [facility] [address] [place] [address] May Christian Walls IMMUNIZATIONS Vaccine Route Administration Date Status Influenza (6mo & up) Fluzone Unknown September 06, 2014 Ref used SOCIAL HISTORY Sex Assigned At : Social History Observation Description Sex Assigned At Unknown REASON FOR REFERRAL No Information VITAL SIGNS No information MEDICATIONS Medication SIG (Take, Route, Frequency, Duration) Notes Start Da te End Date Status Lisinopril 10 MG 1 tablet Orally Once a day for 30 day(s) Active Cipro 500 MG 1 tablet Orally as directed for 1 dose(s) Feb, Not-Taking Prednisone 1 tab Oral for 14 days No t-Taking TraZODone HCl ER 300 MG 1 tablet at bedtime on an em pty stomach Orally Once a day Active levothroid 2.5 mg as directed once a day Not-Taking Topiramate 50 50mg as directed oral Not-Taking Augmentin 875-125 MG 1 tablet Orally every 12 hrs for 10 day(s) Jan, Not-Taking Flagyl 250 MG 1 tablet Orally Three times a day for 10 day(s) Not-Taking ProAir HFA 108 (90 Base) MCG/ACT 2 puffs as needed Inh alation every 4 hrs for 30 days Jan, Not-Taking Diflucan 100 MG 2 tablets on day 1, and then 1 tablet daily on days 2-5 Orally as directed for 5 days Sep, Not-Takin g Cetirizine HCl 10 MG 1 capsule Orally Once a day for 30 day(s) Not-Taking Macrobid 100 MG 1 cap Orally bid for 7 day(s) Jun, Not-Taking Bactrim DS 800-160 MG 1 tablet Orally Twice a day for 10 day(s) Sep, Not-Taking Tizanidine HCl 2 MG 1 tablet as needed Orally every 8 hrs Active PredniSONE 20 MG 2 tablets with food or milk x 5 days then one tablet daily x 5 days Orally Once a day for 10 days Jan, Not-Taking Tramadol HCl 50 MG 1 tablet as needed Orally every 6 hrs Not-Taking Montelukast Sodium 10 MG 1 tablet in the evening Oral ly Once a day for 30 day(s) Not-Taking Macrobid 100 MG 1 cap Orally bid for 7 day(s) Jul, Active Diflucan 100 MG 1 tablet Orally Once a day for 10 day(s) 2 Feb, Not-Taking Medrol 4 MG as directed Orally Daily for 6 days October, Not-Taking Tamsulosin HCl 0.4 MG 1 capsule Orally Once a day for 10 day(s) May, Active ProAir HFA 108 (90 Base) MCG/ACT 2 puffs as needed Inh alation every 6 hrs for 10 day(s) October, Not-Taking Albuterol Sulfate HFA 108 (90 Base) MCG/ACT 1-2 puffs as needed Inhalation every 4-6 hrs for 5 day(s) Feb, Not-Taking Oxybutynin Chloride 5 MG 1 tablet Orally every 8 hour s as needed for bladder spasms or urinary frequency Acti ve Synthroid Active Spacer/Aero-Holding Chambers 1 as directed with inhale r as directed for 30 day(s) Feb, Not-Taking Percocet 5-325 MG 1 tablet as needed Orally every 6 hrs, MDD 4 f or 5 day(s) Jun, Not-Taking MethylPREDNISolone 4 MG as directed per dose pack Or ally as directed per dose pack for 6 days May, Active Flomax 0.4 MG 1 capsule Orally Once a day for 30 days Not-Taking Tamsulosin HCl 0.4 MG 1 capsule Orally Once a day for 30 day(s) Jun, Active Percocet 5-325 MG 1 tablet Orally every 6 hrs as needed for pain (MDD 4) for 7 days May, Active Bactrim DS 800-160 MG 1 tablet for your cystoscopy today Orally as directed Feb, Not-Taking Lyrica 100mg 1 capsule Orally Twice a day for 30 day(s) Not-Taking Ketorolac Tromethamine 10 MG 1 tablet with food or mil k as needed Orally every 6 hrs for 5 day(s) Apr, Active Simvastatin 10 20 mg as directed oral am/pm Not-Taking Lidocaine HCl Jelly ALF 2 % 1 application to affected area as needed Intravesically prior to cystoscopy in office for 1 days Mar, Not-Taking Ketorolac Tromethamine 10 MG 1 tablet with food or mil k as needed Orally every 6 hrs for 5 day(s) May, Active Singulair 5 MG 2 tablets Orally Once a day Active Myrbetriq 50 MG 1 tablet Orally Once a day for 30 day(s) 0 Dec, Not-Taking Oxybutynin Chloride 5 MG 1 tablet Orally every 8 hour s needed for bladder spasms or urinary frequency Not-Taking Doxycycline Hyclate 100 MG 1 capsule Orally every 12 hrs for 7 d ay(s) October, Not-Taking PROCEDURES No Information RESULTS No Results REASON FOR VISIT KUB MEDICAL (GENERAL) HISTORY Type Description Date [...] History cysto with left stent removal 08/05/19 Hospitalization History Surgery Related Hospitalizations Hospitalization History [...] Stop Date Percocet 5-325 MG 1 tablet Orally every 6 hrs as needed for pain (MDD 4) for 7 days May, Ketorolac Tromethamine 10 MG 1 tablet with food or mil k as needed Orally every 6 hrs for 5 day(s) May, Tamsulosin HCl 0.4 MG 1 capsule Orally Once a day for 10 day(s) May, Next Appt Details Provider Name:Christian Walls, 2020-06-12 08:00:00 AM, [address], [place], [address], Provider Name:Amanda Johnson, 12-07-28 11:00:00 AM, [address] [place], [address], Insurance Providers Payer Name Payer Address Payer Phone Insured Name Patient Relati onship to Insured Coverage Start Date Coverage End Date MEDICARE Part A and B [facility] [address] [place] [phone] LUC[address]A KEY R [facility] [id number] [facility] [phone] JEREMY KEY
--- OUTSIDE RECORDS SUMMARY | 2020-07-12 11:37 | CCD | Continuity of Care Document ---
Author Author Zofia COLBERT Organization Unknown Address [address] [place] [address] [address] [place] [address] Phone [phone] Care Team Providers Care Diabetes Territory Manager Name Role Phone Jolene Colbert DO AUTM Unavailable [facility] AUTM Unavailable Gerard Boston MD AUTM [phone] Eloy Sanchez MD AUTM [phone] Trenton Arreguin M.D. AUTM [phone] [facility] AUTM Problems Active Problems Provider Date Allergic urticaria Doreen Martínez FNP Onset: 12/23/2011 Severe recurrent major depression without psychotic features Jolene Colbert DO Onset: 12/23/2011 Benign hypertensive heart disease without congestive h eart failure Jolene Colbert DO Onset: 12/23/2011 Type 2 diabetes mellitus Jolene Colbert DO Onset: 12/23/19 12 Calculus of kidney and ureter Jolene Colbert DO Onset: 07/2019 Social History Type Date Description Comments Sex Unknown ETOH Use Denies alcohol use Tobacco Use Start: Unknown Patient has never smoked Allergies, Adverse Reactions, Alerts Active Allergies Reaction Severity Comments Date Ambien Goes Crazy 05/22/2016 Inactive Allergies NKDA 11/09/2009 Medications Active Medications SIG Qnty Indications Ordering Provide r Date Duloxetine HCL 30mg Caps DR Part 1 by mouth po bid then after one week increase to 2 in evening and 1 in am 90caps Jolene Colbert DO 12/08/2019 Metronidazole 500mg Tablets one by mouth bid Unknown 07/22/2019 Hydroxyzine HCL 25mg Tablets one tab every 8 hours as needed for anxiety. 90tabs Jolene Colbert,DO 1 Miralax [id number] Packet 17 grams in liquid as directed every day as needed 30units Jolene Colbert,DO 07/05/2018 Synthroid 100mcg Tablets 1 by mouth every day 30tabs Jolene Colbert,DO 07/05/2018 Melatonin 10mg Capsules one tab by mouth one hour before bed 30caps Jolene Colbert,DO 03/19/2018 Reglan 5mg Tablets take one tablet by mouth before meals 90tabs Jolene Colbert,DO 03/19/2018 Trazodone HCL 100mg Tablets take 1 tablet by mouth once daily at bedtime 90tabs Jolene Colbert,DO 0 12/01/2016 Tizanidine HCL 4mg Tablets Take 2 Tablets By Mouth AT Bedtime 60tabs Jolene Colbert,DO Tamsulosin HCL 0.4mg Capsules 1 daily 1/2 hour after same meal Unknown Medications Administered in Office Medication SIG Qnty Indications Ordering Provider Date Administration Of Flu Vaccine Inj ection Jolene Colbert,DO 04/12/2020 Administration Of Flu Vaccine Inj ection Jolene Colbert,DO 04/21/2019 Administration Of Flu Vaccine Inj ection Jolene Colbert,DO 04/12/2018 Administration Of Flu Vaccine Inj ection Jolene Colbert,DO 03/19/2015 Administration Of Flu Vaccine Inj ection Jolene Colbert,DO 04/10/2014 Administration Of Flu Vaccine Inj ection Jolene Colbert,DO 05/11/2013 Administration Of Flu Vaccine Inj ection Jolene Colbert,DO 05/05/2012 B12 1000 mcg [address]-68 Injection Jolene Colbert,DO 05/08/2011 Therapeutic Injection Injection Jolene Colbert,DO 05/08/2011 Administration Of Flu Vaccine Inj ection Jolene Colbert,DO 04/04/2011 B12 1000 mcg [address]-64 Injection Jolene Colbert,DO 12/26/2010 Therapeutic Injection Injection Jolene Colbert,DO 12/26/2010 B12 1000 mcg [address]-50 Injection Nurse Schedule 11/26/2010 Therapeutic Injection Injection Jolene Colbert,DO 11/26/2010 Immunizations CPT Code Status Date Vaccine Lot # 14944 Given 04/12/2020 Influenza Vaccin e Quadrivalent Preser/Antibiotic Free Im Use [id number] 09046 Given 04/21/2019 Influenza Vaccin e Quadrivalent Preser/Antibiotic Free Im Use 186190 23547 Given 07/05/2018 Pneumovax 23 [id number] 46379 Given 04/12/2018 Influenza Virus Vaccine, Quadrivalent (Cciiv4), Derived From Cell [id number] Q2037 Given 03/19/2015 Fluvirin Virus Vaccine 66839 01 Q2037 Given 04/10/2014 Fluvirin Virus Vaccine 19121 21 Q2037 Given 05/11/2013 Fluvirin Virus Vaccine 43649 01 Q2037 Given 05/05/2012 Fluvirin Virus Vaccine 58354 01 Q2037 Given 04/04/2011 Fluvirin Virus Vaccine 63602 Given 04/03/2010 Influenza Virus Vaccine 41509 Refused 03/23/2019 Influenza Vaccin e Quadrivalent Preser/Antibiotic Free Im Use 62899 Refused 07/05/2018 Shingrix Zoster Vaccine (HZV), Recombinant, Subunit, Adjuvanted 13964 Refused 07/05/2018 Zoster Vaccine 09232 Refused 07/05/2018 Pneumovax 23 83697 Refused 07/05/2018 Adacel- Tetanus Diphtheria P ertussis (Age64 & Under) 26900 Refused 07/05/2018 Prevnar 13 Vital Signs Date Vital Result Comment 06/04/2020 8:02am BP Systolic 116 mmHg BP Diastolic 58 mmHg Heart Rate 80 /min Height 60 inches 5'0" Weight 169.00 lb O2 % BldC Oximetry 98 % RM Air BMI (Body Mass Index) 33.0 kg/m2 04/12/2020 1:09pm BP Systolic 112 mmHg BP Diastolic 60 mmHg Heart Rate 85 /min Height 60 inches 5'0" Weight 162.00 lb BMI (Body Mass Index) 31.6 kg/m2 Results Test Acquired Date Facility Test Result H/L Range Note Ua W/ Reflex To Culture 05/25/[address] [address] [phone] Appearance, Urine RFX CLEAR Normal Clear Color, Urine RFX YELLOW Normal Yellow PH,Urine RFX 7.0 units Normal 5.0-9.0 Specific [place] [facility] RFX 1.005 Normal 1.002-1.035 Protein, [...] 0 /LPF Normal 0-1 CBC With Differential 05/25/[address] [id number] [phone] White Blood Count 12.6 10 High 4.0-10.0 [...] 36.0-66.0 Lymph % 12.4 % Low 24.0-44.0 [place] % 6.6 % High 0.0-5.0 Eos % 2.2 % Normal 0.0-3.0 Baso % 0.4 % Normal 0.0-1.0 Immature Granulocyte % 0.4 % Normal 0-3.0 Nucleated Red Blood Cell % 0.0 % Normal 0-0 Neutrophils # 9.8 10 High 1.5-8.5 Lymph # 1.6 10 Normal 1.5-5.0 Owsley # 0.8 10 Normal 0.0-0.8 Eos # 0.3 10 Normal 0.0-0.5 Baso # 0.1 10 Normal 0.0-0.2 Liver Profile 05/25/2020 [facility]ter [address] [place] [address] [phone] Ast/Sgot 27 U/L Normal 7-37 Alt/SGPT 34 U/L Normal 12-78 Alkaline Phosphatase 131 U/L High 45-117 Bilirubin,Total 0.4 mg/dL Normal 0.2-1.0 Bilirubin,Direct < 0.1 mg/dL Normal 0.0-0.2 Total Protein 6.9 GM/DL Normal 6.4-8.2 Albumin 4.0 GM/DL Normal 3.2-5.2 Albumin/Globulin Ratio 1.4 Normal 1.2-2.2 Basic Metabolic Profile 05/25/2020 [facility] [address] [place] [address] [phone] Glucose, Fasting 137 mg/dL High 70-100 Blood Urea Nitrogen 21 mg/dL High 7-18 Creatinine For GFR 0.99 mg/dL Normal 0.55-1.30 Glomerular Filtration Rate 59.6 Normal >45 1 Sodium Level 140 mEq/L Normal 136-145 Potassium Serum 4.3 mEq/L Normal 3.5-5.1 2 Chloride Level 107 mEq/L Normal 98-107 Carbon Dioxide Level 25 mEq/L Normal 21-32 Anion Gap 8 mEq/L Normal 8-16 Calcium Level 9.2 mg/dL Normal 8.8-10.2 Laboratory test finding 05/25/2020 [facility] [address] [place] [address] [phone] Lipase 163 U/L Normal 73-393 Cardiac Marker Panel 05/25/2020 [facility] enter [address] [place] [address] [phone] CPK Creatine Phosphokinase 72 U/L Normal 26-19 2 3 CK-MB Value Mass < 1.0 NG/ML Normal <3.6 MB/CK Relative Index 1.39 Normal < Or =4 4 Troponin I < 0.02 NG/ML Normal < 0.10 5 Reflex Urine Culture 05/22/2020 [facility] enter [address] [place] [address] [phone] Reflex Urine Culture FULL REPORT IN L <SEE NOTE> Norm al 6 Laboratory test finding 05/22/[address] [address] [phone] Lipase 156 U/L Normal 73-393 Basic Metabolic Profile 05/22/[address] [address] [phone] Glucose, Fasting 129 mg/dL High 70-100 Blood Urea Nitrogen 18 mg/dL Normal 7-18 Creatinine For GFR 0.97 mg/dL Normal 0.55-1.30 Glomerular Filtration Rate > 60.0 Normal >45 7 Sodium Level 140 mEq/L Normal 136-145 Potassium Serum 4.2 mEq/L Normal 3.5-5.1 Chloride Level 110 mEq/L High 98-107 Carbon Dioxide Level 26 mEq/L Normal 21-32 Anion Gap 4 mEq/L Low 8-16 Calcium Level 9.1 mg/dL Normal 8.8-10.2 Liver Profile 05/22/2020 [facility] nter [address] [place] [address] [phone] Ast/Sgot 31 U/L Normal 7-37 Alt/SGPT 27 U/L Normal 12-78 Alkaline Phosphatase 123 U/L High 45-117 Bilirubin,Total 0.3 mg/dL Normal 0.2-1.0 Bilirubin,Direct 0.1 mg/dL Normal 0.0-0.2 Total Protein 7.1 GM/DL Normal 6.4-8.2 Albumin 4.0 GM/DL Normal 3.2-5.2 Albumin/Globulin Ratio 1.3 Normal 1.2-2.2 Ua W/ Reflex To Culture 05/22/[address] [address] [phone] Appearance, Urine RFX CLOUDY High Clear Color, Urine RFX YELLOW Normal Yellow PH,Urine RFX 6.0 units Normal 5.0-9.0 Specific [place] Ur Auto RFX 1.014 Normal 1.002-1.035 Protein, [...] /LPF Normal 0-1 CBC With Differential 05/22/2020 [facility] [address] [place], [place] [id number] [phone] White Blood Count 11.0 10 High 4.0-10.0 [...] 36.0-66.0 Lymph % 27.2 % Normal 24.0-44.0 Owsley % 7.2 % High 0.0-5.0 Eos % 1.6 % Normal 0.0-3.0 Baso % 0.5 % Normal 0.0-1.0 Immature Granulocyte % 0.5 % Normal 0-3.0 Nucleated Red Blood Cell % 0.0 % Normal 0-0 Neutrophils # 6.9 10 Normal 1.5-8.5 Lymph # 3.0 10 Normal 1.5-5.0 Owsley # 0.8 10 Normal 0.0-0.8 Eos # 0.2 10 Normal 0.0-0.5 Baso # 0.1 10 Normal 0.0-0.2 Complete Blood Count 04/12/2020 [facility] Roping Tender: [place] [address] [phone] WBC 7.7 x10*3/UL 4.1 - 10.9 RBC [...] 4.6 x10*3/UL 2.0 - 7.8 A1c 04/12/2020 [facility] , Roping Tender: Dr Gennaro Browne [place], [place] [id number] [phone] Hba1c 5.6 % <5.7 8 Est Avg Glucose 114 mg/dL High 60 - 110 Comprehensive Chem Profile 04/12/2020 [facility], Roping Tender: [place] [address] [phone] Glucose 125 mg/dL High 74 - 99 [...] mL/min >60 11 Laboratory test finding 04/12/2020 [facility], Roping Tender: Dr [place]ennaro [place] [address] [phone] Thyroid Stimulating Hormone 4.56 uIU/mL High 0.3 6 - 3.74 T4 Free 1.03 ng/dL 0.76 - 1.46 Basic Metabolic Panel 12/08/2019 [facility] Roping Tender: Dr [place]ennaro [place] [id number] [phone] Glucose 135 mg/dL High 74 - 99 12 BUN 15 mg/dL 7 - 18 Creatinine 0.8 mg/dL 0.6 - 1.3 Sodium 143 mEq/L 136 - 145 Potassium 3.3 mEq/L Low 3.5 - 5.1 13 Chloride 107 mEq/L 98 - 107 Carbon Dioxide 27 mEq/L 21 - 32 Calcium 9.0 mg/dL 8.5 - 10.1 GFR >= 60 mL/min >60 GFR >= 60 mL/min >60 14 Laboratory test finding 12/08/2019 [facility], Roping Tender: Dr Gennaro [place] [id number] [phone] Thyroid Stimulating Hormone 2.86 uIU/mL 0.3 6 - 3.74 1 Units are mL/min/1.73 m2 Chronic Kidney Disease Staging per NKF: Stage I & II GFR >=60 Normal to Mildly Decreased Stage III GFR 30-59 Moderately Decreased Stage IV GFR 15-29 Severely Decreased Stage V GFR <15 Very Little GFR Left ESRD GFR <15 on COOK HELPER VEGETABLE 2 Testing was performed on a S LIGHTLY hemolyzed specimen. Suggest recollection of specimen for more accurate test results. 3 Testing was performed on a S LIGHTLY hemolyzed specimen. Suggest recollection of specimen for more accurate test results. 4 DIAGNOSIS CRITERIA MMB ng/ml Relative Index (RI) NON-AMI < or = 5 N/A KOHLER ZONE > 5 < or = 4 AMI > 5 > 4 5 Troponin I Reference Interva l for [facility] LOCI: 99th Percentile= 0.00-0.045 ng/ml Risk Stratification: <= 0.10 ng/ml Decreased Risk for Adverse Clinical Events. 0.10-1.50 ng/ml Increased Risk for Adv erse Clinical Events. Evaluation of additional criterion and/or repeat testing in 2-6 hours is suggested to rule out myocardial damage. >= 1.50 ng/ml Indicative of Myocardial Injury. 6 FULL REPORT IN LAB NOTES (eC W and Med[facility]ar[facility]). NO GROWTH 7 Units are mL/min/1.73 m2 Chronic Kidney Disease Staging per NKF: Stage I & II GFR >=60 Normal to Mildly Decreased Stage III GFR 30-59 Moderately Decreased Stage IV GFR 15-29 Severely Decreased Stage V GFR <15 Very Little GFR Left ESRD GFR <15 on COOK HELPER VEGETABLE 8 Lab Result Notes: Pre-Diabetes 5.7 - [...] LITTLE GFR LEFT ESRD GFR <15 ON COOK HELPER VEGETABLE 12 100-125 mg/dL PRE-DIABET ES/FASTING >126 mg/dL DIABETES/FASTING 13 NOTE: RESULT VERIFIED. 14 CHRONIC KIDNEY DISEASE STAGI NG PER NKF STAGE I & II GFR >= 60 NORMAL TO MILDLY DECREASED STAGE III GFR 30-59 MODERATELY DECREASED STAGE IV GFR 15-29 SEVERELY DECREASED STAGE V GFR <15 VERY LITTLE GFR LEFT ESRD GFR <15 ON COOK HELPER VEGETABLE Procedures Date Code Description Status 04/05/2020 [id number] Mammogram Completed 01/13/2019 [id number] Diabetic Retinal Eye Exam [facility] 05/06/2018 [id number] Mammogram Completed 05/04/2017 [id number] Mammogram Completed 07/24/2016 [id number] Colonoscopy Completed 03/25/2016 [id number] Mammogram Completed 02/07/2015 [id number] Mammogram Completed 08/10/2013 [id number] Mammogram Completed 07/01/2012 [id number] Mammogram Completed 08/21/2010 [id number] Mammogram Completed 07/28/2008 [id number] Bone Mineral Density Test Comple [facility] [employer] Devices Description No Information Available Encounters Type Date Location Provider Dx Diagnosis Office Visit 06/04/2020 8:00a [facility] Jolene Janelle ,DO N13.2 Hydronephrosis with renal and ureteral calculous obstruction R92.1 Mammographic calcifcn found on diagnostic imaging of breast R92.2 Inconclusive mammogram E03.9 Hypothyroidism, unspecified K58.1 Irritable bowel syndrome wit h constipation G89.29 Other chronic pain M79.7 Fibromyalgia Office Visit 04/12/2020 1:00p [facility], Dotty rees,DO M25.561 Pain in right knee E03.9 Hypothyroidism, unspecified K58.1 Irritable bowel syndrome wit h constipation F43.23 Adjustment disorder with mix ed anxiety and depressed mood M54.17 Radiculopathy, lumbosacral r egion G89.29 Other chronic pain M79.7 Fibromyalgia R73.09 Other abnormal glucose Z23 Encounter for immunization Office Visit 12/08/2019 2:45p [facility], Dotty Colbert ,DO M54.17 Radiculopathy, lumbosacral region M54.31 Sciatica, right side M25.561 Pain in right knee N20.1 Calculus of ureter N20.0 Calculus of kidney E03.9 Hypothyroidism, unspecified K58.1 Irritable bowel syndrome wit h constipation F43.23 Adjustment disorder with mix ed anxiety and depressed mood Assessments Date Code Description Provider 06/04/2020 N13.2 Hydronephrosis with renal and ur eteral calculous obstruction Jolene Colbert,DO 06/04/2020 R92.1 Mammographic calcifi cation found on diagnostic imaging of breast Jolene Colbert,DO 06/04/2020 R92.2 Inconclusive mammogram Jolene rees,DO 06/04/2020 E03.9 Hypothyroidism, unspecified Kt a Janelle,DO 06/04/2020 K58.1 Irritable bowel syndrome with co nstipation Jolene Colbert,DO 06/04/2020 G89.29 Other chronic pain Jolene Colbert,D O 06/04/2020 M79.7 Fibromyalgia Jolene Colbert,DO 04/12/2020 M25.561 Pain in right knee Jolene Colbert,D O 04/12/2020 E03.9 Hypothyroidism, unspecified Kt a Janelle,DO 04/12/2020 K58.1 Irritable bowel syndrome with co nstipation Jolene Colbert,DO 04/12/2020 F43.23 Adjustment disorder with mixed a nxiety and depressed mood Jolenemartine Colbert,DO 04/12/2020 M54.17 Radiculopathy, lumbosacral regio n Jolene Colbert,DO 04/12/2020 G89.29 Other chronic pain Jolene Colbert,D O 04/12/2020 M79.7 Fibromyalgia Jolene Colbert,DO 04/12/2020 R73.09 Other abnormal glucose Jolene rees,DO 04/12/2020 Z23 Encounter for immunization Jolene Colbert,DO 12/08/2019 M54.17 Radiculopathy, lumbosacral regio n Jolene Colbert,DO 12/08/2019 M54.31 Sciatica, right side Jolenemartine Colbert ,DO 12/08/2019 M25.561 Pain in right knee Jolene Colbert,D O 12/08/2019 N20.1 Calculus of ureter Jolene Colbert,D O 12/08/2019 N20.0 Calculus of kidney Jolene Colbert,D O 12/08/2019 E03.9 Hypothyroidism, unspecified Kt martine Janelle,DO 12/08/2019 K58.1 Irritable bowel syndrome with co nstipation Jolenemartine Colbert,DO 12/08/2019 F43.23 Adjustment disorder with mixed a nxiety and depressed mood Jolene Colbert DO Plan of Treatment Future Appointment(s):* 07/05/2020 10:40 am - Jolene Colbert DO at [facility] 06/04/2020 - Jolene Colbert DO* N13.2 Hydronephrosis with renal and ureteral calculous obstruction * R92.1 Mammographic calcification found on diagnostic imaging of breast * R92.2 Inconclusive mammogram * E03.9 Hypothyroidism, unspecified * K58.1 Irritable bowel syndrome with constipation * G89.29 Other chronic pain * M79.7 Fibromyalgia Functional Status Description No Information Available Mental Status Description No Information Available Referrals Refer to Reason for Referral Status Appt Date [facility] CONSULT FOR LOW BACK P AIN. PT IS SCHEDULED FOR MRI LUMBAR SPINE AT [facility] ON 12/15/19, PT HAS CX 3 TIMES WITH OFFICE. HAS NOT BEEN SEEN PER OFFICE. Patient Declined 01/04/2020 [address] [place] [address] [phone]
--- OUTSIDE RECORDS SUMMARY | 2020-07-12 11:37 | CCD | Continuity of Care Document ---
Author Author Zofia COLBERT Organization Unknown Address [address] [place] [address] [address] [place] [address] Phone [phone] Care Team Providers Care Substation Superintendent Name Role Phone Jolene Colbert DO AUTM Unavailable [facility] AUTM Unavailable Gerard Boston MD AUTM [phone] Eloy Sanchez MD AUTM [phone] Trenton Arreguin M.D. AUTM [phone] [facility] AUTM Problems Active Problems Provider [...] Colbert,DO 0 12/01/2016 Tizanidine HCL 4mg Tablets take 2 tablets by mouth at bedtime 60tabs Jolene Colbert,DO Tamsulosin HCL 0.4mg Capsules [...] ection Jolene Colbert,DO 05/05/2012 B12 1000 mcg [address]-17 Injection Jolene Colbert,DO 05/08/2011 Therapeutic Injection Injection Jolene Colbert,DO 05/08/2011 Administration Of Flu Vaccine Inj ection Jolene Colbert,DO 04/04/2011 B12 1000 mcg [address]-12 Injection Jolene Colbert,DO 12/26/2010 Therapeutic Injection Injection Jolene Colbert,DO 12/26/2010 B12 1000 mcg [address]-59 Injection Nurse Schedule 11/26/2010 Therapeutic Injection Injection Jolene Colbert,DO 11/26/2010 Immunizations CPT Code Status Date Vaccine Lot # 49581 Given 04/12/2020 Influenza Vaccin e Quadrivalent Preser/Antibiotic Free Im Use [id number] 95859 Given 04/21/2019 Influenza Vaccin e Quadrivalent Preser/Antibiotic Free Im Use 082513 91901 Given 07/05/2018 Pneumovax 23 [id number] 49312 Given 04/12/2018 Influenza Virus Vaccine, Quadrivalent (Cciiv4), Derived From Cell 620864 Q2037 Given 03/19/2015 Fluvirin Virus Vaccine 28264 01 Q2037 Given 04/10/2014 Fluvirin Virus Vaccine 67772 21 Q2037 Given 05/11/2013 Fluvirin Virus Vaccine 92965 01 Q2037 Given 05/05/2012 Fluvirin Virus Vaccine 77458 01 Q2037 Given 04/04/2011 Fluvirin Virus Vaccine 81474 Given 04/03/2010 Influenza Virus Vaccine 95870 Refused 03/23/2019 Influenza Vaccin e Quadrivalent Preser/Antibiotic Free Im Use 58332 Refused 07/05/2018 Shingrix Zoster Vaccine (HZV), Recombinant, Subunit, Adjuvanted 42463 Refused 07/05/2018 Zoster Vaccine 06130 Refused 07/05/2018 Pneumovax 23 66399 Refused 07/05/2018 Adacel- Tetanus Diphtheria P ertussis (Age64 & Under) 59382 Refused 07/05/2018 Prevnar 13 Vital Signs Date [...] Note Ua W/ Reflex To Culture 05/25/[address] [address] [phone] Appearance, Urine RFX CLEAR Normal Clear Color, Urine RFX YELLOW Normal Yellow PH,Urine RFX 7.0 units Normal 5.0-9.0 Specific [place] Ur Auto RFX 1.005 Normal 1.002-1.035 Protein, [...] /LPF Normal 0-1 CBC With Differential 05/25/[address] [id number] [phone] White Blood Count 12.6 10 High 4.0-10.0 [...] 36.0-66.0 Lymph % 12.4 % Low 24.0-44.0 Divide % 6.6 % High 0.0-5.0 Eos % 2.2 % Normal 0.0-3.0 Baso % 0.4 % Normal 0.0-1.0 Immature Granulocyte % 0.4 % Normal 0-3.0 Nucleated Red Blood Cell % 0.0 % Normal 0-0 Neutrophils # 9.8 10 High 1.5-8.5 Lymph # 1.6 10 Normal 1.5-5.0 Divide # 0.8 10 Normal 0.0-0.8 Eos # 0.3 10 Normal 0.0-0.5 Baso # 0.1 10 Normal 0.0-0.2 Liver Profile 05/25/2020 [facility] nter [address] [place] [address] [phone] Ast/Sgot 27 U/L Normal 7-37 Alt/SGPT 34 U/L Normal 12-78 Alkaline Phosphatase 131 U/L High 45-117 Bilirubin,Total 0.4 mg/dL Normal 0.2-1.0 Bilirubin,Direct < 0.1 mg/dL Normal 0.0-0.2 Total Protein 6.9 GM/DL Normal 6.4-8.2 Albumin 4.0 GM/DL Normal 3.2-5.2 Albumin/Globulin Ratio 1.4 Normal 1.2-2.2 Basic Metabolic Profile 05/25/2020 [facility] [address] [place] [address] [phone] Glucose, Fasting 137 mg/dL High 70-100 Blood [...] mg/dL Normal 8.8-10.2 Laboratory test finding 05/25/2020 [facility] [address] [place] [address] [phone] Lipase 163 U/L Normal 73-393 Cardiac Marker Panel 05/25/2020 [facility] enter [address] [place] [address] [phone] CPK Creatine Phosphokinase 72 U/L Normal 26-19 2 3 CK-MB Value Mass < 1.0 NG/ML Normal <3.6 MB/CK Relative Index 1.39 Normal < Or =4 4 Troponin I < 0.02 NG/ML Normal < 0.10 5 Reflex Urine Culture 05/22/2020 [facility] enter [address] [place] [address] [phone] Reflex Urine Culture FULL REPORT IN L <SEE NOTE> Norm al 6 Laboratory test finding 05/22/[address] [address] [phone] Lipase 156 U/L Normal 73-393 Basic Metabolic Profile 05/22/[address] [address] [phone] Glucose, Fasting 129 mg/dL High 70-100 Blood [...] 9.1 mg/dL Normal 8.8-10.2 Liver Profile 05/22/2020 [facility] nter [address] [place] [address] [phone] Ast/Sgot 31 U/L Normal 7-37 Alt/SGPT 27 U/L Normal 12-78 Alkaline Phosphatase 123 U/L High 45-117 Bilirubin,Total 0.3 mg/dL Normal 0.2-1.0 Bilirubin,Direct 0.1 mg/dL Normal 0.0-0.2 Total Protein 7.1 GM/DL Normal 6.4-8.2 Albumin 4.0 GM/DL Normal 3.2-5.2 Albumin/Globulin Ratio 1.3 Normal 1.2-2.2 Ua W/ Reflex To Culture 05/22/[address] [address] [phone] Appearance, Urine RFX CLOUDY High Clear Color, Urine RFX YELLOW Normal Yellow PH,Urine RFX 6.0 units Normal 5.0-9.0 Specific [place] Ur Auto RFX 1.014 Normal 1.002-1.035 Protein, [...] /LPF Normal 0-1 CBC With Differential 05/22/2020 [facility] [address] [place], [place] [address]265[address] [phone] White Blood Count 11.0 10 High 4.0-10.0 [...] 36.0-66.0 Lymph % 27.2 % Normal 24.0-44.0 Divide % 7.2 % High 0.0-5.0 Eos % 1.6 % Normal 0.0-3.0 Baso % 0.5 % Normal 0.0-1.0 Immature Granulocyte % 0.5 % Normal 0-3.0 Nucleated Red Blood Cell % 0.0 % Normal 0-0 Neutrophils # 6.9 10 Normal 1.5-8.5 Lymph # 3.0 10 Normal 1.5-5.0 Divide # 0.8 10 Normal 0.0-0.8 Eos # 0.2 10 Normal 0.0-0.5 Baso # 0.1 10 Normal 0.0-0.2 Complete Blood Count 04/12/2020 [facility] Coding Director: [place] [address] [phone] WBC 7.7 x10*3/UL 4.1 - 10.9 RBC [...] 4.6 x10*3/UL 2.0 - 7.8 A1c 04/12/2020 [facility] , Coding Director: Dr Gennaro Browne [place], [place] [address] [phone] Hba1c 5.6 % <5.7 8 Est Avg Glucose 114 mg/dL High 60 - 110 Comprehensive Chem Profile 04/12/2020 [facility], Coding Director: [place] [address] [phone] Glucose 125 mg/dL High 74 - 99 [...] mL/min >60 11 Laboratory test finding 04/12/2020 [facility], Coding Director: Dr Gennaro Browne [place], [place] [address] [phone] Thyroid Stimulating Hormone 4.56 uIU/mL High 0.3 6 - 3.74 T4 Free 1.03 ng/dL 0.76 - 1.46 Basic Metabolic Panel 12/08/2019 [facility] Coding Director: Dr Gennaro Browne [place], [place] [address] [phone] Glucose 135 mg/dL High 74 - 99 [...] mL/min >60 14 Laboratory test finding 12/08/2019 [facility], Coding Director: Dr Gennaro Browne [place], [place] [address] [phone] Thyroid Stimulating Hormone 2.86 uIU/mL 0.3 6 - 3.74 1 Units are mL/min/1.73 m2 Chronic Kidney Disease Staging per NKF: Stage I & II GFR >=60 Normal to Mildly Decreased Stage III GFR 30-59 Moderately Decreased Stage IV GFR 15-29 Severely Decreased Stage V GFR <15 Very Little GFR Left ESRD GFR <15 on GUN REPAIR CLERK 2 Testing was performed on a S [...] 5 Troponin I Reference Interva l for [employer] LOCI: 99th Percentile= 0.00-0.045 ng/ml Risk Stratification: [...] Little GFR Left ESRD GFR <15 on GUN REPAIR CLERK 8 Lab Result Notes: Pre-Diabetes 5.7 - [...] LITTLE GFR LEFT ESRD GFR <15 ON GUN REPAIR CLERK 12 100-125 mg/dL PRE-DIABET ES/FASTING >126 mg/dL DIABETES/FASTING 13 NOTE: RESULT VERIFIED. 14 CHRONIC KIDNEY DISEASE STAGI NG PER NKF STAGE I & II GFR >= 60 NORMAL TO MILDLY DECREASED STAGE III GFR 30-59 MODERATELY DECREASED STAGE IV GFR 15-29 SEVERELY DECREASED STAGE V GFR <15 VERY LITTLE GFR LEFT ESRD GFR <15 ON GUN REPAIR CLERK Procedures Date Code Description Status 04/05/2020 [id number] Mammogram Completed 01/13/2019 [id number] Diabetic Retinal Eye Exam [facility] 05/06/2018 [id number] Mammogram Completed 05/04/2017 [id number] Mammogram Completed 07/24/2016 [id number] Colonoscopy Completed 03/25/2016 [id number] Mammogram Completed 02/07/2015 [id number] Mammogram Completed 08/10/2013 [id number] Mammogram Completed 07/01/2012 [id number] Mammogram Completed 08/21/2010 [id number] Mammogram Completed 07/28/2008 [id number] Bone Mineral Density Test [facility] Daily Secret Devices Description No Information Available Encounters Type Date Location Provider Dx Diagnosis Office Visit 04/12/2020 1:00p [facility] Jolene Bog gs,DO M25.561 Pain in right knee E03.9 Hypothyroidism, unspecified K58.1 Irritable bowel syndrome wit h constipation F43.23 Adjustment disorder with mix ed anxiety and depressed mood M54.17 Radiculopathy, lumbosacral r egion G89.29 Other chronic pain M79.7 Fibromyalgia R73.09 Other abnormal glucose Z23 Encounter for immunization Office Visit 12/08/2019 2:45p [facility] Jolene Colbert ,DO M54.17 Radiculopathy, lumbosacral region M54.31 Sciatica, right side M25.561 Pain in right knee N20.1 Calculus of ureter N20.0 Calculus of kidney E03.9 Hypothyroidism, unspecified K58.1 Irritable bowel syndrome wit h constipation F43.23 Adjustment disorder with mix ed anxiety and depressed mood Assessments Date Code Description Provider 04/12/2020 M25.561 Pain in right knee Jolene Colbert,D O 04/12/2020 E03.9 Hypothyroidism, unspecified Kt Colbert,DO 04/12/2020 K58.1 Irritable bowel syndrome with co nstipation Jolene Janelle,DO 04/12/2020 F43.23 Adjustment disorder with mixed a nxiety and depressed mood Jolene Colbert,DO 04/12/2020 M54.17 Radiculopathy, lumbosacral regio n Jolene Colbert,DO 04/12/2020 G89.29 Other chronic pain Jolene Colbert,D O 04/12/2020 M79.7 Fibromyalgia Jolene Colbert,DO 04/12/2020 R73.09 Other abnormal glucose Jolene Bog gs,DO 04/12/2020 Z23 Encounter for immunization Jolene Colbert,DO 12/08/2019 M54.17 Radiculopathy, lumbosacral regio n Jolene Gravesgs,DO 12/08/2019 M54.31 Sciatica, right side Jolene Colbert ,DO 12/08/2019 M25.561 Pain in right knee Jolene Colbert,D O 12/08/2019 N20.1 Calculus of ureter Jolene Colbert,D O 12/08/2019 N20.0 Calculus of kidney Jolene Colbert,D O 12/08/2019 E03.9 Hypothyroidism, unspecified Kt Colbert DO 12/08/2019 K58.1 Irritable bowel syndrome with co nstipation Jolene Colbert DO 12/08/2019 F43.23 Adjustment disorder with mixed a nxiety and depressed mood Jolene Colbert DO Plan of Treatment Future Appointment(s):* 07/05/2020 10:40 am - Jolene Colbert DO at [facility] 04/12/2020 - Jolene Colbert DO* M25.561 Pain in right knee * E03.9 Hypothyroidism, unspecified * K58.1 Irritable bowel syndrome with constipation * F43.23 Adjustment disorder with mixed anxiety and depressed mood * M54.17 Radiculopathy, lumbosacral region * G89.29 Other chronic pain * M79.7 Fibromyalgia * R73.09 Other abnormal glucose * Z23 Encounter for immunization Functional Status Description No Information Available Mental Status Description No Information Available Referrals Refer to Dr Reason for Referral Status Appt Date [facility] CONSULT FOR LOW BACK P AIN. PT IS SCHEDULED FOR MRI LUMBAR SPINE AT COUNTS [facility]CLUDE [facility] BEDS AT [facility] ON 12/15/19, PT HAS CX 3 TIMES WITH OFFICE. HAS NOT BEEN SEEN PER OFFICE. Patient Declined 01/04/2020 [address] [place] [address] [phone]
--- OUTSIDE RECORDS SUMMARY | 2020-07-12 11:37 | CCD | Continuity of Care Document ---
Author Author Zofia COLBERT Organization Unknown Address [address] [place] [address] [address] [place] [address] Phone [phone] Care Team Providers Care Manufacturer'S Representative Name Role Phone Jolene Colbert DO AUTM Unavailable [facility] AUTM Unavailable Gerard Boston MD AUTM [phone] Eloy Sanchez MD AUTM [phone] Trenton Arreguin M.D. AUTM [phone] [facility] AUTM Problems Active Problems Provider [...] ection Jolene Colbert,DO 05/05/2012 B12 1000 mcg [address]-11 Injection Jolene Colbert,DO 05/08/2011 Therapeutic Injection Injection Jolene Colbert,DO 05/08/2011 Administration Of Flu Vaccine Inj ection Jolene Colbert,DO 04/04/2011 B12 1000 mcg [address]-83 Injection Jolene Colbert,DO 12/26/2010 Therapeutic Injection Injection Jolene Colbert,DO 12/26/2010 B12 1000 mcg [address]-29 Injection Nurse Schedule 11/26/2010 Therapeutic Injection Injection Jolene Colbert,DO 11/26/2010 Immunizations CPT Code Status Date Vaccine Lot # [id number] Given 04/12/2020 Influenza Vaccin e Quadrivalent Preser/Antibiotic Free Im Use 042578 59638 Given 04/21/2019 Influenza Vaccin e Quadrivalent Preser/Antibiotic Free Im Use 531729 54324 Given 07/05/2018 Pneumovax 23 [id number] 41193 Given 04/12/2018 Influenza Virus Vaccine, Quadrivalent (Cciiv4), Derived From Cell 283837 Q2037 Given 03/19/2015 Fluvirin Virus Vaccine 19579 01 Q2037 Given 04/10/2014 Fluvirin Virus Vaccine 66439 21 Q2037 Given 05/11/2013 Fluvirin Virus Vaccine 46925 01 Q2037 Given 05/05/2012 Fluvirin Virus Vaccine 91406 01 Q2037 Given 04/04/2011 Fluvirin Virus Vaccine 76919 Given 04/03/2010 Influenza Virus Vaccine 55206 Refused 03/23/2019 Influenza Vaccin e Quadrivalent Preser/Antibiotic Free Im Use 62958 Refused 07/05/2018 Shingrix Zoster Vaccine (HZV), Recombinant, Subunit, Adjuvanted 12028 Refused 07/05/2018 Zoster Vaccine 95223 Refused 07/05/2018 Pneumovax 23 49385 Refused 07/05/2018 Adacel- Tetanus Diphtheria P ertussis (Age64 & Under) 60015 Refused 07/05/2018 Prevnar 13 Vital Signs Date [...] Note Ua W/ Reflex To Culture 05/25/[address] [address] [phone] Appearance, Urine RFX CLEAR Normal Clear Color, Urine RFX YELLOW Normal Yellow PH,Urine RFX 7.0 units Normal 5.0-9.0 Specific [place] Ur Auto RFX 1.005 Normal 1.002-1.035 Protein, [...] /LPF Normal 0-1 CBC With Differential 05/25/[address] [id number] [phone] White Blood Count 12.6 10 High 4.0-10.0 [...] 36.0-66.0 Lymph % 12.4 % Low 24.0-44.0 [place] % 6.6 % High 0.0-5.0 Eos % 2.2 % Normal 0.0-3.0 Baso % 0.4 % Normal 0.0-1.0 Immature Granulocyte % 0.4 % Normal 0-3.0 Nucleated Red Blood Cell % 0.0 % Normal 0-0 Neutrophils # 9.8 10 High 1.5-8.5 Lymph # 1.6 10 Normal 1.5-5.0 [place] # 0.8 10 Normal 0.0-0.8 Eos # 0.3 10 Normal 0.0-0.5 Baso # 0.1 10 Normal 0.0-0.2 Liver Profile 05/25/2020 [facility] nter [address] [place] [address] [phone] Ast/Sgot 27 U/L Normal 7-37 Alt/SGPT 34 U/L Normal 12-78 Alkaline Phosphatase 131 U/L High 45-117 Bilirubin,Total 0.4 mg/dL Normal 0.2-1.0 Bilirubin,Direct < 0.1 mg/dL Normal 0.0-0.2 Total Protein 6.9 GM/DL Normal 6.4-8.2 Albumin 4.0 GM/DL Normal 3.2-5.2 Albumin/Globulin Ratio 1.4 Normal 1.2-2.2 Basic Metabolic Profile 05/25/2020 [facility] [address] [place] [address] [phone] Glucose, Fasting 137 mg/dL High 70-100 Blood [...] mg/dL Normal 8.8-10.2 Laboratory test finding 05/25/2020 [facility] [address] [place] [address] [phone] Lipase 163 U/L Normal 73-393 Cardiac Marker Panel 05/25/2020 [facility] enter [address] [place] [address] [phone] CPK Creatine Phosphokinase 72 U/L Normal 26-19 2 3 CK-MB Value Mass < 1.0 NG/ML Normal <3.6 MB/CK Relative Index 1.39 Normal < Or =4 4 Troponin I < 0.02 NG/ML Normal < 0.10 5 Reflex Urine Culture 05/22/2020 [facility] enter [address] [place] [address] [phone] Reflex Urine Culture FULL REPORT IN L <SEE NOTE> Norm al 6 Laboratory test finding 05/22/[address] [address] [phone] Lipase 156 U/L Normal 73-393 Basic Metabolic Profile 05/22/[address] [address] [phone] Glucose, Fasting 129 mg/dL High 70-100 Blood [...] 9.1 mg/dL Normal 8.8-10.2 Liver Profile 05/22/2020 [facility] nter [address] [place] [address] [phone] Ast/Sgot 31 U/L Normal 7-37 Alt/SGPT 27 U/L Normal 12-78 Alkaline Phosphatase 123 U/L High 45-117 Bilirubin,Total 0.3 mg/dL Normal 0.2-1.0 Bilirubin,Direct 0.1 mg/dL Normal 0.0-0.2 Total Protein 7.1 GM/DL Normal 6.4-8.2 Albumin 4.0 GM/DL Normal 3.2-5.2 Albumin/Globulin Ratio 1.3 Normal 1.2-2.2 Ua W/ Reflex To Culture 05/22/[address] [address] [phone] Appearance, Urine RFX CLOUDY High Clear Color, Urine RFX YELLOW Normal Yellow PH,Urine RFX 6.0 units Normal 5.0-9.0 Specific [place] Ur Auto RFX 1.014 Normal 1.002-1.035 Protein, [...] /LPF Normal 0-1 CBC With Differential 05/22/2020 [facility] [address] [place], [place] 9[address]40 [phone] White Blood Count 11.0 10 High 4.0-10.0 [...] 36.0-66.0 Lymph % 27.2 % Normal 24.0-44.0 [place] % 7.2 % High 0.0-5.0 Eos % 1.6 % Normal 0.0-3.0 Baso % 0.5 % Normal 0.0-1.0 Immature Granulocyte % 0.5 % Normal 0-3.0 Nucleated Red Blood Cell % 0.0 % Normal 0-0 Neutrophils # 6.9 10 Normal 1.5-8.5 Lymph # 3.0 10 Normal 1.5-5.0 [place] # 0.8 10 Normal 0.0-0.8 Eos # 0.2 10 Normal 0.0-0.5 Baso # 0.1 10 Normal 0.0-0.2 Complete Blood Count 04/12/2020 [facility] Drain Tile Machine Operator: [place] [address] [phone] WBC 7.7 x10*3/UL 4.1 - 10.9 RBC [...] 4.6 x10*3/UL 2.0 - 7.8 A1c 04/12/2020 [facility] , Drain Tile Machine Operator: Dr Gennaro Browne [place], [place] [address] [phone] Hba1c 5.6 % <5.7 8 Est Avg Glucose 114 mg/dL High 60 - 110 Comprehensive Chem Profile 04/12/2020 [facility], Drain Tile Machine Operator: [place] [address] [phone] Glucose 125 mg/dL High 74 - 99 [...] mL/min >60 11 Laboratory test finding 04/12/2020 [facility], Drain Tile Machine Operator: Dr Gennaro [place] [address] [phone] Thyroid Stimulating Hormone 4.56 uIU/mL High 0.3 6 - 3.74 T4 Free 1.03 ng/dL 0.76 - 1.46 Basic Metabolic Panel 12/08/2019 [facility] Drain Tile Machine Operator: Dr Gennaro [place], [place] 14[address] [phone] Glucose 135 mg/dL High 74 - 99 [...] mL/min >60 14 Laboratory test finding 12/08/2019 [facility] [employer] [facility], Drain Tile Machine Operator: Dr Gennaro [place], [place] [address] [phone] Thyroid Stimulating Hormone 2.86 uIU/mL 0.3 6 - 3.74 1 Units are mL/min/1.73 m2 Chronic Kidney Disease Staging per NKF: Stage I & II GFR >=60 Normal to Mildly Decreased Stage III GFR 30-59 Moderately Decreased Stage IV GFR 15-29 Severely Decreased Stage V GFR <15 Very Little GFR Left ESRD GFR <15 on SWITCHMAN SUPERVISOR 2 Testing was performed on a S [...] 5 Troponin I Reference Interva l for [employer] LOCI: 99th Percentile= 0.00-0.045 ng/ml Risk Stratification: [...] Little GFR Left ESRD GFR <15 on SWITCHMAN SUPERVISOR 8 Lab Result Notes: Pre-Diabetes 5.7 - [...] LITTLE GFR LEFT ESRD GFR <15 ON SWITCHMAN SUPERVISOR 12 100-125 mg/dL PRE-DIABET ES/FASTING >126 mg/dL DIABETES/FASTING 13 NOTE: RESULT VERIFIED. 14 CHRONIC KIDNEY DISEASE STAGI NG PER NKF STAGE I & II GFR >= 60 NORMAL TO MILDLY DECREASED STAGE III GFR 30-59 MODERATELY DECREASED STAGE IV GFR 15-29 SEVERELY DECREASED STAGE V GFR <15 VERY LITTLE GFR LEFT ESRD GFR <15 ON SWITCHMAN SUPERVISOR Procedures Date Code Description Status 04/05/2020 [id number] Mammogram Completed 01/13/2019 [id number] Diabetic Retinal Eye Exam [facility] 05/06/2018 [id number] Mammogram Completed 05/04/2017 [id number] Mammogram Completed 07/24/2016 [id number] Colonoscopy Completed 03/25/2016 [id number] Mammogram Completed 02/07/2015 [id number] Mammogram Completed 08/10/2013 [id number] Mammogram Completed 07/01/2012 [id number] Mammogram Completed 08/21/2010 [id number] Mammogram Completed 07/28/2008 [id number] Bone Mineral Density Test [facility] [employer] Devices Description No Information Available Encounters Type [...] Encounter for immunization Office Visit 12/08/2019 2:45p [facility] Jolene Colbert ,DO M54.17 Radiculopathy, [...] 10:40 am - Jolene Colbert DO at [facility] 04/12/2020 - Jolene Colbert DO* [...] Dr Reason for Referral Status Appt Date [facility] CONSULT FOR LOW BACK P AIN. PT IS SCHEDULED FOR MRI LUMBAR SPINE AT [facility] ON 12/15/19, PT HAS CX 3 TIMES WITH OFFICE. HAS NOT BEEN SEEN PER OFFICE. Patient Declined 01/04/2020 [address] [place] [address] [phone]
--- OUTSIDE RECORDS SUMMARY | 2020-07-12 11:37 | CCD ---
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 Active 062344238 Problem Dysuria R30.0 Active 39331008 Problem Hydronephrosis N13.30 Active 99908919 Problem UTI (urinary tract infection) N39.0 Active 68 042775 Problem Urinary incontinence R32 Active 450177977 ALLERGIES Allergen (clinical drug ingredient) Drug/Non Drug Allergy do cumented on EMR Reaction Allergy Type Onset Date Status zolpidem Ambien([facility] Code:[address]-77) Confusion Drug Allergy Active ENCOUNTERS from 1950 to 2020-06-02 Encounter Location Date Provider Diagnosis [facility] Urology [address] [place] [address] May Luan Olivo IMMUNIZATIONS Vaccine Route Administration Date Status Influenza [...] directed oral am/pm Not-Taking Lidocaine HCl Jelly [facility] 2 % 1 application to affected area [...] 30 day(s) 0 2 Dec, 2017 Not-Taking Oxybutynin Chloride 5 MG 1 tablet Orally every 8 hour s needed for bladder spasms or urinary frequency Not-Taking Doxycycline Hyclate 100 MG 1 capsule Orally every 12 hrs for 7 d ay(s) October, Not-Taking PROCEDURES No Information RESULTS No Results REASON FOR VISIT Back pain/ meds MEDICAL (GENERAL) HISTORY Type Description Date Medical [...] 10 day(s) May, Next Appt Details Provider Name:Sandy Granger, 2020-05-22 5 03:30:00 PM, [address], [place], [address], Provider Name:Amanda Johnson, 12-07-28 11:00:00 AM, [address] [place], [address], Insurance Providers Payer Name Payer Address Payer Phone Insured Name Patient Relati onship to Insured Coverage Start Date Coverage End Date MEDICARE Part A and B [facility] [address] [place] [phone] [facility] [address] [facility] [phone] [address]EMY [address]
--- OUTSIDE RECORDS SUMMARY | 2020-07-12 11:38 | CCD | Continuity of Care Document ---
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 AUTM Unavailable Gerard Boston MD AUTM [phone] Eloy Sanchez MD AUTM [phone] Trenton Arreguin M.D. AUTM [phone] [facility] AUTM [phone] Problems Active Problems Provider Date Allergic urticaria [...] tablet by mouth before meals 90tabs Jolene Coblert,DO 03/19/2018 Trazodone HCL 100mg Tablets take 1 [...] ection Jolene Colbert,DO 05/05/2012 B12 1000 mcg [address]-52 Injection Jolene Colbert,DO 05/08/2011 Therapeutic Injection Injection Jolene Colbert,DO 05/08/2011 Administration Of Flu Vaccine Inj ection Jolene Colbert,DO 04/04/2011 B12 1000 mcg [address]-46 Injection Jolene Colbert,DO 12/26/2010 Therapeutic Injection Injection Jolene Colbert,DO 12/26/2010 B12 1000 mcg [address]-37 Injection Nurse Schedule 11/26/2010 Therapeutic Injection Injection Jolene Colbert,DO 11/26/2010 Immunizations CPT Code Status Date Vaccine Lot # [id number] Given 04/12/2020 Influenza Vaccin e Quadrivalent Preser/Antibiotic Free Im Use [id number] 48933 Given 04/21/2019 Influenza Vaccin e Quadrivalent Preser/Antibiotic Free Im Use 401126 17408 Given 07/05/2018 Pneumovax 23 [id number] 44410 Given 04/12/2018 Influenza Virus Vaccine, Quadrivalent (Cciiv4), Derived From Cell [id number] Q2037 Given 03/19/2015 Fluvirin Virus Vaccine 85745 01 Q2037 Given 04/10/2014 Fluvirin Virus Vaccine 48689 21 Q2037 Given 05/11/2013 Fluvirin Virus Vaccine 16131 01 Q2037 Given 05/05/2012 Fluvirin Virus Vaccine 27569 01 Q2037 Given 04/04/2011 Fluvirin Virus Vaccine 66590 Given 04/03/2010 Influenza Virus Vaccine 46718 Refused 03/23/2019 Influenza Vaccin e Quadrivalent Preser/Antibiotic Free Im Use 97589 Refused 07/05/2018 Shingrix Zoster Vaccine (HZV), Recombinant, Subunit, Adjuvanted 42502 Refused 07/05/2018 Zoster Vaccine 59421 Refused 07/05/2018 Pneumovax 23 96001 Refused 07/05/2018 Adacel- Tetanus Diphtheria P ertussis (Age64 & Under) 00250 Refused 07/05/2018 Prevnar 13 Vital Signs Date [...] Note Ua W/ Reflex To Culture 05/25/[address] [address] [phone] Appearance, Urine RFX CLEAR Normal Clear Color, Urine RFX YELLOW Normal Yellow PH,Urine RFX 7.0 units Normal 5.0-9.0 Specific [place] Ur Auto RFX 1.005 Normal 1.002-1.035 Protein, [...] /LPF Normal 0-1 CBC With Differential 05/25/[address] [id number] [phone] White Blood Count 12.6 10 High 4.0-10.0 [...] 36.0-66.0 Lymph % 12.4 % Low 24.0-44.0 [place] % 6.6 % High 0.0-5.0 Eos % 2.2 % Normal 0.0-3.0 Baso % 0.4 % Normal 0.0-1.0 Immature Granulocyte % 0.4 % Normal 0-3.0 Nucleated Red Blood Cell % 0.0 % Normal 0-0 Neutrophils # 9.8 10 High 1.5-8.5 Lymph # 1.6 10 Normal 1.5-5.0 [place] # 0.8 10 Normal 0.0-0.8 Eos # 0.3 10 Normal 0.0-0.5 Baso # 0.1 10 Normal 0.0-0.2 Liver Profile 05/25/2020 [facility] nter [address] [place] [address] [phone] Ast/Sgot 27 U/L Normal 7-37 Alt/SGPT 34 U/L Normal 12-78 Alkaline Phosphatase 131 U/L High 45-117 Bilirubin,Total 0.4 mg/dL Normal 0.2-1.0 Bilirubin,Direct < 0.1 mg/dL Normal 0.0-0.2 Total Protein 6.9 GM/DL Normal 6.4-8.2 Albumin 4.0 GM/DL Normal 3.2-5.2 Albumin/Globulin Ratio 1.4 Normal 1.2-2.2 Basic Metabolic Profile 05/25/2020 [facility] [address] [place] [address] [phone] Glucose, Fasting 137 mg/dL High 70-100 Blood [...] mg/dL Normal 8.8-10.2 Laboratory test finding 05/25/2020 [facility] [address] [place] [address] [phone] Lipase 163 U/L Normal 73-393 Cardiac Marker Panel 05/25/2020 [facility] enter [address] [place] [address] [phone] CPK Creatine Phosphokinase 72 U/L Normal 26-19 2 3 CK-MB Value Mass < 1.0 NG/ML Normal <3.6 MB/CK Relative Index 1.39 Normal < Or =4 4 Troponin I < 0.02 NG/ML Normal < 0.10 5 Reflex Urine Culture 05/22/2020 [facility] enter [address] [place] [address] [phone] Reflex Urine Culture FULL REPORT IN L <SEE NOTE> Norm al 6 Laboratory test finding 05/22/[address] [address] [phone] Lipase 156 U/L Normal 73-393 Basic Metabolic Profile 05/22/[address] [address] [phone] Glucose, Fasting 129 mg/dL High 70-100 Blood [...] 9.1 mg/dL Normal 8.8-10.2 Liver Profile 05/22/2020 [facility] nter [address] [place] [address] [phone] Ast/Sgot 31 U/L Normal 7-37 Alt/SGPT 27 U/L Normal 12-78 Alkaline Phosphatase 123 U/L High 45-117 Bilirubin,Total 0.3 mg/dL Normal 0.2-1.0 Bilirubin,Direct 0.1 mg/dL Normal 0.0-0.2 Total Protein 7.1 GM/DL Normal 6.4-8.2 Albumin 4.0 GM/DL Normal 3.2-5.2 Albumin/Globulin Ratio 1.3 Normal 1.2-2.2 Ua W/ Reflex To Culture 05/22/[address] [address] [phone] Appearance, Urine RFX CLOUDY High Clear Color, Urine RFX YELLOW Normal Yellow PH,Urine RFX 6.0 units Normal 5.0-9.0 Specific [place] Ur Auto RFX 1.014 Normal 1.002-1.035 Protein, [...] /LPF Normal 0-1 CBC With Differential 05/22/2020 [facility] [address] [place], [place] [address] [phone] White Blood Count 11.0 10 High 4.0-10.0 [...] 36.0-66.0 Lymph % 27.2 % Normal 24.0-44.0 [place] % 7.2 % High 0.0-5.0 Eos % 1.6 % Normal 0.0-3.0 Baso % 0.5 % Normal 0.0-1.0 Immature Granulocyte % 0.5 % Normal 0-3.0 Nucleated Red Blood Cell % 0.0 % Normal 0-0 Neutrophils # 6.9 10 Normal 1.5-8.5 Lymph # 3.0 10 Normal 1.5-5.0 [place] # 0.8 10 Normal 0.0-0.8 Eos # 0.2 10 Normal 0.0-0.5 Baso # 0.1 10 Normal 0.0-0.2 Complete Blood Count 04/12/2020 [facility] Elementary Ell Teacher: Dr [place] [address] [phone] WBC 7.7 x10*3/UL 4.1 - 10.9 RBC [...] 4.6 x10*3/UL 2.0 - 7.8 A1c 04/12/2020 [facility] , Elementary Ell Teacher: Dr Gennaro Brwone [employer] [address] [phone] Hba1c 5.6 % <5.7 8 Est Avg Glucose 114 mg/dL High 60 - 110 Comprehensive Chem Profile 04/12/2020 [facility], Elementary Ell Teacher: Dr [place] [address] [phone] Glucose 125 mg/dL High 74 - 99 [...] mL/min >60 11 Laboratory test finding 04/12/2020 [facility], Elementary Ell Teacher: Dr Gennaro Browne [place], [place] [address] [phone] Thyroid Stimulating Hormone 4.56 uIU/mL High 0.3 6 - 3.74 T4 Free 1.03 ng/dL 0.76 - 1.46 Basic Metabolic Panel 12/08/2019 [facility] Elementary Ell Teacher: Dr Gennaro Browne [place], [place] [address] [phone] Glucose 135 mg/dL High 74 - 99 [...] mL/min >60 14 Laboratory test finding 12/08/2019 [facility], Elementary Ell Teacher: Dr Gennaro Browne [place], [place] [address] [phone] Thyroid Stimulating Hormone 2.86 uIU/mL 0.3 6 - 3.74 1 Units are mL/min/1.73 m2 Chronic Kidney Disease Staging per NKF: Stage I & II GFR >=60 Normal to Mildly Decreased Stage III GFR 30-59 Moderately Decreased Stage IV GFR 15-29 Severely Decreased Stage V GFR <15 Very Little GFR Left ESRD GFR <15 on WORKERS' COMPENSATION CLAIMS SUPERVISOR 2 Testing was performed on a [...] 5 Troponin I Reference Interva l for [place] [employer] LOCI: 99th Percentile= 0.00-0.045 ng/ml Risk Stratification: [...] Little GFR Left ESRD GFR <15 on WORKERS' COMPENSATION CLAIMS SUPERVISOR 8 Lab Result Notes: Pre-Diabetes 5.7 [...] LITTLE GFR LEFT ESRD GFR <15 ON WORKERS' COMPENSATION CLAIMS SUPERVISOR 12 100-125 mg/dL PRE-DIABET ES/FASTING >126 mg/dL DIABETES/FASTING 13 NOTE: RESULT VERIFIED. 14 CHRONIC KIDNEY DISEASE STAGI NG PER NKF STAGE I & II GFR >= 60 NORMAL TO MILDLY DECREASED STAGE III GFR 30-59 MODERATELY DECREASED STAGE IV GFR 15-29 SEVERELY DECREASED STAGE V GFR <15 VERY LITTLE GFR LEFT ESRD GFR <15 ON WORKERS' COMPENSATION CLAIMS SUPERVISOR Procedures Date Code Description Status 04/05/2020 [id number] Mammogram Completed 01/13/2019 [id number] Diabetic Retinal Eye Exam [facility] 05/06/2018 [id number] Mammogram Completed 05/04/2017 [id number] Mammogram Completed 07/24/2016 [id number] Colonoscopy Completed 03/25/2016 [id number] Mammogram Completed 02/07/2015 [id number] Mammogram Completed 08/10/2013 [id number] Mammogram Completed 07/01/2012 [id number] Mammogram Completed 08/21/2010 [id number] Mammogram Completed 07/28/2008 [id number] Bone Mineral Density Test [facility] [employer] Devices Description No Information Available Encounters Type [...] Encounter for immunization Office Visit 12/08/2019 2:45p [facility] Jolene Colbert ,DO M54.17 Radiculopathy, [...] 10:40 am - Jolene Colbert DO at [facility] 04/12/2020 - Jolene Colbert DO* [...] Dr Reason for Referral Status Appt Date [facility] CONSULT FOR LOW BACK P AIN. PT IS SCHEDULED FOR MRI LUMBAR SPINE AT [facility] ON 12/15/19, PT HAS CX 3 TIMES WITH OFFICE. HAS NOT BEEN SEEN PER OFFICE. Patient Declined 01/04/2020 [address] [place] [address] [phone]
--- OUTSIDE RECORDS SUMMARY | 2020-07-12 11:38 | CCD | Continuity of Care Document ---
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 AUTM [phone] [facility] AUTM Problems Active Problems [...] ection Jolene Colbert,DO 05/05/2012 B12 1000 mcg [address]-13 Injection Jolene Colbert,DO 05/08/2011 Therapeutic Injection Injection Jolene Colbert,DO 05/08/2011 Administration Of Flu Vaccine Inj ection Jolene Colbert,DO 04/04/2011 B12 1000 mcg [address]-55 Injection Jolene Colbert,DO 12/26/2010 Therapeutic Injection Injection Jolene Colbert,DO 12/26/2010 B12 1000 mcg [address]-60 Injection Nurse Schedule 11/26/2010 Therapeutic Injection Injection Jolene Colbert,DO 11/26/2010 Immunizations CPT Code Status Date Vaccine Lot # [id number] Given 04/12/2020 Influenza Vaccin e Quadrivalent Preser/Antibiotic Free Im Use 540218 37359 Given 04/21/2019 Influenza Vaccin e Quadrivalent Preser/Antibiotic Free Im Use 276664 87292 Given 07/05/2018 Pneumovax 23 [id number] 22734 Given 04/12/2018 Influenza Virus Vaccine, Quadrivalent (Cciiv4), Derived From Cell 505293 Q2037 Given 03/19/2015 Fluvirin Virus Vaccine 84988 01 Q2037 Given 04/10/2014 Fluvirin Virus Vaccine 26112 21 Q2037 Given 05/11/2013 Fluvirin Virus Vaccine 77042 01 Q2037 Given 05/05/2012 Fluvirin Virus Vaccine 30623 01 Q2037 Given 04/04/2011 Fluvirin Virus Vaccine 08854 Given 04/03/2010 Influenza Virus Vaccine 83804 Refused 03/23/2019 Influenza Vaccin e Quadrivalent Preser/Antibiotic Free Im Use 95010 Refused 07/05/2018 Shingrix Zoster Vaccine (HZV), Recombinant, Subunit, Adjuvanted 00782 Refused 07/05/2018 Zoster Vaccine 99627 Refused 07/05/2018 Pneumovax 23 18742 Refused 07/05/2018 Adacel- Tetanus Diphtheria P ertussis (Age64 & Under) 329[address] Refused 07/05/2018 Prevnar 13 Vital Signs Date [...] Note Ua W/ Reflex To Culture 05/25/[address] [address] [phone] Appearance, Urine RFX CLEAR Normal Clear Color, Urine RFX YELLOW Normal Yellow PH,Urine RFX 7.0 units Normal 5.0-9.0 Specific [place] Ur Auto RFX 1.005 Normal 1.002-1.035 Protein, [...] /LPF Normal 0-1 CBC With Differential 05/25/[address] [id number] [phone] White Blood Count 12.6 10 High 4.0-10.0 [...] 36.0-66.0 Lymph % 12.4 % Low 24.0-44.0 [place] % 6.6 % High 0.0-5.0 Eos % 2.2 % Normal 0.0-3.0 Baso % 0.4 % Normal 0.0-1.0 Immature Granulocyte % 0.4 % Normal 0-3.0 Nucleated Red Blood Cell % 0.0 % Normal 0-0 Neutrophils # 9.8 10 High 1.5-8.5 Lymph # 1.6 10 Normal 1.5-5.0 Frontier # 0.8 10 Normal 0.0-0.8 Eos # 0.3 10 Normal 0.0-0.5 Baso # 0.1 10 Normal 0.0-0.2 Liver Profile 05/25/2020 [facility] nter [address] [place] [address] [phone] Ast/Sgot 27 U/L Normal 7-37 Alt/SGPT 34 U/L Normal 12-78 Alkaline Phosphatase 131 U/L High 45-117 Bilirubin,Total 0.4 mg/dL Normal 0.2-1.0 Bilirubin,Direct < 0.1 mg/dL Normal 0.0-0.2 Total Protein 6.9 GM/DL Normal 6.4-8.2 Albumin 4.0 GM/DL Normal 3.2-5.2 Albumin/Globulin Ratio 1.4 Normal 1.2-2.2 Basic Metabolic Profile 05/25/2020 [facility] [address] [place] [address] [phone] Glucose, Fasting 137 mg/dL High 70-100 Blood [...] mg/dL Normal 8.8-10.2 Laboratory test finding 05/25/2020 [facility] [address] [place] [address] [phone] Lipase 163 U/L Normal 73-393 Cardiac Marker Panel 05/25/2020 [facility] enter [address] [place] [address] [phone] CPK Creatine Phosphokinase 72 U/L Normal 26-19 2 3 CK-MB Value Mass < 1.0 NG/ML Normal <3.6 MB/CK Relative Index 1.39 Normal < Or =4 4 Troponin I < 0.02 NG/ML Normal < 0.10 5 Reflex Urine Culture 05/22/2020 [facility] enter [address] [place] [address] [phone] Reflex Urine Culture FULL REPORT IN L <SEE NOTE> Norm al 6 Laboratory test finding 05/22/[address] [address] [phone] Lipase 156 U/L Normal 73-393 Basic Metabolic Profile 05/22/[address] [address] [phone] Glucose, Fasting 129 mg/dL High 70-100 Blood [...] 9.1 mg/dL Normal 8.8-10.2 Liver Profile 05/22/2020 [facility] nter [address] [place] [address] [phone] Ast/Sgot 31 U/L Normal 7-37 Alt/SGPT 27 U/L Normal 12-78 Alkaline Phosphatase 123 U/L High 45-117 Bilirubin,Total 0.3 mg/dL Normal 0.2-1.0 Bilirubin,Direct 0.1 mg/dL Normal 0.0-0.2 Total Protein 7.1 GM/DL Normal 6.4-8.2 Albumin 4.0 GM/DL Normal 3.2-5.2 Albumin/Globulin Ratio 1.3 Normal 1.2-2.2 Ua W/ Reflex To Culture 05/22/[address] [address] [phone] Appearance, Urine RFX CLOUDY High Clear Color, Urine RFX YELLOW Normal Yellow PH,Urine RFX 6.0 units Normal 5.0-9.0 Specific [place] Ur Auto RFX 1.014 Normal 1.002-1.035 Protein, [...] /LPF Normal 0-1 CBC With Differential 05/22/2020 [facility] [address] [place], [place] [address]85903 [phone] White Blood Count 11.0 10 High 4.0-10.0 [...] 36.0-66.0 Lymph % 27.2 % Normal 24.0-44.0 Frontier % 7.2 % High 0.0-5.0 Eos % 1.6 % Normal 0.0-3.0 Baso % 0.5 % Normal 0.0-1.0 Immature Granulocyte % 0.5 % Normal 0-3.0 Nucleated Red Blood Cell % 0.0 % Normal 0-0 Neutrophils # 6.9 10 Normal 1.5-8.5 Lymph # 3.0 10 Normal 1.5-5.0 Frontier # 0.8 10 Normal 0.0-0.8 Eos # 0.2 10 Normal 0.0-0.5 Baso # 0.1 10 Normal 0.0-0.2 Complete Blood Count 04/12/2020 [facility] Cardroom Hand: [place] [address] [phone] WBC 7.7 x10*3/UL 4.1 - 10.9 RBC [...] 4.6 x10*3/UL 2.0 - 7.8 A1c 04/12/2020 [facility] , Cardroom Hand: Dr Gennaro Browne [place], [place] [address] [phone] Hba1c 5.6 % <5.7 8 Est Avg Glucose 114 mg/dL High 60 - 110 Comprehensive Chem Profile 04/12/2020 [facility], Cardroom Hand: [place] [address] [phone] Glucose 125 mg/dL High 74 - 99 [...] mL/min >60 11 Laboratory test finding 04/12/2020 [facility], Cardroom Hand: Dr Gennaro [place]ne [place] [address] [phone] Thyroid Stimulating Hormone 4.56 uIU/mL High 0.3 6 - 3.74 T4 Free 1.03 ng/dL 0.76 - 1.46 Basic Metabolic Panel 12/08/2019 [facility] Cardroom Hand: Dr Gennaro [place]ne [place] [address] [phone] Glucose 135 mg/dL High 74 - 99 [...] mL/min >60 14 Laboratory test finding 12/08/2019 [facility], Cardroom Hand: Dr Gennaro [place]ne [place], [place] [address] [phone] Thyroid Stimulating Hormone 2.86 uIU/mL 0.3 6 - 3.74 1 Units are mL/min/1.73 m2 Chronic Kidney Disease Staging per NKF: Stage I & II GFR >=60 Normal to Mildly Decreased Stage III GFR 30-59 Moderately Decreased Stage IV GFR 15-29 Severely Decreased Stage V GFR <15 Very Little GFR Left ESRD GFR <15 on DRAPERY HANGER 2 Testing was performed on a S [...] 5 Troponin I Reference Interva l for [place] LOCI: 99th Percentile= 0.00-0.045 ng/ml Risk Stratification: [...] Little GFR Left ESRD GFR <15 on DRAPERY HANGER 8 Lab Result Notes: Pre-Diabetes 5.7 - [...] LITTLE GFR LEFT ESRD GFR <15 ON DRAPERY HANGER 12 100-125 mg/dL PRE-DIABET ES/FASTING >126 mg/dL DIABETES/FASTING 13 NOTE: RESULT VERIFIED. 14 CHRONIC KIDNEY DISEASE STAGI NG PER NKF STAGE I & II GFR >= 60 NORMAL TO MILDLY DECREASED STAGE III GFR 30-59 MODERATELY DECREASED STAGE IV GFR 15-29 SEVERELY DECREASED STAGE V GFR <15 VERY LITTLE GFR LEFT ESRD GFR <15 ON DRAPERY HANGER Procedures Date Code Description Status 04/05/2020 [id number] Mammogram Completed 01/13/2019 [id number] Diabetic Retinal Eye Exam [facility] 05/06/2018 [id number] Mammogram Completed 05/04/2017 [id number] Mammogram Completed 07/24/2016 [id number] Colonoscopy Completed 03/25/2016 [id number] Mammogram Completed 02/07/2015 [id number] Mammogram Completed 08/10/2013 [id number] Mammogram Completed 07/01/2012 [id number] Mammogram Completed 08/21/2010 [id number] Mammogram Completed 07/28/2008 [id number] Bone Mineral Density Test [facility] [employer] Devices Description No Information Available Encounters Type [...] Encounter for immunization Office Visit 12/08/2019 2:45p [facility] Jolene Colbert ,DO M54.17 Radiculopathy, [...] Jolene Colbert,D O 04/12/2020 M79.7 Fibromyalgia Jolene Clobert,DO 04/12/2020 R73.09 Other abnormal glucose Jolene Bog [...] 10:40 am - Jolene Colbert DO at [facility] 04/12/2020 - Jolene Colbert DO* [...] Dr Reason for Referral Status Appt Date [facility] CONSULT FOR LOW BACK P AIN. PT IS SCHEDULED FOR MRI LUMBAR SPINE AT [facility] ON 12/15/19, PT HAS CX 3 TIMES WITH OFFICE. HAS NOT BEEN SEEN PER OFFICE. Patient Declined 01/04/2020 [address] [place] [address] [phone]
--- OUTSIDE RECORDS SUMMARY | 2020-07-12 11:38 | CCD | Continuity of Care Document ---
Author Organization Unknown Address Unknown Phone Unavailable Care Team Providers Care Butter Liquefier Name Role Phone Jolene Luis DO AUTM Unavailable [facility] AUTM Unavailable Gerard Boston MD AUTM [phone] Eloy Sanchez MD AUTM [phone] Trenton Arreguin M.D. AUTM [phone] [facility] AUTM Problems Active Problems [...] Alerts Active Allergies Reaction Severity Comments Date Joe Goes Crazy 05/22/2016 Inactive Allergies NKDA 11/09/2009 Medications Active Medications SIG Qnty Indications Ordering Provide r Date Duloxetine HCL 30mg Caps DR Part 1 by mouth po bid then after one week increase to 2 in evening and 1 in am 90caps Jolene Luis DO 12/08/2019 Metronidazole 500mg Tablets one by mouth bid Unknown 07/22/2019 Hydroxyzine HCL 25mg Tablets one tab every 8 hours as needed for anxiety. 90tabs Jolene Luis DO 1 Miralax [id number] Packet 17 grams in liquid as directed every day as needed 30units Jolene Luis DO 07/05/2018 Synthroid 100mcg Tablets 1 by mouth every day 30tabs Jolene Luis,DO 07/05/2018 Melatonin 10mg Capsules one tab by mouth one hour before bed 30caps Jolene Luis,DO 03/19/2018 Reglan 5mg Tablets take one tablet by mouth before meals 90tabs Jolene Luis,DO 03/19/2018 Trazodone HCL 100mg Tablets take 1 tablet by mouth once daily at bedtime 90tabs Jolene Luis,DO 0 12/01/2016 Tizanidine HCL 4mg Tablets take 2 tablets by mouth at bedtime 60tabs Jolene Luis,DO Tamsulosin HCL 0.4mg Capsules [...] ection Jolene Luis,DO 05/05/2012 B12 1000 mcg [address]-02 Injection Jolene Luis,DO 05/08/2011 Therapeutic Injection Injection Jolene Luis,DO 05/08/2011 Administration Of Flu Vaccine Inj ection Jolene Luis,DO 04/04/2011 B12 1000 mcg [address]-63 Injection Jolene Luis,DO 12/26/2010 Therapeutic Injection Injection Jolene Luis,DO 12/26/2010 B12 1000 mcg [address]-74 Injection Nurse Schedule 11/26/2010 Therapeutic Injection Injection Jolene Luis,DO 11/26/2010 Immunizations CPT Code Status Date Vaccine Lot # [id number] Given 04/12/2020 Influenza Vaccin e Quadrivalent Preser/Antibiotic Free Im Use [id number] 13257 Given 04/21/2019 Influenza Vaccin e Quadrivalent Preser/Antibiotic Free Im Use 515859 77947 Given 07/05/2018 Pneumovax 23 [id number] 68413 Given 04/12/2018 Influenza Virus Vaccine, Quadrivalent ([id number]), Derived From Cell [id number] Q2037 Given 03/19/2015 Fluvirin Virus Vaccine 72721 01 Q2037 Given 04/10/2014 Fluvirin Virus Vaccine 97077 21 Q2037 Given 05/11/2013 Fluvirin Virus Vaccine 64492 01 Q2037 Given 05/05/2012 Fluvirin Virus Vaccine 69724 01 Q2037 Given 04/04/2011 Fluvirin Virus Vaccine 65970 Given 04/03/2010 Influenza Virus Vaccine 52889 Refused 03/23/2019 Influenza Vaccin e Quadrivalent Preser/Antibiotic Free Im Use 10729 Refused 07/05/2018 Shingrix Zoster Vaccine (HZV), Recombinant, Subunit, Adjuvanted 24532 Refused 07/05/2018 Zoster Vaccine 91020 Refused 07/05/2018 Pneumovax 23 38948 Refused 07/05/2018 Adacel- Tetanus Diphtheria P ertussis (Age64 & Under) 35759 Refused 07/05/2018 Prevnar 13 Vital Signs Date Vital Result Comment 04/12/2020 1:09pm BP Systolic 112 mmHg BP Diastolic 60 mmHg Heart Rate 85 /min Height 60 inches 5'0" Weight 162.00 lb BMI (Body Mass Index) 31.6 kg/m2 12/08/2019 2:38pm BP Systolic 124 mmHg BP Diastolic 70 mmHg Heart Rate 82 /min Height 60 inches 5'0" Weight 148.00 lb O2 % BldC Oximetry 98 % RM Air BMI (Body Mass Index) 28.9 kg/m2 Results Test Acquired Date Facility Test Result H/L Range Note CBC With Differential 05/22/2020 [facility] [address] [place] [address] [phone] White Blood Count 11.0 10 High 4.0-10.0 [...] 36.0-66.0 Lymph % 27.2 % Normal 24.0-44.0 [place] % 7.2 % High 0.0-5.0 Eos % 1.6 % Normal 0.0-3.0 Baso % 0.5 % Normal 0.0-1.0 Immature Granulocyte % 0.5 % Normal 0-3.0 Nucleated Red Blood Cell % 0.0 % Normal 0-0 Neutrophils # 6.9 10 Normal 1.5-8.5 Lymph # 3.0 10 Normal 1.5-5.0 [place] # 0.8 10 Normal 0.0-0.8 Eos # 0.2 10 Normal 0.0-0.5 Baso # 0.1 10 Normal 0.0-0.2 Ua W/ Reflex To Culture 05/22/2020 [facility] [address] [place] [address] [phone] Appearance, Urine RFX CLOUDY High Clear Color, Urine RFX YELLOW Normal Yellow PH,Urine RFX 6.0 units Normal 5.0-9.0 Specific [place] Ur Auto RFX 1.014 Normal 1.002-1.035 Protein, [...] 0 /LPF Normal 0-1 Liver Profile 05/22/2020 [facility] [address] [place] [address] [phone] Ast/Sgot 31 U/L Normal 7-37 Alt/SGPT 27 U/L Normal 12-78 Alkaline Phosphatase 123 U/L High 45-117 Bilirubin,Total 0.3 mg/dL Normal 0.2-1.0 Bilirubin,Direct 0.1 mg/dL Normal 0.0-0.2 Total Protein 7.1 GM/DL Normal 6.4-8.2 Albumin 4.0 GM/DL Normal 3.2-5.2 Albumin/Globulin Ratio 1.3 Normal 1.2-2.2 Basic Metabolic Profile 05/22/[address] [address] [phone] Glucose, Fasting 129 mg/dL High 70-100 Blood Urea Nitrogen 18 mg/dL Normal 7-18 Creatinine For GFR 0.97 mg/dL Normal 0.55-1.30 Glomerular Filtration Rate > 60.0 Normal >45 1 Sodium Level 140 mEq/L Normal 136-145 Potassium Serum 4.2 mEq/L Normal 3.5-5.1 Chloride Level 110 mEq/L High 98-107 Carbon Dioxide Level 26 mEq/L Normal 21-32 Anion Gap 4 mEq/L Low 8-16 Calcium Level 9.1 mg/dL Normal 8.8-10.2 Laboratory test finding 05/22/[address] [address] [phone] Lipase 156 U/L Normal 73-393 Complete Blood Count 04/12/2020 [facility] Software Specialist: [place] [address] [phone] WBC 7.7 x10*3/UL 4.1 - 10.9 RBC [...] 4.6 x10*3/UL 2.0 - 7.8 A1c 04/12/2020 [facility] , Software Specialist: [place] [address] [phone] Hba1c 5.6 % <5.7 2 Est Avg Glucose 114 mg/dL High 60 - 110 Comprehensive Chem Profile 04/12/2020 [facility], Software Specialist: Dr [place] [address] [phone] Glucose 125 mg/dL High 74 - 99 3 BUN 17 mg/dL 7 - 18 Creatinine 0.9 mg/dL 0.6 - 1.3 Sodium 142 mEq/L 136 - 145 Potassium 3.3 mEq/L Low 3.5 - 5.1 4 Chloride 106 mEq/L 98 - 107 Carbon [...] mL/min >60 GFR >= 60 mL/min >60 5 Laboratory test finding 04/12/2020 [facility] Software Specialist: Dr [place] [address] [phone] Thyroid Stimulating Hormone 4.56 uIU/mL High 0.3 6 - 3.74 T4 Free 1.03 ng/dL 0.76 - 1.46 Basic Metabolic Panel 12/08/2019 [facility] Software Specialist: [place] [address] [phone] Glucose 135 mg/dL High 74 - 99 6 BUN 15 mg/dL 7 - 18 Creatinine 0.8 mg/dL 0.6 - 1.3 Sodium 143 mEq/L 136 - 145 Potassium 3.3 mEq/L Low 3.5 - 5.1 7 Chloride 107 mEq/L 98 - 107 Carbon Dioxide 27 mEq/L 21 - 32 Calcium 9.0 mg/dL 8.5 - 10.1 GFR >= 60 mL/min >60 GFR >= 60 mL/min >60 8 Laboratory test finding 12/08/2019 [facility] Software Specialist: [place] [address] [phone] Thyroid Stimulating Hormone 2.86 uIU/mL 0.3 6 - 3.74 1 Units are mL/min/1.73 m2 Chronic Kidney Disease Staging per NKF: Stage I & II GFR >=60 Normal to Mildly Decreased Stage III GFR 30-59 Moderately Decreased Stage IV GFR 15-29 Severely Decreased Stage V GFR <15 Very Little GFR Left ESRD GFR <15 on EVP CHIEF EXPLORATION OFFICER 2 Lab Result Notes: Pre-Diabetes 5.7 - 6.4 % Diabetes = or > 6.5% 3 100-125 mg/dL PRE-DIABET ES/FASTING >126 mg/dL DIABETES/FASTING 4 NOTE: RESULT VERIFIED. 5 CHRONIC KIDNEY DISEASE STAGI NG PER NKF STAGE I & II GFR >= 60 NORMAL TO MILDLY DECREASED STAGE III GFR 30-59 MODERATELY DECREASED STAGE IV GFR 15-29 SEVERELY DECREASED STAGE V GFR <15 VERY LITTLE GFR LEFT ESRD GFR <15 ON EVP CHIEF EXPLORATION OFFICER 6 100-125 mg/dL PRE-DIABET ES/FASTING >126 mg/dL DIABETES/FASTING 7 NOTE: RESULT VERIFIED. 8 CHRONIC KIDNEY DISEASE STAGI NG PER NKF STAGE I & II GFR >= 60 NORMAL TO MILDLY DECREASED STAGE III GFR 30-59 MODERATELY DECREASED STAGE IV GFR 15-29 SEVERELY DECREASED STAGE V GFR <15 VERY LITTLE GFR LEFT ESRD GFR <15 ON EVP CHIEF EXPLORATION OFFICER Procedures Date Code Description Status 04/05/2020 [id number] Mammogram Completed 01/13/2019 [id number] Diabetic Retinal Eye Exam Comple elisabeth 05/06/2018 [id number] Mammogram Completed 05/04/2017 [id number] Mammogram Completed 07/24/2016 [id number] Colonoscopy Completed 03/25/2016 [id number] Mammogram Completed 02/07/2015 [id number] Mammogram Completed 08/10/2013 [id number] Mammogram Completed 07/01/2012 [id number] Mammogram Completed 08/21/2010 [id number] Mammogram Completed 07/28/2008 [id number] Bone Mineral Density Test Comple Anesiva Description No Information Available Encounters Type Date Location Provider Dx Diagnosis Office Visit 04/12/2020 1:00p [facility] Jolene rees,DO M25.561 Pain in right knee E03.9 Hypothyroidism, unspecified K58.1 Irritable bowel syndrome wit h constipation F43.23 Adjustment disorder with mix ed anxiety and depressed mood M54.17 Radiculopathy, lumbosacral r egion G89.29 Other chronic pain M79.7 Fibromyalgia R73.09 Other abnormal glucose Z23 Encounter for immunization Office Visit 12/08/2019 2:45p [facility] ,DO M54.17 Radiculopathy, lumbosacral region M54.31 Sciatica, [...] rees,DO 04/12/2020 Z23 Encounter for immunization Jolene Luis,DO 12/08/2019 M54.17 Radiculopathy, lumbosacral regio n Jolene Luis,DO 12/08/2019 M54.31 Sciatica, right side Jolene Luis ,DO 12/08/2019 M25.561 Pain in right knee Jolene Luis,D O 12/08/2019 N20.1 Calculus of ureter Jolene Luis,D O 12/08/2019 N20.0 Calculus of kidney Jolene Luis,D O 12/08/2019 E03.9 Hypothyroidism, unspecified Kt martine Janelle,DO 12/08/2019 K58.1 Irritable bowel syndrome with co nstipation Jolene Luis,DO 12/08/2019 F43.23 Adjustment disorder with mixed a nxiety and depressed mood Jolene Luis, Plan of Treatment No Information Available Functional Status Description No Information Available Mental Status Description No Information Available Referrals Refer to Reason for Referral Status Appt Date [facility] CONSULT FOR LOW BACK P AIN. PT IS SCHEDULED FOR MRI LUMBAR SPINE AT [facility] ON 12/15/19, PT HAS CX 3 TIMES WITH OFFICE. HAS NOT BEEN SEEN PER OFFICE. Patient Declined 01/04/2020 [address] [place] [address] [phone]
--- OUTSIDE RECORDS SUMMARY | 2020-07-12 11:38 | CCD ---
Author Author [facility] [employer] ems Organization [facility] ems Address Unknown Phone Unavailable Care Team Providers Care Audio Visual Tech Name Role Phone Geovani Luan Unavailable PROBLEMS Type Condition ICD9-CM Code QDE62-DA Code Onset Dates Condition S tatus SNOMED Code Notes Problem UTI 599.0 Active 46363701 Problem Gross hematuria R31.0 Active 173318046 Problem Kidney stone N20.0 Active 32597254 Problem COPD exacerbation J44.1 Active 327757848 Problem Ureteral Stone 592.1 Active 69319808 Problem Hydronephrosis with renal and ureteral calculous obstructi on N13.2 Active 245682363 Problem Dysuria R30.0 Active 29135729 Problem Hydronephrosis N13.30 Active 75887752 Problem UTI (urinary tract infection) N39.0 Active 68 473072 Problem Urinary incontinence R32 Active 625205729 ALLERGIES Allergen (clinical drug ingredient) Drug/Non Drug Allergy do cumented on EMR Reaction Allergy Type Onset Date Status zolpidem Ambien([facility] Code:[address]-34) Confusion Drug Allergy Active ENCOUNTERS from 1950 to 2020-05-28 Encounter Location Date Provider Diagnosis [facility] [address] [place] [address] May Luan Oilvo Hydronephrosis with renal and ureteral c alculous obstruction N13.2 and Ureteral calculus N20.1 IMMUNIZATIONS Vaccine Route Administration Date Status Influenza (6mo & up) Fluzone Unknown September 06, 2014 Ref used SOCIAL HISTORY Sex Assigned At : Social History Observation Description Sex Assigned At Unknown REASON FOR REFERRAL No Information VITAL SIGNS Weight 168.4 lbs May, Height 60 in 03 Dec, 2020 BMI 32.88 kg/m2 May, Heart Rate 75 /min May, Respiratory Rate 18 /min May, Temperature 97.1 degrees Fahrenheit May, Oximetry 96 May, Blood pressure systolic 121 mm Hg May, Blood pressure diastolic 70 mm Hg May, MEDICATIONS Medication SIG (Take, Route, Frequency, Duration) Notes Start Da te End Date Status Lisinopril 10 MG 1 tablet Orally Once a day for 30 day(s) Active Macrobid 100 MG 1 cap Orally bid for 7 day(s) Jun, Not-Taking Bactrim DS 800-160 MG 1 tablet Orally Twice a day for 10 day(s) Sep, Not-Taking TraZODone HCl ER 300 MG 1 tablet at bedtime on an em pty stomach Orally Once a day Active levothroid 2.5 mg as directed once a day Not-Taking Cipro 500 MG 1 tablet Orally as directed for 1 dose(s) Feb, Not-Taking Prednisone 1 tab Oral for 14 days No t-Taking Flagyl 250 MG 1 tablet Orally Three times a day for 10 day(s) Not-Taking Macrobid 100 MG 1 cap Orally bid for 7 day(s) Jul, Active Diflucan 100 MG 2 tablets on day 1, and then 1 tablet daily on days 2-5 Orally as directed for 5 days Sep, Not-Takin g Cetirizine HCl 10 MG 1 capsule Orally Once a day for 30 day(s) Not-Taking ProAir HFA 108 (90 Base) MCG/ACT 2 puffs as needed Inh alation every 4 hrs for 30 days Jan, Not-Taking Percocet 5-325 MG 1 tablet Orally every 6 hrs as needed for pain (MDD 4) for 7 days Feb, Not-Taking Tizanidine HCl 2 MG 1 tablet as needed Orally every 8 hrs Active Tamsulosin HCl 0.4 MG 1 capsule Orally Once a day for 10 day(s) May, Active Tramadol HCl 50 MG 1 tablet as needed Orally every 6 hrs Not-Taking Montelukast Sodium 10 MG 1 tablet in the evening Oral ly Once a day for 30 day(s) Not-Taking PredniSONE 20 MG 2 tablets with food or milk x 5 days then one tablet daily x 5 days Orally Once a day for 10 days Jan, Not-Taking Diflucan 100 MG 1 tablet Orally Once a day for 10 day(s) 2 Feb, Not-Taking Medrol 4 MG as directed Orally Daily for 6 days October, Not-Taking Bactrim DS 800-160 MG 1 tablet for your cystoscopy today Orally as directed Feb, Not-Taking ProAir HFA 108 (90 Base) MCG/ACT [...] a day for 30 day(s) Jun, Active Topiramate 50 50mg as directed oral Not-Taking Augmentin 875-125 MG 1 tablet Orally every 12 hrs for 10 day(s) Jan, Not-Taking Lyrica 100mg 1 capsule Orally Twice a day for 30 day(s) Not-Taking Ketorolac Tromethamine 10 MG 1 tablet with food or mil k as needed Orally every 6 hrs for 5 day(s) Apr, Active Simvastatin 10 20 mg as directed oral am/pm Not-Taking Lidocaine HCl Jelly HALFWAY 2 % 1 application to affected area [...] Information RESULTS No Results REASON FOR VISIT kidney stones MEDICAL (GENERAL) HISTORY Type Description Date Medical [...] Treatment Notes Treatm ent Clinical Notes May, Hydronephrosis with renal an d ureteral calculous obstruction (ICD- 10 - N13.2) CT scan performed 2 days ago, the patient has a 6 mm mid right ureteral calculus with mild hydronephrosis. Treatment options were presented to the patient including fluids with analgesics, stent insertion followed by ureteroscopic stone extraction, and ESWL. She tells me that she does not want a stent. I emphasized that with any ureteroscopic procedure she will need a stent postoperatively states she therefore wants to wait another week to see if she can pass the stone herself. She was therefore given a prescription for Toradol and she will increase her fluids. She also will need a 24-hour urine in the future. She states that she has not been done this in the past because she thought it was a waste of time. Because she gets 3 stones in the year for the last 30 years, I highly recommended. She'll therefore return in 1 week with a KUB and further stone management. May, Ureteral calculus (ICD-10 - N20.1) PLAN OF TREATMENT Medication Medication Name Sig Start Date Stop Date Tamsulosin HCl 0.4 MG 1 capsule Orally Once a day for 10 day(s) May, Ketorolac Tromethamine 10 MG 1 tablet with food or mil k as needed Orally every 6 hrs for 5 day(s) May, Treatment Notes Assessment Notes Clinical Notes Hydronephrosis with renal and ureteral calculous obstruction CT scan performed 2 days ago, the patient has a 6 mm mid right ureteral calculus with mild hydronephrosis. Treatment options were presented to the patient including fluids with analgesics, stent insertion followed by ureteroscopic stone extraction, and ESWL. She tells me that she does not want a stent. I emphasized that with any ureteroscopic procedure she will need a stent postoperatively states she therefore wants to wait another week to see if she can pass the stone herself. She was therefore given a prescription for Toradol and she will increase her fluids.She also will need a 24-hour urine in the future. She states that she has not been done this in the past because she thought it was a waste of time. Because she gets 3 stones in the year for the last 30 years, I highly recommended.She'll therefore return in 1 week with a KUB and further stone management. Future Test Test Name Order Date ADM ABDOMEN 1 VIEW (KUB) [id number] Next Appt Details 1 Week Reason:KUB for stone management Provider Name:Luan Olivo, 2020-05-30 08:00:00 AM, [address], [place], [address], Provider Name:Amanda Johnson, 12-07-28 11:00:00 AM, [address] [place], [address], Follow Up:1 WeekKUB for stone management Insurance Providers Payer Name Payer Address Payer Phone Insured Name Patient Relati onship to Insured Coverage Start Date Coverage End Date MEDICARE Part A and B [address] [facility] [id number] [employer] [facility] [address] [id number] [facility] [phone] [place]EREMY KEY
--- OUTSIDE RECORDS SUMMARY | 2020-07-12 11:38 | CCD | Continuity of Care Document ---
Author Organization Unknown Address Unknown Phone Unavailable Care Team Providers Care Ornamental Plaster Sticker Name Role Phone Jolene Luis DO AUTM Unavailable [facility] AUTM Unavailable Gerard Boston MD AUTM [phone] Eloy Sanchez MD AUTM [phone] Trenton Arreguin M.D. AUTM [phone] [facility] AUTM [phone] Problems Active Problems Provider Date Allergic [...] ection Jolene Luis,DO 05/05/2012 B12 1000 mcg [address]-95 Injection Jolene Luis,DO 05/08/2011 Therapeutic Injection Injection Jolene Luis,DO 05/08/2011 Administration Of Flu Vaccine Inj ection Jolene Luis,DO 04/04/2011 B12 1000 mcg [address]-52 Injection Jolene Luis,DO 12/26/2010 Therapeutic Injection Injection Jolene Luis,DO 12/26/2010 B12 1000 mcg [address]-52 Injection Nurse Schedule 11/26/2010 Therapeutic Injection Injection Jolene Luis,DO 11/26/2010 Immunizations CPT Code Status Date Vaccine Lot # [id number] Given 04/12/2020 Influenza Vaccin e Quadrivalent Preser/Antibiotic Free Im Use [id number] 98071 Given 04/21/2019 Influenza Vaccin e Quadrivalent Preser/Antibiotic Free Im Use 576179 72105 Given 07/05/2018 Pneumovax 23 [id number] 74040 Given 04/12/2018 Influenza Virus Vaccine, Quadrivalent (Cciiv4), Derived From Cell [id number] Q2037 Given 03/19/2015 Fluvirin Virus Vaccine 58477 01 Q2037 Given 04/10/2014 Fluvirin Virus Vaccine 27999 21 Q2037 Given 05/11/2013 Fluvirin Virus Vaccine 84138 01 Q2037 Given 05/05/2012 Fluvirin Virus Vaccine 08120 01 Q2037 Given 04/04/2011 Fluvirin Virus Vaccine 73945 Given 04/03/2010 Influenza Virus Vaccine 54254 Refused 03/23/2019 Influenza Vaccin e Quadrivalent Preser/Antibiotic Free Im Use 23336 Refused 07/05/2018 Shingrix Zoster Vaccine (HZV), Recombinant, Subunit, Adjuvanted 60923 Refused 07/05/2018 Zoster Vaccine 23330 Refused 07/05/2018 Pneumovax 23 51930 Refused 07/05/2018 Adacel- Tetanus Diphtheria P ertussis (Age64 & Under) 97285 Refused 07/05/2018 Prevnar 13 Vital Signs Date [...] H/L Range Note CBC With Differential 05/22/2020 [facility] [address] [place] [address] [phone] White Blood Count 11.0 10 High 4.0-10.0 [...] 36.0-66.0 Lymph % 27.2 % Normal 24.0-44.0 Whitley % 7.2 % High 0.0-5.0 Eos % 1.6 % Normal 0.0-3.0 Baso % 0.5 % Normal 0.0-1.0 Immature Granulocyte % 0.5 % Normal 0-3.0 Nucleated Red Blood Cell % 0.0 % Normal 0-0 Neutrophils # 6.9 10 Normal 1.5-8.5 Lymph # 3.0 10 Normal 1.5-5.0 Whitley # 0.8 10 Normal 0.0-0.8 Eos # 0.2 10 Normal 0.0-0.5 Baso # 0.1 10 Normal 0.0-0.2 Ua W/ Reflex To Culture 05/22/2020 [facility] [address] [place] [address] [phone] Appearance, Urine RFX CLOUDY High Clear Color, Urine RFX YELLOW Normal Yellow PH,Urine RFX 6.0 units Normal 5.0-9.0 Specific [place] Ur Auto RFX 1.014 Normal 1.002-1.035 Protein, [...] 0 /LPF Normal 0-1 Liver Profile 05/22/2020 [facility]ter [address] [place] [address] [phone] Ast/Sgot 31 U/L Normal 7-37 Alt/SGPT 27 U/L Normal 12-78 Alkaline Phosphatase 123 U/L High 45-117 Bilirubin,Total 0.3 mg/dL Normal 0.2-1.0 Bilirubin,Direct 0.1 mg/dL Normal 0.0-0.2 Total Protein 7.1 GM/DL Normal 6.4-8.2 Albumin 4.0 GM/DL Normal 3.2-5.2 Albumin/Globulin Ratio 1.3 Normal 1.2-2.2 Basic Metabolic Profile 05/22/2020 [facility] [address] [place] [address] [phone] Glucose, Fasting 129 mg/dL High 70-100 Blood [...] mg/dL Normal 8.8-10.2 Laboratory test finding 05/22/2020 [facility] [address] [place] [address] [phone] Lipase 156 U/L Normal 73-393 Reflex Urine Culture 05/22/2020 [facility] enter [address] [place] [address] [phone] Reflex Urine Culture FULL REPORT IN L <SEE NOTE> Norm al 2 Complete Blood Count 04/12/2020 [facility] Furrier Apprentice: [place] [address] [phone] WBC 7.7 x10*3/UL 4.1 - 10.9 RBC [...] 4.6 x10*3/UL 2.0 - 7.8 A1c 04/12/2020 [facility] Furrier Apprentice: [place] [address] [phone] Hba1c 5.6 % <5.7 3 Est Avg Glucose 114 mg/dL High 60 - 110 Comprehensive Chem Profile 04/12/2020 [facility] Furrier Apprentice: [place] [address] [phone] Glucose 125 mg/dL High 74 - 99 4 BUN 17 mg/dL 7 - 18 Creatinine 0.9 mg/dL 0.6 - 1.3 Sodium 142 mEq/L 136 - 145 Potassium 3.3 mEq/L Low 3.5 - 5.1 5 Chloride 106 mEq/L 98 - 107 Carbon [...] mL/min >60 GFR >= 60 mL/min >60 6 Laboratory test finding 04/12/2020 [facility] Furrier Apprentice: [place] [address] [phone] Thyroid Stimulating Hormone 4.56 uIU/mL High 0.3 6 - 3.74 T4 Free 1.03 ng/dL 0.76 - 1.46 Basic Metabolic Panel 12/08/2019 [facility] Furrier Apprentice: [place] [address] [phone] Glucose 135 mg/dL High 74 - 99 7 BUN 15 mg/dL 7 - 18 Creatinine 0.8 mg/dL 0.6 - 1.3 Sodium 143 mEq/L 136 - 145 Potassium 3.3 mEq/L Low 3.5 - 5.1 8 Chloride 107 mEq/L 98 - 107 Carbon Dioxide 27 mEq/L 21 - 32 Calcium 9.0 mg/dL 8.5 - 10.1 GFR >= 60 mL/min >60 GFR >= 60 mL/min >60 9 Laboratory test finding 12/08/2019 [facility] Furrier Apprentice: [place] [address] [phone] Thyroid Stimulating Hormone 2.86 uIU/mL 0.3 6 - 3.74 1 Units are mL/min/1.73 m2 Chronic Kidney Disease Staging per NKF: Stage I & II GFR >=60 Normal to Mildly Decreased Stage III GFR 30-59 Moderately Decreased Stage IV GFR 15-29 Severely Decreased Stage V GFR <15 Very Little GFR Left ESRD GFR <15 on CORRECTIONAL PROBATION OFFICER 2 FULL REPORT IN LAB NOTES (eC W and Medent). NO GROWTH 3 Lab Result Notes: Pre-Diabetes 5.7 - 6.4 % Diabetes = or > 6.5% 4 100-125 mg/dL PRE-DIABET ES/FASTING >126 mg/dL DIABETES/FASTING 5 NOTE: RESULT VERIFIED. 6 CHRONIC KIDNEY DISEASE STAGI NG PER NKF STAGE I & II GFR >= 60 NORMAL TO MILDLY DECREASED STAGE III GFR 30-59 MODERATELY DECREASED STAGE IV GFR 15-29 SEVERELY DECREASED STAGE V GFR <15 VERY LITTLE GFR LEFT ESRD GFR <15 ON CORRECTIONAL PROBATION OFFICER 7 100-125 mg/dL PRE-DIABET ES/FASTING >126 mg/dL DIABETES/FASTING 8 NOTE: RESULT VERIFIED. 9 CHRONIC KIDNEY DISEASE STAGI NG PER NKF STAGE I & II GFR >= 60 NORMAL TO MILDLY DECREASED STAGE III GFR 30-59 MODERATELY DECREASED STAGE IV GFR 15-29 SEVERELY DECREASED STAGE V GFR <15 VERY LITTLE GFR LEFT ESRD GFR <15 ON CORRECTIONAL PROBATION OFFICER Procedures Date Code Description Status 04/05/2020 [id number] Mammogram Completed 01/13/2019 [id number] Diabetic Retinal Eye Exam Comple [facility] 05/06/2018 [id number] Mammogram Completed 05/04/2017 [id number] Mammogram Completed 07/24/2016 [id number] Colonoscopy Completed 03/25/2016 [id number] Mammogram Completed 02/07/2015 [id number] Mammogram Completed 08/10/2013 [id number] Mammogram Completed 07/01/2012 [id number] Mammogram Completed 08/21/2010 [id number] Mammogram Completed 07/28/2008 [id number] Bone Mineral Density Test Comple [facility] Medical Devices Description No Information Available Encounters Type Date Location Provider Dx Diagnosis Office Visit 04/12/2020 1:00p [facility] Jolene rees DO M25.561 Pain in right knee E03.9 Hypothyroidism, unspecified K58.1 Irritable bowel syndrome wit h constipation F43.23 Adjustment disorder with mix ed anxiety and depressed mood M54.17 Radiculopathy, lumbosacral r egion G89.29 Other chronic pain M79.7 Fibromyalgia R73.09 Other abnormal glucose Z23 Encounter for immunization Office Visit 12/08/2019 2:45p [facility] Luis DO M54.17 Radiculopathy, lumbosacral region M54.31 Sciatica, right side M25.561 Pain in right knee N20.1 Calculus of ureter N20.0 Calculus of kidney E03.9 Hypothyroidism, unspecified K58.1 Irritable bowel syndrome wit h constipation F43.23 Adjustment disorder with mix ed anxiety and depressed mood Assessments Date Code Description Provider 04/12/2020 M25.561 Pain in right knee Joanna Holloway 04/12/2020 E03.9 Hypothyroidism, unspecified Kt Luis DO 04/12/2020 K58.1 Irritable bowel syndrome with co nstipation Jolene Luis DO 04/12/2020 F43.23 Adjustment disorder with mixed a nxiety and depressed mood Jolene Luis DO 04/12/2020 M54.17 Radiculopathy, lumbosacral regio n Jolene Luis,DO 04/12/2020 G89.29 Other chronic pain Joanna Holloway 04/12/2020 M79.7 Fibromyalgia Jolene Janelle,DO 04/12/2020 R73.09 Other abnormal glucose Jolene Star rees,DO 04/12/2020 Z23 Encounter for immunization Jolene Janelle,DO 12/08/2019 M54.17 Radiculopathy, lumbosacral regio n Jolene Janelle,DO 12/08/2019 M54.31 Sciatica, right side Jolene Luis ,DO 12/08/2019 M25.561 Pain in right knee Jolene Luis,D O 12/08/2019 N20.1 Calculus of ureter Jolene Luis,D O 12/08/2019 N20.0 Calculus of kidney Jolene Luis,D O 12/08/2019 E03.9 Hypothyroidism, unspecified Kt martine Janelle,DO 12/08/2019 K58.1 Irritable bowel syndrome with co nstipation Jolene Janelle,DO 12/08/2019 F43.23 Adjustment disorder with mixed a nxiety and depressed mood Jolene Luis, Plan of Treatment No Information Available Functional Status Description No Information Available Mental Status Description No Information Available Referrals Refer to Reason for Referral Status Appt Date [facility] CONSULT FOR LOW BACK P AIN. PT IS SCHEDULED FOR MRI LUMBAR SPINE AT [facility] ON 12/15/19, PT HAS CX 3 TIMES WITH OFFICE. HAS NOT BEEN SEEN PER OFFICE. Patient Declined 01/04/2020 [address] [place], [place] [id number] [phone]
--- OUTSIDE RECORDS SUMMARY | 2020-07-12 11:39 | CCD | Continuity of Care Document ---
Author Author Zofia COLBERT Organization Unknown Address [address] [place] [address] [address] [place] [address] Phone [phone] Care Team Providers Care Thermoscrew Operator Name Role Phone Jolene Colbert DO AUTM Unavailable [facility] AUTM Unavailable Gerard Boston MD AUTM [phone] Eloy Sanchez MD AUTM [phone] Trenton Arreguin M.D. AUTM [phone] [facility] AUTM [phone] Problems Active Problems Provider Date Allergic [...] ection Jolene Colbert,DO 05/05/2012 B12 1000 mcg [address]-29 Injection Jolene Colbert,DO 05/08/2011 Therapeutic Injection Injection Jolene Colbert,DO 05/08/2011 Administration Of Flu Vaccine Inj ection Jolene Colbert,DO 04/04/2011 B12 1000 mcg [address]-78 Injection Jolene Colbert,DO 12/26/2010 Therapeutic Injection Injection Jolene Colbert,DO 12/26/2010 B12 1000 mcg [address]-19 Injection Nurse Schedule 11/26/2010 Therapeutic Injection Injection Jolene Colbert,DO 11/26/2010 Immunizations CPT Code Status Date Vaccine Lot # [id number] Given 04/12/2020 Influenza Vaccin e Quadrivalent Preser/Antibiotic Free Im Use [id number] 16465 Given 04/21/2019 Influenza Vaccin e Quadrivalent Preser/Antibiotic Free Im Use 066693 62986 Given 07/05/2018 Pneumovax 23 [id number] 39163 Given 04/12/2018 Influenza Virus Vaccine, Quadrivalent (Cciiv4), Derived From Cell 887826 Q2037 Given 03/19/2015 Fluvirin Virus Vaccine 33478 01 Q2037 Given 04/10/2014 Fluvirin Virus Vaccine 01757 21 Q2037 Given 05/11/2013 Fluvirin Virus Vaccine 01119 01 Q2037 Given 05/05/2012 Fluvirin Virus Vaccine 72913 01 Q2037 Given 04/04/2011 Fluvirin Virus Vaccine 23146 Given 04/03/2010 Influenza Virus Vaccine 23999 Refused 03/23/2019 Influenza Vaccin e Quadrivalent Preser/Antibiotic Free Im Use 83309 Refused 07/05/2018 Shingrix Zoster Vaccine (HZV), Recombinant, Subunit, Adjuvanted 45373 Refused 07/05/2018 Zoster Vaccine 99385 Refused 07/05/2018 Pneumovax 23 16796 Refused 07/05/2018 Adacel- Tetanus Diphtheria P ertussis (Age64 & Under) 66664 Refused 07/05/2018 Prevnar 13 Vital Signs Date [...] Date Facility Test Result H/L Range Note Complete Blood Count 04/12/2020 [facility] Chief Revenue Officer: Dr [place] [address] [phone] WBC 7.7 x10*3/UL 4.1 - 10.9 RBC [...] 4.6 x10*3/UL 2.0 - 7.8 A1c 04/12/[address] [facility] , Chief Revenue Officer: [place] [address] [phone] Hba1c 5.6 % <5.7 1 Est Avg Glucose 114 mg/dL High 60 - 110 Comprehensive Chem Profile 04/12/[address] [facility], Chief Revenue Officer: Dr Gennaro Browne [place], [place] [id number] [phone] Glucose 125 mg/dL High 74 - 99 2 BUN 17 mg/dL 7 - 18 Creatinine 0.9 mg/dL 0.6 - 1.3 Sodium 142 mEq/L 136 - 145 Potassium 3.3 mEq/L Low 3.5 - 5.1 3 Chloride 106 mEq/L 98 - 107 Carbon [...] 60 mL/min >60 4 Laboratory test finding 04/12/[address] [facility], Chief Revenue Officer: [place] [address] [phone] Thyroid Stimulating Hormone 4.56 uIU/mL High 0.3 6 - 3.74 T4 Free 1.03 ng/dL 0.76 - 1.46 Basic Metabolic Panel 12/08/[address] [facility] Chief Revenue Officer: Dr Gennaro Browne [place], [place] [id number] [phone] Glucose 135 mg/dL High 74 - 99 5 BUN 15 mg/dL 7 - 18 Creatinine 0.8 mg/dL 0.6 - 1.3 Sodium 143 mEq/L 136 - 145 Potassium 3.3 mEq/L Low 3.5 - 5.1 6 Chloride 107 mEq/L 98 - 107 Carbon Dioxide 27 mEq/L 21 - 32 Calcium 9.0 mg/dL 8.5 - 10.1 GFR >= 60 mL/min >60 GFR >= 60 mL/min >60 7 Laboratory test finding 12/08/[address] [facility] Chief Revenue Officer: [place] [address] [phone] Thyroid Stimulating Hormone 2.86 uIU/mL 0.3 6 - 3.74 1 Lab Result Notes: Pre-Diabetes 5.7 - 6.4 % Diabetes = or > 6.5% 2 100-125 mg/dL PRE-DIABET ES/FASTING >126 mg/dL DIABETES/FASTING 3 NOTE: RESULT VERIFIED. 4 CHRONIC KIDNEY DISEASE STAGI NG PER NKF STAGE I & II GFR >= 60 NORMAL TO MILDLY DECREASED STAGE III GFR 30-59 MODERATELY DECREASED STAGE IV GFR 15-29 SEVERELY DECREASED STAGE V GFR <15 VERY LITTLE GFR LEFT ESRD GFR <15 ON TICKET COLLECTOR OR USHER 5 100-125 mg/dL PRE-DIABET ES/FASTING >126 mg/dL DIABETES/FASTING 6 NOTE: RESULT VERIFIED. 7 CHRONIC KIDNEY DISEASE STAGI NG PER NKF STAGE I & II GFR >= 60 NORMAL TO MILDLY DECREASED STAGE III GFR 30-59 MODERATELY DECREASED STAGE IV GFR 15-29 SEVERELY DECREASED STAGE V GFR <15 VERY LITTLE GFR LEFT ESRD GFR <15 ON TICKET COLLECTOR OR USHER Procedures Date Code Description Status 04/05/2020 [id number] Mammogram Completed 01/13/2019 [id number] Diabetic Retinal Eye Exam Comple [facility] 05/06/2018 [id number] Mammogram Completed 05/04/2017 [id number] Mammogram Completed 07/24/2016 [id number] Colonoscopy Completed 03/25/2016 [id number] Mammogram Completed 02/07/2015 [id number] Mammogram Completed 08/10/2013 [id number] Mammogram Completed 07/01/2012 [id number] Mammogram Completed 08/21/2010 [id number] Mammogram Completed 07/28/2008 [id number] Bone Mineral Density Test Comple [employer] Description No Information Available Encounters Type Date Location Provider Dx Diagnosis Office Visit 04/12/2020 1:00p [facility] Jolene rees,DO M25.561 Pain in right knee E03.9 Hypothyroidism, unspecified K58.1 Irritable bowel syndrome wit h constipation F43.23 Adjustment disorder with mix ed anxiety and depressed mood M54.17 Radiculopathy, lumbosacral r egion G89.29 Other chronic pain M79.7 Fibromyalgia R73.09 Other abnormal glucose Z23 Encounter for immunization Office Visit 12/08/2019 2:45p [facility] Jolene Colbert ,DO M54.17 Radiculopathy, lumbosacral region M54.31 Sciatica, right side M25.561 Pain in right knee N20.1 Calculus of ureter N20.0 Calculus of kidney E03.9 Hypothyroidism, unspecified K58.1 Irritable bowel syndrome wit h constipation F43.23 Adjustment disorder with mix ed anxiety and depressed mood Assessments Date Code Description Provider 04/12/2020 M25.561 Pain in right knee Joanna Holloway O 04/12/2020 E03.9 Hypothyroidism, unspecified Kt Colbert,DO 04/12/2020 K58.1 Irritable bowel syndrome with co nstipation Jolene Colbert,DO 04/12/2020 F43.23 Adjustment disorder with mixed a nxiety and depressed mood Jolene Colbert,DO 04/12/2020 M54.17 Radiculopathy, lumbosacral regio n Jolene Colbert,DO 04/12/2020 G89.29 Other chronic pain Jolene ColbertD O 04/12/2020 M79.7 Fibromyalgia Jolene Colbert,DO 04/12/2020 R73.09 Other abnormal glucose Jolene rees,DO 04/12/2020 Z23 Encounter for immunization Jolene Colbert DO 12/08/2019 M54.17 Radiculopathy, lumbosacral regio n Jolene Janelle,DO 12/08/2019 M54.31 Sciatica, right side Jolene Janelle ,DO 12/08/2019 M25.561 Pain in right knee Jolene ColbertD O 12/08/2019 N20.1 Calculus of ureter Jolene Colbert,Joanna O 12/08/2019 N20.0 Calculus of kidney Jolene Colbert,Joanna O 12/08/2019 E03.9 Hypothyroidism, unspecified Kt martine Janelle,DO 12/08/2019 K58.1 Irritable bowel syndrome with co nstipation Jolene Colbert,DO 12/08/2019 F43.23 Adjustment disorder with mixed a nxiety and depressed mood Jolene Colbert, Plan of Treatment No Information Available Functional Status Description No Information Available Mental Status Description No Information Available Referrals Refer to Dr Reason for Referral Status Appt Date [facility] CONSULT FOR LOW BACK P AIN. PT IS SCHEDULED FOR MRI [facility]BAR SPINE AT [facility] ON 12/15/19, PT HAS CX 3 TIMES WITH OFFICE. HAS NOT BEEN SEEN PER OFFICE. Patient Declined 01/04/2020 [address] [place] [address] [phone]
--- OUTSIDE RECORDS SUMMARY | 2020-07-12 11:40 | CCD ---
Author Author [facility] Organization [facility] Address Unknown Phone Unavailable Care Team Providers Care Railroad Watchman Name Role Phone Janelle, Jolene DO Unavailable Unavailable Janelle, Jolene DO Unavailable Unavailable Janelle, Jolene DO Unavailable Unavailable Janelle, Jolene DO Unavailable Unavailable Janelle, Jolene DO Unavailable Unavailable Janelle, Jolene DO Unavailable Unavailable Janelle, Jolene DO Unavailable Unavailable Janelle, Jolene DO Unavailable Unavailable Janelle, Jolene DO Unavailable Unavailable Janelle, Jolene DO Unavailable Unavailable Janelle, Jolene DO Unavailable Unavailable Janelle, Jolene DO Unavailable Unavailable Janelle, Jolene DO Unavailable Unavailable Janelle, Jolene DO Unavailable Unavailable Janelle, Jolene DO Unavailable Unavailable Janelle, Jolene DO Unavailable Unavailable Janelle, Jolene DO Unavailable Unavailable Janelle, Jolene DO Unavailable Unavailable Janelle, Jolene DO Unavailable Unavailable Janelle, Jolene DO Unavailable Unavailable Janelle, Jolene DO Unavailable Unavailable Janelle, Jolene DO Unavailable Unavailable Janelle, Jolene DO Unavailable Unavailable Janelle, Jolene DO Unavailable Unavailable Janelle, Jolene DO Unavailable Unavailable Janelle, Jolene DO Unavailable Unavailable Janelle, Jolene DO Unavailable Unavailable Janelle, Jolene DO Unavailable Unavailable Janelle, Jolene DO Unavailable Unavailable Janelle, Jolene DO Unavailable Unavailable Janelle, Jolene DO Unavailable Unavailable Janelle, Jolene DO Unavailable Unavailable Janelle, Jolene DO Unavailable Unavailable Janelle, Jolene DO Unavailable Unavailable Janelle, Jolene DO Unavailable Unavailable Janelle, Jolene DO Unavailable Unavailable Janelle, Jolene DO Unavailable Unavailable Janelle, Jolene DO Unavailable Unavailable Janelle, Jolene DO Unavailable Unavailable Janelle, Jolene DO Unavailable Unavailable Janelle, Jolene DO Unavailable Unavailable Janelle, Jolene DO Unavailable Unavailable Janelle, Jolene DO Unavailable Unavailable Janelle, Jolene DO Unavailable Unavailable Janelle, Jolene DO Unavailable Unavailable Janelle, Jolene DO Unavailable Unavailable Janelle, Jolene DO Unavailable Unavailable Janelle, Jolene DO Unavailable Unavailable Janelle, Jolene DO Unavailable Unavailable Janelle, Jolene DO Unavailable Unavailable Janelle, Jolene DO Unavailable Unavailable Janelle, Jolene DO Unavailable Unavailable Janelle, Jolene DO Unavailable Unavailable Janelle, Jolene DO Unavailable Unavailable Janelle, Jolene DO Unavailable Unavailable Janelle, Jolene DO Unavailable Unavailable Janelle, Jolene DO Unavailable Unavailable Janelle, Jolene DO Unavailable Unavailable Janelle, Jolene DO Unavailable Unavailable Janelle, Jolene DO Unavailable Unavailable Janelle, Jolene DO Unavailable Unavailable Janelle, Jolene DO Unavailable Unavailable Janelle, Jolene DO Unavailable Unavailable Janelle, Jolene DO Unavailable Unavailable Janelle, Jolene DO Unavailable Unavailable Janelle, Jolene DO Unavailable Unavailable Janelle, Jolene DO Unavailable Unavailable Janelle, Jolene DO Unavailable Unavailable Janelle, Jolene DO Unavailable Unavailable Janelle, Jolene DO Unavailable Unavailable Janelle, Jolene DO Unavailable Unavailable Janelle, Jolene DO Unavailable Unavailable DRAZEK, I LORETA PA Unavailable Unavailable DRAZEK, I LORETA PA Unavailable Unavailable DRAZEK, I LORETA PA Unavailable Unavailable DRAZEK, I LORETA PA Unavailable Unavailable DRAZEK, I LORETA PA Unavailable Unavailable DRAZEK, I LORETA PA Unavailable Unavailable DRAZEK, I LORETA PA Unavailable Unavailable DRAZEK, I LORETA PA Unavailable Unavailable DRAZEK, I LORETA PA Unavailable Unavailable DRAZEK, I LORETA PA Unavailable Unavailable DRAZEK, I LORETA PA Unavailable Unavailable DRAZEK, I LORETA PA Unavailable Unavailable DRAZEK, I LORETA PA Unavailable Unavailable DRAZEK, I LORETA PA Unavailable Unavailable DRAZEK, I LORETA PA Unavailable Unavailable DRAZEK, I LORETA PA Unavailable Unavailable DRAZEK, I LORETA PA Unavailable Unavailable DRAZEK, I LORETA PA Unavailable Unavailable DRAZEK, I LORETA PA Unavailable Unavailable DRAZEK, I LORETA PA Unavailable Unavailable DRAZEK, I LORETA PA Unavailable Unavailable DRAZEK, I LORETA PA Unavailable Unavailable DRAZEK, I LORETA PA Unavailable Unavailable DRAZEK, I LORETA PA Unavailable Unavailable DRAZEK, I LORETA PA Unavailable Unavailable DRAZEK, I LORETA PA Unavailable Unavailable DRAZEK, I LORETA PA Unavailable Unavailable DRAZEK, I LORETA PA Unavailable Unavailable DRAZEK, I LORETA PA Unavailable Unavailable DRAZEK, I LORETA PA Unavailable Unavailable Janelle, Jolene DO Unavailable Unavailable Janelle, Jolene DO Unavailable Unavailable Janelle, Jolene DO Unavailable Unavailable Janelle, Jolene DO Unavailable Unavailable Janelle, Jolene DO Unavailable Unavailable Janelle, Jolene DO Unavailable Unavailable Janelle, Jolene DO Unavailable Unavailable Janelle, Jolene DO Unavailable Unavailable Janelle, Jolene DO Unavailable Unavailable Janelle, Jolene DO Unavailable Unavailable Janelle, Jolene DO Unavailable Unavailable Janelle, Jolene DO Unavailable Unavailable Janelle, Jolene DO Unavailable Unavailable Janelle, Jolene DO Unavailable Unavailable Janelle, Jolene DO Unavailable Unavailable Janelle, Jolene DO Unavailable Unavailable Janelle, Jolene DO Unavailable Unavailable Janelle, Jolene DO Unavailable Unavailable Janelle, Jolene DO Unavailable Unavailable Janelle, Jolene DO Unavailable Unavailable Janelle, Jolene DO Unavailable Unavailable Janelle, Jolene DO Unavailable Unavailable Janelle, Jolene DO Unavailable Unavailable Janelle, Jolene DO Unavailable Unavailable Janelle, Jolene DO Unavailable Unavailable Janelle, Jolene DO Unavailable Unavailable Janelle, Jolene DO Unavailable Unavailable Janelle, Jolene DO Unavailable Unavailable Janelle, Jolene DO Unavailable Unavailable Janelle, Jolene DO Unavailable Unavailable Janelle, Jolene DO Unavailable Unavailable Janelle, Jolene DO Unavailable Unavailable Janelle, Jolene DO Unavailable Unavailable Janelle, Jolene DO Unavailable Unavailable Janelle, Jolene DO Unavailable Unavailable Janelle, Jolene DO Unavailable Unavailable Janelle, Jolene DO Unavailable Unavailable Janelle, Jolene DO Unavailable Unavailable Janelle, Jolene DO Unavailable Unavailable Janelle, Jolene DO Unavailable Unavailable Janelle, Jolene DO Unavailable Unavailable Janelle, Jolene DO Unavailable Unavailable Janelle, Jolene DO Unavailable Unavailable Janelle, Jolene DO Unavailable Unavailable Janelle, Jolene DO Unavailable Unavailable Janelle, Jolene DO Unavailable Unavailable Janelle, Jolene DO Unavailable Unavailable Janelle, Jolene DO Unavailable Unavailable Janelle, Jolene DO Unavailable Unavailable Janelle, Jolene DO Unavailable Unavailable Janelle, Jolene DO Unavailable Unavailable Janelle, Jolene DO Unavailable Unavailable Janelle, Jolene DO Unavailable Unavailable Janelle, Jolene DO Unavailable Unavailable Janelle, Jolene DO Unavailable Unavailable Janelle, Jolene DO Unavailable Unavailable Janelle, Jolene DO Unavailable Unavailable Janelle, Jolene DO Unavailable Unavailable Janelle, Jolene DO Unavailable Unavailable Janelle, Jolene DO Unavailable Unavailable Janelle, Jolene DO Unavailable Unavailable Janelle, Jolene DO Unavailable Unavailable Janelle, Jolene DO Unavailable Unavailable Janelle, Jolene DO Unavailable Unavailable Janelle, Jolene DO Unavailable Unavailable Janelle, Jolene DO Unavailable Unavailable Janelle, Jolene DO Unavailable Unavailable Janelle, Jolene DO Unavailable Unavailable Janelle, Jolene DO Unavailable Unavailable Janelle, Jolene DO Unavailable Unavailable Janelle, Jolene DO Unavailable Unavailable Janelle, Jolene DO Unavailable Unavailable ARACELI, E CHRISTIAN AREA SECRETARY Unavailable Unavailable ARACELI, E CHRISTIAN AREA SECRETARY Unavailable Unavailable ARACELI, E CHRISTIAN AREA SECRETARY Unavailable Unavailable ARACELI, E CHRISTIAN AREA SECRETARY Unavailable Unavailable ARACELI, E CHRISTIAN AREA SECRETARY Unavailable Unavailable ARACELI, E CHRISTIAN AREA SECRETARY Unavailable Unavailable ARACELI, E CHRISTIAN AREA SECRETARY Unavailable Unavailable ARACELI, E CHRISTIAN AREA SECRETARY Unavailable Unavailable ARACELI, E CHRISTIAN AREA SECRETARY Unavailable Unavailable ARACELI, E CHRISTIAN AREA SECRETARY Unavailable Unavailable ARACELI, E CHRISTIAN AREA SECRETARY Unavailable Unavailable ARACELI, E CHRISTIAN AREA SECRETARY Unavailable Unavailable ARACELI, E CHRISTIAN AREA SECRETARY Unavailable Unavailable ARACELI, E CHRISTIAN AREA SECRETARY Unavailable Unavailable ARACELI, E CHRISTIAN AREA SECRETARY Unavailable Unavailable ARACELI, E CHRISTIAN AREA SECRETARY Unavailable Unavailable ARACELI, E CHRISTIAN AREA SECRETARY Unavailable Unavailable ARACELI, E CHRISTIAN AREA SECRETARY Unavailable Unavailable ARACELI, E CHRISTIAN AREA SECRETARY Unavailable Unavailable ARACELI, E CHRISTIAN AREA SECRETARY Unavailable Unavailable ARACELI, E CHRISTIAN AREA SECRETARY Unavailable Unavailable ARACELI, E CHRISTIAN AREA SECRETARY Unavailable Unavailable ARACELI, E CHRISTIAN AREA SECRETARY Unavailable Unavailable [place], N Flakito AREA SECRETARY Unavailable Unavailable [place], N Flakito AREA SECRETARY Unavailable Unavailable Ashley, N Flakito AREA SECRETARY Unavailable Unavailable Ashley, N Flakito AREA SECRETARY Unavailable Unavailable [place], N Flakito AREA SECRETARY Unavailable Unavailable [place], N Flakito AREA SECRETARY Unavailable Unavailable [place], N Flakito AREA SECRETARY Unavailable Unavailable Ashley, N Flakito AREA SECRETARY Unavailable Unavailable [place], N Flakito AREA SECRETARY Unavailable Unavailable [place], N Flakito AREA SECRETARY Unavailable Unavailable Ashley, N Flakito AREA SECRETARY Unavailable Unavailable [place], N Flakito AREA SECRETARY Unavailable Unavailable Ashley, N Flakito AREA SECRETARY Unavailable Unavailable Ashley, N Flakito AREA SECRETARY Unavailable Unavailable Ashley, N Flakito AREA SECRETARY Unavailable Unavailable Ashley, N Flakito AREA SECRETARY Unavailable Unavailable [place], N Flakito AREA SECRETARY Unavailable Unavailable [place], N Flakito AREA SECRETARY Unavailable Unavailable [place], N Flakito AREA SECRETARY Unavailable Unavailable [place], N Flakito AREA SECRETARY Unavailable Unavailable Ashley, N Flakito AREA SECRETARY Unavailable Unavailable [place], N Flakito AREA SECRETARY Unavailable Unavailable Ashley, N Flak[place] AREA SECRETARY Unavailable Unavailable Ashley, N [place]ak[place] AREA SECRETARY Unavailable Unavailable [place], N Flakito AREA SECRETARY Unavailable Unavailable Ashley, N [place]ak[place] AREA SECRETARY Unavailable Unavailable Ashley, N [place] AREA SECRETARY Unavailable Unavailable [place], N Flakito AREA SECRETARY Unavailable Unavailable [place], N Flakito AREA SECRETARY Unavailable Unavailable Ashley, N Flakito AREA SECRETARY Unavailable Unavailable [place], M Eli GRIZZLY WORKER Unavailable Unavailable [place], M Eli GRIZZLY WORKER Unavailable Unavailable [place], M Eli GRIZZLY WORKER Unavailable Unavailable [place], M Eli GRIZZLY WORKER Unavailable Unavailable [place], M Eli GRIZZLY WORKER Unavailable Unavailable [place], M Eli GRIZZLY WORKER Unavailable Unavailable [place], M Eli GRIZZLY WORKER Unavailable Unavailable [place], M Eli GRIZZLY WORKER Unavailable Unavailable [place], M Eli GRIZZLY WORKER Unavailable Unavailable [place], M Eli GRIZZLY WORKER Unavailable Unavailable [place], M Eli GRIZZLY WORKER Unavailable Unavailable [place], M Eli GRIZZLY WORKER Unavailable Unavailable [place], M Eli GRIZZLY WORKER Unavailable Unavailable [place], M Eli GRIZZLY WORKER Unavailable Unavailable [place], M Eli GRIZZLY WORKER Unavailable Unavailable [place], M Eli GRIZZLY WORKER Unavailable Unavailable [place], M Eli GRIZZLY WORKER Unavailable Unavailable [place], M Eli GRIZZLY WORKER Unavailable Unavailable [place], M Eli GRIZZLY WORKER Unavailable Unavailable [place], M Eli GRIZZLY WORKER Unavailable Unavailable [place], M Eli GRIZZLY WORKER Unavailable Unavailable [place], M Eli GRIZZLY WORKER Unavailable Unavailable [place], M Eli GRIZZLY WORKER Unavailable Unavailable [place], M Eli GRIZZLY WORKER Unavailable Unavailable [place], M Eli GRIZZLY WORKER Unavailable Unavailable [place], M Eli GRIZZLY WORKER Unavailable Unavailable [place], M Eli GRIZZLY WORKER Unavailable Unavailable [place], M Eli GRIZZLY WORKER Unavailable Unavailable [place], M Eli GRIZZLY WORKER Unavailable Unavailable [place], M Eli GRIZZLY WORKER Unavailable Unavailable [place], M Eli GRIZZLY WORKER Unavailable Unavailable [place], M Eli GRIZZLY WORKER Unavailable Unavailable [place], M Eli GRIZZLY WORKER Unavailable Unavailable [place], M Eli GRIZZLY WORKER Unavailable Unavailable [place], M Eli GRIZZLY WORKER Unavailable Unavailable [place], M Eli GRIZZLY WORKER Unavailable Unavailable [place], M Eli GRIZZLY WORKER Unavailable Unavailable [place], M Eli GRIZZLY WORKER Unavailable Unavailable [place], M Eli GRIZZLY WORKER Unavailable Unavailable [place], M Eli GRIZZLY WORKER Unavailable Unavailable [place], M Eli GRIZZLY WORKER Unavailable Unavailable [place], M Eli GRIZZLY WORKER Unavailable Unavailable [place], M Eli GRIZZLY WORKER Unavailable Unavailable [place], M Eli GRIZZLY WORKER Unavailable Unavailable [place], M Eli GRIZZLY WORKER Unavailable Unavailable [place], M Eli GRIZZLY WORKER Unavailable Unavailable [place], M Eli GRIZZLY WORKER Unavailable Unavailable [place], M Eli GRIZZLY WORKER Unavailable Unavailable [place], M Eli GRIZZLY WORKER Unavailable Unavailable [place], M Eli GRIZZLY WORKER Unavailable Unavailable [place], M Eli GRIZZLY WORKER Unavailable Unavailable [place], M Eli GRIZZLY WORKER Unavailable Unavailable [place], M Eli GRIZZLY WORKER Unavailable Unavailable [place], M Eli GRIZZLY WORKER Unavailable Unavailable [place], M Eli GRIZZLY WORKER Unavailable Unavailable Re-disclosure Warning The records that you are about to access may contain information from federally-assisted alcohol or drug abuse programs. If such information is present, then the following federally mandated warning applies: This information has been disclosed to you from records protected by federal confidentiality rules (42 CFR part 2). The federal rules prohibit you from making any further disclosure of this information unless further disclosure is expressly permitted by the written consent of the person to whom it pertains or as otherwise permitted by 42 CFR part 2. A general authorization for the release of medical or other information is NOT sufficient for this purpose. The Federal rules restrict any use of the information to criminally investigate or prosecute any alcohol or drug abuse patient.The records that you are about to access may contain highly sensitive health information, the redisclosure of which is protected by Article 27-F of the [facility] Public Health law. If you continue you may have access to information: Regarding HIV / AIDS; Provided by facilities licensed or operated by the [facility] Office of Mental Health; or Provided by the [facility] Office for People With Developmental Disabilities. If such information is present, then the following [facility] mandated warning applies: This information has been disclosed to you from confidential records which are protected by state law. State law prohibits you from making any further disclosure of this information without the specific written consent of the person to whom it pertains, or as otherwise permitted by law. Any unauthorized further disclosure in violation of state law may result in a fine or group home sentence or both. A general authorization for the release of medical or other information is NOT sufficient authorization for further disc losure. Allergies and Adverse Reactions Type Description Substance Reaction Status Data Source(s ) Propensity to adverse reactions ZOLPIDEM TARTRATE Zolpidem Tartrate Active [facility] Drug allergy Ambien zolpidem Confusion Active eCW1 ([facility]) Family History Family Member Name Family Member Gender Family Member Status Date o f Status Description Data Source(s) Unknown Female Problem MEDENT ([facility]) Unknown Female Problem MEDENT ([facility] ) Encounters Encounter Providers Location Date Indications Data Source(s ) Outpatient Attender: Flakito [email or web address] [id number] 12:00:00 AM EST - 07/09/2020 10:45:40 AM EST [facility] Outpatient [email or web address] 07/06/2020 12:00:00 AM EST [facility] Outpatient Attender: Eli Mccrary 06/20 07:00:00 AM EST [facility] ([facility] ) [place] [address] [address] 06/20/2020 12:00:00 AM EST eCW1 ([facility]) [place] [address] [facility] [place] [address] 06/12/2020 12:00:00 AM EST eCW1 ([facility]ending sale to [facility]) [place] [address] [address] 06/12/2020 12:00:00 AM EST eCW1 ([facility]ending sale to [facility]) [place] [address] [address] 06/05/2020 12:00:00 AM EST eCW1 (Pending sale to [facility]) Outpatient Attender: Jolene Robb 06/04 07:00:00 AM EST [facility] ([facility] ) [place] [address] [address] 06/01/2020 12:00:00 AM EST eCW1 (Pending sale to [facility]) Outpatient [address] [facility] [place] [address] 05/24/2020 12:00:00 AM EST eCW1 (Pending sale to [facility]) Outpatient Attender: Jolene oRbb 04/12 01:00:00 PM EDT MEDENT ([facility] ) Recurring Patient Referrer: Jolene Luis DO 12/21/2019 08:3 5:02 AM EDT [facility] Outpatient Referrer: Jolene Luis DO 12/14/2019 03:44:00 PM EDT [facility] Outpatient Referrer: Jolene Luis DO 12/12/2019 11:08:00 AM EDT [facility] Outpatient Referrer: CHRISTIAN CHARLES NP 12/12/2019 11:07:00 A M EDT [facility] Outpatient Attender: Jolene Robb 12/07 02:45:00 PM EDT MEDENT ([facility] ) Outpatient Referrer: CHRISTIAN CHARLES NP 09/22/2019 12:38:00 P M EDT [facility] [address] [place], [place] [id number] 08/08/2019 12:00:00 AM EST eCW1 (Pending sale to [facility]) [facility] [address] [place] [address] 08/05/2019 12:00:00 AM EST eCW1 (Pending sale to [facility]) Outpatient Attender: Jolene Robb 08/04 09:00:00 AM EST MEDENT ([facility] ) Outpatient Referrer: CHRISTIAN CHARLES NP 08/03/2019 11:34:00 A M EST [facility] Outpatient Attender: Jolene Robb 07/19 09:00:00 AM EST MEDENT ([facility] ) [facility] [address] [place] [phone] 07/18/2019 12:00:00 AM EST eCW1 (Pending sale to [facility]) Outpatient Referrer: CHRISTIAN CHARLES NP 07/15/2019 10:30:00 A M EST [facility] Outpatient Referrer: CHRISTIAN CHARLES NP 07/15/2019 10:24:00 A M EST [facility] Outpatient Referrer: LORETA WOOTEN 07/04/2019 08:07:00 PM EST [facility] Outpatient Attender: Jolene Robb 07/01 10:00:00 AM EST MEDENT ([facility] ) [facility] [address] [place] [phone] 06/28/2019 12:00:00 AM EST eCW1 (Pending sale to [facility]) [facility] [address] [place] [phone] 05/18/2019 12:00:00 AM EST eCW1 (Pending sale to [facility]) Immunizations Vaccine Date Status Description Data Source(s) Influenza, injectable, MDCK, preservative free, jose valent 04/12/2020 01:38:00 PM EDT completed MEDENT ([facility]) Medications Medication Brand Name Start Date Product Form Dose Route Admi nistrative Instructions Pharmacy Instructions Status Indications Reaction Description Data Source(s) Acetaminophen 325 MG / Oxycodone Hydroch loride 5 MG Oral Tablet oxyCODONE- acetaminophen (PERCOCET) 5-325 MG per tablet oxyCODONE-acetaminophen (PERCOCET) 5-325 MG per tablet 07/05/2020 12:00:00 AM EST act frida as needed [facility] Fluconazole 100 MG Oral Tablet Fluconazole 06/22/2020 12:00:00 AM EST active MEDENT ([facility]) Acetaminophen 325 MG / Oxycodone Hydrochloride 5 MG Or al Tablet Oxycodone-Acetaminophen 06/22/2020 12:00:00 AM EST active MEDENT ([facility]) Fluconazole 200 MG Oral Tablet Fluconazole 06/22/2020 12:00:00 AM EST completed MEDENT ([facility]) Levothyroxine Sodium 0.1 MG Oral Tablet [Euthyrox] EUT HYROX 100 MCG tablet EUTHYROX 100 MCG tablet 06/20/2020 12:00:00 AM EST 100 ug Oral active Take 100 mcg by mouth daily [facility] Omeprazole 20 MG Delayed Release Oral Capsule Omeprazole 06/20/2020 12:00:00 AM EST ORAL active [facility] ([facility]) Ketoconazole 20 MG/ML Topical Cream Ketoconazole 06/20/2020 12:00:00 AM EST active [facility] ([facility]) Omeprazole 20 MG Delayed Release Oral Ca psule omeprazole (PRILOSEC) 20 MG capsule omeprazole (PRILOSEC) 20 MG capsule 06/20/2020 12:00:00 AM EST active daily [facility] Trazodone Hydrochloride 100 MG Oral Tablet traZODone ( DESYREL) 100 MG tablet traZODone (DESYREL) 100 MG tablet 06/17/2020 12:00:00 AM EST 100 mg Oral active Take 100 mg by mouth daily [facility] Acetaminophen 325 MG / Oxycodone Hydroch loride 5 MG Oral Tablet [Percocet] Percocet 5-325 MG Percocet 5-325 MG 06/12/2020 12:00:00 AM EST 1 .0 {tablet_as_needed} active Percocet 5-32 5 MG eCW1 ([facility]) Acetaminophen 325 MG / Oxycodone Hydroch loride 5 MG Oral Tablet [Percocet] Percocet 5-325 MG Percocet 5-325 MG 06/12/2020 12:00:00 AM EST 1 .0 {tablet_as_needed} active Percocet 5-32 5 MG eCW1 ([facility]) Acetaminophen 325 MG / Oxycodone Hydroch loride 5 MG Oral Tablet [Percocet] Percocet 5-325 MG Percocet 5-325 MG 06/12/2020 12:00:00 AM EST 1 .0 {tablet_as_needed} active Percocet 5-32 5 MG eCW1 ([facility]) tizanidine 4 MG Oral Tablet tiZANidine (ZANAFLEX) 4 MG tablet tiZANidine (ZANAFLEX) 4 MG tablet 06/04/2020 12:00:00 AM EST 8 mg Oral active Take 8 mg by mouth [facility] Hydroxyzine Hydrochloride 25 MG Oral Tablet hydrOXYzin e (ATARAX) 25 MG tablet hydrOXYzine (ATARAX) 25 MG tablet 06/02/2020 12:00:00 AM EST active [facility] Acetaminophen 325 MG / Oxycodone Hydroch loride 5 MG Oral Tablet [Percocet] Percocet 5-325 MG Percocet 5-325 MG 06/01/2020 12:00:00 AM EST 1.0 {t ablet} suspended Percocet 5-325 MG eCW1 ([facility]) Acetaminophen 325 MG / Oxycodone Hydroch loride 5 MG Oral Tablet [Percocet] Percocet 5-325 MG Percocet 5-325 MG 06/01/2020 12:00:00 AM EST 1.0 {t ablet} suspended Percocet 5-325 MG eCW1 ([facility]) Acetaminophen 325 MG / Oxycodone Hydroch loride 5 MG Oral Tablet [Percocet] Percocet 5-325 MG Percocet 5-325 MG 06/01/2020 12:00:00 AM EST 1.0 {t ablet} active Percocet 5-325 MG eCW1 ([facility]) Acetaminophen 325 MG / Oxycodone Hydroch loride 5 MG Oral Tablet [Percocet] Percocet 5-325 MG Percocet 5-325 MG 06/01/2020 12:00:00 AM EST 1.0 {t ablet} active Percocet 5-325 MG eCW1 ([facility]) Acetaminophen 325 MG / Oxycodone Hydroch loride 5 MG Oral Tablet [Percocet] Percocet 5-325 MG Percocet 5-325 MG 06/01/2020 12:00:00 AM EST 1.0 {t ablet} suspended Percocet 5-325 MG eCW1 ([facility]) Ketorolac Tromethamine 10 MG Oral Tablet Ketorolac Trometham ine 10 MG 05/24/2020 12:00:00 AM EST active Ketorol ac Tromethamine 10 MG eCW1 ([facility]) Tamsulosin hydrochloride 0.4 MG Oral Capsule Tamsulosi n HCl 0.4 MG Tamsulosin HCl 0.4 MG 05/24/2020 12:00:00 AM EST 1.0 {capsule} active Tamsulosin HCl 0.4 MG eCW1 ([facility]) Ketorolac Tromethamine 10 MG Oral Tablet Ketorolac Trometham ine 10 MG 05/24/2020 12:00:00 AM EST active Ketorol ac Tromethamine 10 MG eCW1 ([facility]) Tamsulosin hydrochloride 0.4 MG Oral Capsule Tamsulosi n HCl 0.4 MG Tamsulosin HCl 0.4 MG 05/24/2020 12:00:00 AM EST 1.0 {capsule} active Tamsulosin HCl 0.4 MG eCW1 ([facility]) Ketorolac Tromethamine 10 MG Oral Tablet Ketorolac Trometham ine 10 MG 05/24/2020 12:00:00 AM EST active Ketorol ac Tromethamine 10 MG eCW1 ([facility]) Ketorolac Tromethamine 10 MG Oral Tablet Ketorolac Trometham ine 10 MG 05/24/2020 12:00:00 AM EST active Ketorol ac Tromethamine 10 MG eCW1 ([facility]) Tamsulosin hydrochloride 0.4 MG Oral Capsule Tamsulosi n HCl 0.4 MG Tamsulosin HCl 0.4 MG 05/24/2020 12:00:00 AM EST 1.0 {capsule} active Tamsulosin HCl 0.4 MG eCW1 ([facility]) Ketorolac Tromethamine 10 MG Oral Tablet Ketorolac Trometham ine 10 MG 05/24/2020 12:00:00 AM EST active Ketorol ac Tromethamine 10 MG eCW1 ([facility]) Tamsulosin hydrochloride 0.4 MG Oral Capsule Tamsulosi n HCl 0.4 MG Tamsulosin HCl 0.4 MG 05/24/2020 12:00:00 AM EST 1.0 {capsule} active Tamsulosin HCl 0.4 MG eCW1 ([facility]) Ketorolac Tromethamine 10 MG Oral Tablet Ketorolac Trometham ine 10 MG 05/24/2020 12:00:00 AM EST active Ketorol ac Tromethamine 10 MG eCW1 ([facility]) Tamsulosin hydrochloride 0.4 MG Oral Capsule Tamsulosi n HCl 0.4 MG Tamsulosin HCl 0.4 MG 05/24/2020 12:00:00 AM EST 1.0 {capsule} active Tamsulosin HCl 0.4 MG eCW1 ([facility]) Tamsulosin hydrochloride 0.4 MG Oral Capsule Tamsulosi n HCl 0.4 MG Tamsulosin HCl 0.4 MG 05/24/2020 12:00:00 AM EST 1.0 {capsule} active Tamsulosin HCl 0.4 MG eCW1 ([facility]) Tamsulosin hydrochloride 0.4 MG Oral Capsule tamsulosi n (FLOMAX) 0.4 MG CAPS tamsulosin (FLOMAX) 0.4 MG CAPS 05/22/2020 12:00:00 AM EST active daily [facility] Administration Of Flu Vaccine 04/12/2020 12:00:00 AM EDT completed MEDENT ([facility]) Medication administered onsite duloxetine 30 MG Delayed Release Oral Capsule Duloxetine HCL 12/08/2019 12:00:00 AM EDT ORAL active MEDENT ([facility]) NITROFURANTOIN, MACROCRYSTALS 25 MG / Ni trofurantoin, Monohydrate 75 MG Oral Capsule [Macrobid] Macrobid 100 MG Macrobid 100 MG 08/10/2019 12:00:00 AM EST active Macrobid 100 MG eCW1 ([facility]) NITROFURANTOIN, MACROCRYSTALS 25 MG / Ni trofurantoin, Monohydrate 75 MG Oral Capsule [Macrobid] Macrobid 100 MG Macrobid 100 MG 08/10/2019 12:00:00 AM EST suspended Macrobid 100 MG eCW1 ( [facility]) NITROFURANTOIN, MACROCRYSTALS 25 MG / Ni trofurantoin, Monohydrate 75 MG Oral Capsule [Macrobid] Macrobid 100 MG Macrobid 100 MG 08/10/2019 12:00:00 AM EST active Macrobid 100 MG eCW1 ([facility]) NITROFURANTOIN, MACROCRYSTALS 25 MG / Ni trofurantoin, Monohydrate 75 MG Oral Capsule [Macrobid] Macrobid 100 MG Macrobid 100 MG 08/10/2019 12:00:00 AM EST suspended Macrobid 100 MG eCW1 ( [facility]) NITROFURANTOIN, MACROCRYSTALS 25 MG / Ni trofurantoin, Monohydrate 75 MG Oral Capsule [Macrobid] Macrobid 100 MG Macrobid 100 MG 08/10/2019 12:00:00 AM EST active Macrobid 100 MG eCW1 ([facility]) NITROFURANTOIN, MACROCRYSTALS 25 MG / Ni trofurantoin, Monohydrate 75 MG Oral Capsule [Macrobid] Macrobid 100 MG Macrobid 100 MG 08/10/2019 12:00:00 AM EST suspended Macrobid 100 MG eCW1 ( [facility]) NITROFURANTOIN, MACROCRYSTALS 25 MG / Ni trofurantoin, Monohydrate 75 MG Oral Capsule [Macrobid] Macrobid 100 MG Macrobid 100 MG 08/10/2019 12:00:00 AM EST active 1 cap eCW1 ([facility]) Acetaminophen 325 MG / Oxycodone Hydrochloride 5 MG Or al Tablet [Percocet] Percocet 08/01/2019 12:00:00 AM EST ORAL active MEDENT ([facility]) Levofloxacin 500 MG Oral Tablet Levofloxacin 08/01/2019 12:00:[address] ORAL completed [facility] ([facility]) Metronidazole 500 MG Oral Tablet Metronidazole 07/22/2019 12:00:00 AM EST ORAL active MED[facility] ([facility]) Ciprofloxacin 500 MG Oral Tablet Ciprofloxacin HCL 07/22/2019 12:00 :00 AM EST ORAL completed [facility] ([facility]) Lisinopril 10 MG Oral Tablet Lisinopril 07/22/2019 12:00:00 AM EST ORAL completed MEDENT ([facility]) NITROFURANTOIN, MACROCRYSTALS 25 MG / Ni trofurantoin, Monohydrate 75 MG Oral Capsule [Macrobid] Macrobid 100 MG Macrobid 100 MG 07/21/2019 12:00:00 AM EST suspended Macrobid 100 MG eCW1 ( [facility]) NITROFURANTOIN, MACROCRYSTALS 25 MG / Ni trofurantoin, Monohydrate 75 MG Oral Capsule [Macrobid] Macrobid 100 MG Macrobid 100 MG 07/21/2019 12:00:00 AM EST active 1 cap eCW1 ([facility]) NITROFURANTOIN, MACROCRYSTALS 25 MG / Ni trofurantoin, Monohydrate 75 MG Oral Capsule [Macrobid] Macrobid 100 MG Macrobid 100 MG 07/21/2019 12:00:00 AM EST suspended Macrobid 100 MG eCW1 ( [facility]) NITROFURANTOIN, MACROCRYSTALS 25 MG / Ni trofurantoin, Monohydrate 75 MG Oral Capsule [Macrobid] Macrobid 100 MG Macrobid 100 MG 07/21/2019 12:00:00 AM EST active 1 cap eCW1 ([facility]) NITROFURANTOIN, MACROCRYSTALS 25 MG / Ni trofurantoin, Monohydrate 75 MG Oral Capsule [Macrobid] Macrobid 100 MG Macrobid 100 MG 07/21/2019 12:00:00 AM EST suspended Macrobid 100 MG eCW1 ( [facility]) NITROFURANTOIN, MACROCRYSTALS 25 MG / Ni trofurantoin, Monohydrate 75 MG Oral Capsule [Macrobid] Macrobid 100 MG Macrobid 100 MG 07/21/2019 12:00:00 AM EST suspended Macrobid 100 MG eCW1 ( [facility]) NITROFURANTOIN, MACROCRYSTALS 25 MG / Ni trofurantoin, Monohydrate 75 MG Oral Capsule Nitrofurantoin Monohyd Macro 07/21/2019 12:00:00 AM EST ORAL completed [facility] NITROFURANTOIN, MACROCRYSTALS 25 MG / Ni trofurantoin, Monohydrate 75 MG Oral Capsule [Macrobid] Macrobid 100 MG Macrobid 100 MG 07/21/2019 12:00:00 AM EST suspended Macrobid 100 MG eCW1 ( [facility]) NITROFURANTOIN, MACROCRYSTALS 25 MG / Ni trofurantoin, Monohydrate 75 MG Oral Capsule [Macrobid] Macrobid 100 MG Macrobid 100 MG 07/21/2019 12:00:00 AM EST suspended Macrobid 100 MG eCW1 ( [facility]) Lisinopril 2.5 MG Oral Tablet Lisinopril 07/01/2019 12:00:00 AM EST ORAL completed [facility] Tamsulosin hydrochloride 0.4 MG Oral Capsule Tamsulosi n HCl 0.4 MG Tamsulosin HCl 0.4 MG 06/28/2019 12:00:00 AM EST 1.0 {capsule} active Tamsulosin HCl 0.4 MG eCW1 ([facility]) Tamsulosin hydrochloride 0.4 MG Oral Capsule Tamsulosi n HCl 0.4 MG Tamsulosin HCl 0.4 MG 06/28/2019 12:00:00 AM EST 1.0 {capsule} suspended Tamsulosin HCl 0.4 MG eCW1 ([facility]) Acetaminophen 325 MG / Oxycodone Hydroch loride 5 MG Oral Tablet [Percocet] Percocet 5-325 MG Percocet 5-325 MG 06/28/2019 12:00:00 AM EST active 1 tablet as needed eCW1 ([facility]) Tamsulosin hydrochloride 0.4 MG Oral Capsule Tamsulosi n HCl 0.4 MG Tamsulosin HCl 0.4 MG 06/28/2019 12:00:00 AM EST 1.0 {capsule} suspended Tamsulosin HCl 0.4 MG eCW1 ([facility]) Tamsulosin hydrochloride 0.4 MG Oral Capsule Tamsulosi n HCl 0.4 MG Tamsulosin HCl 0.4 MG 06/28/2019 12:00:00 AM EST 1.0 {capsule} active Tamsulosin HCl 0.4 MG eCW1 ([facility]) Tamsulosin hydrochloride 0.4 MG Oral Capsule Tamsulosi n HCl 0.4 MG Tamsulosin HCl 0.4 MG 06/28/2019 12:00:00 AM EST 1.0 {capsule} suspended Tamsulosin HCl 0.4 MG eCW1 ([facility]) Acetaminophen 325 MG / Oxycodone Hydroch loride 5 MG Oral Tablet [Percocet] Percocet 5-325 MG Percocet 5-325 MG 06/28/2019 12:00:00 AM EST 1 .0 {tablet_as_needed} suspended Percocet 5- 325 MG eCW1 ([facility]) Acetaminophen 325 MG / Oxycodone Hydroch loride 5 MG Oral Tablet [Percocet] Percocet 5-325 MG Percocet 5-325 MG 06/28/2019 12:00:00 AM EST 1 .0 {tablet_as_needed} suspended Percocet 5- 325 MG eCW1 ([facility]) Acetaminophen 325 MG / Oxycodone Hydroch loride 5 MG Oral Tablet [Percocet] Percocet 5-325 MG Percocet 5-325 MG 06/28/2019 12:00:00 AM EST 1 .0 {tablet_as_needed} suspended Percocet 5- 325 MG eCW1 ([facility]) Tamsulosin hydrochloride 0.4 MG Oral Capsule Tamsulosi n HCl 0.4 MG Tamsulosin HCl 0.4 MG 06/28/2019 12:00:00 AM EST active 1 capsule eCW1 ([facility]) Tamsulosin hydrochloride 0.4 MG Oral Capsule Tamsulosi n HCl 0.4 MG Tamsulosin HCl 0.4 MG 06/28/2019 12:00:00 AM EST 1.0 {capsule} active Tamsulosin HCl 0.4 MG eCW1 ([facility]) Acetaminophen 325 MG / Oxycodone Hydroch loride 5 MG Oral Tablet [Percocet] Percocet 5-325 MG Percocet 5-325 MG 06/28/2019 12:00:00 AM EST active 1 tablet as needed eCW1 ([facility]) Tamsulosin hydrochloride 0.4 MG Oral Capsule Tamsulosi n HCl 0.4 MG Tamsulosin HCl 0.4 MG 06/28/2019 12:00:00 AM EST active 1 capsule eCW1 ([facility]) NITROFURANTOIN, MACROCRYSTALS 100 MG Oral Capsule Nitrofuran toin Macrocrystal 03/25/2019 12:00:00 AM EDT ORAL completed [facility] ([facility]) duloxetine 60 MG Delayed Release Oral Capsule Duloxetine HCL 03/23/2019 12:00:00 AM EDT ORAL completed [facility] ([facility]) Prednisone 10 MG Oral Tablet Prednisone 03/04/2019 12:00:00 AM EDT completed [facility] ([facility]) lubiprostone 0.008 MG Oral Capsule [Amitiza] Amitiza 12/2018 12:00:00 AM EDT ORAL completed [facility] ([facility]) Insurance Providers Payer name Policy type / Coverage type Policy ID Covered democrat ID Covered democrat's relationship to abdullahi Policy Abdullahi Plan Information [facility] [id number] HU2 [id number] MEDICARE [id number] UMR [id number] MEDICARE [id number] UMR [id number] Spo [id number] MEDICARE [id number] Tatum [id number] UMR [facility] [id number] HU2 [id number] UMR O [id number] S [id number] MEDICARE C [id number] S [id number] UMR [facility] [id number] HU2 [id number] NGS MEDICARE [facility] [id number] S [id number] UMR O [id number] P [id number] DME Jurisdiction A NHIC C [id number] SELF [id number] UMR F [id number] SELF [id number] Medicare C [id number] SELF [id number] NOVIT[place] JL PART B C [id number] S [id number] UMR CO UNAVAILABLE 01 UNAVAILA BLE MEDICARE PART A DC MC [id number] 18 [id number] UMR [id number] SPO [id number] [place] MED[place] [id number] S [id number] [place] [id number] S [id number] [place] [id number] SPO [id number] [place] MED[place]ARE DIVISION [id number] S [id number] [place] [id number] S [id number] ANSI-Commercial [id number] ANSI-Medicare Part B [id number] [place] Medig[place] Part B [id number] Self [id number] Umr (pr) Medigap Part B [id number] Family Dependent [id number] Medicare Dme Supplies Medigap Part B [id number] Self [id number] [place] [id number] Self [id number] [place] (pr) Medigap Part B [id number] Family Dependent [id number] Aig Claims ([place]) Workers Compensation [id number] Self [id number] Medicaid Medigap Part B [id number] Self [id number] [place] (Old) Medigap Part B [id number] Family Dependent [id number] [place] (Old) Medigap Part B [id number] Family Dependent [id number] Medicare [facility] Govt Servic Medicare Primary [id number] Self [id number] Umr ([place]) Medigap Part B [id number] Family Dependent [id number] [place] [id number] Self [id number] Umr (pr) Medigap Part B [id number] Family Dependent [id number] Medicare Dme Supplies Medigap Part B [id number] Self [id number] [place] [id number] Self [id number] [place] Med[place] Part [place] [id number] Self [id number] Umr (pr) Medigap Part B [id number] Family Dependent [id number] Medicare Dme Supplies Medigap Part B [id number] Self [id number] [place] Primary [id number] Self [id number] Medicaid Medigap Part B [id number] Self [id number] [place] (Old) Medigap Part B [id number] Family Dependent [id number] [place] (Old) Medigap Part B [id number] Family Dependent [id number] Medicare [facility] Govt Servic Medicare Primary [id number] Self [id number] ANSI-Medicare Part B [id number] ANSI-Commercial [id number] Medicaid Medigap Part B [id number] Self [id number] [place] (Old) Medigap Part B [id number] Family Dependent [id number] [place] (Old) Medigap Part B [id number] Family Dependent [id number] [place] Primary [id number] Self [id number] UMR [id number] SPO [id number] UMR UNAVAILABLE SPO UNA[place]ILA BLE ANSI-Medicare Part B [id number] ANSI-Commercial [id number] ANSI-Commercial [id number] ANSI-Medicare Part B [id number] ANSI-Commercial [id number] ANSI-Medicare Part B [id number] ANSI-Medicare Part B [id number] ANSI-Commercial [id number] ANSI-Medicare Part B [id number] ANSI-Commercial [id number] Medicaid Medigap Part B [id number] Self [id number] [place] (Old) Medigap Part B [id number] Family Dependent [id number] [place] (Old) Medigap Part B [id number] Family Dependent [id number] Medicare [place] Gov[place] Serv[place] Medicare Primary [id number] Self [id number] ANSI-Medicare Part B [id number] ANSI-Commercial [id number] [facility] [id number] HU2 [id number] MEDICARE [id number] SP [id number] ANSI-Medicare Part B [id number] ANSI-Commercial [id number] ANSI-Medicare Part B [id number] ANSI-Commercial [id number] [facility] [id number] HU2 [id number] Medicaid Medigap Part B [id number] Self [id number] [place] (Old) Medigap Part B [id number] Family Dependent [id number] [place] (Old) Medigap Part B [id number] Family Dependent [id number] [place] Medicare Primary [id number] Self [id number] Medicaid Medigap Part B [id number] Self [id number] [place] (Old) Medigap Part B [id number] Family Dependent [id number] [place] (Old) Medigap Part B [id number] Family Dependent [id number] Medicare [place] Medicare Primary [id number] Self [id number] ANSI-Commercial [id number] ANSI-Medicare Part B [id number] ANSI-Commercial [id number] ANSI-Medicare Part B [id number] ANSI-Medicare Part B [id number] ANSI-Commercial [id number] ANSI-Commercial [id number] ANSI-Medicare Part B [id number] ANSI-Commercial [id number] [facility] [id number] [facility] [id number] ANSI-Commercial [id number] ANSI-Commercial [id number] [facility] [id number] MEDICARE [id number] SP [id number] A [place] [id number] HU2 [id number] [place] [id number] HU2 [id number] [place] PPO O [id number] S [id number] MEDICARE C [id number] S [id number] A MEDICARE [id number] SP [id number] A [place] [id number] HU2 [id number] Medicaid Medigap Part B [id number] Self [id number] [place] (Old) Medigap Part B [id number] Family Dependent [id number] [place] (Old) Medigap Part B [id number] Family Dependent [id number] Medicare [place] Govt Serv[place] Medicare Primary [id number] Self [id number] Medicaid Medigap Part B [id number] Self [id number] Umr [place] (Before 10/20/17) Medigap Part B [id number] Family De pendent [id number] Umr [place] (Before 10/20/17) Medigap Part B [id number] Family De pendent [id number] Medicare [place] Govt Serv[place] Medicare Primary [id number] Self [id number] [place] [id number] SPO [id number] [facility] MEDICARE DIVISION [id number] S [id number] [place]IC[place] [id number] S [id number] [place] [id number] Self [id number] Medicare Dme Supplies Medigap Part B [id number] Self [id number] [place] [id number] Self [id number] [place] (pr) Medigap Part B [id number] Family Dependent [id number] [place] [id number] Self [id number] Medicare Dme Supplies Medigap Part B [id number] Self [id number] [place] Primary [id number] Self [id number] Medicaid Medigap Part B [id number] Self [id number] Umr [place] Ppo Medigap Part B [id number] Family Dependent [id number] Umr [place] Ppo Medigap Part B [id number] Family Dependent [id number] [place] Medicare Primary [id number] Self [id number] [place] [id number] Self [id number] Medicare Dme Supplies Medigap Part B [id number] Self [id number] [place] Primary [id number] Self [id number] [place] [id number] Self [id number] Medicare Dme Supplies Medigap Part B [id number] Self [id number] [place] Primary [id number] Self [id number] Medicaid Medigap Part B [id number] Self [id number] Umr [place] Ppo Medigap Part B [id number] Family Dependent [id number] Umr [place] Ppo Medigap Part B [id number] Family Dependent [id number] [place] Medicare Primary [id number] Self [id number] Medicaid Medigap Part B [id number] Self [id number] Umr [place] Ppo Medigap Part B [id number] Family Dependent [id number] Umr [place] Ppo Medigap Part B [id number] Family Dependent [id number] [place] Medicare Primary [id number] Self [id number] Medicaid Medigap Part B [id number] Self [id number] Umr [place] Ppo Medigap Part B [id number] Family Dependent [id number] Umr [place] Ppo Medigap Part B [id number] Family Dependent [id number] [place] Medicare Primary [id number] Self [id number] [place] [id number] HU2 [id number] [place] [id number] Self [id number] Medicare Dme Supplies Medigap Part B [id number] Self [id number] [place] [id number] Self [id number] [place] [id number] Self [id number] Medicare Dme Supplies Medigap Part B [id number] Self [id number] [place] Primary [id number] Self [id number] MEDICARE [id number] SP [id number] A [place] Medigap Part B [id number] Family Dependent [id number] [place] Primary [id number] Self [id number] Medicaid Medigap Part B [id number] Self [id number] [place] Ppo Medigap Part B [id number] Family Dependent [id number] [place] Ppo Medigap Part B [id number] Family Dependent [id number] [place] Primary [id number] Self [id number] Medicaid Medigap Part B [id number] Self [id number] [place] Ppo Medigap Part B [id number] Family Dependent [id number] [place] Ppo Medigap Part B [id number] Family Dependent [id number] Medicare [place] Medicare Primary [id number] Self [id number] [place] Medigap Part B [id number] Family Dependent [id number] [place] Primary [id number] Self [id number] [place] [id number] HU2 [id number] [place] [id number] Self [id number] Medicare Dme Supplies Medigap Part B [id number] Self [id number] [place] Primary [id number] Self [id number] Medicaid Medigap Part B [id number] Self [id number] [place] Ppo Medigap Part B [id number] Family Dependent [id number] [place] Ppo Medigap Part B [id number] Family Dependent [id number] [place] Primary [id number] Self [id number] [place] Medigap Part B [id number] Family Dependent [id number] [place] Primary [id number] Self [id number] [place] [id number] Self AS2 [id number] Medicare Dme Supplies Medigap Part B [id number] Self [id number] [place] Primary [id number] Self [id number] [place] [id number] Self AS2 [id number] Medicare Dme Supplies Medigap Part B [id number] Self [id number] [place] Primary [id number] Self [id number] [place] [id number] HU2 [id number] [place] [id number] Self [id number] Medicare Dme Supplies Medigap Part B [id number] Self [id number] [place] [id number] Self [id number] [place] [id number] Self [id number] Medicare Dme Supplies Medigap Part B [id number] Self [id number] [place] Primary [id number] Self [id number] Medicaid Medigap Part B [id number] Self [id number] [place] Medigap Part B [id number] Family Dependent [id number] [place] Med[place] Part B [id number] Family Dependent [id number] [place] [id number] Self [id number] [place] [id number] Self [id number] Medicare Dme Supplies Medigap Part B [id number] Self [id number] Medicare [facility] Medicare Primary [id number] Self [id number] Medicaid Medigap Part B [id number] Self [id number] [place] Medigap Part B [id number] Family Dependent [id number] [place] Med[place] Part B [id number] Family Dependent [id number] [place] Primary [id number] Self [id number] Aig Claims (WC) Workers Compensation [place] Part B Self [place] (pr) Medigap Part B Family Dependent Medicare Dme Supplies Medig[place] Part B [place] Self MEDICARE [id number] SP [id number] A Medicaid Medigap Part B 1 1 Self 1 1 [place] Medigap Part B 333 Family Dependent 333 Medicare [place] Primary Self POMCO U [id number] Spouse [id number] MEDICARE A [id number] Self [id number] A POMCO [id number] HU2 [id number] POM[place] [id number] HU2 [id number] [place] O [id number] U [id number] MEDICARE OUTPATIENT M [id number] S [id number] A [id number] O [id number] U [id number] M [id number] S [id number] A Problems, Conditions, and Diagnoses Code Display Name Description Problem Type Effective Dates Data Source(s) Z01.810 Preop cardiovascular exam Preop cardiovascular exam [id number] 07/07/2020 12:00:00 AM EST [facility] R94.31 Abnormal EKG Abnormal EKG [id number] 07/07/2020 12:00:00 A M EST [facility] N13.2 Hydronephrosis with renal and ureteral c alculous obstruction Hydronephrosis with renal and ureteral calculous obstruction Problem 05/24/2020 12:00:00 AM EST eCW1 ([facility]) [id number] Calculus of kidney and ureter Calculus of kidney and u reter Problem 06/23/2019 12:00:00 AM EST MARIA ([facility]) Z01.810 Encounter for preprocedural cardiovascul ar examination Encounter for preprocedural cardiovascul Diagnosis 07/09/2020 09:55:40 AM EST [facility] R94.31 Abnormal electrocardiogram [ECG] [EKG] A bnormal electrocardiogram (ECG) (EKG) Diagnosis 07/09/2020 09:55:40 AM EST [facility] Surgeries/Procedures Procedure Description Date Indications Data Source(s) ECG ROUTINE ECG W/LEAST 12 LDS W/I&R POCT AMB EKG Routine 07/09/2020 10:39 AM EST Abnormal EKG Preop cardiovascular exam 07/09/2020 03:39:00 PM EST Preop c ardiovascular examAbnormal EKG [facility] Preop cardiovascular exam Abnormal EKG ECG ROUTINE ECG W/LEAST 12 LDS W/I&R 06/20/2020 12:00: 00 AM EST MEDENT ([facility]) Mammogram 04/05/2020 12:00:00 AM EDT M EDENT ([facility]) Mammogram 04/05/2020 12:00:00 AM EDT M EDENT ([facility]) Office Visit, Est Pt., Level 2 FC 08/05/2019 12:00:00 AM EST eCW1 ([facility]) Office Visit, Est Pt., Level 3 PC 08/05/2019 12:00:00 AM EST eCW1 ([facility]) CYSTOSCOPY AND TREATMENT 08/05/2019 12:00:00 AM EST eCW1 ([facility]) Results ID Date Data Source [id number] 07/07/2020 10:00:00 AM EST [facility] Name Value Range Interpretation Code Description Data Bev rce(s) Supporting Document(s) SARS coronavirus [address] [facility] [place] This lab was ordered by [facility] and reported by [facility]. ID Date Data Source [id number] 06/20/2020 08:59:00 AM EST [facility] ([facility]) Name Value Range Interpretation Code Description Data Bev rce(s) Supporting Document(s) Bacteria identified in Urine by Culture Laboratory test result [facility] ([facility]) FULL REPORT IN LAB NOTES (eCW and [facility] ). ORGANISM 1: YEAST LIKE ORGANISM COLONY COUNT >100,000 ORGANISM 1: YEAST LIKE ORGANISM ID Date Data Source [id number] 06/20/2020 08:59:00 AM EST MED[facility] ([facility]) Name Value Range Interpretation Code Description Data Bev rce(s) Supporting Document(s) Appearance, Urine Laboratory test result [facility] ([facility]) PH,Urine 6.0 units 5.0-9.0 [facility]) Specific [place] Urine Auto 1.014 1.002-1.035 [facility] Color, Urine Laboratory test result [facility] NT ([facility] Protein, Urine Auto Laboratory test result [facility] ([facility]) Glucose, Urine (Ua) Auto Laboratory test result [facility] Urobilinogen, Urine Auto 0.2 mg/dL 0.0-2.0 [facility] Bilirubin, Urine Auto Laboratory test result [facility] ([facility]) Ketone, Urine Auto Laboratory test result [facility] Leukocyte Esterase, Urine Auto Laboratory test result [facility] Nitrite, Urine Auto Laboratory test result [facility] ([facility] Blood, Urine Blood Laboratory test result [facility] WBC, Urine Auto Laboratory test result 0-3 M [facility] ([facility]) RBC, Urine Auto Laboratory test result [facility]3 [facility] Mucus, Urine Laboratory test result [facility] NT ([facility]) Bacteria, Urine Auto Laboratory test result [facility] Squamous Epithelial Cell Ur AU 2 /HPF 0-6 [facility] Hyaline Cast, Urine Auto 0 /LPF 0-1 [facility] T ([facility] ID Date Data Source [id number] 06/20/2020 08:59:00 AM EST [facility] ([facility]) Name Value Range Interpretation Code Description Data Bev rce(s) Supporting Document(s) Inr 0.86 [facility]) THERAPUTIC HUMAN INR VALUES INDICATIONS NORMAL RANGES PROPHYLAXIS/TREATMENT OF: VENOUS THROMBOSIS 2.0-3.0 PULMONARY EMBOLISM 2.0-3.0 PREVENTION OF SYSTEMIC EMBOLISM FROM: TISSUE HEART VALVES 2.0-3.0 ACUTE MYOCARDIAL INFARCTION 2.0-3.0 VALVULAR HEART DISEASE 2.0-3.0 ATRIAL FIBRILLATION 2.0-3.0 MECHANICAL VALVES(HIGH RISK) 2.5-3.5 RECURRENT MYOCARDIAL INFARCTION 2.5-3.5 Prothrombin Time 11.9 s 12.5-14.3 [facility] ([facility]) Partial Thromboplastin Time 26.7 s 24.2-38.5 [facility] ([facility]) ID Date Data Source [id number] 06/20/2020 08:54:00 AM EST [facility] ([facility]) Name Value Range Interpretation Code Description Data Bev rce(s) Supporting Document(s) Thyrotropin [Units/volume] in Serum or Plasma by Detec tion limit <= 0.05 mIU/L 5.21 uIU/mL 0.36-3.74 [facility] ID Date Data Source [id number] 06/20/2020 08:54:00 AM EST [facility] ([facility]) Name Value Range Interpretation Code Description Data Bev rce(s) Supporting Document(s) Creatinine 0.9 mg/dL 0.6-1.3 [facility] Urea nitrogen [Mass/volume] in Serum or Plasma 17 mg/dL 7-18 [facility] ([facility]) Glucose [Mass/volume] in Serum or Plasma 97 mg/dL 74-99 [facility] ([facility]) 100-125 mg/dL PRE-DIABETES/FASTING >126 mg/dL DIABETES/FASTING Sodium [Moles/volume] in Serum or Plasma 142 meq/L 136-145 [facility] ([facility]) Potassium [Moles/volume] in Serum or Plasma 3.5 meq/L 3.5-5.1 [facility] ([facility]) Chloride [Moles/volume] in Serum or Plasma 105 meq/L 98-107 [facility] ([facility]) Glomerular filtration rate/1.73 sq M pre dicted among non-blacks [Volume Rate/Area] in Serum or Plasma by Creatinine-based formula (MDRD) Laboratory test result [facility] ([facility] ) Calcium [Mass/volume] in Serum or Plasma 9.4 mg/dL 8.5-10.1 [facility] ([facility]) Carbon dioxide, total [Moles/volume] in Serum or Plasma 25 meq/L 21 -32 [facility] ([facility]) Glomerular filtration rate/1.73 sq M pre dicted among blacks [Volume Rate/Area] in Serum or Plasma by Creatinine-based formula (MDRD) Laboratory test result [facility] ([facility]) <content>CHRONIC KIDNEY DISEASE STAGING PER NKF</content>
<content></content>
<content>STAGE I & II GFR >= 60 NORMAL TO MILDLY DECREASED</content>
<content>STAGE III GFR 30-59 MODERATELY DECREASED</content>
<content>STAGE IV GFR 15-29 SEVERELY DECREASED</content>
<content>STAGE V GFR <15 VERY LITTLE GFR LEFT</content>
<content>ESRD GFR <15 ON FABRICATION SUPERVISOR</content>
<content></content> ID Date Data Source [id number] 06/20/2020 08:54:00 AM EST [facility] ([facility]) Name Value Range Interpretation Code Description Data Bev rce(s) Supporting Document(s) Erythrocytes [#/volume] in Blood by Automated count 4.09 x10*6/UL 4.2 0-6.30 [facility] ([facility]) Hemoglobin [Mass/volume] in Blood 12.0 g/dL 12.0-18.0 [facility] ([facility]) Leukocytes [#/volume] in Blood by Automated count 10.0 x10*3/UL 4.1-1 0.9 [facility] ([facility]) Hematocrit [Volume Fraction] of Blood by Automated count 34.2 % 3 7.0-51.0 [facility] ([facility]) MCV 83.6 fL 80.0-97.0 [facility]) MCHC 35.1 g/dL 31.0-38.0 [facility]) MCH 29.4 pg 26.0-32.0 [facility]) Erythrocyte distribution width [Ratio] by Automated count 13.3 % 11.6-13.7 [facility] ([facility]) MPV 8.3 FL 7.8-11.0 [facility]) Lymph % 21.1 % 10.0-58.5 [facility]) Platelets [#/volume] in Blood by Automated count 395 x10*3/UL 140-440 [facility] ([facility]) Mid % 6.3 % 1.7-9.3 [facility]) Neut % 72.6 % 37.0-92.0 [facility]) Lymph # 2.1 x10*3/UL 0.6-4.1 [facility] ([facility]) Neut # 7.2 x10*3/UL 2.0-7.8 [facility] ([facility]) Mid # 0.7 x10*3/UL 0.1-0.6 [facility] ([facility]) ID Date Data Source [id number] 05/25/2020 09:55:00 PM EST [facility] Name Value Range Interpretation Code Description Data Bev rce(s) Supporting Document(s) SARS coronavirus 2 RNA [Presence] in Res piratory specimen by LIZZIE with probe detection [facility] This lab was ordered by [facility] a nd reported by [facility]. ID Date Data Source [id number] 05/25/2020 07:17:00 PM EST [facility] ([facility]) Name Value Range Interpretation Code Description Data Bev rce(s) Supporting Document(s) Appearance, Urine RFX Laboratory test [facility] PH,Urine RFX 7.0 units 5.0-9.0 [facility]) Color, Urine RFX Laboratory test result [facility]) Protein, Urine Auto RFX Laboratory test result [facility] ([facility]) Glucose, Urine (Ua) Auto RFX Laboratory test result [facility] ([facility]) Specific [place] Ur Auto RFX 1.005 1.002-1.035 [facility]) Urobilinogen, Urine Auto RFX 0.2 mg/dL 0.0-2.0 [facility]) Ketone, Urine Auto RFX Laboratory test result [facility] ([facility]) Nitrite, Urine Auto RFX Laboratory test result [facility]) Leukocyte Esterase Ur Auto RFX Laboratory test result [facility]) Bilirubin, Urine Auto RFX Laboratory test result [facility]) RBC, Urine Auto RFX 16 /HPF 0-3 [facility] ([facility]) WBC, Urine Auto RFX 9 /HPF 0-3 [facility] ([facility]) Blood, Urine Blood RFX Laboratory [facility] Bacteria, Urine Auto RFX Laboratory test result [facility] ([facility]) Mucus, Urine RFX Laboratory test result [facility] ([facility]) Squam Epithelial Cell Ur Aurfx 0 /HPF 0-6 [facility] ([facility]) Hyaline Cast, Urine Auto RFX 0 /LPF 0-1 M [facility] ([facility]) ID Date Data Source [id number] 05/25/2020 04:27:00 PM EST [facility] ([facility]) Name Value Range Interpretation Code Description Data Bev rce(s) Supporting Document(s) Red Blood Count 4.80 10 4.00-5.40 [facility] ([facility]) White Blood Count 12.6 10 4.0-10.0 [facility] ([facility]) Hematocrit 41.0 % 36.0-47.0 [facility] Hemoglobin 13.3 g/dL 12.0-15.5 [facility] Mean Corpuscular Volume 85.4 fl 80.0-96.0 [facility] Mean Corpuscular Hemoglobin 27.7 pg 27.0-33.0 [facility] ([facility]) Mean Corpuscular HGB Conc 32.4 g/dL 32.0-36.5 [facility] NT ([facility]) Red Cell Distribution Width 13.1 % 11.5-14.5 [facility] ([facility]) Platelet Count, Automated 277 10 150-450 [facility] NT ([facility]) Neutrophils % 78.0 % 36.0-66.0 [facility] ([facility]) Eos % 2.2 % 0.0-3.0 [facility]) Lymph % 12.4 % 24.0-44.0 [facility] ([facility]) [place] % 6.6 % 0.0-5.0 [facility] ([facility]) Nucleated Red Blood Cell % 0.0 % 0-0 [facility] ([facility]) Baso % 0.4 % 0.0-1.0 [facility] ([facility]) Immature Granulocyte % 0.4 % 0-3.0 [facility] ([facility]) Lymph # 1.6 10 1.5-5.0 [facility] ([facility]) Neutrophils # 9.8 10 1.5-8.5 [facility] ([facility]) [place] # 0.8 10 0.0-0.8 [facility] ([facility]) Baso # 0.1 10 0.0-0.2 [facility] ([facility]) Eos # 0.3 10 0.0-0.5 [facility] ([facility]) ID Date Data Source [id number] 05/25/2020 04:27:00 PM EST [facility] ([facility]) Name Value Range Interpretation Code Description Data Bev rce(s) Supporting Document(s) Alt/SGPT 34 U/L 12-78 [facility] ([facility]) Ast/Sgot 27 U/L 7-37 [facility] ([facility]) Bilirubin,Total 0.4 mg/dL 0.2-1.0 [facility] ([facility]) Alkaline Phosphatase 131 U/L 45-117 [facility] ([facility]) Total Protein 6.9 GM/DL 6.4-8.2 [facility] ([facility]) Bilirubin,Direct Laboratory test result 0.0-0.2 [facility] ([facility]) Albumin 4.0 GM/DL 3.2-5.2 [facility] ([facility]) Albumin/Globulin Ratio 1.4 1.2-2.2 [facility] ([facility]) ID Date Data Source [id number] 05/25/2020 04:27:00 PM EST [facility] ([facility]) Name Value Range Interpretation Code Description Data Bev rce(s) Supporting Document(s) Glucose, Fasting 137 mg/dL 70-100 [facility] ([facility]) Glomerular Filtration Rate 59.6 [facility] ([facility]) <content>Units are mL/min/1.73 m2</content>
<content></content>
<content>Chronic Kidney Disease Staging per NKF:</content>
<content></content>
<content>Stage I & II GFR >=60 Normal to Mildly Decreased</content>
<content>Stage III GFR 30- 59 Moderately Decreased</content>
<content>Stage IV GFR 15-29 Severely Decreased</content>
<content>Stage V GFR <15 Very Little GFR Left</content>
<content>ESRD GFR <15 on FABRICATION SUPERVISOR</content>
<content></content> Blood Urea Nitrogen 21 mg/dL 7-18 [facility] ([facility]) Creatinine For GFR 0.99 mg/dL 0.55-1.30 [facility] ([facility]) Sodium Level 140 meq/L 136-145 [facility] ([facility]) Potassium Serum 4.3 meq/L 3.5-5.1 [facility] ([facility]) Testing was performed on a SLIGHTLY hemo lyzed specimen. Suggest recollection of specimen for more accurate test results. Chloride Level 107 meq/L 98-107 [facility] ([facility]) Calcium Level 9.2 mg/dL 8.8-10.2 [facility] ([facility]) Carbon Dioxide Level 25 meq/L 21-32 [facility] ([facility]) Anion Gap 8 meq/L 8-16 [facility] ([facility]) ID Date Data Source [id number] 05/25/2020 04:27:00 PM EST [facility] ([facility]) Name Value Range Interpretation Code Description Data Bev rce(s) Supporting Document(s) Lipoprotein lipase [Enzymatic activity/volume] in Serum or P lasma 163 U/L 73-393 [facility] ([facility]) ID Date Data Source [id number] 05/25/2020 04:27:00 PM EST [facility] ([facility]) Name Value Range Interpretation Code Description Data Bev rce(s) Supporting Document(s) CPK Creatine Phosphokinase 72 U/L 26-192 [facility] ([facility]) Testing was performed on a SLIGHTLY hemo lyzed specimen. Suggest recollection of specimen for more accurate test results. CK-MB Value Mass Laboratory test result [facility]) Troponin I Laboratory test result [facility] <content>Troponin I Reference Interval f or Siemens [place] LOCI:</content>
<content></content>
<content>99th Percentile= 0.00-0.045 ng/ml</content>
<content></content>
<content>Risk Stratification:</content>
<content><= 0.10 ng/ml Decreased Risk for Adverse Clinical</content>
<content>Events.</content>
<content>0.10-1.50 ng/ml Increased Risk for Adverse Clinical</content>
<content>Events. Evaluation of additional</content>
<content>criterion and/or repeat testing in 2-6</content>
<content>hours is suggested to rule out myocardial</content>
<content>damage.</content>
<content>>= 1.50 ng/ml Indicative of Myocardial Injury.</content>
<content></content> MB/CK Relative Index 1.39 [facility] ([facility]) <content>DIAGNOSIS CRITERIA</content>
<content>MMB ng/ml Relative Index (RI)</content>
<content>NON-AMI < or = 5 N/A</content>
<content>KOHLER ZONE > 5 < or = 4</content>
<content>AMI > 5 > 4</content>
<content></content> ID Date Data Source [id number] 05/22/2020 03:04:00 PM [facility] Name Value Range Interpretation Code Description Data Bev rce(s) Supporting Document(s) Reflex Urine Culture Laboratory test result [facility] ([facility]) FULL REPORT IN LAB NOTES (eCW and [facility] ). NO GROWTH ID Date Data Source [id number] 05/22/2020 03:04:00 PM EST [facility] ([facility]) Name Value Range Interpretation Code Description Data Bev rce(s) Supporting Document(s) Lipoprotein lipase [Enzymatic activity/volume] in Serum or P lasma 156 U/L 73-393 [facility] ([facility]) ID Date Data Source [id number] 05/22/2020 03:04:00 PM EST [facility] Name Value Range Interpretation Code Description Data Bev rce(s) Supporting Document(s) Glucose, Fasting 129 mg/dL 70-100 [facility] ([facility]) Creatinine For GFR 0.97 mg/dL 0.55-1.30 [facility] ([facility]) Blood Urea Nitrogen 18 mg/dL 7-18 [facility] ([facility]) Sodium Level 140 meq/L 136-145 [facility] ([facility]) Potassium Serum 4.2 meq/L 3.5-5.1 [facility] ([facility]) Glomerular Filtration Rate Laboratory test result [facility] <content>Units are mL/min/1.73 m2</content>
<content></content>
<content>Chronic Kidney Disease Staging per NKF:</content>
<content></content>
<content>Stage I & II GFR >=60 Normal to Mildly Decreased</content>
<content>Stage III GFR 30-59 Moderately Decreased</content>
<content>Stage IV GFR 15-29 Severely Decreased</content>
<content>Stage V GFR <15 Very Little GFR Left</content>
<content>ESRD GFR <15 on FABRICATION SUPERVISOR</content>
<content></content> Anion Gap 4 meq/L 8-16 [facility] ([facility]) Chloride Level 110 meq/L 98-107 [facility] ([facility]) Carbon Dioxide Level 26 meq/L 21-32 [facility] ([facility]) Calcium Level 9.1 mg/dL 8.8-10.2 [facility] ([facility]) ID Date Data Source [id number] 05/22/2020 03:04:00 PM EST [facility] ([facility]) Name Value Range Interpretation Code Description Data Bev rce(s) Supporting Document(s) Alt/SGPT 27 U/L 12-78 [facility] ([facility]) Ast/Sgot 31 U/L 7-37 [facility] ([facility]) Bilirubin,Direct 0.1 mg/dL 0.0-0.2 [facility] ([facility]) Alkaline Phosphatase 123 U/L 45-117 [facility] ([facility]) Bilirubin,Total 0.3 mg/dL 0.2-1.0 [facility] ([facility]) Total Protein 7.1 GM/DL 6.4-8.2 [facility] ([facility]) Albumin 4.0 GM/DL 3.2-5.2 [facility] ([facility]) Albumin/Globulin Ratio 1.3 1.2-2.2 [facility] ([facility]) ID Date Data Source [id number] 05/22/2020 03:04:00 PM EST [facility] ([facility]) Name Value Range Interpretation Code [facility] Document(s) Color, Urine RFX Laboratory test result [facility] ([facility]) Appearance, Urine RFX Laboratory test result [facility] ([facility]) Specific [place] Ur Auto RFX 1.014 1.002-1.035 [facility] ([facility]) PH,Urine RFX 6.0 units 5.0-9.0 [facility] ([facility]) Protein, Urine Auto RFX Laboratory test result [facility] ([facility]) Glucose, Urine (Ua) Auto RFX Laboratory test result [facility] ([facility]) Ketone, Urine Auto RFX Laboratory test result [facility] ([facility]) Bilirubin, Urine Auto RFX Laboratory test result [facility] ([facility]) Urobilinogen, Urine Auto RFX 0.2 mg/dL 0.0-2.0 [facility] ([facility]) Blood, Urine Blood RFX Laboratory test result [facility] ([facility]) Nitrite, Urine Auto RFX Laboratory test result [facility] ([facility]) Leukocyte Esterase Ur Auto RFX Laboratory test result [facility] ([facility]) WBC, Urine Auto RFX 77 /HPF 0-3 [facility] ([facility]) RBC, Urine Auto RFX Laboratory test result 0-3 [facility] ([facility]) Mucus, Urine RFX Laboratory test result [facility] ([facility]) Squam Epithelial Cell Ur Aurfx 3 /HPF 0-6 [facility] ([facility]) Bacteria, Urine Auto RFX Laboratory test result [facility] ([facility]) Hyaline Cast, Urine Auto RFX 0 /LPF 0-1 [facility] ([facility]) ID Date Data Source [id number] 05/22/2020 03:04:00 PM EST [facility] ([facility]) Name Value Range Interpretation Code Description Data Bev rce(s) Supporting Document(s) White Blood Count 11.0 10 4.0-10.0 [facility] ([facility]) Hemoglobin 13.7 g/dL 12.0-15.5 [facility] Red Blood Count 4.91 10 4.00-5.40 [facility] ([facility]) Hematocrit 42.7 % 36.0-47.0 [facility] Mean Corpuscular Hemoglobin 27.9 pg 27.0-33.0 [facility] ([facility]) Mean Corpuscular Volume 87.0 fl 80.0-96.0 [facility] ([facility]) Platelet Count, Automated 298 10 150-450 [facility] ([facility]) Red Cell Distribution Width 13.4 % 11.5-14.5 [facility] ([facility]) Mean Corpuscular HGB Conc 32.1 g/dL 32.0-36.5 [facility] ([facility]) Lymph % 27.2 % 24.0-44.0 [facility]) Neutrophils % 63.0 % 36.0-66.0 [facility] ([facility]) Eos % 1.6 % 0.0-3.0 [facility] ([facility]) [place] % 7.2 % 0.0-5.0 [facility] ([facility]) Baso % 0.5 % 0.0-1.0 [facility] ([facility]) Nucleated Red Blood Cell % 0.0 % 0-0 [facility] ([facility]) Immature Granulocyte % 0.5 % 0-3.0 [facility] ([facility]) Neutrophils # 6.9 10 1.5-8.5 [facility] ([facility]) Lymph # 3.0 10 1.5-5.0 [facility] ([facility]) [place] # 0.8 10 0.0-0.8 [facility] ([facility]) Baso # 0.1 10 0.0-0.2 [facility] ([facility]) Eos # 0.2 10 0.0-0.5 [facility] ([facility]) ID Date Data Source [id number] 04/12/2020 01:40:00 PM EDT [facility] ([facility]) Name Value Range Interpretation Code Description Data Bev rce(s) Supporting Document(s) Thyrotropin [Units/volume] in Serum or Plasma by Detec tion limit <= 0.05 mIU/L 4.56 uIU/mL 0.36-3.74 [facility] ([facility] ) Thyroxine (T4) free [Mass/volume] in Serum or Plasma 1.03 ng/dL 0.76- 1.46 [facility] ([facility] ID Date Data Source [id number] 04/12/2020 01:40:00 PM EDT [facility] ([facility] Name Value Range Interpretation Code Description Data Bev rce(s) Supporting Document(s) Urea nitrogen [Mass/volume] in Serum or Plasma 17 mg/dL 7-18 [facility] ([facility]) Glucose [Mass/volume] in Serum or Plasma 125 mg/dL 74-99 [facility] ([facility]) 100-125 mg/dL PRE-DIABETES/FASTING >126 mg/dL DIABETES/FASTING Sodium [Moles/volume] in Serum or Plasma 142 meq/L 136-145 [facility] ([facility]) Creatinine 0.9 mg/dL 0.6-1.3 [facility] ([facility]) Potassium [Moles/volume] in Serum or Plasma 3.3 meq/L 3.5-5.1 [facility] ([facility]) NOTE: RESULT VERIFIED. Chloride [Moles/volume] in Serum or Plasma 106 meq/L 98-107 [facility] ([facility]) Carbon dioxide, total [Moles/volume] in Serum or Plasma 25 meq/L 21 -32 [facility] ([facility]) Alkaline phosphatase isoenzyme [Units/volume] in Serum or Pl asma 107 mg/dL 46-116 [facility] ([facility]) Calcium [Mass/volume] in Serum or Plasma 9.1 mg/dL 8.5-10.1 [facility] ([facility]) Total Bilirubin 0.3 mg/dL 0.2-1.0 [facility] ([facility]) Alanine aminotransferase [Enzymatic activity/volume] in Seru m or Plasma 25 U/L 12-78 [facility] ([facility]) Albumin [Mass/volume] in Serum or Plasma 3.9 g/dL 3.4-5.0 [facility] ([facility]) Aspartate aminotransferase [Enzymatic activity/volume] in Serum or Plasma 14 U/L 15-37 [facility] ([facility] ) A/G Ratio 1.34 CALC 1.00-1.90 [facility] ([facility]) Proteinase 3 Ab [Units/volume] in Serum 6.8 g/dL 6.4-8.2 [facility] ([facility]) Glomerular filtration rate/1.73 sq M pre dicted among non-blacks [Volume Rate/Area] in Serum or Plasma by Creatinine-based formula (MDRD) Laboratory test result [facility] Glomerular filtration rate/1.73 sq M pre dicted among blacks [Volume Rate/Area] in Serum or Plasma by Creatinine-based formula (MDRD) Laboratory test result [facility] ([facility]) <content>CHRONIC KIDNEY DISEASE STAGING PER NKF</content>
<content></content>
<content>STAGE I & II GFR >= 60 NORMAL TO MILDLY DECREASED</content>
<content>STAGE III GFR 30-59 MODERATELY DECREASED</content>
<content>STAGE IV GFR 15-29 SEVERELY DECREASED</content>
<content>STAGE V GFR <15 VERY LITTLE GFR LEFT</content>
<content>ESRD GFR <15 ON FABRICATION SUPERVISOR</content>
<content></content> ID Date Data Source [id number] 04/12/2020 01:40:00 PM EDT [facility]) Name Value Range Interpretation Code Description Data Bev rce(s) Supporting Document(s) Hemoglobin A1c/Hemoglobin.total in Blood 5.6 % [facility] ([facility]) Lab Result Notes: Pre-Diabetes 5.7 - 6.4 % Diabetes = or > 6.5% Glucose mean value [Mass/volume] in Blood Estimated fr om glycated hemoglobin 114 mg/dL 60-110 [facility] ([facility] ) ID Date Data Source [id number] 04/12/2020 01:40:00 PM EDT [facility] ([facility] Name Value Range Interpretation Code Description Data Bev rce(s) Supporting Document(s) Leukocytes [#/volume] in Blood by Automated count 7.7 x10*3/UL 4.1-10 .9 [facility] ([facility]) Hemoglobin [Mass/volume] in Blood 13.8 g/dL 12.0-18.0 [facility] ([facility]) Erythrocytes [#/volume] in Blood by Automated count 4.74 x10*6/UL 4.2 0-6.30 [facility] ([facility]) Hematocrit [Volume Fraction] of Blood by Automated count 40.3 % 3 7.0-51.0 [facility] ([facility]) MCH 29.0 pg 26.0-32.0 [facility] MCV 84.9 fL 80.0-97.0 [facility] ([facility]) MCHC 34.2 g/dL 31.0-38.0 [facility] ([facility]) Platelets [#/volume] in Blood by Automated count 323 x10*3/UL 140-440 [facility] ([facility]) Erythrocyte distribution width [Ratio] by Automated count 13.7 % 11.6-13.7 [facility] ([facility]) Lymph % 32.1 % 10.0-58.5 [facility] ([facility]) MPV 8.2 FL 7.8-11.0 [facility] ([facility]) Mid % 7.7 % 1.7-9.3 [facility] ([facility]) Lymph # 2.5 x10*3/UL 0.6-4.1 [facility] ([facility]) Neut % 60.2 % 37.0-92.0 [facility] ([facility]) Mid # 0.6 x10*3/UL 0.1-0.6 [facility] ([facility]) Neut # 4.6 x10*3/UL 2.0-7.8 [facility] ([facility]) ID Date Data Source [id number] 04/12/2020 01:40:00 PM EDT [facility] ([facility]) Name Value Range Interpretation Code Description Data Bev rce(s) Supporting Document(s) Hemoglobin A1c/Hemoglobin.total in Blood Laboratory test result [facility]) ID Date Data Source [id number] 12/08/2019 02:05:00 PM EDT [facility] Name Value Range Interpretation Code Description Data Bev rce(s) Supporting Document(s) Thyrotropin [Units/volume] in Serum or Plasma by Detec tion limit <= 0.05 mIU/L 2.86 uIU/mL 0.36-3.74 [facility] ([facility] ) ID Date Data Source [id number] 12/08/2019 02:05:00 PM EDT [facility] Name Value Range Interpretation Code Description Data Bev rce(s) Supporting Document(s) Glucose [Mass/volume] in Serum or Plasma 135 mg/dL 74-99 [facility] ([facility]) 100-125 mg/dL PRE-DIABETES/FASTING >126 mg/dL DIABETES/FASTING Sodium [Moles/volume] in Serum or Plasma 143 meq/L 136-145 [facility] ([facility]) Urea nitrogen [Mass/volume] in Serum or Plasma 15 mg/dL 7-18 [facility] ([facility]) Creatinine 0.8 mg/dL 0.6-1.3 [facility] ([facility]) Potassium [Moles/volume] in Serum or Plasma 3.3 meq/L 3.5-5.1 [facility] ([facility]) NOTE: RESULT VERIFIED. Chloride [Moles/volume] in Serum or Plasma 107 meq/L 98-107 [facility] ([facility]) Carbon dioxide, total [Moles/volume] in Serum or Plasma 27 meq/L 21 -32 [facility] ([facility]) Calcium [Mass/volume] in Serum or Plasma 9.0 mg/dL 8.5-10.1 [facility] ([facility]) Glomerular filtration rate/1.73 sq M pre dicted among non-blacks [Volume Rate/Area] in Serum or Plasma by Creatinine-based formula (MDRD) Laboratory test result [facility] ([facility] ) Glomerular filtration rate/1.73 sq M pre dicted among blacks [Volume Rate/Area] in Serum or Plasma by Creatinine-based formula (MDRD) Laboratory test result [facility] ([facility]) <content>CHRONIC KIDNEY DISEASE STAGING PER NKF</content>
<content></content>
<content>STAGE I & II GFR >= 60 NORMAL TO MILDLY DECREASED</content>
<content>STAGE III GFR 30-59 MODERATELY DECREASED</content>
<content>STAGE IV GFR 15-29 SEVERELY DECREASED</content>
<content>STAGE V GFR <15 VERY LITTLE GFR LEFT</content>
<content>ESRD GFR <15 ON FABRICATION SUPERVISOR</content>
<content></content> ID Date Data Source [id number] 07/28/2019 02:46:00 PM EST [facility] Name Value Range Interpretation Code Description Data Bev rce(s) Supporting Document(s) Appearance, Urine RFX Laboratory test result [facility] ([facility]) Specific [place] Ur Auto RFX 1.015 1.002-1.035 [facility] ([facility]) Color, Urine RFX Laboratory test result [facility] ([facility]) PH,Urine RFX 5.0 units 5.0-9.0 [facility] ([facility]) Urobilinogen, Urine Auto RFX 0.2 mg/dL 0.0-2.0 [facility] ([facility]) Ketone, Urine Auto RFX Laboratory test result [facility] ([facility]) Protein, Urine Auto RFX Laboratory test result [facility] ([facility]) Glucose, Urine (Ua) Auto RFX Laboratory test result [facility] ([facility]) Leukocyte Esterase Ur Auto RFX Laboratory test result [facility] ([facility]) Bilirubin, Urine Auto RFX Laboratory test result [facility] ([facility]) Nitrite, Urine Auto RFX Laboratory test result [facility] ([facility]) WBC, Urine Auto RFX 154 /HPF 0-3 [facility] Blood, Urine Blood RFX Laboratory test result [facility] ([facility]) RBC, Urine Auto RFX 75 /HPF 0-3 [facility] Bacteria, Urine Auto RFX Laboratory test result [facility] ([facility]) Squam Epithelial Cell Ur Aurfx 3 /HPF 0-6 [facility] ([facility]) Mucus, Urine RFX Laboratory test result [facility] ([facility]) Hyaline Cast, Urine Auto RFX 0 /LPF 0-1 [facility]) ID Date Data Source [id number] 07/28/2019 02:34:00 PM EST [facility] ([facility]) Name Value Range Interpretation Code Description Data Bev rce(s) Supporting Document(s) Lactate [Mass/volume] in Serum or Plasma 0.9 mmol/L 0.4-2.0 [facility] ([facility]) Y/N query for Sepsis Lactate Rule: Y ID Date Data Source [id number] 07/28/2019 02:34:00 PM EST [facility] ([facility]) Name Value Range Interpretation Code Description Data Bev rce(s) Supporting Document(s) Amylase [Enzymatic activity/volume] in Serum or Plasma 22 U/L 25- 115 [facility] ([facility]) Lipoprotein lipase [Enzymatic activity/volume] in Serum or Plasm a 94 U/L 73-393 [facility] ([facility]) ID Date Data Source [id number] 07/28/2019 02:34:00 PM EST [facility] ([facility]) Name Value Range Interpretation Code Description Data Bev rce(s) Supporting Document(s) Glucose, Fasting 97 mg/dL 70-100 [facility] ([facility]) Blood Urea Nitrogen 13 mg/dL 7-18 [facility] ([facility]) Glomerular Filtration Rate Laboratory test result [facility] ([facility]) <content>Units are mL/min/1.73 m2</content>
<content></content>
<content>Chronic Kidney Disease Staging per NKF:</content>
<content></content>
<content>Stage I & II GFR >=60 Normal to Mildly Decreased</content>
<content>Stage III GFR 30-59 Moderately Decreased</content>
<content>Stage IV GFR 15-29 Severely Decreased</content>
<content>Stage V GFR <15 Very Little GFR Left</content>
<content>ESRD GFR <15 on FABRICATION SUPERVISOR</content>
<content></content> Creatinine For GFR 0.62 mg/dL 0.55-1.30 [facility] ([facility]) Potassium Serum 3.8 meq/L 3.5-5.1 [facility] ([facility]) Carbon Dioxide Level 25 meq/L 21-32 [facility] ([facility]) Sodium Level 141 meq/L 136-145 [facility] ([facility]) Chloride Level 109 meq/L 98-107 [facility] ([facility]) Anion Gap 7 meq/L 8-16 [facility] ([facility]) Calcium Level 9.0 mg/dL 8.8-10.2 [facility] ([facility]) ID Date Data Source [id number] 07/28/2019 02:34:00 PM EST [facility] ([facility]) Name Value Range Interpretation Code Description Data Bev rce(s) Supporting Document(s) Ast/Sgot 8 U/L 7-37 [facility] ([facility]) Bilirubin,Direct 0.1 mg/dL 0.0-0.2 [facility] ([facility]) Bilirubin,Total 0.5 mg/dL 0.2-1.0 [facility] ([facility]) Alt/SGPT 22 U/L 12-78 [facility] ([facility]) Alkaline Phosphatase 91 U/L 45-117 [facility] ([facility]) Albumin/Globulin Ratio 1.23 1.00-1.93 [facility] ([facility]) Albumin 3.7 GM/DL 3.2-5.2 [facility] ([facility]) Total Protein 6.7 GM/DL 6.4-8.2 [facility] ([facility]) ID Date Data Source [id number] 07/28/2019 02:34:00 PM EST [facility] ([facility]) Name Value Range Interpretation Code Description Data [facility](s) Supporting Document(s) CPK Creatine Phosphokinase 19 U/L 26-192 [facility] ([facility]) CK-MB Value Mass Laboratory test result [facility] ([facility]) MB/CK Relative Index 5.26 [facility] ([facility]) <content>DIAGNOSIS CRITERIA</content>
<content>MMB ng/ml Relative Index (RI)</content>
<content>NON-AMI < or = 5 N/A</content>
<content>KOHLER ZONE > 5 < or = 4</content>
<content>AMI > 5 > 4</content>
<content></content> Troponin I Laboratory test result [facility] ([facility]) <content>Troponin I Reference Interval f or Siemens [place] LOCI:</content>
<content></content>
<content>99th Percentile= 0.00-0.045 ng/ml</content>
<content></content>
<content>Risk Stratification:</content>
<content><= 0.10 ng/ml Decreased Risk for Adverse Clinical</content>
<content>Events.</content>
<content>0.10-1.50 ng/ml Increased Risk for Adverse Clinical</content>
<content>Events. Evaluation of additional</content>
<content>criterion and/or repeat testing in 2-6</content>
<content>hours is suggested to rule out myocardial</content>
<content>damage.</content>
<content>>= 1.50 ng/ml Indicative of Myocardial Injury.</content>
<content></content> ID Date Data Source [id number] 07/28/2019 02:34:00 PM EST [facility] ([facility]) Name Value Range Interpretation Code Description Data Bev rce(s) Supporting Document(s) aPTT in Blood by Coagulation assay 31.1 s 25.0-38.4 [facility] ([facility]) ID Date Data Source [id number] 07/28/2019 02:34:00 PM EST [facility] ([facility]) Name Value Range Interpretation Code Description Data Bev rce(s) Supporting Document(s) Prothrombin Time 13.5 s 11.8-14.0 [facility] ([facility]) Inr 1.06 [facility]) THERAPUTIC HUMAN INR VALUES INDICATIONS NORMAL RANGES PROPHYLAXIS/TREATMENT OF: VENOUS THROMBOSIS 2.0-3.0 PULMONARY EMBOLISM 2.0-3.0 PREVENTION OF SYSTEMIC EMBOLISM FROM: TISSUE HEART VALVES 2.0-3.0 ACUTE MYOCARDIAL INFARCTION 2.0-3.0 VALVULAR HEART DISEASE 2.0-3.0 ATRIAL FIBRILLATION 2.0-3.0 MECHANICAL VALVES(HIGH RISK) 2.5-3.5 RECURRENT MYOCARDIAL INFARCTION 2.5-3.5 ID Date Data Source [id number] 07/28/2019 02:34:00 PM EST [facility] ([facility]) Name Value Range Interpretation Code Description Data Bev rce(s) Supporting Document(s) Red Blood Count 4.54 10 4.00-5.40 [facility] ([facility]) White Blood Count 12.6 10 4.0-10.0 [facility] ([facility]) Mean Corpuscular Volume 85.9 fl 80.0-96.0 [facility] ([facility]) Hematocrit 39.0 % 36.0-47.0 [facility] Mean Corpuscular Hemoglobin 28.0 pg 27.0-33.0 [facility] ([facility]) Hemoglobin 12.7 g/dL 12.0-15.5 [facility] Mean Corpuscular HGB Conc 32.6 g/dL 32.0-36.5 [facility] ([facility]) Red Cell Distribution Width 13.3 % 11.5-14.5 [facility] ([facility]) Platelet Count, Automated 285 10 150-450 [facility] ([facility]) Eos % 1.0 % 0.0-3.0 [facility]) Neutrophils % 73.9 % 36.0-66.0 [facility] ([facility]) [place] % 9.0 % 0.0-5.0 [facility]) Lymph % 15.3 % 24.0-44.0 [facility]) Baso % 0.5 % 0.0-1.0 [facility]) Nucleated Red Blood Cell % 0.0 % 0-0 [facility] ([facility]) Immature Granulocyte % 0.3 % 0-3.0 [facility] ([facility]) Lymph # 1.9 10 1.5-5.0 [facility]) Eos # 0.1 10 0.0-0.5 [facility]) Neutrophils # 9.3 10 1.5-8.5 [facility] ([facility]) [place] # 1.1 10 0.0-0.8 [facility]) Baso # 0.1 10 0.0-0.2 [facility]) ID Date Data Source [id number] 07/25/2019 08:46:00 AM EST [facility] ([facility]) Name Value Range Interpretation Code Description Data Bev rce(s) Supporting Document(s) Laboratory test finding (navigational concept) Laboratory test result [facility] ([facility]) . Not provided Weight 100.3 mg [facility] ([facility]) Size Laboratory test result [facility] ([facility]) Specimen received as fragments. Color Laboratory test result [facility] ([facility]) Composition Laboratory test result [facility] ([facility]) . Percentage (Represents the % composition) Laboratory test finding (navigational concept) Laboratory test result [facility] ([facility]) CA Oxalate Dihy 60 % [facility] ([facility]) MG Jeyson Phos Laboratory test result [facility] ([facility]) Ca Ox Monohydrate 40 % [facility] ([facility]) CA Phosphate Laboratory test result [facility] ([facility]) Laboratory test finding (navigational concept) Laboratory test result [facility] ([facility]) Ua Dihydrate Laboratory test result [facility] ([facility]) Uric Acid Laboratory test result [facility] ([facility]) Amm Acid Urate Laboratory test result [facility] ([facility]) Na Acid Urate Laboratory test result [facility] ([facility]) Laboratory test finding (navigational concept) Laboratory test result [facility] ([facility]) CA [place] Phos Laboratory test result [facility] ([facility]) Laboratory test finding (navigational concept) Laboratory test result [facility] ([facility]) Cystine Laboratory test result [facility] ([facility]) Cholesterol Laboratory test result [facility] ([facility]) CA Bilirubinate Laboratory test result [facility] ([facility]) CA Carbonate Laboratory test result [facility] ([facility]) Bilirubin Laboratory test result [facility] ([facility]) Laboratory test finding (navigational concept) Laboratory test result [facility] ([facility]) Laboratory test finding (navigational concept) Laboratory test result [facility] ([facility]) Laboratory test finding (navigational concept) Laboratory test result [facility] ([facility]) Triamterene Laboratory test result [facility] ([facility]) Newberyite Laboratory test result [facility] ([facility]) Dried Blood Laboratory test result [facility] ([facility]) Laboratory test finding (navigational concept) Laboratory test result [facility] ([facility]) Cell Material Laboratory test result [facility] ([facility]) Comment Laboratory test result [facility] ([facility]) Comment Laboratory test result [facility] ([facility]) . Physician questions regarding Calculi Analysis contact [facility] at: [phone]. Comment Laboratory test result [facility] ([facility]) Please Note: Laboratory test result [facility] ([facility]) . Calculi report will follow via computer, mail or pain management physician delivery. Disclaimer Laboratory test result [facility] ([facility]) . This test was developed and its performance characteristics determined by [employer]. It has not been cleared or approved by the Food and Drug Administration. Laboratory test finding (navigational concept) Laboratory test result [facility] ([facility]) . Photograph will follow under a separate cover PDF Laboratory test result [facility] ([facility]) Performed at: [address] [place] [id number] [employer] Operator: Flakito Shelley MD, Phone: [phone] ID Date Data Source [id number] 07/25/2019 07:14:00 AM EST [facility] ([facility]) Name Value Range Interpretation Code Description Data Bev rce(s) Supporting Document(s) Bedside Glucose 103 mg/dL 80-115 [facility] ([facility] Doctor Notified ID Date Data Source [id number] 07/19/2019 10:34:00 AM EST [facility] ([facility]) Name Value Range Interpretation Code Description Data Bev rce(s) Supporting Document(s) Bacteria identified in Urine by Culture Laboratory test result [facility] ([facility]) <content>FULL REPORT IN LAB NOTES ([facility]).</content>
<content></content>
<content>ORGANISM 1: E.COLI ESBL</content>
<content></content>
<content>COLONY COUNT 70,000</content>
<content></content>
<content></content>
<content>OR GANISM 1: E.COLI ESBL</content>
<content></content>
<content>E.COLI ESBL: REACTION</content>
<content>EXTD BRD SPCTRM BETA LACTAMASE IV NEGATIVE FOR ESBL</content>
<content>TRIMETHOPRIM/SULFAMETHOXAZOLE IV 160mg TMP & 800mg SMXq6h >=320 R</content>
<content>TRIMETHOPRIM/SULFAMETHOXAZOLE PO Bactrim DS Bid >=320 R</content>
<content>AMPICILLIN IV 500mg q6h >=32 R</content>
<content>AMPICILLIN PO 500mg q6h fasting >=32 R</content>
<content> GENTAMICIN IV 80mg q8h 4 S</content>
<content>NITROFURANTOIN PO 100mg BID <=16 S</content>
<content>CEFAZOLIN IV 1gm q8h >=64 R</content>
<content>LEVOFLOXACIN IV 500mg qd >=8 R</content>
<content>LEVOFLOXACIN PO 250mg qd >=8 R</content>
<content>LEVOFLOXACIN PO 500mg qd >=8 R</content>
<content>TOBRAMYCIN IV 80mg q8h >=16 R</content>
<content>CEFTRIAXONE IV 1gm q24h >=64 R</content>
<content>CEFTAZIDIME IV 1gm q8h <=1 R</content>
<content>AMPICILLIN/SULBACTAM IV 1.5g q6h >=32 R</content>
<content>PIPERACILLIN/TAZOBACTAM IV 2.25 gm q6h <=4 S</content>
<content>AZTREONAM IV 1gm q8h 4 R</content>
<content>ERTAPENEM IV 1gm qd <=0.5 S</content>
<content>MEROPENEM IV 1 gm q8h <=0.25 S</content>
<content>MEROPENEM IV 500 mg q8h <=0.25 S</content>
<content>TIGECYCLINE IV 50mg q12h <=0.5 S</content>
<content>CEFEPIME IV 1 gm q12h 2 R</content>
<content>CEFEPIME IV 2 gm q12h 2 R</content>
<content>The presence of an ESBL-producing organism in a clinical infection can</content>
<content>result in treatment failure if one of the following classes of drugs is</content>
<content>used. Extended-spectrum (third generation) cephalosporins (ceftazidime,</content>
<content>cefotaxime and ceftriaxone) and monobactams (aztreonam) but do not affect</content>
<content>carbapenems (meropenem or imipenem). Please contact Infectious Disease</content>
<content>Specialist for antibiotic treatment recommendations.</content>
<content></content>
<content>E.COLI ESBL: REACTION</content>
<content>FOSFOMYCIN PO 3 gm (one dose) 25 S</content>
<content></content> ID Date Data Source [id number] 07/15/2019 12:00:00 AM EST [facility] WOOTEN Patient Name: ARMANI [id number] Date [place] : 1950[place] [address] Date of Exam: 07/15/2019PH#: Fax: [phone] EXAM: CHEST (2 VIEW) X-RAYCLINICAL INFORMATION: Abdominal pain. Kidney stones.Comparison chest xray 08/05/18, CT 10/20/18.FINDINGS:The two views show lungs just slightly less well inflated than on theprevious study with subtle crowding of markings in the bases but no denseconsolidation, pleural effusion, lateral pleural thickening, apicalscarring or pneumothorax. There is no atelectasis or mass. Heart size notgrossly enlarged. There is no vascular redistribution or edema. The aortaand airway intact. Bony thorax shows no compression deformity but doeshave marginal osteophytes throughout mid and lower thoracic spine.IMPRESSION:Slight hypoinflation but otherwise no acute cardiopulmonary change. Stablechest.Marko Dial, JOE/Nieves you for referring LUCÍA KEY to our office. Electronically Signed - SUGAR DIAL MD 07/15/19 15:04 Name Value Range Interpretation Code Description Data Bev rce(s) Supporting Document(s) ID Date Data Source [id number] 07/01/2019 11:39:00 AM EST [facility] ([facility]) Name Value Range Interpretation Code Description Data Bev rce(s) Supporting Document(s) C reactive protein [Mass/volume] in Serum or Plasma by High sensitivity method Laboratory test result 0.00-0.30 [facility] ([facility]) ID Date Data Source [id number] 07/01/2019 11:37:00 AM EST [facility] ([facility]) Name Value Range Interpretation Code Description Data Bev rce(s) Supporting Document(s) Glucose [Mass/volume] in Serum or Plasma 121 mg/dL 74-99 [facility] ([facility]) 100-125 mg/dL PRE-DIABETES/FASTING >126 mg/dL DIABETES/FASTING Sodium [Moles/volume] in Serum or Plasma 140 meq/L 136-145 [facility] ([facility]) Urea nitrogen [Mass/volume] in Serum or Plasma 18 mg/dL 7-18 [facility] ([facility]) Potassium [Moles/volume] in Serum or Plasma 3.4 meq/L 3.5-5.1 [facility] ([facility]) NOTE: RESULT VERIFIED. Creatinine 0.9 mg/dL 0.6-1.3 [facility] Chloride [Moles/volume] in Serum or Plasma 107 meq/L 98-107 [facility] ([facility]) Carbon dioxide, total [Moles/volume] in Serum or Plasma 26 meq/L 21 -32 [facility] ([facility]) Calcium [Mass/volume] in Serum or Plasma 9.4 mg/dL 8.5-10.1 [facility] ([facility]) Glomerular filtration rate/1.73 sq M pre dicted among blacks [Volume Rate/Area] in Serum or Plasma by Creatinine-based formula (MDRD) Laboratory test result [facility] ([facility]) <content>CHRONIC KIDNEY DISEASE STAGING PER NKF</content>
<content></content>
<content>STAGE I & II GFR >= 60 NORMAL TO MILDLY DECREASED</content>
<content>STAGE III GFR 30-59 MODERATELY DECREASED</content>
<content>STAGE IV GFR 15-29 SEVERELY DECREASED</content>
<content>STAGE V GFR <15 VERY LITTLE GFR LEFT</content>
<content>ESRD GFR <15 ON FABRICATION SUPERVISOR</content>
<content></content> Glomerular filtration rate/1.73 sq M pre dicted among non-blacks [Volume Rate/Area] in Serum or Plasma by Creatinine-based formula (MDRD) Laboratory test result [facility] ([facility] ) ID Date Data Source [id number] 07/01/2019 11:37:00 AM EST [facility] ([facility]) Name Value Range Interpretation Code Description Data Bev rce(s) Supporting Document(s) Hemoglobin A1c/Hemoglobin.total in Blood 5.7 g/dL 4.8-5.6 [facility] ([facility]) Lab Result Notes: Pre-Diabetes 5.7 - 6.4 % Diabetes = or > 6.5% Glucose mean value [Mass/volume] in Blood Estimated fr om glycated hemoglobin 117 mg/dL 60-110 [facility] ([facility] ) ID Date Data Source [id number] 07/01/2019 11:37:00 AM EST [facility] ([facility]) Name Value Range Interpretation Code Description Data Bev rce(s) Supporting Document(s) Erythrocytes [#/volume] in Blood by Automated count 4.43 x10*6/UL 4.2 0-6.30 [facility] ([facility]) Leukocytes [#/volume] in Blood by Automated count 7.3 x10*3/UL 4.1-10 .9 [facility] ([facility]) MCV 85.9 fL 80.0-97.0 [facility] ([facility]) Hemoglobin [Mass/volume] in Blood 12.6 g/dL 12.0-18.0 [facility] ([facility]) Hematocrit [Volume Fraction] of Blood by Automated count 38.1 % 3 7.0-51.0 [facility] ([facility]) MCH 28.5 pg 26.0-32.0 [facility] ([facility]) Erythrocyte distribution width [Ratio] by Automated count 13.5 % 11.6-13.7 [facility] ([facility]) MCHC 33.2 g/dL 31.0-38.0 [facility] ([facility]) Platelets [#/volume] in Blood by Automated count 346 x10*3/UL 140-440 [facility] ([facility]) Lymph % 21.9 % 10.0-58.5 [facility]) MPV 8.5 FL 7.8-11.0 [facility] ([facility]) Mid % 6.3 % 1.7-9.3 [facility] ([facility]) Mid # 0.5 x10*3/UL 0.1-0.6 [facility] ([facility]) Neut # 5.2 x10*3/UL 2.0-7.8 [facility] ([facility]) Lymph # 1.6 x10*3/UL 0.6-4.1 [facility] ([facility]) Neut % 71.8 % 37.0-92.0 [facility] ([facility]) ID Date Data Source [id number] 06/18/2019 07:50:00 AM EST [facility] ([facility]) Name Value Range Interpretation Code Description Data Bev rce(s) Supporting Document(s) Appearance, Urine RFX Laboratory test result [facility] ([facility]) Specific [place] Ur Auto RFX 1.013 1.002-1.035 [facility] ([facility]) Color, Urine RFX Laboratory test result [facility] ([facility]) Protein, Urine Auto RFX Laboratory test result [facility] ([facility]) PH,Urine RFX 6.0 units 5.0-9.0 [facility] ([facility]) Ketone, Urine Auto RFX Laboratory test result [facility] ([facility]) Glucose, Urine (Ua) Auto RFX Laboratory test result [facility] ([facility]) Urobilinogen, Urine Auto RFX 0.2 mg/dL 0.0-2.0 [facility] ([facility]) Leukocyte Esterase Ur Auto RFX Laboratory test result [facility] ([facility]) Bilirubin, Urine Auto RFX Laboratory test result [facility] ([facility]) Nitrite, Urine Auto RFX Laboratory test result [facility] ([facility]) WBC, Urine Auto RFX Laboratory test result 0-3 [facility] ([facility]) RBC, Urine Auto RFX 65 /HPF 0-3 [facility] ([facility]) Blood, Urine Blood RFX Laboratory test result [facility] ([facility]) Bacteria, Urine Auto RFX Laboratory test result [facility] ([facility]) Squam Epithelial Cell Ur Aurfx 2 /HPF 0-6 [facility] ([facility]) Mucus, Urine RFX Laboratory test result [facility] ([facility]) Hyaline Cast, Urine Auto RFX 0 /LPF 0-1 [facility] ([facility]) ID Date Data Source [id number] 06/18/2019 06:16:00 AM EST [facility] ([facility]) Name Value Range Interpretation Code Description Data Bev rce(s) Supporting Document(s) Lactate [Mass/volume] in Serum or Plasma 2.4 mmol/L 0.4-2.0 Above upper panic limits [facility] ([facility]) Y/N query for Sepsis Lactate Rule: Y ID Date Data Source [id number] 06/18/2019 05:59:00 AM EST [facility] ([facility]) Name Value Range Interpretation Code Description Data Bev rce(s) Supporting Document(s) Laboratory test finding (navigational concept) 138 mg/dL 70-105 [facility] ([facility]) Laboratory test finding (navigational concept) 37.0 % 38.0-51.0 [facility] ([facility]) Laboratory test finding (navigational concept) 3.5 meq/L 3.5-5.1 [facility] ([facility]) Laboratory test finding (navigational concept) 142 meq/L 136-145 [facility] ([facility]) Laboratory test finding (navigational concept) 4.3 mg/dL 4.5-5.3 [facility] ([facility]) Laboratory test finding (navigational concept) 105 meq/L 98-109 [facility] ([facility]) Laboratory test finding (navigational concept) 28.0 MM/L 23.0-27.0 [facility] ([facility]) Laboratory test finding (navigational concept) 0.7 mg/dL 0.6-1.3 [facility] ([facility]) Laboratory test finding (navigational concept) 13 mg/dL 8-26 [facility] ([facility]) ID Date Data Source [id number] 06/18/2019 05:39:00 AM EST [facility] ([facility]) Name Value Range Interpretation Code Description Data Bev rce(s) Supporting Document(s) Lipoprotein lipase [Enzymatic activity/volume] in Serum or P lasma 157 U/L 73-393 [facility] ([facility]) ID Date Data Source [id number] 06/18/2019 05:39:00 AM EST [facility] ([facility]) Name Value Range Interpretation Code Description Data Bev rce(s) Supporting Document(s) Alt/SGPT 19 U/L 12-78 [facility] ([facility]) Ast/Sgot 19 U/L 7-37 [facility] ([facility]) Bilirubin,Direct Laboratory test result 0.0-0.2 [facility] ([facility]) Bilirubin,Total 0.3 mg/dL 0.2-1.0 [facility] ([facility]) Alkaline Phosphatase 93 U/L 45-117 [facility] ([facility]) Albumin/Globulin Ratio 1.06 1.00-1.93 [facility] ([facility]) Albumin 3.5 GM/DL 3.2-5.2 [facility] ([facility]) Total Protein 6.8 GM/DL 6.4-8.2 [facility] ([facility]) ID Date Data Source [id number] 06/18/2019 05:39:00 AM EST [facility] ([facility]) Name Value Range Interpretation Code Description Data Bev rce(s) Supporting Document(s) White Blood Count 9.4 10 4.0-10.0 [facility] ([facility]) Hemoglobin 12.8 g/dL 12.0-15.5 [facility] Red Blood Count 4.51 10 4.00-5.40 [facility] ([facility]) Hematocrit 39.1 % 36.0-47.0 [facility] Mean Corpuscular Volume 86.7 fl 80.0-96.0 [facility] ([facility]) Mean Corpuscular Hemoglobin 28.4 pg 27.0-33.0 [facility] ([facility]) Red Cell Distribution Width 13.2 % 11.5-14.5 [facility] ([facility]) Mean Corpuscular HGB Conc 32.7 g/dL 32.0-36.5 [facility] ([facility]) Platelet Count, Automated 396 10 150-450 [facility] ([facility]) Neutrophils % 60.1 % 36.0-66.0 [facility] ([facility]) Eos % 2.3 % 0.0-3.0 [facility]) [place] % 8.3 % 0.0-5.0 [facility] Lymph % 28.5 % 24.0-44.0 [facility] Baso % 0.5 % 0.0-1.0 [facility]) Immature Granulocyte % 0.3 % 0-3.0 [facility] ([facility]) Nucleated Red Blood Cell % 0.0 % 0-0 [facility] ([facility]) Neutrophils # 5.7 10 1.5-8.5 [facility] ([facility]) Eos # 0.2 10 0.0-0.5 [facility] Lymph # 2.7 10 1.5-5.0 [facility]) [place] # 0.8 10 0.0-0.8 [facility] Baso # 0.1 10 0.0-0.2 [facility] ([facility] Procedure Social History Code Duration Value Status Description Data Source(s ) Alcohol intake 07/09/2020 12:00:00 AM EST Never completed [facility] Smoking 07/09/2020 12:00:00 AM EST Never smoker completed Never s moker [facility] Vital Signs ID Date Data Source UNK Name Value Range Interpretation Code Description Data Source(s) Body mass index (BMI) [Ratio] 32.22 kg/m2 32.22 kg/m2 [facility] Body weight 74.844 kg 74.844 kg [facility] Body height 152.4 cm 152.4 cm [facility] Respiratory rate 16 /min 16 /min [facility] Heart rate 58 /min 58 /min [facility] Diastolic blood pressure 64 mm[Hg] 64 mm[Hg] [facility] Systolic blood pressure 106 mm[Hg] 106 mm[Hg] [facility] Body mass index (BMI) [Ratio] 32.2 kg/m2 32.2 k g/m2 [facility] ([facility]) Oxygen saturation in Arterial blood by Pulse oximetry 99 % 99 % [facility] ([facility]) Body weight 165.00 [lb_av] 165.00 [lb_av] [facility] ([facility]) Body height 60 [in_i] 60 [in_i] [facility] ([facility]) 5'0" Heart rate 73 /min 73 /min [facility] ([facility]) Diastolic blood pressure 72 mm[Hg] 72 mm[Hg] [facility] ([facility]) Systolic blood pressure 132 mm[Hg] 132 mm[Hg] M [facility] ([facility]) Diastolic blood pressure 68 mm[Hg] 68 mm[Hg] eCW1 ([facility]) Systolic blood pressure 130 mm[Hg] 130 mm[Hg] e CW1 ([facility]) Body temperature 97.4 [degF] 97.4 [degF] eCW1 ( [facility]) Respiratory rate 18 /min 18 /min eCW1 ([facility]) Heart rate 91 /min 91 /min eCW1 ([facility]) Body mass index (BMI) [Ratio] 31.99 kg/m2 31.99 kg/m2 eCW1 ([facility]) Body height 60 [in_i] 60 [in_i] eCW1 ([facility]) Body weight 163.8 [lb_av] 163.8 [lb_av] eCW1 ([facility]) Body mass index (BMI) [Ratio] 33.0 kg/m2 33.0 k g/m2 [facility] ([facility]) Oxygen saturation in Arterial blood by Pulse oximetry 98 % 98 % [facility] ([facility]) Air Body weight 169.00 [lb_av] 169.00 [lb_av] [facility] ([facility]) Body height 60 [in_i] 60 [in_i] [facility] ([facility]) 5'0" Heart rate 80 /min 80 /min [facility] ([facility]) Diastolic blood pressure 58 mm[Hg] 58 mm[Hg] [facility] ([facility]) Systolic blood pressure 116 mm[Hg] 116 mm[Hg] M [facility] ([facility]) Diastolic blood pressure 70 mm[Hg] 70 mm[Hg] eCW1 ([facility]) Systolic blood pressure 121 mm[Hg] 121 mm[Hg] e CW1 ([facility]) Body temperature 97.1 [degF] 97.1 [degF] eCW1 ( [facility]) Respiratory rate 18 /min 18 /min eCW1 ([facility]) Heart rate 75 /min 75 /min eCW1 ([facility]) Body mass index (BMI) [Ratio] 32.88 kg/m2 32.88 kg/m2 [facility] ([facility]) Body height 60 [in_i] 60 [in_i] eCW1 ([facility]) Body weight 168.4 [lb_av] 168.4 [lb_av] eCW1 ([facility]) Body mass index (BMI) [Ratio] 31.6 kg/m2 31.6 k g/m2 [facility] ([facility]) Body weight 162.00 [lb_av] 162.00 [lb_av] [facility] ([facility]) Body height 60 [in_i] 60 [in_i] [facility] ([facility]) 5'0" Heart rate 85 /min 85 /min [facility] ([facility]) Diastolic blood pressure 60 mm[Hg] 60 mm[Hg] [facility] ([facility]) Systolic blood pressure 112 mm[Hg] 112 mm[Hg] M [facility] ([facility]) Body mass index (BMI) [Ratio] 28.9 kg/m2 28.9 k g/m2 [facility] ([facility]) Oxygen saturation in Arterial blood by Pulse oximetry 98 % 98 % [facility] ([facility]) RM Air Body weight 148.00 [lb_av] 148.00 [lb_av] [facility] ([facility]) Body height 60 [in_i] 60 [in_i] [facility] ([facility]) 5'0" Heart rate 82 /min 82 /min [facility] ([facility]) Diastolic blood pressure 70 mm[Hg] 70 mm[Hg] [facility] ([facility]) Systolic blood pressure 124 mm[Hg] 124 mm[Hg] M [facility] ([facility]) Body weight Measured 149 [lb_av] 149 [lb_av] eC W1 ([facility]) Diastolic blood pressure 68 mm[Hg] 68 mm[Hg] eCW1 ([facility]) Systolic blood pressure 110 mm[Hg] 110 mm[Hg] e CW1 ([facility]) Body temperature 97.2 [degF] 97.2 [degF] eCW1 ( [facility]) Respiratory rate 18 /min 18 /min eCW1 ([facility]) Heart rate 74 /min 74 /min eCW1 ([facility]) Body mass index (BMI) [Ratio] 29.10 kg/m2 29.10 kg/m2 eCW1 ([facility]) Body height 60 [in_us] 60 [in_us] eCW1 ([facility]) Oxygen saturation in Arterial blood by Pulse oximetry 100 % 100 % [facility] ([facility]) RM Air Body weight 150.00 [lb_av] 150.00 [lb_av] [facility] ([facility]) Heart rate 90 /min 90 /min [facility] ([facility]) Diastolic blood pressure 64 mm[Hg] 64 mm[Hg] [facility] ([facility]) Systolic blood pressure 110 mm[Hg] 110 mm[Hg] M [facility] ([facility]) Oxygen saturation in Arterial blood by Pulse oximetry 99 % 99 % [facility] ([facility]) RM Air Body weight 153.00 [lb_av] 153.00 [lb_av] [facility] ([facility]) Heart rate 82 /min 82 /min [facility] ([facility]) Diastolic blood pressure 64 mm[Hg] 64 mm[Hg] [facility] ([facility]) Systolic blood pressure 110 mm[Hg] 110 mm[Hg] M [facility] ([facility]) Oxygen saturation in Arterial blood by Pulse oximetry 97 % 97 % [facility] ([facility]) RM Air Body weight 158.00 [lb_av] 158.00 [lb_av] [facility] ([facility]) Heart rate 68 /min 68 /min [facility]) Diastolic blood pressure--standing 60 mm[Hg] 6 0 mm[Hg] [facility] ([facility]) Systolic blood pressure--standing 100 mm[Hg] 10 0 mm[Hg] [facility] ([facility]) Diastolic blood pressure 64 mm[Hg] 64 mm[Hg] [facility] ([facility]) Systolic blood pressure 110 mm[Hg] 110 mm[Hg] M [facility] ([facility]) Diastolic blood pressure 88 mm[Hg] 88 mm[Hg] eCW1 ([facility]) Systolic blood pressure 146 mm[Hg] 146 mm[Hg] e CW1 ([facility]) Body temperature 98.2 [degF] 98.2 [degF] eCW1 ( [facility]) Respiratory rate 18 /min 18 /min eCW1 ([facility]) Heart rate 72 /min 72 /min eCW1 ([facility]) Body mass index (BMI) [Ratio] 30.58 kg/m2 30.58 kg/m2 W1 ([facility]) Body height 60 [in_us] 60 [in_us] eCW1 ([facility]) Body weight Measured 156.6 [lb_av] 156.6 [lb_av ] eCW1 ([facility]) Patient Treatment Plan of Care Planned Activity Planned Date Details Description Data Source (s) Acetaminophen 325 MG / Oxycodone Hydrochloride 5 MG Or al Tablet 07/05/2020 12:00:00 AM [facility] Omeprazole 20 MG Delayed Release Oral Capsule 06/20/2020 12:00:00 A M [facility] Levothyroxine Sodium 0.1 MG Oral Tablet [Euthyrox] 06/20/2020 12 :00:00 AM EST [facility] Trazodone Hydrochloride 100 MG Oral Tablet 06/17/2020 12:00:00 AM E [facility] Acetaminophen 325 MG / Oxycodone Hydrochloride 5 MG Or al Tablet [Percocet] 06/12/2020 12:00:00 AM EST eCW1 ([facility]) Acetaminophen 325 MG / Oxycodone Hydrochloride 5 MG Or al Tablet [Percocet] 06/12/2020 12:00:00 AM EST eCW1 ([facility]) Acetaminophen 325 MG / Oxycodone Hydrochloride 5 MG Or al Tablet [Percocet] 06/12/2020 12:00:00 AM EST eCW1 ([facility]) tizanidine 4 MG Oral Tablet 06/04/2020 12:00:00 AM EST [facility] Hydroxyzine Hydrochloride 25 MG Oral Tablet 06/02/2020 12:00:00 AM EST [facility] Acetaminophen 325 MG / Oxycodone Hydrochloride 5 MG Or al Tablet [Percocet] 06/01/2020 12:00:00 AM EST eCW1 ([facility]) Acetaminophen 325 MG / Oxycodone Hydrochloride 5 MG Or al Tablet [Percocet] 06/01/2020 12:00:00 AM EST eCW1 ([facility]) Ketorolac Tromethamine 10 MG Oral Tablet 05/24/2020 12:00:00 AM EST eCW1 ([facility]) Tamsulosin hydrochloride 0.4 MG Oral Capsule 05/24/2020 12:00:00 AM EST eCW1 ([facility]) Ketorolac Tromethamine 10 MG Oral Tablet 05/24/2020 12:00:00 AM EST eCW1 ([facility]) Tamsulosin hydrochloride 0.4 MG Oral Capsule 05/24/2020 12:00:00 AM EST eCW1 ([facility]) Ketorolac Tromethamine 10 MG Oral Tablet 05/24/2020 12:00:00 AM EST eCW1 ([facility]) Tamsulosin hydrochloride 0.4 MG Oral Capsule 05/24/2020 12:00:00 AM EST eCW1 ([facility]) Tamsulosin hydrochloride 0.4 MG Oral Capsule 05/22/2020 12:00:00 AM EST [facility] NITROFURANTOIN, MACROCRYSTALS 25 MG / Ni trofurantoin, Monohydrate 75 MG Oral Capsule [Macrobid] 08/10/2019 12:00:00 AM EST eC W1 ([facility]) NITROFURANTOIN, MACROCRYSTALS 25 MG / Ni trofurantoin, Monohydrate 75 MG Oral Capsule [Macrobid] 07/21/2019 12:00:00 AM EST eC W1 ([facility]) Tamsulosin hydrochloride 0.4 MG Oral Capsule 06/28/2019 12:00:00 AM EST eCW1 ([facility]) Acetaminophen 325 MG / Oxycodone Hydrochloride 5 MG Or al Tablet [Percocet] 06/28/2019 12:00:00 AM EST eCW1 ([facility])
[2020-07-12] MEDS ORDERED: CONRAY-60 60% 50ML VIAL (Q9961) As Ordered ONE (13:24)
[2020-07-12] MEDS ORDERED: ROCURONIUM BROMIDE 50 MG/5 ML VIAL As Ordered ONE (14:15)
[2020-07-12] MEDS ORDERED: ESMOLOL INJ 100MG/10ML VIAL As Ordered ONE (14:50)
[2020-07-12] MEDS ORDERED: LABETALOL 100MG/20ML VIAL As Ordered ONE (14:50)
[2020-07-12] MEDS ORDERED: ONDANSETRON 4MG/2ML VIAL As Ordered ONE (15:25)
[2020-07-12] MEDS ORDERED: SUGAMMADEX SODIUM 500 MG/5 ML VIAL (BRIDION) As Ordered ONE (15:25)
--- NOTE | 2020-07-12 15:32 | REP ---
INDICATION: BILATERAL UTERAL STENT PLACEMENT. COMPARISON: 05/26/2020. TECHNIQUE: Three C-arm views abdomen performed. FINDINGS: Contrast partially opacifies the pelvocaliceal systems bilaterally. Bilateral ureteral stents are placed. The proximal ends are coiled in each respective renal pelvis. The distal ends are coiled in the urinary bladder. IMPRESSION: 23 seconds fluoroscopy time utilized. <Electronically signed by Deon Santoyo > 07/12/20 1523
[2020-07-12] MEDS ORDERED: ONDANSETRON 4MG/2ML VIAL IV PRN (16:00)
[2020-07-12] MEDS ORDERED: METOCLOPRAMIDE INJ 10MG/2ML VIAL (J2765 PER 1) IV PRN (16:00)
[2020-07-12] MEDS ORDERED: LR 1,000 ML IV SCH (16:00)
[2020-07-12] MEDS ORDERED: MEPERIDINE INJ 25 MG/ML VIAL (J2175) IV PRN (16:00)
[2020-07-12] MEDS ORDERED: oxyCODONE 5MG TAB PO PRN (16:00)
[2020-07-12] MEDS ORDERED: BACT800T5 PO (16:02)
[2020-07-12] MEDS ORDERED: PERC5TAB12 PO (16:02)
[2020-07-12] MEDS ORDERED: PERCOCET 5MG/325MG TAB PO PRN (16:15)
[2020-07-12] MEDS: fentaNYL 100 MCG/2 ML INJECTION (J3010) IV PRN ×3 (16:45→17:01)
[2020-07-12 17:50] VITALS: BP 165/76
--- NOTE | 2020-07-16 13:44 | RO ---
OPERATIVE NOTE DATE OF OPERATION: 07/12/2020 PREOPERATIVE DIAGNOSIS: Kidney stones. POSTOPERATIVE DIAGNOSIS: Kidney stones. PROCEDURE: Cystoscopy, bilateral ureteroscopy with laser lithotripsy and basket extraction of stones, bilateral retrograde pyelograms with intraoperative interpretation images, right ureteral stent exchange, left ureteral stent placement. SURGEON: Trenton Arreguin MD GRAVITY PROSPECTING SUPERVISOR: None. ANESTHESIA: General. OPERATIVE INDICATIONS: This is a 69-year-old female who was brought to the Operating Room approximately a month and a half ago for a right ureteral stent placement for obstructing proximal right ureteral stones. She also has non-obstructing stones in the left kidney. She was brought to the Operating Room today for treatment. DESCRIPTION OF PROCEDURE: Patient was brought to the operating room and general anesthesia was induced. Prophylactic antibiotics were infused. She was placed in the dorsal lithotomy position, and prepped and draped in the usual sterile fashion. A rigid cystoscope was inserted in the urethral meatus and advanced into the bladder. The previously placed right ureteral stent was seen. At this point, a guidewire was advanced up the right collecting system and then the stent was removed completely. I then advanced a ureteral access sheath over the guidewire into the right collecting system. I went up the right collecting system with the flexible ureteroscope and within the proximal ureter, approximately two kidney stones were seen, each measuring around 4 to 5 mm in size. Both stones were fragmented into smaller pieces using a 272 micron laser fiber and then the fragments were removed using a basket. I then examined the right kidney thoroughly and other than a lot of debris, no abnormalities were seen. No additional stones were seen. A retrograde pyelogram was performed, notable for moderate to severe right hydronephrosis with no extravasation. I then withdrew the ureteroscope along with the access sheath and no additional stones were seen inside the ureter. I then utilized the guidewire to advance a 7-Georgian x 22-32 cm JJ ureteral stent up the right collecting system. The wire was removed and there were adequate curls of the stent in the right renal pelvis and in the bladder. At this point, I advanced a guidewire up the left collecting system. I then advanced a ureteral access sheath over the wire. I went up the access sheath with the flexible ureteroscope and examined the left kidney thoroughly. Of note, there were several papillae that had embedded calcifications. One in the lower pole had a large calcification and appeared to be close to being released. I fragmented that stone to breakaway using the laser. I then removed the stone with the basket. All the remaining calcifications appeared to be deeply embedded and an even further lower pole calyx, there was a stenotic infundibulum and I could see some stones inside the calyx. I could not reach those stones because of the stenotic infundibulum. At this point, a retrograde pyelogram was performed and it was notable for mild left hydronephrosis with no extravasation. I then withdrew the ureteroscope along with the access sheath and no additional stones were seen inside the ureter. I then utilized the guidewire to advance a 7-Georgian x 22-32 cm JJ ureteral stent up the left collecting system. The wire was removed and there were adequate curls of the stent in the left renal pelvis and in the bladder. The bladder was then emptied of all fluids, and this marked the conclusion of the procedure. The patient was then taken out of the dorsal lithotomy position, awakened from anesthesia, and transported to the recovery room in stable condition. ESTIMATED BLOOD LOSS: 10 mL. COMPLICATIONS: None. SPECIMEN: Kidney stone fragments. PLAN: The patient will follow up in the urology clinic in a week or two for stent removal. XIOMARA
[2020-07-19 21:07] LABS: CA Oxalate Dihy 80 % (.); Ca Ox Monohydrate 20 % (.)
== END 2020-07-12 17:52 | disposition home or self-care (01) ==
LOC: M SDC 11:28
PROVIDERS: ATTEND Urology
DX: N20.0 Calculus of kidney (principal); I10 Essential (primary) hypertension; I20.9 Angina pectoris, unspecified; E03.9 Hypothyroidism, unspecified; K21.9 Gastro-esophageal reflux disease without esophagitis; K57.92 Diverticulitis of intestine, part unspecified, without perforation or abscess without bleeding; Z88.8 Allergy status to other drugs, medicaments and biological substances; Z79.899 Other long term (current) drug therapy; J44.9 Chronic obstructive pulmonary disease, unspecified; G47.30 Sleep apnea, unspecified; E78.5 Hyperlipidemia, unspecified; F32.9 Major depressive disorder, single episode, unspecified; G43.909 Migraine, unspecified, not intractable, without status migrainosus
CPT/HCPCS: 52356; 74420; 82365; 88300; C1769; C1894; C2617; J0131; J0690; J1100; J2250; J2405; J3010; Q9961

== ENCOUNTER → 2020-11-07 | Outpatient (CLI) | payer MEDICARE, OTHER ==
[~2020-11-07] MED LIST changes: -ACETAMINOPHEN 1000MG 100ML IV BTL (OFIRMEV) (J0131 PER 10MG) As Ordered ONE; +GABA-283 PO; -GABA-845 PO; -LIDOCAINE 2% 100MG/5ML SDV (FOR ANES.) As Ordered ONE; -LR 1,000 ML IV ONE; -MIDAZOLAM INJ 2MG/2ML VIAL (J2250 PER 1MG) As Ordered ONE; +NAPR-849 PO; -NAPR250T4 PO; -ONDANSETRON 4MG/2ML VIAL As Ordered ONE; -ROCURONIUM BROMIDE 50 MG/5 ML VIAL As Ordered ONE; -ceFAZolin SOD 2 GM in IV 1 EA IV ONE; -dexameTHASONE 4 MG/ML 1ML VIAL (J1100 PER 1MG) As Ordered ONE; -ePHEDrine SULFATE 25 MG/5 ML(5MG/ML) SYRINGE As Ordered ONE; -fentaNYL 100 MCG/2 ML INJECTION (J3010) As Ordered ONE; -propofoL 200 MG/20 ML VIAL As Ordered ONE
[2020-11-07 13:07] LABS: BASO % 0.4 % (0.0-1.0); EOS # 0.1 10^3/uL (0.0-0.5); EOS % 1.9 % (0.0-3.0); HEMATOCRIT 40.6 % (36.0-47.0); LYMPH # 2.4 10^3/uL (1.5-5.0); LYMPH % 34.8 % (24.0-44.0); MEAN CORPUSCULAR VOLUME 87.5 fl (80.0-96.0); MONO # 0.4 10^3/uL (0.0-0.8); MONO % 5.3 % (2.0-8.0); NEUTROPHILS # 3.9 10^3/uL (1.5-8.5); PLATELET COUNT, AUTOMATED 271 10^3/uL (150-450); RED BLOOD COUNT 4.64 10^6/uL (4.00-5.40); WHITE BLOOD COUNT 6.8 10^3/uL (4.0-10.0)
[2020-11-07 13:36] LABS: ERYTHROCYTE SEDIMENTATION RATE 9 mm/hr (0-30)
[2020-11-07 13:40] LABS: C REACTIVE PROTEIN QUANTITATIV < 0.30 MG/DL (0.00-0.30); RHEUMATOID FACTOR QUANT < 10.0 IU/ML (<15.0)
[2020-11-08 16:33] LABS: ANTINUCLEAR ANTIBODIES DIRECT Negative (Negative); Lyme Disease IgG/IgM Antibodie <0.91 ISR (0.00-0.90); Lyme Disease IgM Ab Quantitati <0.80 index (0.00-0.79)
== END ==
LOC: M PLALAB 11:20
PROVIDERS: ATTEND Orthopaedic Surgery
DX: Z96.651 Presence of right artificial knee joint (principal)

== ENCOUNTER → 2020-12-09 | Outpatient (CLI) | payer MEDICARE, OTHER ==
--- NOTE | 2020-12-09 13:54 | REPVR ---
PROCEDURE INFORMATION: Exam: MR Cervical Spine Without Contrast Exam date and time: 12/09/2020 12:19 PM Age: 70 years old Clinical indication: Condition or disease; Spondylosis; Cervical region; Additional info: Spondylosis cervical region TECHNIQUE: Imaging protocol: Multiplanar magnetic resonance images of the cervical spine without contrast. COMPARISON: PT PET/CT Skull/mid thigh 06/18/2016 3:06 PM FINDINGS: Vertebrae: Straightening of the normal cervical lordosis may be related to patient position or due to muscle spasm. There is no marrow edema. Spinal cord: Normal signal. No cord compression. There is no Chiari malformation. C2-C3: No significant disc disease. No significant spinal stenosis. C3-C4: No significant disc disease. There are uncovertebral joint degenerative changes with mild narrowing the right neural foramina. No significant spinal stenosis. C4-C5: There is a small disc osteophyte complex without mass effect. No significant spinal stenosis. C5-C6: There is a small disc osteophyte complex without mass effect. No significant spinal stenosis. C6-C7: No significant disc disease. No significant spinal stenosis. C7-T1: No significant disc disease. No significant spinal stenosis. Soft tissues: Unremarkable. Thyroid: There is partial visualization of a left thyroid nodule. It measures at least 12 mm. Vertebral arteries: Expected flow voids in the vertebral arteries. IMPRESSION: 1. There is no cervical disc herniation or central stenosis. 2. Straightening of the normal cervical lordosis may be related to patient position or due to muscle spasm. COMMENTS: Consistent with the [employer]'s Incidental Findings Committee white paper (J Am Zach Radiol 2015): In patients aged 35 years and older with an incidental thyroid nodule equal to or greater than 1.[address], MRI or extrathyroidal US, further evaluation with dedicated thyroid US is recommended for patients with normal life expectancy and without comorbidities. For smaller nodules without suspicious features, no further evaluation or follow up is recommended. Electronically signed by: Eulogio Dee On 12/09/2020 13:53:52 PM
== END ==
LOC: M RAD 11:34
PROVIDERS: ATTEND Orthopaedic Surgery
DX: M47.892 Other spondylosis, cervical region (principal); M25.78 Osteophyte, vertebrae

== ENCOUNTER → 2021-03-12 | Outpatient (REF) | payer MEDICARE, OTHER ==
[2021-03-12 17:44] LABS: APPEARANCE, URINE CLOUDY (CLEAR); BILIRUBIN, URINE AUTO NEGATIVE (NEGATIVE); BLOOD, URINE BLOOD NEGATIVE (NEGATIVE); COLOR, URINE YELLOW (YELLOW); GLUCOSE, URINE (UA) AUTO NEGATIVE (NEGATIVE); KETONE, URINE AUTO NEGATIVE (NEGATIVE); LEUKOCYTE ESTERASE, URINE AUTO 3+ (NEGATIVE); NITRITE, URINE AUTO NEGATIVE (NEGATIVE); PROTEIN, URINE AUTO 1+ mg/dL (NEGATIVE); SPECIFIC GRAVITY URINE AUTO 1.015 (1.002-1.035)
[2021-03-12 17:52] LABS: AMORPHOUS SEDIMENT SMALL (NEGATIVE); BACTERIA, URINE AUTO NEGATIVE (NEGATIVE); CALCIUM OXALATE CRYSTALS SMALL; MUCUS, URINE SMALL (NEGATIVE); RBC, URINE AUTO 3 /HPF (0-3); SQUAMOUS EPITHELIAL CELL UR AU 5 /HPF (0-6); WBC, URINE AUTO 55 /HPF (0-3)
== END ==
LOC: M SMT 17:26
PROVIDERS: ATTEND Nurse Practitioner Women's Health
DX: R30.0 Dysuria (principal)

== ENCOUNTER → 2021-03-26 | Outpatient (CLI) | payer MEDICARE, OTHER ==
--- NOTE | 2021-03-26 11:59 | REP ---
INDICATION: KIDNEY STONE. COMPARISON: Multiple the latest 05/25/2020 also without contrast TECHNIQUE: Standard helical technique without contrast. Stone protocol utilized due to nephrolithiasis. FINDINGS: There is no change in the lung bases. Liver and spleen are unchanged. There is a cyst in the left lobe of the liver lateral segment unchanged. Limited evaluation of the pancreas and adrenal glands show no gross abnormalities or significant changes. There are a few 3 and 4 mm size nonobstructing right nephroliths. There are numerous non-obstructing left nephroliths probably unchanged. There are no ureteroliths or limited evaluation of the abdominal aorta and para-aortic regions show no significant changes from the prior exam. Note is again made of colonic diverticulosis status quo. There is no free fluid or free air. Bone window technique throughout the exam shows no significant change in appearance of the osseous structures. Urinary bladder calcifications. Numerous bilateral pelvic phleboliths are again noted. There is no hydronephrosis or hydroureter. IMPRESSION: Bilateral nephroliths as described above. No evidence of obstructive uropathy. Other stable appearing findings as described above. <Electronically signed by Niko Pereira > 03/26/21 [id number]
== END ==
LOC: M PLAIMG 10:57
PROVIDERS: ATTEND Nurse Practitioner Women's Health
DX: N20.0 Calculus of kidney (principal)

== ENCOUNTER → 2021-04-18 | Outpatient (REF) | payer MEDICARE, OTHER | LOC: M LAB REF 16:33 | PROVIDERS: ATTEND Internal Medicine | DX: M06.9 Rheumatoid arthritis, unspecified (principal) ==

== ENCOUNTER → 2021-04-25 | Outpatient (CLI) | payer MEDICARE, OTHER ==
--- NOTE | 2021-04-25 13:59 | REP ---
INDICATION: BILATERAL BREAST PAIN; B/L BREAST PAIN. COMPARISON: 04/05/2020 as well as other prior exams. TECHNIQUE: MLO and CC views bilateral breasts with tomosynthesis. Bilateral breast ultrasound. FINDINGS: Mild scattered fibroglandular tissue is present bilaterally. There is a stable cyst containing small calcifications in the upper outer quadrant of the right breast. There is a stable smoothly marginated nodule also seen anteriorly in the left breast medially near the nipple. No new mass or clustered microcalcifications are seen. Real-time sonographic evaluation of upper outer quadrant of each breast is performed at the site of bilateral breast pain. No suspicious solid mass seen in the upper outer quadrant bilaterally. The cyst in the upper outer right breast is visualized, measuring 1.5 x 0.9 x 1.4 cm. With elastography interrogation average KP a value 15.8. The Volpara volumetric breast density pattern is B. IMPRESSION: BIRADS/ACR category 2, benign. There is a stable smoothly marginated nodule in each breast. No new mass or clustered microcalcifications. Ultrasound of the upper-outer quadrant of each breast demonstrates a cyst in the upper outer quadrant on the right. There are no suspicious findings. This patient's Tyrer-Cuzick lifetime breast cancer risk assessment score is 12.6%. This mammogram was interpreted with the aid of an FDA-approved computer-aided detection system. The patient states she had a clinical breast exam in December 2020. The patient letter being requested is M2. RECOMMENDATION: Repeat screening mammography recommended 1 year (for women over 40). <Electronically signed by Deon Santoyo > 04/25/21 [id number]
== END ==
LOC: M WHC 09:42
PROVIDERS: ATTEND Internal Medicine
DX: Z12.31 Encounter for screening mammogram for malignant neoplasm of breast (principal); N63.21 Unspecified lump in the left breast, upper outer quadrant; N63.11 Unspecified lump in the right breast, upper outer quadrant
CPT/HCPCS: 76642; 77066; G0279

== ENCOUNTER → 2021-09-04 | Outpatient (CLI) | payer MEDICARE, OTHER ==
[~2021-09-04] MED LIST changes: -CEFD1CAP8 PO; +CEFD300C41 PO; -MONT10TA10 PO; +MONT10TA97 PO
[2021-09-04 14:08] LABS: BASO # 0.1 10^3/uL (0.0-0.2); BASO % 0.9 % (0.0-1.0); EOS # 0.2 10^3/uL (0.0-0.5); EOS % 3.1 % (0.0-3.0); HEMATOCRIT 42.5 % (36.0-47.0); HEMOGLOBIN 13.6 g/dl (12.0-15.5); LYMPH # 2.7 10^3/uL (1.5-5.0); LYMPH % 35.4 % (24.0-44.0); MEAN CORPUSCULAR HEMOGLOBIN 28.3 pg (27.0-33.0); MEAN CORPUSCULAR VOLUME 88.5 fl (80.0-96.0); MONO # 0.8 10^3/uL (0.0-0.8); MONO % 10.2 % (2.0-8.0); NEUTROPHILS # 3.9 10^3/uL (1.5-8.5); NEUTROPHILS % 50.1 % (36.0-66.0); PLATELET COUNT, AUTOMATED 280 10^3/uL (150-450); WHITE BLOOD COUNT 7.8 10^3/uL (4.0-10.0)
[2021-09-04 14:12] LABS: ALT/SGPT 23 U/L (12-78); BILIRUBIN,TOTAL 0.2 MG/DL (0.2-1.0); BLOOD UREA NITROGEN 14 MG/DL (7-18); CALCIUM LEVEL 9.6 MG/DL (8.8-10.2); CARBON DIOXIDE LEVEL 31 MEQ/L (21-32); CHLORIDE LEVEL 107 MEQ/L (98-107); CREATININE FOR GFR 0.69 MG/DL (0.55-1.30); GLOMERULAR FILTRATION RATE > 60.0 (>45); GLUCOSE, FASTING 90 MG/DL (70-100); POTASSIUM SERUM 3.9 MEQ/L (3.5-5.1); SODIUM LEVEL 143 MEQ/L (136-145); TOTAL PROTEIN 6.7 GM/DL (6.4-8.2)
[2021-09-04 14:44] LABS: ERYTHROCYTE SEDIMENTATION RATE 7 mm/hr (0-30)
[2021-09-11 00:07] LABS: HLA-B27 Negative (.); SSA SJOGRENS A <0.2 AI (0.0-0.9); SSB SJOGRENS B <0.2 AI (0.0-0.9)
== END ==
LOC: M PLALAB 11:04 → M PLAIMG 11:04
PROVIDERS: ATTEND Internal Medicine Rheumatology
DX: R76.8 Other specified abnormal immunological findings in serum (principal); M35.3 Polymyalgia rheumatica

== ENCOUNTER → 2021-12-17 | Outpatient (REF) | payer MEDICARE, OTHER ==
[~2021-12-17] MED LIST changes: +EUTH125T; +METR-265 PO; +ONDA4TAB6 PO
[2021-12-17 13:46] LABS: APPEARANCE, URINE MANUAL CLEAR (CLEAR); COLOR, URINE MANUAL YELLOW (YELLOW); SPECIFIC GRAVITY,URINE MANUAL 1.005 (1.002-1.035)
[2021-12-17 13:47] LABS: BILIRUBIN, URINE MANUAL NEGATIVE (NEGATIVE); BLOOD URINE MANUAL POSITIVE (NEGATIVE); GLUCOSE, URINE (UA) MANUAL NEGATIVE (NEGATIVE); KETONE, URINE MANUAL NEGATIVE (NEGATIVE); LEUKOCYTE ESTERASE, URINE MAN POSITIVE (NEGATIVE); NITRITE, URINE MANUAL NEGATIVE (NEGATIVE); PROTEIN, URINE MANUAL TRACE mg/dL (NEGATIVE); UROBILINOGEN, URINE MANUAL NORMAL (NORMAL)
[2021-12-17 13:49] LABS: BACTERIA, URINE NONE SEEN; RBC, URINE NONE SEEN /hpf (0-3); SQUAMOUS EPITHELIAL CELL URINE NONE SEEN /hpf (SMALL AMT)
[2021-12-17 13:50] LABS: HYALINE CAST, URINE NONE SEEN /lpf (0-1)
== END ==
LOC: M SMT 12:59
PROVIDERS: ATTEND Nurse Practitioner Women's Health
DX: R10.9 Unspecified abdominal pain (principal)

== ENCOUNTER → 2021-12-20 | Outpatient (CLI) | payer MEDICARE, OTHER | LOC: M RAD 15:46 | PROVIDERS: ATTEND Urology | DX: R30.0 Dysuria (principal); N20.0 Calculus of kidney; R91.8 Other nonspecific abnormal finding of lung field; Z87.442 Personal history of urinary calculi ==

== ENCOUNTER 2021-12-25 13:25 | Emergency (ER) | payer MEDICARE, OTHER ==
[~2021-12-25] VITALS: Ht 152.4 cm; Wt 76.1 kg
[~2021-12-25 13:25] MED LIST changes: -EUTH125T; -METR-265 PO; -ONDA4TAB6 PO
[2021-12-25] MEDS ORDERED: EUTH125T (13:34)
[2021-12-25] MEDS ORDERED: NS 1,000 ML IV ONE (14:55)
[2021-12-25] MEDS ORDERED: KETOROLAC 30 MG/ML 1ML VIAL IV ONE (14:55)
[2021-12-25] MEDS ORDERED: ONDANSETRON 4MG 2ML VIAL IV ONE (14:55)
[2021-12-25 15:37] LABS: BASO # 0.1 10^3/uL (0.0-0.2); BASO % 0.4 % (0.0-1.0); EOS # 0.1 10^3/uL (0.0-0.5); EOS % 0.7 % (0.0-3.0); HEMATOCRIT 43.4 % (36.0-47.0); HEMOGLOBIN 14.4 g/dl (12.0-15.5); LYMPH # 2.5 10^3/uL (1.5-5.0); LYMPH % 16.6 % (24.0-44.0); MEAN CORPUSCULAR HEMOGLOBIN 28.9 pg (27.0-33.0); MEAN CORPUSCULAR HGB CONC 33.2 g/dl (32.0-36.5); MONO # 1.3 10^3/uL (0.0-0.8); MONO % 8.9 % (2.0-8.0); NEUTROPHILS # 10.9 10^3/uL (1.5-8.5); NEUTROPHILS % 72.6 % (36.0-66.0); PLATELET COUNT, AUTOMATED 301 10^3/uL (150-450); RED BLOOD COUNT 4.99 10^6/uL (4.00-5.40)
[2021-12-25 16:17] LABS: ALBUMIN 3.9 GM/DL (3.2-5.2); BILIRUBIN,DIRECT 0.1 MG/DL (0.0-0.2); BILIRUBIN,TOTAL 0.6 MG/DL (0.2-1.0); TOTAL PROTEIN 7.3 GM/DL (6.4-8.2)
[2021-12-25] MEDS ORDERED: MORPHINE 4 MG/ML 1ML VIAL/SYRINGE IV ONE (16:30)
[2021-12-25 17:41] LABS: BLOOD UREA NITROGEN 13 MG/DL (7-18); CALCIUM LEVEL 9.5 MG/DL (8.8-10.2); CARBON DIOXIDE LEVEL 30 MEQ/L (21-32); CHLORIDE LEVEL 106 MEQ/L (98-107); CREATININE FOR GFR 0.84 MG/DL (0.55-1.30); GLOMERULAR FILTRATION RATE > 60.0 (>45); GLUCOSE, FASTING 90 MG/DL (70-100); POTASSIUM SERUM 3.4 MEQ/L (3.5-5.1); SODIUM LEVEL 138 MEQ/L (136-145)
[2021-12-25] MEDS ORDERED: ISOVUE-370 76% 100ML VIAL As Ordered ONE (17:50)
[2021-12-25] MEDS ORDERED: CIPROFLOXACIN 500MG TABLET PO ONE (18:45)
[2021-12-25] MEDS ORDERED: metroNIDAZOLE (FLAGYL) 500MG TABLET PO ONE (18:45)
[2021-12-25] MEDS ORDERED: ONDA4TAB6 PO (19:06)
[2021-12-25] MEDS ORDERED: CIPR-249 PO (19:06)
[2021-12-25] MEDS ORDERED: METR-265 PO (19:06)
[2021-12-25 19:29] VITALS: BP 151/69
== END 2021-12-25 19:32 | disposition home or self-care (01) ==
LOC: M ED 13:25
DX: K57.32 Diverticulitis of large intestine without perforation or abscess without bleeding (principal); N20.0 Calculus of kidney; R11.2 Nausea with vomiting, unspecified; Z86.73 Personal history of transient ischemic attack (TIA), and cerebral infarction without residual deficits; N63.10 Unspecified lump in the right breast, unspecified quadrant; E03.9 Hypothyroidism, unspecified; E78.5 Hyperlipidemia, unspecified; Z87.442 Personal history of urinary calculi; G43.909 Migraine, unspecified, not intractable, without status migrainosus; M79.7 Fibromyalgia; G47.33 Obstructive sleep apnea (adult) (pediatric); M54.50 Low back pain, unspecified; F41.9 Anxiety disorder, unspecified; Z79.899 Other long term (current) drug therapy; Z79.890 Hormone replacement therapy
CPT/HCPCS: 74177; 80048; 80076; 81001; 83690; 85025; 87086; 96361; 96374; 96375; 99284; J1885; J2270; J2405; Q9967

== ENCOUNTER 2022-01-02 20:40 | Inpatient (IN) | payer MEDICARE, OTHER ==
[~2022-01-02] VITALS: Ht 152.4 cm; Wt 77.9 kg
[~2022-01-02 20:40] MED LIST changes: +EUTH125T; +METR-265 PO; +ONDA4TAB6 PO
[2022-01-02 22:48] VITALS: BP 152/78
[2022-01-02] MEDS ORDERED: NS 500 ML IV ONE (23:30)
[2022-01-02] MEDS ORDERED: HYDROMORPHONE HCL 0.5 MG/ 0.5 ML SYRINGE (J1170 PER 1) IV PRN (23:30)
[2022-01-03] MEDS: HYDROMORPHONE HCL 0.5 MG/ 0.5 ML SYRINGE (J1170 PER 1) IV PRN ×6 (00:01→19:45)
[2022-01-03] MEDS: LR 1,000 ML IV SCH ×3 (01:13→17:30)
[2022-01-03 02:00] VITALS: BP 145/69
[2022-01-03 06:00] VITALS: BP 141/70
[2022-01-03] MEDS ORDERED: HOME MED LIST COMPLETE! XX SCH (09:20)
[2022-01-03 10:00] VITALS: BP 136/68
[2022-01-03] MEDS: ENOXAPARIN 40MG/0.4ML SYRINGE (J1650 PER 10MG) SC SCH (10:46)
[2022-01-03 12:08] LABS: BASO % 0.3 % (0.0-1.0); EOS # 0.1 10^3/uL (0.0-0.5); EOS % 0.3 % (0.0-3.0); HEMATOCRIT 35.4 % (36.0-47.0); HEMOGLOBIN 11.7 g/dl (12.0-15.5); LYMPH # 1.7 10^3/uL (1.5-5.0); LYMPH % 10.8 % (24.0-44.0); MEAN CORPUSCULAR HEMOGLOBIN 28.4 pg (27.0-33.0); MEAN CORPUSCULAR HGB CONC 33.1 g/dl (32.0-36.5); MEAN CORPUSCULAR VOLUME 85.9 fl (80.0-96.0); MONO # 1.3 10^3/uL (0.0-0.8); MONO % 8.3 % (2.0-8.0); NEUTROPHILS # 12.2 10^3/uL (1.5-8.5); NEUTROPHILS % 79.6 % (36.0-66.0); PLATELET COUNT, AUTOMATED 351 10^3/uL (150-450); RED BLOOD COUNT 4.12 10^6/uL (4.00-5.40); WHITE BLOOD COUNT 15.3 10^3/uL (4.0-10.0)
[2022-01-03 14:00] VITALS: BP 159/69
[2022-01-03] MEDS: ACETAMINOPHEN TAB 650MG DOSE (2X325MG) PO PRN (15:40)
[2022-01-03 18:00] VITALS: BP 128/64
[2022-01-03] MEDS: ERTAPENEM SODIUM 1 GM in NS MINI-BAG PLUS 50 ML IV SCH (18:03)
[2022-01-03] MEDS: traZODone 100 MG TAB PO SCH (19:47)
[2022-01-03 20:34] VITALS: BP 138/67
[2022-01-03] MEDS: KETOROLAC 30 MG/ML 1ML VIAL IV PRN (23:58)
[2022-01-04 00:28] VITALS: BP 136/66
[2022-01-04] MEDS: LR 1,000 ML IV SCH ×3 (02:34→18:50)
[2022-01-04] MEDS: HYDROMORPHONE HCL 0.5 MG/ 0.5 ML SYRINGE (J1170 PER 1) IV PRN ×5 (03:29→21:58)
[2022-01-04 04:35] VITALS: BP 136/63
[2022-01-04 08:53] LABS: BASO # 0.1 10^3/uL (0.0-0.2); BASO % 0.4 % (0.0-1.0); EOS # 0.2 10^3/uL (0.0-0.5); EOS % 1.2 % (0.0-3.0); HEMATOCRIT 34.1 % (36.0-47.0); HEMOGLOBIN 11.2 g/dl (12.0-15.5); LYMPH # 1.9 10^3/uL (1.5-5.0); LYMPH % 13.3 % (24.0-44.0); MEAN CORPUSCULAR HEMOGLOBIN 28.4 pg (27.0-33.0); MEAN CORPUSCULAR HGB CONC 32.8 g/dl (32.0-36.5); MEAN CORPUSCULAR VOLUME 86.3 fl (80.0-96.0); MONO # 1.3 10^3/uL (0.0-0.8); MONO % 8.9 % (2.0-8.0); NEUTROPHILS # 10.7 10^3/uL (1.5-8.5); NEUTROPHILS % 75.4 % (36.0-66.0); PLATELET COUNT, AUTOMATED 352 10^3/uL (150-450); RED BLOOD COUNT 3.95 10^6/uL (4.00-5.40); WHITE BLOOD COUNT 14.2 10^3/uL (4.0-10.0)
[2022-01-04] MEDS: ENOXAPARIN 40MG/0.4ML SYRINGE (J1650 PER 10MG) SC SCH (09:01)
[2022-01-04] MEDS: KETOROLAC 30 MG/ML 1ML VIAL IV PRN ×3 (09:51→23:02)
[2022-01-04 10:00] VITALS: BP 122/58
[2022-01-04 14:00] VITALS: BP 122/58
[2022-01-04 18:00] VITALS: BP 123/58
[2022-01-04] MEDS: ERTAPENEM SODIUM 1 GM in NS MINI-BAG PLUS 50 ML IV SCH (18:01)
[2022-01-04] MEDS: traZODone 100 MG TAB PO SCH (20:03)
[2022-01-04 22:00] VITALS: BP 130/80
[2022-01-05] VITALS (7 sets, daily range): BP systolic 102–153; BP diastolic 49–76
[2022-01-05] MEDS: HYDROMORPHONE HCL 0.5 MG/ 0.5 ML SYRINGE (J1170 PER 1) IV PRN ×4 (03:44→18:24)
[2022-01-05] MEDS: KETOROLAC 30 MG/ML 1ML VIAL IV PRN ×3 (07:27→20:11)
[2022-01-05 08:05] LABS: BASO # 0.1 10^3/uL (0.0-0.2); BASO % 0.5 % (0.0-1.0); EOS # 0.2 10^3/uL (0.0-0.5); EOS % 1.5 % (0.0-3.0); HEMATOCRIT 32.4 % (36.0-47.0); HEMOGLOBIN 10.9 g/dl (12.0-15.5); LYMPH # 1.8 10^3/uL (1.5-5.0); LYMPH % 13.6 % (24.0-44.0); MEAN CORPUSCULAR HEMOGLOBIN 28.2 pg (27.0-33.0); MEAN CORPUSCULAR HGB CONC 33.6 g/dl (32.0-36.5); MEAN CORPUSCULAR VOLUME 83.9 fl (80.0-96.0); MONO # 1.2 10^3/uL (0.0-0.8); MONO % 8.9 % (2.0-8.0); NEUTROPHILS # 9.7 10^3/uL (1.5-8.5); NEUTROPHILS % 74.2 % (36.0-66.0); PLATELET COUNT, AUTOMATED 369 10^3/uL (150-450); RED BLOOD COUNT 3.86 10^6/uL (4.00-5.40); WHITE BLOOD COUNT 13.1 10^3/uL (4.0-10.0)
[2022-01-05] MEDS: ENOXAPARIN 40MG/0.4ML SYRINGE (J1650 PER 10MG) SC SCH (11:18)
[2022-01-05] MEDS: LR 1,000 ML IV SCH (14:15)
[2022-01-05] MEDS: ERTAPENEM SODIUM 1 GM in NS MINI-BAG PLUS 50 ML IV SCH (18:24)
[2022-01-05] MEDS: ACETAMINOPHEN TAB 650MG DOSE (2X325MG) PO PRN (18:59)
[2022-01-05] MEDS: traZODone 100 MG TAB PO SCH (20:10)
[2022-01-06] VITALS (9 sets, daily range): BP systolic 88–149; BP diastolic 53–90
[2022-01-06] MEDS: HYDROMORPHONE HCL 0.5 MG/ 0.5 ML SYRINGE (J1170 PER 1) IV PRN ×4 (01:42→17:25)
[2022-01-06] MEDS: ACETAMINOPHEN TAB 650MG DOSE (2X325MG) PO PRN (03:36)
[2022-01-06] MEDS: KETOROLAC 30 MG/ML 1ML VIAL IV PRN (03:46)
[2022-01-06] MEDS: ONDANSETRON 4MG 2ML VIAL IV PRN (03:46)
[2022-01-06] MEDS: GASTROGRAFIN SOLUTION 30ML PO SCH ×2 (06:17→06:30)
[2022-01-06] MEDS ORDERED: ISOVUE-370 76% 100ML VIAL As Ordered ONE (07:45)
[2022-01-06] MEDS: ENOXAPARIN 40MG/0.4ML SYRINGE (J1650 PER 10MG) SC SCH (08:07)
[2022-01-06 08:51] LABS: ALBUMIN 2.2 GM/DL (3.2-5.2); ALT/SGPT 12 U/L (12-78); BILIRUBIN,TOTAL 0.4 MG/DL (0.2-1.0); BLOOD UREA NITROGEN 7 MG/DL (7-18); CALCIUM LEVEL 8.4 MG/DL (8.8-10.2); CARBON DIOXIDE LEVEL 21 MEQ/L (21-32); CHLORIDE LEVEL 105 MEQ/L (98-107); CREATININE FOR GFR 0.46 MG/DL (0.55-1.30); GLOMERULAR FILTRATION RATE > 60.0 (>45); GLUCOSE, FASTING 93 MG/DL (70-100); POTASSIUM SERUM 3.6 MEQ/L (3.5-5.1); SODIUM LEVEL 138 MEQ/L (136-145); TOTAL PROTEIN 5.6 GM/DL (6.4-8.2)
[2022-01-06 09:02] LABS: BASO # 0.1 10^3/uL (0.0-0.2); BASO % 0.4 % (0.0-1.0); EOS # 0.2 10^3/uL (0.0-0.5); EOS % 1.2 % (0.0-3.0); HEMATOCRIT 31.3 % (36.0-47.0); HEMOGLOBIN 10.8 g/dl (12.0-15.5); LYMPH # 1.6 10^3/uL (1.5-5.0); LYMPH % 9.3 % (24.0-44.0); MEAN CORPUSCULAR HEMOGLOBIN 29.2 pg (27.0-33.0); MEAN CORPUSCULAR HGB CONC 34.5 g/dl (32.0-36.5); MEAN CORPUSCULAR VOLUME 84.6 fl (80.0-96.0); NEUTROPHILS # 13.7 10^3/uL (1.5-8.5); NEUTROPHILS % 77.7 % (36.0-66.0); PLATELET COUNT, AUTOMATED 363 10^3/uL (150-450); WHITE BLOOD COUNT 17.6 10^3/uL (4.0-10.0)
[2022-01-06] MEDS: LR 1,000 ML IV SCH ×2 (09:12→20:09)
[2022-01-06 09:41] LABS: MONO # 1.8 10^3/uL (0.0-0.8)
[2022-01-06] MEDS ORDERED: LIDOCAINE 1% MDV 20ML VIAL As Ordered ONE (10:51)
[2022-01-06] MEDS: SODIUM CHLORIDE 0.9% INJ 10 ML SYR IV SCH (17:25)
[2022-01-06] MEDS: ERTAPENEM SODIUM 1 GM in NS MINI-BAG PLUS 50 ML IV SCH (18:03)
[2022-01-06] MEDS: traZODone 100 MG TAB PO SCH (20:09)
[2022-01-06] MEDS ORDERED: NS 1,000 ML IV ONE (22:20)
[2022-01-06] MEDS: NS 1,000 ML IV SCH (23:31)
[2022-01-07 02:00] VITALS: BP 100/58
[2022-01-07] MEDS: SODIUM CHLORIDE 0.9% INJ 10 ML SYR IV SCH ×2 (05:03→18:47)
[2022-01-07 06:00] VITALS: BP 118/63
[2022-01-07] MEDS: KETOROLAC 30 MG/ML 1ML VIAL IV PRN ×3 (06:57→18:46)
[2022-01-07] MEDS: NS 1,000 ML IV SCH ×2 (07:00→14:57)
[2022-01-07] MEDS: ENOXAPARIN 40MG/0.4ML SYRINGE (J1650 PER 10MG) SC SCH (08:23)
[2022-01-07 10:00] VITALS: BP 119/64
[2022-01-07 14:00] VITALS: BP 137/75
[2022-01-07] MEDS: D5W/LR 1,000 ML IV SCH (17:23)
[2022-01-07 18:00] VITALS: BP 159/86
[2022-01-07] MEDS: ERTAPENEM SODIUM 1 GM in NS MINI-BAG PLUS 50 ML IV SCH (18:46)
[2022-01-07] MEDS: HYDROMORPHONE HCL 0.5 MG/ 0.5 ML SYRINGE (J1170 PER 1) IV PRN (20:10)
[2022-01-07] MEDS: traZODone 100 MG TAB PO SCH (20:23)
[2022-01-07 22:00] VITALS: BP 159/86
[2022-01-08] MEDS: KETOROLAC 30 MG/ML 1ML VIAL IV PRN ×4 (01:12→20:58)
[2022-01-08 01:41] VITALS: BP 157/84
[2022-01-08] MEDS: HYDROMORPHONE HCL 0.5 MG/ 0.5 ML SYRINGE (J1170 PER 1) IV PRN ×3 (01:55→18:28)
[2022-01-08] MEDS: SODIUM CHLORIDE 0.9% INJ 10 ML SYR IV PRN ×2 (01:56→20:59)
[2022-01-08] MEDS: SODIUM CHLORIDE 0.9% INJ 10 ML SYR IV SCH ×2 (05:04→18:27)
[2022-01-08 05:50] VITALS: BP 136/74
[2022-01-08] MEDS: D5W/LR 1,000 ML IV SCH ×2 (08:27→20:38)
[2022-01-08] MEDS: ENOXAPARIN 40MG/0.4ML SYRINGE (J1650 PER 10MG) SC SCH (08:28)
[2022-01-08 08:31] LABS: BASO # 0.1 10^3/uL (0.0-0.2); BASO % 0.6 % (0.0-1.0); EOS # 0.2 10^3/uL (0.0-0.5); EOS % 1.9 % (0.0-3.0); HEMATOCRIT 29.5 % (36.0-47.0); HEMOGLOBIN 9.6 g/dl (12.0-15.5); LYMPH # 1.9 10^3/uL (1.5-5.0); LYMPH % 20.2 % (24.0-44.0); MEAN CORPUSCULAR HEMOGLOBIN 27.9 pg (27.0-33.0); MEAN CORPUSCULAR HGB CONC 32.5 g/dl (32.0-36.5); MEAN CORPUSCULAR VOLUME 85.8 fl (80.0-96.0); MONO # 0.9 10^3/uL (0.0-0.8); NEUTROPHILS % 64.7 % (36.0-66.0); PLATELET COUNT, AUTOMATED 386 10^3/uL (150-450); RED BLOOD COUNT 3.44 10^6/uL (4.00-5.40); WHITE BLOOD COUNT 9.3 10^3/uL (4.0-10.0)
[2022-01-08 08:52] LABS: ALBUMIN 2.1 GM/DL (3.2-5.2); ALT/SGPT 15 U/L (12-78); BILIRUBIN,TOTAL 0.3 MG/DL (0.2-1.0); BLOOD UREA NITROGEN 10 MG/DL (7-18); CALCIUM LEVEL 8.5 MG/DL (8.8-10.2); CARBON DIOXIDE LEVEL 25 MEQ/L (21-32); CHLORIDE LEVEL 111 MEQ/L (98-107); CREATININE FOR GFR 0.41 MG/DL (0.55-1.30); GLOMERULAR FILTRATION RATE > 60.0 (>45); GLUCOSE, FASTING 106 MG/DL (70-100); POTASSIUM SERUM 3.5 MEQ/L (3.5-5.1); SODIUM LEVEL 143 MEQ/L (136-145); TOTAL PROTEIN 5.2 GM/DL (6.4-8.2)
[2022-01-08 10:00] VITALS: BP 132/71
[2022-01-08 14:00] VITALS: BP 165/96
[2022-01-08 18:00] VITALS: BP 146/81
[2022-01-08] MEDS: ERTAPENEM SODIUM 1 GM in NS MINI-BAG PLUS 50 ML IV SCH (18:27)
[2022-01-08] MEDS: traZODone 100 MG TAB PO SCH (20:37)
[2022-01-08 21:00] VITALS: BP 149/93
[2022-01-09] VITALS (7 sets, daily range): BP systolic 114–160; BP diastolic 69–90
[2022-01-09] MEDS: KETOROLAC 30 MG/ML 1ML VIAL IV PRN ×3 (02:36→20:13)
[2022-01-09] MEDS: SODIUM CHLORIDE 0.9% INJ 10 ML SYR IV PRN (02:36)
[2022-01-09] MEDS: ONDANSETRON 4MG 2ML VIAL IV PRN ×3 (02:51→15:10)
[2022-01-09] MEDS: ACETAMINOPHEN TAB 650MG DOSE (2X325MG) PO PRN ×2 (02:51→02:52)
[2022-01-09] MEDS: SODIUM CHLORIDE 0.9% INJ 10 ML SYR IV SCH ×2 (06:16→18:20)
[2022-01-09 06:37] LABS: HEMATOCRIT 29.9 % (36.0-47.0); HEMOGLOBIN 9.6 g/dl (12.0-15.5); MEAN CORPUSCULAR HEMOGLOBIN 27.6 pg (27.0-33.0); MEAN CORPUSCULAR HGB CONC 32.1 g/dl (32.0-36.5); MEAN CORPUSCULAR VOLUME 85.9 fl (80.0-96.0); PLATELET COUNT, AUTOMATED 427 10^3/uL (150-450); RED BLOOD COUNT 3.48 10^6/uL (4.00-5.40); WHITE BLOOD COUNT 11.8 10^3/uL (4.0-10.0)
[2022-01-09 07:16] LABS: BLOOD UREA NITROGEN 8 MG/DL (7-18); CALCIUM LEVEL 8.4 MG/DL (8.8-10.2); CARBON DIOXIDE LEVEL 25 MEQ/L (21-32); CHLORIDE LEVEL 109 MEQ/L (98-107); CREATININE FOR GFR 0.48 MG/DL (0.55-1.30); GLOMERULAR FILTRATION RATE > 60.0 (>45); GLUCOSE, FASTING 118 MG/DL (70-100); POTASSIUM SERUM 3.5 MEQ/L (3.5-5.1); SODIUM LEVEL 144 MEQ/L (136-145)
[2022-01-09] MEDS: ENOXAPARIN 40MG/0.4ML SYRINGE (J1650 PER 10MG) SC SCH (08:51)
[2022-01-09] MEDS: D5W/LR 1,000 ML IV SCH (14:54)
[2022-01-09] MEDS: HYDROMORPHONE HCL 0.5 MG/ 0.5 ML SYRINGE (J1170 PER 1) IV PRN (15:10)
[2022-01-09] MEDS: ERTAPENEM SODIUM 1 GM in NS MINI-BAG PLUS 50 ML IV SCH (18:20)
[2022-01-09] MEDS: traZODone 100 MG TAB PO SCH (20:11)
[2022-01-10] MEDS: D5W/LR 1,000 ML IV SCH (05:37)
[2022-01-10] MEDS: SODIUM CHLORIDE 0.9% INJ 10 ML SYR IV SCH ×2 (05:38→17:53)
[2022-01-10 06:49] VITALS: BP 140/80
[2022-01-10] MEDS: ONDANSETRON 4MG 2ML VIAL IV PRN (08:30)
[2022-01-10] MEDS: ENOXAPARIN 40MG/0.4ML SYRINGE (J1650 PER 10MG) SC SCH (08:31)
[2022-01-10 08:34] LABS: HEMATOCRIT 30.5 % (36.0-47.0); HEMOGLOBIN 9.9 g/dl (12.0-15.5); MEAN CORPUSCULAR HEMOGLOBIN 27.7 pg (27.0-33.0); MEAN CORPUSCULAR HGB CONC 32.5 g/dl (32.0-36.5); MEAN CORPUSCULAR VOLUME 85.4 fl (80.0-96.0); PLATELET COUNT, AUTOMATED 420 10^3/uL (150-450); RED BLOOD COUNT 3.57 10^6/uL (4.00-5.40); WHITE BLOOD COUNT 9.2 10^3/uL (4.0-10.0)
[2022-01-10] MEDS: KETOROLAC 30 MG/ML 1ML VIAL IV PRN (08:39)
[2022-01-10] MEDS: SODIUM CHLORIDE 0.9% INJ 10 ML SYR IV PRN ×2 (08:40→12:11)
[2022-01-10 09:29] LABS: ATYPICAL LYMPH 1 % (0-5); EOSINOPHILS 5 % (0-3); LYMPHOCYTES 24 % (16-44); MONOCYTES 8 % (0-5); MYELOCYTES 1 % (0-0); NEUTROPHILS 58 % (28-66)
[2022-01-10 09:30] LABS: MICROCYTOSIS 1+; POLYCHROMASIA 1+; TEAR DROP CELLS 1+
[2022-01-10 09:31] LABS: OVALOCYTES 1+; PLATELET ESTIMATE INCREASED (NORMAL)
[2022-01-10 10:00] VITALS: BP 165/86
[2022-01-10] MEDS ORDERED: ISOVUE-370 76% 100ML VIAL As Ordered ONE (11:19)
[2022-01-10] MEDS: HYDROMORPHONE HCL 0.5 MG/ 0.5 ML SYRINGE (J1170 PER 1) IV PRN ×3 (12:13→22:07)
[2022-01-10 14:00] VITALS: BP 123/63
[2022-01-10] MEDS ORDERED: LIDOCAINE 1% MDV 20ML VIAL As Ordered ONE (15:31)
[2022-01-10] MEDS: ERTAPENEM SODIUM 1 GM in NS MINI-BAG PLUS 50 ML IV SCH (17:53)
[2022-01-10 18:00] VITALS: BP 149/82
[2022-01-10 18:30] VITALS: BP 140/68
[2022-01-10] MEDS: traZODone 100 MG TAB PO SCH (21:49)
[2022-01-10 22:14] VITALS: BP 165/74
[2022-01-11] MEDS: HYDROMORPHONE HCL 0.5 MG/ 0.5 ML SYRINGE (J1170 PER 1) IV PRN ×2 (04:30→09:06)
[2022-01-11 06:00] VITALS: BP 125/70
[2022-01-11] MEDS: SODIUM CHLORIDE 0.9% INJ 10 ML SYR IV SCH ×2 (06:15→18:31)
[2022-01-11] MEDS: ENOXAPARIN 40MG/0.4ML SYRINGE (J1650 PER 10MG) SC SCH (08:58)
[2022-01-11 10:00] VITALS: BP 125/69
[2022-01-11 14:00] VITALS: BP 129/69
[2022-01-11] MEDS: NORCO, ANEXSIA 5/325MG TABLET (HYDROcodone/ACETAMINOPHEN) PO PRN (17:21)
[2022-01-11 18:00] VITALS: BP 136/69
[2022-01-11] MEDS: ERTAPENEM SODIUM 1 GM in NS MINI-BAG PLUS 50 ML IV SCH (18:30)
[2022-01-11 22:00] VITALS: BP 125/62
[2022-01-11] MEDS: traZODone 100 MG TAB PO SCH (22:02)
[2022-01-12 02:00] VITALS: BP 129/64
[2022-01-12 05:20] VITALS: BP 154/71
[2022-01-12] MEDS: SODIUM CHLORIDE 0.9% INJ 10 ML SYR IV SCH ×2 (05:24→17:14)
[2022-01-12] MEDS: ENOXAPARIN 40MG/0.4ML SYRINGE (J1650 PER 10MG) SC SCH (09:06)
[2022-01-12 10:00] VITALS: BP 147/70
[2022-01-12] MEDS: NORCO, ANEXSIA 5/325MG TABLET (HYDROcodone/ACETAMINOPHEN) PO PRN (13:21)
[2022-01-12 14:00] VITALS: BP 144/69
[2022-01-12 18:00] VITALS: BP 142/70
[2022-01-12] MEDS: ERTAPENEM SODIUM 1 GM in NS MINI-BAG PLUS 50 ML IV SCH (19:22)
[2022-01-12 21:39] VITALS: BP 141/71
[2022-01-12] MEDS: traZODone 100 MG TAB PO SCH (22:13)
[2022-01-13] MEDS: SODIUM CHLORIDE 0.9% INJ 10 ML SYR IV SCH ×2 (05:55→18:07)
[2022-01-13 06:00] VITALS: BP 144/72
[2022-01-13 08:08] LABS: BASO # 0.1 10^3/uL (0.0-0.2); BASO % 0.5 % (0.0-1.0); EOS # 0.4 10^3/uL (0.0-0.5); EOS % 3.4 % (0.0-3.0); HEMATOCRIT 34.8 % (36.0-47.0); HEMOGLOBIN 11.4 g/dl (12.0-15.5); LYMPH # 1.8 10^3/uL (1.5-5.0); LYMPH % 17.5 % (24.0-44.0); MEAN CORPUSCULAR HEMOGLOBIN 28.5 pg (27.0-33.0); MEAN CORPUSCULAR HGB CONC 32.8 g/dl (32.0-36.5); MONO # 0.8 10^3/uL (0.0-0.8); MONO % 8.1 % (2.0-8.0); NEUTROPHILS # 7.1 10^3/uL (1.5-8.5); NEUTROPHILS % 68.8 % (36.0-66.0); PLATELET COUNT, AUTOMATED 451 10^3/uL (150-450); WHITE BLOOD COUNT 10.3 10^3/uL (4.0-10.0)
[2022-01-13 08:35] LABS: ALBUMIN 2.4 GM/DL (3.2-5.2); ALT/SGPT 11 U/L (12-78); BILIRUBIN,TOTAL 0.3 MG/DL (0.2-1.0); BLOOD UREA NITROGEN 7 MG/DL (7-18); CALCIUM LEVEL 8.5 MG/DL (8.8-10.2); CARBON DIOXIDE LEVEL 31 MEQ/L (21-32); CHLORIDE LEVEL 105 MEQ/L (98-107); CREATININE FOR GFR 0.48 MG/DL (0.55-1.30); GLOMERULAR FILTRATION RATE > 60.0 (>45); GLUCOSE, FASTING 94 MG/DL (70-100); POTASSIUM SERUM 3.1 MEQ/L (3.5-5.1); SODIUM LEVEL 143 MEQ/L (136-145); TOTAL PROTEIN 5.7 GM/DL (6.4-8.2)
[2022-01-13] MEDS: ENOXAPARIN 40MG/0.4ML SYRINGE (J1650 PER 10MG) SC SCH (09:48)
[2022-01-13] MEDS: NORCO, ANEXSIA 5/325MG TABLET (HYDROcodone/ACETAMINOPHEN) PO PRN ×2 (09:50→21:59)
[2022-01-13 10:00] VITALS: BP 153/82
[2022-01-13 14:00] VITALS: BP 150/80
[2022-01-13] MEDS ORDERED: FLUCONAZOLE 100 MG TAB PO ONE ×3 (14:00→16:00)
[2022-01-13] MEDS: POTASSIUM CHLORIDE 10MEQ SR TABLET PO SCH ×3 (14:16→18:07)
[2022-01-13] MEDS: SENOKOT S TAB PO SCH (18:06)
[2022-01-13] MEDS: ERTAPENEM SODIUM 1 GM in NS MINI-BAG PLUS 50 ML IV SCH (18:07)
[2022-01-13] MEDS: ONDANSETRON 4MG 2ML VIAL IV PRN (19:19)
[2022-01-13 20:51] VITALS: BP 157/81
[2022-01-13] MEDS: traZODone 100 MG TAB PO SCH (21:58)
[2022-01-14 04:00] VITALS: BP 106/60
[2022-01-14] MEDS: SODIUM CHLORIDE 0.9% INJ 10 ML SYR IV SCH ×2 (05:03→18:13)
[2022-01-14] MEDS: SODIUM CHLORIDE 0.9% INJ 10 ML SYR IV PRN ×2 (05:04→20:16)
[2022-01-14 06:14] LABS: BASO % 0.3 % (0.0-1.0); EOS # 0.3 10^3/uL (0.0-0.5); EOS % 2.1 % (0.0-3.0); HEMATOCRIT 36.6 % (36.0-47.0); HEMOGLOBIN 11.9 g/dl (12.0-15.5); LYMPH # 2.9 10^3/uL (1.5-5.0); LYMPH % 23.7 % (24.0-44.0); MEAN CORPUSCULAR HEMOGLOBIN 28.3 pg (27.0-33.0); MEAN CORPUSCULAR HGB CONC 32.5 g/dl (32.0-36.5); MEAN CORPUSCULAR VOLUME 86.9 fl (80.0-96.0); MONO % 7.8 % (2.0-8.0); NEUTROPHILS # 7.9 10^3/uL (1.5-8.5); NEUTROPHILS % 64.6 % (36.0-66.0); PLATELET COUNT, AUTOMATED 475 10^3/uL (150-450); RED BLOOD COUNT 4.21 10^6/uL (4.00-5.40); WHITE BLOOD COUNT 12.2 10^3/uL (4.0-10.0)
[2022-01-14 07:22] LABS: BLOOD UREA NITROGEN 9 MG/DL (7-18); CALCIUM LEVEL 9.2 MG/DL (8.8-10.2); CARBON DIOXIDE LEVEL 28 mmol/L (20-29); CHLORIDE LEVEL 104 MEQ/L (98-107); CREATININE FOR GFR 0.58 MG/DL (0.55-1.30); GLOMERULAR FILTRATION RATE > 60.0 (>45); GLUCOSE, FASTING 92 MG/DL (70-100); POTASSIUM SERUM 3.9 MEQ/L (3.5-5.1); SODIUM LEVEL 141 MEQ/L (136-145)
[2022-01-14 07:23] LABS: C REACTIVE PROTEIN QUANTITATIV 2.85 MG/DL (0.00-0.30)
[2022-01-14] MEDS: SENOKOT S TAB PO SCH ×2 (09:06→20:15)
[2022-01-14] MEDS: ENOXAPARIN 40MG/0.4ML SYRINGE (J1650 PER 10MG) SC SCH (09:07)
[2022-01-14] MEDS: NORCO, ANEXSIA 5/325MG TABLET (HYDROcodone/ACETAMINOPHEN) PO PRN ×2 (09:19→20:17)
[2022-01-14] MEDS ORDERED: FLUCONAZOLE 100 MG TAB PO SCH ×2 (12:00)
[2022-01-14 14:00] VITALS: BP 167/76
[2022-01-14 18:00] VITALS: BP 167/76
[2022-01-14] MEDS: ERTAPENEM SODIUM 1 GM in NS MINI-BAG PLUS 50 ML IV SCH (18:50)
[2022-01-14] MEDS: traZODone 100 MG TAB PO SCH (20:15)
[2022-01-15 02:00] VITALS: BP 145/72
[2022-01-15 06:00] VITALS: BP 136/68
[2022-01-15] MEDS: SODIUM CHLORIDE 0.9% INJ 10 ML SYR IV SCH (06:38)
[2022-01-15] MEDS: SODIUM CHLORIDE 0.9% INJ 10 ML SYR IV PRN (06:39)
[2022-01-15] MEDS: SENOKOT S TAB PO SCH (08:40)
[2022-01-15] MEDS: ENOXAPARIN 40MG/0.4ML SYRINGE (J1650 PER 10MG) SC SCH (08:40)
[2022-01-15] MEDS ORDERED: FLUC200T4 PO (12:06)
[2022-01-15] MEDS ORDERED: CIPR-249 PO (12:06)
[2022-01-15] MEDS ORDERED: METR-265 PO (12:06)
[2022-01-15] MEDS ORDERED: HYDR-3715 PO (12:06)
== END 2022-01-15 13:03 | disposition home or self-care (01) | DRG 392 ==
LOC: M MSPAV 22:22 → EEVIPCON 22:22
PROVIDERS: ADMIT Surgery; ATTEND Surgery
PROC: 0W9J30Z Drainage of Pelvic Cavity with Drainage Device, Percutaneous Approach (ICD-10-PCS; 2022-01-06)
PROC: 0WPJ30Z Removal of Drainage Device from Pelvic Cavity, Percutaneous Approach (ICD-10-PCS; 2022-01-06)
PROC: 02HV33Z Insertion of Infusion Device into Superior Vena Cava, Percutaneous Approach (ICD-10-PCS; principal; 2022-01-06 10:43)
DX: K57.20 Diverticulitis of large intestine with perforation and abscess without bleeding (principal); E87.6 Hypokalemia; G47.33 Obstructive sleep apnea (adult) (pediatric); E06.3 Autoimmune thyroiditis; F32.A Depression, unspecified; J44.9 Chronic obstructive pulmonary disease, unspecified; I10 Essential (primary) hypertension; B96.20 Unspecified Escherichia coli [E. coli] as the cause of diseases classified elsewhere; J45.909 Unspecified asthma, uncomplicated; K21.9 Gastro-esophageal reflux disease without esophagitis; Z88.8 Allergy status to other drugs, medicaments and biological substances; Z79.890 Hormone replacement therapy; Z79.2 Long term (current) use of antibiotics; Z79.899 Other long term (current) drug therapy; Z20.822 Contact with and (suspected) exposure to COVID-19; Z90.79 Acquired absence of other genital organ(s); Z90.49 Acquired absence of other specified parts of digestive tract; E78.5 Hyperlipidemia, unspecified; M79.7 Fibromyalgia; Z86.73 Personal history of transient ischemic attack (TIA), and cerebral infarction without residual deficits

== ENCOUNTER → 2022-01-28 | Outpatient (REF) | payer MEDICARE, OTHER ==
[~2022-01-28] MED LIST changes: +FLUC200T4 PO; +HYDR-3715 PO
== END ==
LOC: M LAB REF 16:14
PROVIDERS: ATTEND Internal Medicine
DX: R30.0 Dysuria (principal); N76.0 Acute vaginitis

== ENCOUNTER → 2022-02-12 | Outpatient (CLI) | payer MEDICARE, OTHER | LOC: M WHC 12:14 | PROVIDERS: ATTEND Internal Medicine | DX: R10.2 Pelvic and perineal pain (principal) ==

== ENCOUNTER → 2022-06-20 | Outpatient (REF) | payer MEDICARE, OTHER | LOC: M LAB REF 16:13 | PROVIDERS: ATTEND Internal Medicine | DX: R32 Unspecified urinary incontinence (principal) ==

== ENCOUNTER → 2022-07-03 | Outpatient (CLI) | payer MEDICARE, OTHER ==
[~2022-07-03] MED LIST changes: +CVS10CAP7 PO
[2022-07-03 10:09] LABS: BLOOD UREA NITROGEN 17 MG/DL (9-23); CREATININE FOR GFR 0.65 MG/DL (0.55-1.30); GLOMERULAR FILTRATION RATE > 60.0 (>45)
== END ==
LOC: M LAB 08:46
PROVIDERS: ATTEND Physician Assistant
DX: K57.20 Diverticulitis of large intestine with perforation and abscess without bleeding (principal); N82.3 Fistula of vagina to large intestine

== ENCOUNTER → 2022-07-06 | Outpatient (CLI) | payer MEDICARE, OTHER | LOC: M LABSMTC 11:44 | PROVIDERS: ATTEND Anesthesiology | DX: Z01.812 Encounter for preprocedural laboratory examination (principal); Z11.52 Encounter for screening for COVID-19 ==

== ENCOUNTER 2022-08-06 01:45 | Emergency (ER) | payer MEDICARE, OTHER ==
[~2022-08-06] VITALS: Ht 152.4 cm; Wt 73.3 kg
[2022-08-06] MEDS ORDERED: NS 1,000 ML IV ONE (02:30)
[2022-08-06 02:40] LABS: BASO # 0.1 10^3/uL (0.0-0.2); BASO % 0.5 % (0.0-1.0); EOS # 0.2 10^3/uL (0.0-0.5); EOS % 2.1 % (0.0-3.0); HEMATOCRIT 39.9 % (36.0-47.0); HEMOGLOBIN 13.4 g/dl (12.0-15.5); LYMPH # 2.9 10^3/uL (1.5-5.0); LYMPH % 29.1 % (24.0-44.0); MEAN CORPUSCULAR HEMOGLOBIN 29.6 pg (27.0-33.0); MEAN CORPUSCULAR HGB CONC 33.6 g/dl (32.0-36.5); MEAN CORPUSCULAR VOLUME 88.3 fl (80.0-96.0); MONO # 0.8 10^3/uL (0.0-0.8); MONO % 8.2 % (2.0-8.0); NEUTROPHILS # 5.9 10^3/uL (1.5-8.5); NEUTROPHILS % 59.9 % (36.0-66.0); PLATELET COUNT, AUTOMATED 258 10^3/uL (150-450); RED BLOOD COUNT 4.52 10^6/uL (4.00-5.40); WHITE BLOOD COUNT 9.9 10^3/uL (4.0-10.0)
[2022-08-06] MEDS ORDERED: METOCLOPRAMIDE INJ 10MG/2ML VIAL IV ONE (02:45)
[2022-08-06] MEDS ORDERED: KETOROLAC 30 MG/ML 1ML VIAL IV ONE (02:45)
[2022-08-06 03:03] LABS: LIPASE 41 U/L (12-53)
[2022-08-06 03:39] LABS: ALBUMIN 3.8 G/DL (3.2-5.2); ALKALINE PHOSPHATASE 80 U/L (46-116); ALT/SGPT 18 U/L (7.0-40); AST/SGOT 19 U/L (<34); BILIRUBIN,DIRECT 0.1 MG/DL (<0.4); BILIRUBIN,TOTAL 0.4 MG/DL (0.3-1.2); BLOOD UREA NITROGEN 17 MG/DL (9-23); CALCIUM LEVEL 9.5 MG/DL (8.3-10.6); CARBON DIOXIDE LEVEL 27 MMOL/L (20-31); CHLORIDE LEVEL 106 MMOL/L (98-107); CREATININE FOR GFR 0.68 MG/DL (0.55-1.30); GLOMERULAR FILTRATION RATE > 60.0 (>45); GLUCOSE, FASTING 138 MG/DL (74-106); POTASSIUM SERUM 3.4 MMOL/L (3.5-5.1); SODIUM LEVEL 140 MMOL/L (136-145); TOTAL PROTEIN 6.7 G/DL (5.7-8.2)
[2022-08-06] MEDS ORDERED: ISOVUE-370 76% 100ML VIAL As Ordered ONE (04:08)
[2022-08-06] MEDS ORDERED: ONDA4TAB6 PO (06:05)
[2022-08-06] MEDS ORDERED: TRAM50TA2 PO (06:05)
[2022-08-06] MEDS ORDERED: FLOM0.4C39 PO (06:05)
[2022-08-06 06:20] VITALS: BP 142/70
== END 2022-08-06 06:36 | disposition home or self-care (01) ==
LOC: M ED 01:45
DX: N20.1 Calculus of ureter (principal); N20.0 Calculus of kidney; K57.30 Diverticulosis of large intestine without perforation or abscess without bleeding; R91.1 Solitary pulmonary nodule; J90 Pleural effusion, not elsewhere classified; J30.89 Other allergic rhinitis; Z87.442 Personal history of urinary calculi; Z79.899 Other long term (current) drug therapy; Z88.8 Allergy status to other drugs, medicaments and biological substances
CPT/HCPCS: 74177; 80053; 82248; 83605; 83690; 85025; 87040; 96374; 96375; 99284; J1885; J2765; Q9967

== ENCOUNTER → 2022-08-22 | Outpatient (REF) | payer MEDICARE, OTHER ==
[2022-08-25 19:07] LABS: ANTINUCLEAR ANTIBODIES DIRECT Negative (Negative); CYCLIC CITRULLINATED PEPTIDE 61 units (0-19); RNP ANTIBODIES <0.2 AI (0.0-0.9); SMITH ANTIBODIES <0.2 AI (0.0-0.9)
== END ==
LOC: M LAB REF 16:14
PROVIDERS: ATTEND Internal Medicine
DX: M25.59 Pain in other specified joint (principal); N39.0 Urinary tract infection, site not specified

== ENCOUNTER → 2022-09-18 | Outpatient (CLI) | payer MEDICARE, OTHER | LOC: M PLARAD 11:00 | PROVIDERS: ATTEND Internal Medicine | DX: M54.50 Low back pain, unspecified (principal) ==

== ENCOUNTER → 2022-09-29 | Outpatient (CLI) | payer MEDICARE, OTHER | LOC: M SOG 08:28 | PROVIDERS: ATTEND Orthopaedic Surgery | DX: M54.50 Low back pain, unspecified (principal); Z53.8 Procedure and treatment not carried out for other reasons ==

== ENCOUNTER → 2022-10-28 | Outpatient (REF) | payer MEDICARE, OTHER | LOC: M LAB REF 16:30 | PROVIDERS: ATTEND Internal Medicine | DX: M06.9 Rheumatoid arthritis, unspecified (principal) ==

== ENCOUNTER → 2023-01-05 | Outpatient (REF) | payer MEDICARE, OTHER | LOC: M LAB REF 16:25 | PROVIDERS: ATTEND Internal Medicine | DX: M06.9 Rheumatoid arthritis, unspecified (principal) ==

== ENCOUNTER 2023-07-04 11:09 | Inpatient (IN) | payer MEDICARE, OTHER ==
[2023-07-04] VITALS (8 sets, daily range): BP systolic 134–146; BP diastolic 65–73; TEMP 97.8–98.5; O2SAT 88–99
[~2023-07-04] VITALS: Ht 152.4 cm; Wt 72.1 kg
[~2023-07-04 11:09] MED LIST changes: +CEFD1CAP9 PO; -CEFD300C41 PO; -GABA-283 PO; +GABA-284 PO; -OXYB5TAB10 PO; +OXYB5TAB11 PO
[2023-07-04] MEDS ORDERED: OXYC1TAB23 PO (11:20)
[2023-07-04] MEDS ORDERED: NS 1,000 ML IV ONE ×3 (12:10→15:30)
[2023-07-04] MEDS ORDERED: ONDANSETRON 4MG 2ML VIAL IV ONE (12:10)
[2023-07-04] MEDS: MORPHINE 2 MG/ML 1ML VIAL IV PRN ×2 (12:30→13:42)
[2023-07-04 12:31] LABS: BASO # 0.1 10^3/uL (0.0-0.2); BASO % 0.4 % (0.0-1.0); EOS # 0.1 10^3/uL (0.0-0.5); EOS % 0.7 % (0.0-3.0); HEMOGLOBIN 13.7 g/dl (12.0-15.5); LYMPH # 1.2 10^3/uL (1.5-5.0); LYMPH % 9.3 % (24.0-44.0); MEAN CORPUSCULAR HEMOGLOBIN 29.6 pg (27.0-33.0); MEAN CORPUSCULAR HGB CONC 33.4 g/dl (32.0-36.5); MEAN CORPUSCULAR VOLUME 88.6 fl (80.0-96.0); MONO # 1.1 10^3/uL (0.0-0.8); MONO % 8.5 % (2.0-8.0); NEUTROPHILS # 10.3 10^3/uL (1.5-8.5); NEUTROPHILS % 80.8 % (36.0-66.0); RED BLOOD COUNT 4.63 10^6/uL (4.00-5.40); WHITE BLOOD COUNT 12.8 10^3/uL (4.0-10.0)
[2023-07-04] MEDS ORDERED: LIDOCAINE 2% 5ML JELLY UROJET TOP ONE (12:40)
[2023-07-04] MEDS ORDERED: ISOVUE-370 76% 100ML VIAL As Ordered ONE (12:54)
[2023-07-04 12:55] LABS: LIPASE 34 U/L (12-53)
[2023-07-04 12:56] LABS: AMYLASE 30 U/L (30-118)
[2023-07-04 12:57] LABS: ALBUMIN 3.6 G/DL (3.2-5.2); ALKALINE PHOSPHATASE 119 U/L (46-116); ALT/SGPT 27 U/L (7.0-40); AST/SGOT 22 U/L (<34); BILIRUBIN,DIRECT 0.3 MG/DL (<0.4); BILIRUBIN,TOTAL 0.8 MG/DL (0.3-1.2); TOTAL PROTEIN 6.9 G/DL (5.7-8.2)
[2023-07-04 13:00] LABS: CK-MB VALUE MASS < 1.0 NG/ML (<3.6)
[2023-07-04 13:07] LABS: RSV AMPLIFICATION NEGATIVE (NEGATIVE)
[2023-07-04 13:16] LABS: CPK CREATINE PHOSPHOKINASE 20 U/L (34-145)
[2023-07-04 13:17] LABS: PROCALCITONIN 0.18 ng/ml
[2023-07-04 14:01] LABS: INR 1.18; PROTHROMBIN TIME 14.6 SECONDS (12.5-14.5)
[2023-07-04 14:02] LABS: PARTIAL THROMBOPLASTIN TIME 25.6 SECONDS (24.8-34.2)
[2023-07-04] MEDS ORDERED: PIPERACILLIN/TAZOBACTAM SOD 4.5 GM in D5W MINI-BAG PLUS 50 ML IV ONE (15:10)
[2023-07-04 15:15] LABS: CK-MB VALUE MASS < 1.0 NG/ML (<3.6)
[2023-07-04 15:19] LABS: CPK CREATINE PHOSPHOKINASE 16 U/L (34-145); MB/CK RELATIVE INDEX 6.25 (< OR =4)
[2023-07-04] MEDS ORDERED: ENOXAPARIN 40MG/0.4ML SYRINGE (J1650 PER 10MG) SC ONE (15:30)
[2023-07-04] MEDS ORDERED: GLUCAGON INJ 1MG VIAL SC PRN (16:20)
[2023-07-04] MEDS ORDERED: GLUCOSE 4GM CHEW TABLET PO PRN (16:20)
[2023-07-04] MEDS ORDERED: DEXTROSE 50% 50ML SYRINGE IV PRN (16:20)
[2023-07-04 16:50] LABS: HEMOGLOBIN A1c 5.2 % (4.0-6.0)
[2023-07-04] MEDS: INSULIN LISPRO (NovoLOG) PER UNIT SC SCH (17:30)
[2023-07-04] MEDS ORDERED: HYDROMORPHONE HCL 0.5 MG/ 0.5 ML SYRINGE IV ONE (18:25)
[2023-07-04] MEDS ORDERED: NS 1,000 ML IV SCH (18:30)
[2023-07-04] MEDS ORDERED: HOME MED LIST COMPLETE! XX SCH (18:30)
[2023-07-04] MEDS ORDERED: diphenhydrAMINE 50MG/ML VIAL IV PRN (18:30)
[2023-07-04] MEDS ORDERED: ONDANSETRON 4MG 2ML VIAL IV PRN (18:30)
[2023-07-04] MEDS ORDERED: NALOXONE INJ 0.4MG/1ML VIAL IV PRN (18:30)
[2023-07-04] MEDS ORDERED: PROMETHAZINE 25MG/ML 1ML VIAL IV PRN (18:30)
[2023-07-04] MEDS ORDERED: EPIDURAL/PCA KEYS XX PRN (18:30)
[2023-07-04] MEDS ORDERED: PROMETHAZINE 25MG/ML 1ML VIAL IV ONE (18:30)
[2023-07-04] MEDS ORDERED: MORPHINE 1MG/ML IN 0.9% NACL 100ML IV BAG IV PRN (18:30)
[2023-07-04] MEDS ORDERED: INSULIN LISPRO (NovoLOG) PER UNIT SC SCH (21:00)
[2023-07-04] MEDS: NS 1,000 ML IV SCH (21:24)
[2023-07-04 21:25] LABS: BASO % 0.2 % (0.0-1.0); EOS # 0.1 10^3/uL (0.0-0.5); EOS % 0.4 % (0.0-3.0); HEMATOCRIT 35.2 % (36.0-47.0); HEMOGLOBIN 11.9 g/dl (12.0-15.5); LYMPH # 1.4 10^3/uL (1.5-5.0); LYMPH % 11.3 % (24.0-44.0); MEAN CORPUSCULAR HEMOGLOBIN 29.9 pg (27.0-33.0); MEAN CORPUSCULAR HGB CONC 33.8 g/dl (32.0-36.5); MEAN CORPUSCULAR VOLUME 88.4 fl (80.0-96.0); MONO # 1.1 10^3/uL (0.0-0.8); MONO % 8.7 % (2.0-8.0); NEUTROPHILS # 9.9 10^3/uL (1.5-8.5); NEUTROPHILS % 79.1 % (36.0-66.0); PLATELET COUNT, AUTOMATED 281 10^3/uL (150-450); RED BLOOD COUNT 3.98 10^6/uL (4.00-5.40); WHITE BLOOD COUNT 12.5 10^3/uL (4.0-10.0)
[2023-07-04] MEDS: KETOROLAC 30 MG/ML 1ML VIAL IV SCH (21:25)
[2023-07-04] MEDS: PIPERACILLIN/TAZOBACTAM SOD 4.5 GM in D5W MINI-BAG PLUS 50 ML IV SCH (21:26)
[2023-07-04 21:48] LABS: CK-MB VALUE MASS < 1.0 NG/ML (<3.6)
[2023-07-04 21:49] LABS: CPK CREATINE PHOSPHOKINASE 28 U/L (34-145); MB/CK RELATIVE INDEX 3.57 (< OR =4)
[2023-07-05] VITALS (13 sets, daily range): BP systolic 111–143; BP diastolic 56–64; TEMP 96.7–100.3; O2SAT 95–100
[2023-07-05] MEDS ORDERED: PERCOCET 5MG/325MG TAB PO SCH
[2023-07-05] MEDS: PROMETHAZINE 25MG/ML 1ML VIAL IV SCH ×2 (01:00→07:00)
[2023-07-05] MEDS: PIPERACILLIN/TAZOBACTAM SOD 4.5 GM in D5W MINI-BAG PLUS 50 ML IV SCH ×4 (02:41→20:33)
[2023-07-05] MEDS: KETOROLAC 30 MG/ML 1ML VIAL IV SCH ×4 (02:41→20:33)
[2023-07-05 08:10] LABS: BLOOD UREA NITROGEN 16 MG/DL (9-23); CALCIUM LEVEL 8.1 MG/DL (8.3-10.6); CARBON DIOXIDE LEVEL 22 MMOL/L (20-31); CHLORIDE LEVEL 110 MMOL/L (98-107); CREATININE FOR GFR 0.62 MG/DL (0.55-1.30); GLOMERULAR FILTRATION RATE > 60.0 (>39); GLUCOSE, FASTING 89 MG/DL (74-106); POTASSIUM SERUM 3.9 MMOL/L (3.5-5.1); SODIUM LEVEL 142 MMOL/L (136-145)
[2023-07-05] MEDS: INSULIN LISPRO (NovoLOG) PER UNIT SC SCH (08:14)
[2023-07-05] MEDS ORDERED: SENOKOT S TAB PO PRN (08:20)
[2023-07-05] MEDS ORDERED: MORPHINE 2 MG/ML 1ML VIAL IV PRN (08:20)
[2023-07-05] MEDS ORDERED: METOCLOPRAMIDE INJ 10MG/2ML VIAL IV ONE (08:20)
[2023-07-05] MEDS ORDERED: MOM 30ML SUSPENSION UDC PO PRN (08:20)
[2023-07-05] MEDS ORDERED: PERCOCET 5MG/325MG TAB PO PRN (08:20)
[2023-07-05] MEDS ORDERED: FLEET ENEMA PR PRN (08:20)
[2023-07-05] MEDS ORDERED: MORPHINE 2 MG/ML 1ML VIAL IV ONE (08:20)
[2023-07-05] MEDS: NS 1,000 ML IV SCH ×3 (09:11→20:35)
[2023-07-05] MEDS: ENOXAPARIN 40MG/0.4ML SYRINGE (J1650 PER 10MG) SC SCH (09:13)
[2023-07-05] MEDS ORDERED: PROMETHAZINE 25MG/ML 1ML VIAL IV PRN (12:00)
[2023-07-05 12:53] LABS: BASO % 0.3 % (0.0-1.0); EOS # 0.1 10^3/uL (0.0-0.5); EOS % 1.5 % (0.0-3.0); HEMATOCRIT 33.6 % (36.0-47.0); HEMOGLOBIN 11.4 g/dl (12.0-15.5); LYMPH # 0.9 10^3/uL (1.5-5.0); LYMPH % 12.4 % (24.0-44.0); MEAN CORPUSCULAR HEMOGLOBIN 30.2 pg (27.0-33.0); MEAN CORPUSCULAR HGB CONC 33.9 g/dl (32.0-36.5); MEAN CORPUSCULAR VOLUME 89.1 fl (80.0-96.0); MONO # 0.5 10^3/uL (0.0-0.8); MONO % 6.8 % (2.0-8.0); NEUTROPHILS # 5.7 10^3/uL (1.5-8.5); NEUTROPHILS % 78.6 % (36.0-66.0); PLATELET COUNT, AUTOMATED 249 10^3/uL (150-450); RED BLOOD COUNT 3.77 10^6/uL (4.00-5.40); WHITE BLOOD COUNT 7.2 10^3/uL (4.0-10.0)
[2023-07-06] MEDS: KETOROLAC 30 MG/ML 1ML VIAL IV SCH ×4 (02:39→20:49)
[2023-07-06] MEDS: PIPERACILLIN/TAZOBACTAM SOD 4.5 GM in D5W MINI-BAG PLUS 50 ML IV SCH ×4 (02:39→21:54)
[2023-07-06 06:00] VITALS: BP 141/60; TEMP 97.1; O2SAT 98
[2023-07-06 06:53] LABS: BASO % 0.5 % (0.0-1.0); EOS # 0.2 10^3/uL (0.0-0.5); HEMATOCRIT 33.7 % (36.0-47.0); LYMPH # 1.5 10^3/uL (1.5-5.0); LYMPH % 23.3 % (24.0-44.0); MEAN CORPUSCULAR HEMOGLOBIN 29.2 pg (27.0-33.0); MEAN CORPUSCULAR HGB CONC 32.6 g/dl (32.0-36.5); MEAN CORPUSCULAR VOLUME 89.4 fl (80.0-96.0); MONO # 0.7 10^3/uL (0.0-0.8); MONO % 11.2 % (2.0-8.0); NEUTROPHILS # 3.9 10^3/uL (1.5-8.5); NEUTROPHILS % 61.4 % (36.0-66.0); PLATELET COUNT, AUTOMATED 247 10^3/uL (150-450); RED BLOOD COUNT 3.77 10^6/uL (4.00-5.40); WHITE BLOOD COUNT 6.4 10^3/uL (4.0-10.0)
[2023-07-06 07:15] LABS: BLOOD UREA NITROGEN 15 MG/DL (9-23); CALCIUM LEVEL 8.1 MG/DL (8.3-10.6); CARBON DIOXIDE LEVEL 22 MMOL/L (20-31); CHLORIDE LEVEL 113 MMOL/L (98-107); CREATININE FOR GFR 0.62 MG/DL (0.55-1.30); GLOMERULAR FILTRATION RATE > 60.0 (>39); GLUCOSE, FASTING 89 MG/DL (74-106); POTASSIUM SERUM 3.7 MMOL/L (3.5-5.1); SODIUM LEVEL 142 MMOL/L (136-145)
[2023-07-06] MEDS: ENOXAPARIN 40MG/0.4ML SYRINGE (J1650 PER 10MG) SC SCH (08:46)
[2023-07-06] MEDS: NS 1,000 ML IV SCH (08:46)
[2023-07-06] MEDS ORDERED: MOM 30ML SUSPENSION UDC PO ONE (13:30)
[2023-07-06 14:00] VITALS: BP 118/66; TEMP 98.6; O2SAT 94
[2023-07-06] MEDS ORDERED: BACI1CAP PO (16:03)
[2023-07-06] MEDS ORDERED: AMOX875T2 PO (16:03)
[2023-07-06] MEDS ORDERED: LORazepam 0.5 MG TAB PO ONE (23:25)
[2023-07-07] MEDS: KETOROLAC 30 MG/ML 1ML VIAL IV SCH ×2 (02:10→08:23)
[2023-07-07] MEDS: PIPERACILLIN/TAZOBACTAM SOD 4.5 GM in D5W MINI-BAG PLUS 50 ML IV SCH ×2 (02:11→08:23)
[2023-07-07 06:06] VITALS: BP 111/56; TEMP 97.2; O2SAT 97
[2023-07-07] MEDS: ENOXAPARIN 40MG/0.4ML SYRINGE (J1650 PER 10MG) SC SCH (08:23)
[2023-07-07 09:57] LABS: BASO % 0.3 % (0.0-1.0); EOS # 0.2 10^3/uL (0.0-0.5); EOS % 3.1 % (0.0-3.0); HEMATOCRIT 34.1 % (36.0-47.0); HEMOGLOBIN 11.6 g/dl (12.0-15.5); LYMPH # 1.9 10^3/uL (1.5-5.0); LYMPH % 25.4 % (24.0-44.0); MEAN CORPUSCULAR HEMOGLOBIN 29.5 pg (27.0-33.0); MEAN CORPUSCULAR VOLUME 86.8 fl (80.0-96.0); MONO # 0.8 10^3/uL (0.0-0.8); MONO % 10.9 % (2.0-8.0); NEUTROPHILS # 4.5 10^3/uL (1.5-8.5); NEUTROPHILS % 59.5 % (36.0-66.0); PLATELET COUNT, AUTOMATED 306 10^3/uL (150-450); RED BLOOD COUNT 3.93 10^6/uL (4.00-5.40); WHITE BLOOD COUNT 7.5 10^3/uL (4.0-10.0)
[2023-07-07 10:24] LABS: BLOOD UREA NITROGEN 9 MG/DL (9-23); CALCIUM LEVEL 8.3 MG/DL (8.3-10.6); CARBON DIOXIDE LEVEL 26 MMOL/L (20-31); CHLORIDE LEVEL 108 MMOL/L (98-107); CREATININE FOR GFR 0.52 MG/DL (0.55-1.30); GLOMERULAR FILTRATION RATE > 60.0 (>39); GLUCOSE, FASTING 91 MG/DL (74-106); POTASSIUM SERUM 3.5 MMOL/L (3.5-5.1); SODIUM LEVEL 142 MMOL/L (136-145)
== END 2023-07-07 11:15 | disposition home or self-care (01) | DRG 391 ==
LOC: M ED 11:09 → M ED INP 15:26 → M MS4PR 18:11 → M MS5PR 07-06 21:29
PROVIDERS: ADMIT General Practice; ATTEND General Practice
DX: K57.32 Diverticulitis of large intestine without perforation or abscess without bleeding (principal); G92.8 Other toxic encephalopathy; K63.0 Abscess of intestine; E78.5 Hyperlipidemia, unspecified; H40.9 Unspecified glaucoma; E03.9 Hypothyroidism, unspecified; E06.3 Autoimmune thyroiditis; M54.50 Low back pain, unspecified; G89.29 Other chronic pain; F41.9 Anxiety disorder, unspecified; M06.9 Rheumatoid arthritis, unspecified; F32.A Depression, unspecified; L40.50 Arthropathic psoriasis, unspecified; J30.9 Allergic rhinitis, unspecified; G47.00 Insomnia, unspecified; T42.6X5A Adverse effect of other antiepileptic and sedative-hypnotic drugs, initial encounter; T40.2X5A Adverse effect of other opioids, initial encounter; Z90.49 Acquired absence of other specified parts of digestive tract; M85.80 Other specified disorders of bone density and structure, unspecified site; Z79.899 Other long term (current) drug therapy; Z88.8 Allergy status to other drugs, medicaments and biological substances; Z86.73 Personal history of transient ischemic attack (TIA), and cerebral infarction without residual deficits

== ENCOUNTER → 2023-07-13 | Outpatient (REF) | payer MEDICARE, OTHER ==
[~2023-07-13] MED LIST changes: +AMOX875T2 PO; +BACI1CAP PO; +OXYC1TAB23 PO
== END ==
LOC: M LAB REF 13:40
PROVIDERS: ATTEND Internal Medicine
DX: K57.00 Diverticulitis of small intestine with perforation and abscess without bleeding (principal)

== ENCOUNTER → 2024-08-16 | Outpatient (REF) | payer MEDICARE, OTHER ==
[~2024-08-16] MED LIST changes: +FLUC-1 PO; -FLUC200T4 PO; +ONDA-282 PO; -ONDA4TAB6 PO; -OXYB5TAB11 PO; +OXYB5TAB14 PO; +TRAM1TAB42 PO; -TRAM37.53 PO
[2024-08-17 13:37] LABS: RNP ANTIBODY <1.0 NEG AI (<1.0 NEG); SM ANTIBODY <1.0 NEG AI (<1.0 NEG); SSA SJOGRENS A <1.0 NEG AI (<1.0 NEG); SSB SJOGRENS B <1.0 NEG AI (<1.0 NEG)
[2024-08-17 14:27] LABS: CYCLIC CITRULLINATED PEPTIDE < 16 UNITS (<20)
== END ==
LOC: M LAB REF 13:06
PROVIDERS: ATTEND Internal Medicine
DX: M06.09 Rheumatoid arthritis without rheumatoid factor, multiple sites (principal)

== ENCOUNTER → 2024-09-06 | Outpatient (REF) | payer MEDICARE, OTHER ==
[2024-09-06 19:17] LABS: COMPLEMENT C3 196.5 MG/DL (90.0-170.0); COMPLEMENT C4 40.1 MG/DL (12-36)
[2024-09-08 15:56] LABS: HOMOCYST(E)INE SERUM 13.7 umol/L (<10.4)
[2024-09-09 01:07] LABS: CARDIOLIPIN IGA ANTIBODY < 2.0 APL-U/mL (<20.0); CARDIOLIPIN IGG ANTIBODY < 2.0 GPL-U/mL (<20.0); CARDIOLIPIN IGM ANTIBODY < 2.0 MPL-U/mL (<20.0)
[2024-09-09 10:29] LABS: DRVV SCREEN 29.1 SECONDS
[2024-09-09 10:40] LABS: PTT LUPUS TYPE ANTICOAG SCREEN 0.77 (0-1.20)
[2024-09-12 02:02] LABS: ANTI THROMBIN 3 FUNCT ACTIVITY 115 % normal (80-135); PROTEIN C FUNCTIONAL ACTIVITY 158 % normal (70-180); PROTEIN S FUNCTIONAL ACTIVITY 88 % normal (60-140)
[2024-09-12 15:41] LABS: FACTOR II PROTHROMBIN GENE AN NEGATIVE
[2024-09-13 19:38] LABS: FACTOR V LEIDEN FOR MEDINET NEGATIVE
[2024-09-14 19:22] LABS: MTHFR DNA ANALYSIS POSITIVE
== END ==
LOC: M LAB REF 14:58
PROVIDERS: ATTEND Internal Medicine
DX: M06.09 Rheumatoid arthritis without rheumatoid factor, multiple sites (principal); M25.50 Pain in unspecified joint

== ENCOUNTER → 2024-09-08 | Outpatient (CLI) | payer MEDICARE, OTHER | LOC: M RAD 13:42 | PROVIDERS: ATTEND Internal Medicine | DX: I80.03 Phlebitis and thrombophlebitis of superficial vessels of lower extremities, bilateral (principal) ==

== ENCOUNTER → 2025-03-29 | Outpatient (REF) | payer MEDICARE, OTHER ==
[~2025-03-29] MED LIST changes: +AMLO-751 PO; -AMLO10TA PO; -FLOM0.4C39 PO; +TAMS-18 PO
[2025-03-29 17:57] LABS: APPEARANCE, URINE CLOUDY (CLEAR); BACTERIA, URINE AUTO NEGATIVE (NEGATIVE); BILIRUBIN, URINE AUTO NEGATIVE (NEGATIVE); BLOOD, URINE BLOOD 1+ (NEGATIVE); CALCIUM OXALATE CRYSTALS LARGE; GLUCOSE, URINE (UA) AUTO 1+ mg/dL (NEGATIVE); KETONE, URINE AUTO NEGATIVE (NEGATIVE); LEUKOCYTE ESTERASE, URINE AUTO 3+ (NEGATIVE); MUCUS, URINE SMALL (NEGATIVE); NITRITE, URINE AUTO NEGATIVE (NEGATIVE); PROTEIN, URINE AUTO NEGATIVE (NEGATIVE); RBC, URINE AUTO 13 /HPF (0-3); SPECIFIC GRAVITY URINE AUTO 1.016 (1.002-1.035); SQUAMOUS EPITHELIAL CELL UR AU 28 /HPF (0-6); UROBILINOGEN, URINE AUTO 2.0 mg/dL (0.0-2.0); WBC, URINE AUTO 144 /HPF (0-3)
[2025-03-29 18:03] LABS: TOTAL PROTEIN,RANDOM URINE 21.4 MG/DL (0.0-14.0)
[2025-03-29 19:32] LABS: C REACTIVE PROTEIN QUANTITATIV < 0.50 MG/DL (<1.0)
[2025-03-29 19:33] LABS: ALT/SGPT 28 U/L (7.0-40); AST/SGOT 20 U/L (<34); CALCIUM LEVEL 9.4 MG/DL (8.3-10.6); CARBON DIOXIDE LEVEL 29 MMOL/L (20-31); CHLORIDE LEVEL 106 MMOL/L (98-107); COMPLEMENT C4 37.7 MG/DL (12-36); CREATININE FOR GFR 0.58 MG/DL (0.55-1.30); GLOMERULAR FILTRATION RATE > 90.0 (>39); POTASSIUM SERUM 3.8 MMOL/L (3.5-5.1); SODIUM LEVEL 144 MMOL/L (136-145)
[2025-03-29 19:35] LABS: BASO # 0.1 10^3/uL (0.0-0.2); BASO % 0.9 % (0.0-1.0); EOS # 0.3 10^3/uL (0.0-0.5); EOS % 3.4 % (0.0-3.0); LYMPH # 2.9 10^3/uL (1.5-5.0); LYMPH % 34.6 % (24.0-44.0); MONO # 0.8 10^3/uL (0.0-0.8); MONO % 9.0 % (2.0-8.0); NEUTROPHILS # 4.4 10^3/uL (1.5-8.5); NEUTROPHILS % 51.6 % (36.0-66.0); PLATELET COUNT, AUTOMATED 310 10^3/uL (150-450)
[2025-03-29 19:47] LABS: ERYTHROCYTE SEDIMENTATION RATE 26 mm/hr (0-30)
== END ==
LOC: M SFHCRHEU 14:44
PROVIDERS: ATTEND Internal Medicine Rheumatology
DX: R52 Pain, unspecified (principal); R76.0 Raised antibody titer; H04.123 Dry eye syndrome of bilateral lacrimal glands; R53.83 Other fatigue; R20.2 Paresthesia of skin